=== PATIENT | male | born 1945 | race Caucasian/White ===

== ENCOUNTER 2024-07-21 11:00 | Inpatient (IN) | payer OTHER, SELFPAY ==
--- NOTE | ~2024-07-21 | XR_ITS ---
EXAMINATION: XR CHEST CLINICAL INFORMATION: fall, injury COMPARISON: None available. TECHNIQUE: Frontal view of the chest was obtained. FINDINGS: Mild elevation left hemidiaphragm. The cardiac, hilar, and mediastinal contours appear normal. The lungs are clear. No pneumothorax, consolidation, or effusion. No definite acute fractures seen. There are old healed right rib fractures. There are spinal and right shoulder joint degenerative changes. XR/XR chest 1V IMPRESSION: No active disease. No acute finding. Electronically signed by: Jerome Jung MD 07/21/2024 12:14 PM [facility]
--- NOTE | ~2024-07-21 | CT_ITS ---
CLINICAL HISTORY: abdominal pain CT abdomen and pelvis without contrast Comparison: None Findings: The lung bases are clear. The liver, gallbladder, spleen and adrenal glands are unremarkable. The pancreas is mildly atrophic. The kidneys exhibit severe hydroureteronephrosis related to an extremely distended bladder. Questioned debris versus soft tissue within the bladder The prostate gland is enlarged. No bowel obstruction or free air. No acute osseous abnormality. Severe atherosclerotic disease Impression: Severe bilateral hydroureteronephrosis related to extremely distended bladder as detailed suspect bladder outlet obstruction Questioned debris versus soft tissue within the bladder Several additional incidental and/or chronic findings This document has been electronically signed by: Jarod Dickerson MD on 08/22/2024 10:50:43
--- NOTE | ~2024-07-21 | CT_ITS ---
EXAMINATION: CT CERVICAL SPINE WITHOUT CONTRAST CLINICAL INFORMATION: Status post fall. COMPARISON: None available. TECHNIQUE: Contiguous axial images through the cervical spine using 3 mm collimation with bone and soft tissue algorithm. Sagittal and coronal reformatted images acquired. This CT examination was performed using dose optimization techniques as appropriate, variously including the following: *Automated exposure control *Adjustment of mA and/or kV according to patient size (this includes techniques or standardized protocols for targeted exams where dose is matched to indication/reason for exam; i.e. extremities or head) *Use of iterative reconstruction technique. DLP: 542.84 mGy centimeter. FINDINGS: Craniocervical junction is intact. There is a partially calcified pannus formation, periodontal. C1 is intact. C2 is intact. C3 is intact. C4 is intact. C5 is intact. C3 C6 is intact. C3 7 is intact. Multilevel marginal osteophyte formation and endplate sclerosis and irregularity with decreased intervertebral disc height more conspicuous at C5-6 and C7-T1 and to a lesser extent C3-4. Chondrocalcinosis at C3-4. Calcifications of the ligamentum flavum from C2-3 to C6-7 levels. Bilateral facet joint hypertrophy from C3 to C7. No gross malalignment. Superior endplate compression deformity at C7 representing 30% volume loss, probably old. No gross prevertebral compartment hematoma. Calcified plaques in the carotic artery system bilaterally. Osteopenia versus osteoporosis. CT/CT cervical spine wo IV con IMPRESSION: Multilevel cervical spondylosis without gross acute fracture or trauma-related listhesis. If patient's symptoms persist consider noncontrast MRI cervical spine. Fleischner guidelines were followed. Electronically signed by: Galdino Boogie MD 07/21/2024 11:59 AM PILO
--- NOTE | ~2024-07-21 | XR_ITS ---
EXAMINATION: XR HIP, RIGHT CLINICAL INFORMATION: pain, injury COMPARISON: None available. TECHNIQUE: Two views of the right hip. FINDINGS: Osteopenia. There is an acute fracture line traversing the right intertrochanteric region without displacement. There are 3 compression screws within the right femoral head, fixating old fracture. No loosening of the hardware is evident. Hardware appears intact. The left hip demonstrates intramedullary hilary with compression screw in the left femoral head. No definite acute fracture. The pelvis appears intact without definite fracture radiographically. There are degenerative changes in the lower lumbar spine and bilateral SI joints. No discrete soft tissue abnormalities. XR/XR hip RT w PEL1V IMPRESSION: 1. Acute intertrochanteric hip fracture, superimposed on the old healed subcapital right hip fracture. 2. No displacement or loosening of the hardware. Electronically signed by: Jerome Jung MD 07/21/2024 12:19 PM [facility]
--- NOTE | ~2024-07-21 | XR_ITS ---
EXAMINATION: XR HIP, RIGHT CLINICAL INFORMATION: R hip fx COMPARISON: July 21, 2024. TECHNIQUE: Two views of the right hip. FINDINGS: There are 3 intact metallic screws through the right femoral head neck and intertrochanteric region. No acute cortical disruption or malalignment, right hip. Intramedullary hilary in the proximal left femur no fully included. Metallic transfixation screw through the left femoral head neck. Osteopenia versus osteoporosis. Degenerative changes in the sacroiliac joints and symphysis pubis. XR/XR hip RT w PEL1V IMPRESSION: No acute fracture or dislocation, right hip. If patient's symptoms persist consider CT. Electronically signed by: Galdino Boogie MD 08/04/2024 09:40 AM [facility]
--- NOTE | ~2024-07-21 | CT_ITS ---
EXAMINATION: CT HEAD WITHOUT CONTRAST CLINICAL INFORMATION: fall, injury COMPARISON: None available. TECHNIQUE: Contiguous axial imaging was performed from the skull base to vertex without intravenous administration of contrast. This CT examination was performed using dose optimization techniques as appropriate, variously including the following: *Automated exposure control *Adjustment of mA and/or kV according to patient size (this includes techniques or standardized protocols for targeted exams where dose is matched to indication/reason for exam; i.e. extremities or head) *Use of iterative reconstruction technique DLP: 842.68 mGy-cm FINDINGS: The bony calvarium is intact. The skull base is intact. No acute intracranial hemorrhage, mass effect, midline shift, hydrocephalus or herniation. Cronin-white matter differentiation is normal. Posterior cranial fossa contents demonstrated no acute intracranial hemorrhage or mass effect. Bilateral multifocal patchy and confluent deep periventricular white matter hypodensities involving centrum semiovale and valentino radiata and brainstem, the most conspicuous in the right midline of the radhames. Prominence of the extra-axial CSF spaces cerebral sulci and ventricles. Soft tissue contusion and right parietal scalp. Calcified plaques in the cavernous segments both ICAs. Mucosal thickening, ethmoid air cells. Small retention cysts versus polyp in the left nasal cavity. Tympanic cavities and mastoid cells are aerated. No hematoma in the intraconal or extraconal compartments of the orbits. CT/CT head/brain wo IV con IMPRESSION: No acute fracture, bony calvarium. No acute intracranial hemorrhage. Small vessel occlusive disease. Superimposed acute nonhemorrhagic stroke/ischemia cannot be entirely excluded, particularly involving the infratentorial compartment/right mid radhames. Electronically signed by: Galdino Boogie MD 07/21/2024 11:52 AM EST
--- NOTE | ~2024-07-21 | XR_ITS ---
CLINICAL HISTORY: constipation, abd pain 1 view abdomen Comparison: None Findings: No pneumoperitoneum or pneumatosis. No abnormal calcifications. No acute fractures. IMPRESSION: The bowel gas pattern is within normal limits. No bowel obstruction or free air. No significant fecal retention by radiograph. This document has been electronically signed by: Jarod Dickerson MD on 08/22/2024 09:30:35
--- NOTE | 2024-07-21 11:06 | ED_ITS ---
HPI - General Adult General Chief complaint: Fall Stated complaint: FALL,RT HIP PAIN PER EMS Time Seen by Provider: 07/21/24 11:05 Source: patient and EMS Mode of arrival: EMS Limitations: no limitations History of Present Illness ED Provider: María Elena Ny PA-C HPI narrative: Patient is a 78 year old assigned male at with a history of DM, HTN, tobacco use (3 packs per day), and previous bilateral hip surgeries presenting to the emergency department today with right hip pain after a slip and fall. Patient states that he was attempting to get back into his niece's house when he slipped and fell, landing on his right hip. Patient states that he did not hit his head and did not have any loss of consciousness. Patient denies any dizziness, lightheadedness, abdominal pain, nausea, vomiting, fever, chills, blurry vision, double vision, loss of vision, chest pain, difficulty breathing, shortness of breath, back pain, night sweats, pain with urination, increased urinary frequency, increased urinary urgency, blood in his urine or stool, syncope or a near syncopal episode, bowel incontinence, bladder incontinence, or any other complaints at this time. Location: right and lower extremity (hip) Relieving factors: immobilization Exacerbating factors: movement Associated symptoms: denies other symptoms Treatments prior to arrival: none Related Data Allergies Allergy/AdvReac Type Severity Reaction Status Date / Time morphine Allergy Unknown Verified 07/21/24 12:35 Review of Systems 2 Constitutional: Constitutional: Reports no additional constitutional complaints, Denies chills, Denies fever(s) and Denies night sweats Eyes: Eyes: Reports no additional eye complaints, Denies blurry vision, Denies change in vision, Denies diplopia, Denies eye discharge, Denies loss of vision and Denies eye pain ENT: Denies dizziness Cardiovascular: Cardiovascular: Reports no additional cardiovascular complaints, Denies chest pain, Denies lightheadedness, Denies Loss of Consciousness and Denies dyspnea Respiratory: Respiratory: Reports no additional respiratory complaints and Denies dyspnea Gastrointestinal: Gastrointestinal: Reports no additional gastrointestinal complaints, Denies abdominal pain, Denies melena, Denies hematochezia, Denies change in bowel habits and Denies change in stool character Genitourinary: Genitourinary: Reports no additional male genitourinary complaints, Denies hematuria, Denies oliguria, Denies difficulty urinating, Denies dysuria, Denies urinary frequency, Denies urinary hesitancy, Denies urinary incontinence and Denies urinary urgency Musculoskeletal: Musculoskeletal: Reports no additional musculoskeletal complaints, Denies numbness and Denies tingling Comments: right hip pain Neurologic: Denies dizziness, Denies loss of vision, Denies numbness and Denies tingling Psychiatric: Psychiatric: Reports no additional psychiatric complaints Endocrine: Endocrine: Reports no additional endocrine complaints Hematologic/Lymphatic: Hematologic/Lymphatic: Reports no additional hematologic/lymphatic complaints Allergic/Immunologic: Allergic/Immunologic: Reports no additional allergic/immunologic complaints [facility] Past Medical History Attestation statement: The following information was validated with the patient. Source: old records reviewed, nursing notes reviewed and other ([facility] Medical Records reviewed) Social History Social History Advance Directives: No Advance Directives Information Provided: Yes Physical Exam ED Vital Signs: Vital Signs - 24 hr 07/21/24 12:33 Pulse Rate 101 H Respiratory Rate 20 Blood Pressure 132/92 H Pulse Oximetry 95 Oxygen Delivery Method Room Air BMI result Body Mass Index 32.6 Const General: cooperative, no acute distress, alert and awake Nutritional Appearance: well nourished Orientation/consciousness: patient oriented x3 Limitations: no limitations HENMT Head: Yes normal to inspection and Yes atraumatic Ears: hearing grossly normal bilaterally and external ears normal General nose exam: Normal external nose present, no nasal discharge noted and no epistaxis Face and sinus: Yes normal facial exam, No abrasion and No laceration Mouth: Normal oral and palatal mucosa present, no drooling and no muffled voice Eyes General: appearance normal, both eyes and all related structures Periorbital: periorbital findings normal Eyelids: Yes eyelids normal Conjunctivae: conjunctivae normal Pupils: Equal, round and reactive pupils present EOM: EOMs intact bilaterally Neck Neck: Yes normal visual inspection, Yes full ROM and Yes no lymphadenopathy Chest Chest palpation & inspection: normal inspection of the chest Resp Effort & Inspection: normal respiratory effort and able to speak in complete sentences GI Inspection: Yes normal to inspection Back/Spine/Pelvis Other: right hip pain wiht palpation and ROM Neuro General: patient oriented x3 and moves all extremities Cranial nerves: Yes Equal, round and reactive pupils present Cognition (Neuro): normal cognition Extrem General: Yes normal to inspection, Yes full ROM and Yes capillary refill normal Psych Appearance: grossly normal Mental Status: mental status grossly normal Affect: normal affect Attitude: cooperative Thought process: Normal thought process present Thought content: Normal thought content present Insight: Good insight present (Psych) Medications Administered Discontinued Medications Generic Name Dose Route Start Last Admin Trade Name Meghann PRN Reason Stop Dose Admin Acetaminophen 1,000 mg in 100 mls @ 400 mls/hr 07/21/24 12:52 07/21/24 12:57 Ofirmev IV 07/21/24 13:06 400 mls/hr ONCE ONE Administration Morphine Sulfate 4 mg 07/21/24 11:07/21/24 12:58 Morphine Sulfate 4 Mg/Ml Cartridge IVPUSH 07/21/24 11:07 Not Given ONCE ONE Protocol Ondansetron HCl 4 mg 07/21/24 11:06 07/21/24 12:50 Ondansetron Hcl 4 Mg/2 Ml Vial IVPUSH 07/21/24 11:07 4 mg ONCE ONE Administration Medical Decision Making Medical Decision Making MDM Narrative: Patient is a 78 year old assigned male at with a history of DM, HTN, tobacco use (3 packs per day), and previous bilateral hip surgeries presenting to the emergency department today with right hip pain after a slip and fall. Patient's physical exam was as noted in the physical exam portion of this note. Patient's blood work was unremarkable. Patient's head and c-spine CTs showed no acute process. Patient's right hip and pelvis x-ray showed an acute intertrochanteric hip fracture superimposed on the old healed subcapital right hip fracture with no displacement or loosening of hardware . I spoke to the orthopedic team who stated that the fracture looks stable and the patient can be partial weight bearing on that side with outpatient follow up. I explained my physical exam findings as well as all test results to the patient. I answered all questions asked by the patient. When reviewing the patient's recent visit to [facility] - I discovered the patient is currently homeless. I called and spoke to the patient's niece who was adamant that the patient is not allowed back at her house and he is to go to the [place] [facility] in [place] ([phone]). She states that the [facility], when [facility] the [facility] and [facility] back to [facility]. Patient was then to go to the [facility]'s home however, he was also declined from there and told EMS to drive him back to his niece's house which is where he slipped and injured himself today. [facility] of [facility] called and repeated the same information to me about the patient being now homeless and needing housing assistance. Physical therapy evaluation and case management consults placed. Patient will remain in physician observation until these are completed. Patient is a full code and a diabetic diet has been ordered. Will request nursing complete a med reconciliation. Differential Diagnosis Differential Diagnoses: The differential diagnosis associated with the presentation includes Slip and fall Right hip fracture Homelessness Admission/Observation Consideration of admission/observation: Escalation of care including admission/observation considered Patient would have been admitted to the hospital had his work up had any findings where hospital admission was appropriate and his clinical presentation warranted hospital admission. Consult Healthcare Provider Management of the patient was discussed with: Air Intelligence Officer (spoke to the orthopedic team (Monique and Dr. Young) as noted in the MDM Rationale portion of this note.) Lab Data [facility] Lab Attestation statement: I reviewed the patient's lab results. My interpretation of these results are in the MDM Rationale portion of this note. 07/21/24 12:22 07/21/24 12:22 Labs: Lab Results 07/21/24 Range/Units 12:22 WBC 10.0 (4.8-10.8) X10*3/uL RBC 4.42 L (4.60-5.80) X10*6/uL Hgb 13.6 L (14.0-18.0) g/dl Hct 38.9 L (42.0-52.0) % MCV 88.0 (80.0-98.0) fL MCH 30.8 (27.0-33.0) pg MCHC 35.0 (31.0-36.0) g/dl RDW 14.5 (11.0-16.0) % Plt Count 288 (160-400) X10*3/uL MPV 9.5 (9.4-12.4) fL Immature Gran % (Auto) 0.5 H (0.0-0.4) % Neut % (Auto) 76.7 H (45-73) % Lymph % (Auto) 15.6 L (20-40) % [place] % (Auto) 5.5 (2-11) % Eos % (Auto) 1.2 (0-4) % Baso % (Auto) 0.5 (0-2) % Lymph # (Auto) 1.6 (1.2-4.9) X10*3/uL [place] # (Auto) 0.6 (0.1-1.2) X10*3/uL Eos # (Auto) 0.1 (0.0-0.4) X10*3/uL Baso # (Auto) 0.1 (0.0-0.2) X10*3/uL Abs Immat Gran (auto) 0.05 H (0.00-0.03) X10*3/uL Absolute Neuts (auto) 7.7 (2.0-8.3) x10*3/uL Absolute Nucleated RBC 0.000 (0.0-0.012) X10*3/uL Nucleated RBC % (auto) 0.0 (0.0-0.2) /100WBC PT 13.5 H (10.9-12.4) SEC INR 1.2 H (0.9-1.1) APTT 29.3 (26.0-36.8) SEC Sodium 142 (135-145) mmol/L Potassium 3.4 (3.3-5.1) mmol/L Chloride 106 (96-108) mmol/L Carbon Dioxide 25 (22-29) mmol/L Anion Gap 14 (12-20) BUN 11 (9-16) mg/dL Creatinine 0.86 (0.5-1.4) mg/dL Estim Creat Clear Calc 86.3 Estimated GFR > 60 Random Glucose 181 H (60-115) mg/dL Calcium 7.9 L (8.4-10.2) mg/dL Total Bilirubin 0.4 (0.0-1.0) mg/dL AST 23 (5-37) U/L ALT 7 (0-40) U/L Alkaline Phosphatase 58 (39-117) U/L Total Protein 6.6 (6.5-8.0) g/dL Albumin 3.4 L (3.5-5.0) g/dL Independent Interpretation I performed an independent interpretation of an: Plain X-Ray and CT Scan Interpretation: My interpretation is in agreement with the radiologist's impression of these imaging studies. L EXAMINATION: XR CHEST CLINICAL INFORMATION: fall, injury COMPARISON: None available. TECHNIQUE: Frontal view of the chest was obtained. FINDINGS: Mild elevation left hemidiaphragm. The cardiac, hilar, and mediastinal contours appear normal. The lungs are clear. No pneumothorax, consolidation, or effusion. No definite acute fractures seen. There are old healed right rib fractures. There are spinal and right shoulder joint degenerative changes. XR/XR chest 1V IMPRESSION: No active disease. No acute finding. Electronically signed by: Jerome Jung MD 07/21/2024 12:14 PM [facility] Dictated By: Jerome Jung MD Signed By: Electronically signed by Jerome Jung MD 07/21/24 1214 Report Number: [id number]: Total DLP = 0.00 mGy-cm EXAMINATION: CT HEAD WITHOUT CONTRAST CLINICAL INFORMATION: fall, injury COMPARISON: None available. TECHNIQUE: Contiguous axial imaging was performed from the skull base to vertex without intravenous administration of contrast. This CT examination was performed using dose optimization techniques as appropriate, variously including the following: *Automated exposure control *Adjustment of mA and/or kV according to patient size (this includes techniques or standardized protocols for targeted exams where dose is matched to indication/reason for exam; i.e. extremities or head) *Use of iterative reconstruction technique DLP: 842.68 mGy-cm FINDINGS: The bony calvarium is intact. The skull base is intact. No acute intracranial hemorrhage, mass effect, midline shift, hydrocephalus or herniation. Cronin-white matter differentiation is normal. Posterior cranial fossa contents demonstrated no acute intracranial hemorrhage or mass effect. Bilateral multifocal patchy and confluent deep periventricular white matter hypodensities involving centrum semiovale and valentino radiata and brainstem, the most conspicuous in the right midline of the radhames. Prominence of the extra-axial CSF spaces cerebral sulci and ventricles. Soft tissue contusion and right parietal scalp. Calcified plaques in the cavernous segments both ICAs. Mucosal thickening, ethmoid air cells. Small retention cysts versus polyp in the left nasal cavity. Tympanic cavities and mastoid cells are aerated. No hematoma in the intraconal or extraconal compartments of the orbits. CT/CT head/brain wo IV con IMPRESSION: No acute fracture, bony calvarium. No acute intracranial hemorrhage. Small vessel occlusive disease. Superimposed acute nonhemorrhagic stroke/ischemia cannot be entirely excluded, particularly involving the infratentorial compartment/right mid radhames. Electronically signed by: Galdino Boogie MD 07/21/2024 11:52 AM EST RP Dictated By: Galdino Hawkins MD Signed By: Electronically signed by Galdino Fairchild MD 07/21/24 1152 EXAMINATION: XR HIP, RIGHT CLINICAL INFORMATION: pain, injury COMPARISON: None available. TECHNIQUE: Two views of the right hip. FINDINGS: Osteopenia. There is an acute fracture line traversing the right intertrochanteric region without displacement. There are 3 compression screws within the right femoral head, fixating old fracture. No loosening of the hardware is evident. Hardware appears intact. The left hip demonstrates intramedullary hilary with compression screw in the left femoral head. No definite acute fracture. The pelvis appears intact without definite fracture radiographically. There are degenerative changes in the lower lumbar spine and bilateral SI joints. No discrete soft tissue abnormalities. XR/XR hip RT w PEL1V IMPRESSION: 1. Acute intertrochanteric hip fracture, superimposed on the old healed subcapital right hip fracture. 2. No displacement or loosening of the hardware. Electronically signed by: Jerome Jung MD 07/21/2024 12:19 PM EST RP Dictated By: Jerome Jung MD Signed By: Electronically signed by Jerome Jung MD 07/21/24 1219 Report Number: [id number]: Total DLP = 1396.00 mGy-cm EXAMINATION: CT CERVICAL SPINE WITHOUT CONTRAST CLINICAL INFORMATION: Status post fall. COMPARISON: None available. TECHNIQUE: Contiguous axial images through the cervical spine using 3 mm collimation with bone and soft tissue algorithm. Sagittal and coronal reformatted images acquired. This CT examination was performed using dose optimization techniques as appropriate, variously including the following: *Automated exposure control *Adjustment of mA and/or kV according to patient size (this includes techniques or standardized protocols for targeted exams where dose is matched to indication/reason for exam; i.e. extremities or head) *Use of iterative reconstruction technique. DLP: 542.84 mGy centimeter. FINDINGS: Craniocervical junction is intact. There is a partially calcified pannus formation, periodontal. C1 is intact. C2 is intact. C3 is intact. C4 is intact. C5 is intact. C3 C6 is intact. C3 7 is intact. Multilevel marginal osteophyte formation and endplate sclerosis and irregularity with decreased intervertebral disc height more conspicuous at C5-6 and C7-T1 and to a lesser extent C3-4. Chondrocalcinosis at C3-4. Calcifications of the ligamentum flavum from C2-3 to C6-7 levels. Bilateral facet joint hypertrophy from C3 to C7. No gross malalignment. Superior endplate compression deformity at C7 representing 30% volume loss, probably old. No gross prevertebral compartment hematoma. Calcified plaques in the carotic artery system bilaterally. Osteopenia versus osteoporosis. CT/CT cervical spine wo IV con IMPRESSION: Multilevel cervical spondylosis without gross acute fracture or trauma-related listhesis. If patient's symptoms persist consider noncontrast MRI cervical spine. Fleischner guidelines were followed. Electronically signed by: Galdino Boogie MD 07/21/2024 11:59 AM EST Dictated By: Galdino Hawkins MD Signed By: Electronically signed by Galdino Fairchild MD 07/21/24 1159 Radiology Impression Discussion of test interpretation with radiology: I have reviewed the radiologist's reading. Independent Historian Clinical information obtained from an independent historian. History obtained from or confirmed by: EMS (EMS provided additional history and confirmed the history provided by the patient.) and Other (Patient's niece provided additional history and confirmed the history provided by the patient.) Critical Care Time Critical Care Time Critical Care Time: Yes Total Critical Care Time: 34 Attestation: I spent 34 minutes of Critical Care Time with this patient. This does not include time spent on separately reported billable procedures. Discharge Plan Discharge Clinical Impression: Closed hip fracture, Fall from slipping, Homeless Patient Disposition: Still a Patient Print Language: Serbian
[2024-07-21 11:07] VITALS: BP 158/90; PULSE 71; O2SAT 94
[2024-07-21 12:26] LABS: MANUAL DIFF FLAG NO
[2024-07-21 12:28] LABS: Basophils Absolute Auto 0.1 X10*3/uL (0.0-0.2); Basophils Percent Auto 0.5 % (0-2); Eosinophils Absolute Auto 0.1 X10*3/uL (0.0-0.4); Eosinophils Percent Auto 1.2 % (0-4); Hematocrit 38.9 % (42.0-52.0); Hemoglobin 13.6 g/dl (14.0-18.0); Imm Gran Abs Auto 0.05 X10*3/uL (0.00-0.03); Imm Gran Pct Auto 0.5 % (0.0-0.4); Lymphocytes Absolute Auto 1.6 X10*3/uL (1.2-4.9); Lymphocytes Percent Auto 15.6 % (20-40); Mean Corpuscular Hemoglobin 30.8 pg (27.0-33.0); Mean Platelet Volume 9.5 fL (9.4-12.4); Monocytes Absolute Auto 0.6 X10*3/uL (0.1-1.2); Monocytes Percent Auto 5.5 % (2-11); Neutrophils Absolute Auto 7.7 x10*3/uL (2.0-8.3); Neutrophils Percent Auto 76.7 % (45-73); Platelet Count 288 X10*3/uL (160-400); Red Blood Count 4.42 X10*6/uL (4.60-5.80); Red Cell Distribution Width 14.5 % (11.0-16.0)
[2024-07-21 12:33] VITALS: BP 132/92; PULSE 101; RESP 20; O2SAT 95; BMI 32.6
[2024-07-21 12:37] LABS: INTERNATIONAL NORM RATIO 1.2 (0.9-1.1); Prothrombin Time 13.5 SEC (10.9-12.4)
[2024-07-21 12:39] LABS: Partial Thromboplastin Time 29.3 SEC (26.0-36.8)
[2024-07-21 12:44] LABS: Alanine Aminotransferase 7 U/L (0-40); Albumin Level 3.4 g/dL (3.5-5.0); Alkaline Phosphatase 58 U/L (39-117); Anion Gap 14 (12-20); Aspartate Amino Transferase 23 U/L (5-37); Bilirubin Total 0.4 mg/dL (0.0-1.0); Blood Urea Nitrogen 11 mg/dL (9-16); Calcium 7.9 mg/dL (8.4-10.2); Carbon Dioxide 25 mmol/L (22-29); Chloride 106 mmol/L (96-108); Creatinine Clr Calc Pharmacy 86.3; Estimated Glomerular Filt Rate > 60; Glucose Random 181 mg/dL (60-115); Potassium 3.4 mmol/L (3.3-5.1); Sodium 142 mmol/L (135-145); Total Protein 6.6 g/dL (6.5-8.0)
--- OUTSIDE RECORDS SUMMARY | 2024-07-21 12:49 | XMS_ITS | Continuity of Care Document ---
Author Organization [facility] ter Address [address] [place] [id number] Care Team Providers Care Cap Maker Name Role Phone Pedro MACHINE HEEL BUILDER, Anne Primary Care Physician Unav ailable Encounter [facility] Date(s): 07/19/24 - 07/20/[address] [address]- Encounter Diagnosis Altered mental status(Final) - 07/19/24 Discharge Disposition: A-D/C Home Attending Physician: Nata Hook MD Admitting Physician: Nata Hook MD Referring Physician: Not on Staff, Referring MD Encounter Type: Disch ES Allergies, Adverse Reactions, Alerts No Known Allergies Results Radiology Reports * Exam Date Time Procedure Performing Provider Status 07/19/24 12:[address] Head/Brain W/O Contrast Sung Kitchen; Mary (Verified) Notes: (CT Head/Brain W/O Contrast) Reason For Exam: Brain mass or lesion;Other: RESULT: CT Head/Brain W/O Contrast CT Head/Brain W/O Contrast INDICATION: pt coming from home - pts fam states he is acting altered - pt does have hx of dementia- for ems pt anwsered all orientation questions correctly; Reason: Other:; Brain mass or lesion; Clinical Question(s): Hematoma TECHNIQUE: Noncontrast head CT using axial technique and reconstructed in axial and coronal planes.Iterative reconstruction techniques are used to optimize dose and image quality. CTDIvol Head: 46.80 mGy, DLP Head: 774 mGy*cm. COMPARISON: None. FINDINGS: Vice President Media Relations view findings, lines and tubes: None. BRAIN AND EXTRA-AXIAL SPACES: No parenchymal hemorrhage, midline shift, or mass effect. Cronin-white matter differentiation is wellpreserved. No acute infarct. Mild prominence of the ventricles and sulci consistent with parenchymal volume loss. Mild low-density white matter changes. No subarachnoid hemorrhage. No subdural or epidural collection. CALVARIUM, SKULL BASE, AND SOFT TISSUES: No fractures or suspicious bony lesions. Mucosal thickening is seen in the ethmoid sinuses and left sphenoid sinus. The mastoid air cells are well aerated. Visualized orbits and globes are intact. The extracranial soft tissues are unremarkable. IMPRESSION: No acute intracranial pathology. WSN: [id number] Ordering Physician: Alberto Dee Dictated By: Bobbi Bauer MD Dictated Date/Time: 07/19/24 1:14 pm Reviewed By: Bobbi Bauer MD Signed By: Bobbi Bauer MD Signed Date/Time: 07/19/24 1:14 pm Transcribed By: MARJORIE Transcribed Date/Time: 07/19/24 1:10 pm * Exam Date Time Procedure Performing Provider Status 07/19/24 11:47 AM Chest 2 Views Frontal and Lat Mony Enciso; Auth (Verified) Notes: (Chest 2 Views Frontal and Lat) Reason For Exam: Shortness of Breath RESULT: Chest 2 Views Frontal and Lat Chest 2 Views Frontal and Lat Hx of Present Illness: pt coming from home - pts fam states he is acting altered - pt does have hx of dementia- for ems pt anwsered all orientation questions correctly; Reason: Shortness of Breath; Clinical Question(s): CHF COMPARISON: None. FINDINGS: LINES AND TUBES: None. LUNGS AND PLEURA: Clear lungs. Normal pulmonary vascularity. No pleural effusion. No pneumothorax. HEART, MEDIASTINUM AND NIKIA: Heart is normal in size. Normal mediastinal and hilar contour. BONES AND SOFT TISSUES: No acute abnormality. Healed deformity of several right lateral ribs. Degenerative changes seen in the spine and both acromioclavicular joints. IMPRESSION: No acute abnormality. WSN: [id number] Ordering Physician: Alberto Dee Dictated By: Bobbi Bauer MD Dictated Date/Time: 07/19/24 12:51 p Reviewed By: Bobbi Bauer MD Signed By: Bobbi Bauer MD Signed Date/Time: 07/19/24 12:51 pm Transcribed By: MARJORIE Transcribed Date/Time: 07/19/24 12:50 pm Vital Signs Most recent to oldest [Reference Range]: 1 2 3 Oxygen Saturation [94-100 %] 96 % (07/20/24 11:24 AM) 96 % (07/20/24 4:00 AM) 95 % (07/19/24 7:21 PM) Pulse Rate [55-90 bpm] 95 bpm *H* (07/20/24 11:24 AM) 96 bpm *H* (07/20/24 4:00 AM) 97 bpm *H* (07/19/24 7:21 PM) Blood Pressure [90-138/55-84 mm Hg] 136/100mm Hg (07/20/24 11:24 AM) 142/90mm Hg *H* (07/20/24 4:00 AM) 145/95mm Hg *H* (07/19/24 7:21 PM) Respiratory Rate [16-30 br/min] 18 br/min (07/20/24 11:24 AM) 18 br/min (07/20/24 4:00 AM) 12 br/min *L* (07/19/24 7:21 PM) Temperature [96.8-100.4 DegF] 97.5 DegF (07/20/24 11:24 AM) 98.3 DegF (07/19/24 10:43 AM) Mode of Delivery (Oxygen) Room air (07/19/24 7:00 PM) Room air (07/19/24 1:12 PM) Room air (07/19/24 10:43 AM) Blood pressure sites Arm, left (07/19/24 7:00 PM) Temperature Route Oral (07/20/24 11:24 AM) Oral (07/19/24 10:43 AM) Social History Social History Type Response Smoking Status 5-9 cigarettes (betw een 1/4 to 1/2 pack)/day in last 30 days entered on: 07/20/24 Sex Sex Representation Male (finding) EKG study * Event Display: ECG 12-Lead Authored Date: Please click on pdf link to open report * Event Display: ECG 12-Lead Authored Date: Ventricular Rate: 100 BPM QRS Duration: 92 ms Q-T Interval: 382 ms QTC Calculation(Bazett): 492 ms R [place]: -12 degrees T [place]: 51 degrees Normal sinus rhythm with Premature atrial complexes Inferior infarct , age undetermined QTcB > 480 msec Abnormal ECG No previous ECGs available Confirmed by MCKENZIE LOZOYA MD ([id number]) on 07/19/2024 5:22:36 PM [place]: MCKENZIE LOZOYA MD Patient Care team information Personnel Name: Anne Vasquez NP Insurance Providers Guarantor name: [employer] Health Plan Information #: 1 Payer: [employer] [facility] Member Number: [id number] Policy Number: CARMINA Group Number: [employer] [facility] Information #: 2 Payer: [facility] Member Number: [id number] Policy Number: CARMINA Group Number: NA
[2024-07-21] MEDS: ondansetron HCL 4 MG/2 ML VIAL IVPUSH (12:50)
[2024-07-21] MEDS: Acetaminophen 1,000 MG/100 ML PIGGYBACK 400 MG IV (12:57)
[2024-07-21 14:27] VITALS: PULSE 101; O2SAT 95
[2024-07-21] MEDS: Ibuprofen 400 MG TABLET PO ×2 (15:14→23:37)
[2024-07-21 15:23] LABS: Estimated Average Glucose 146 mg/dL; Hemoglobin A1C 180.0889 umol/L; Hemoglobin A1c % 6.7 % (<6.0); Total Hemoglobin (HGBA1C) 3597.9121 umol/L
[2024-07-21 15:28] VITALS: BP 144/96; PULSE 86; RESP 16; TEMP 36.3; O2SAT 95
--- NOTE | 2024-07-21 15:50 | MHC.CM.PN ---
CM consult received on this pt. Per ED provider, pt was previously living with his niece, who was called by ED provider and stated that she does not wish to be contacted about this pt, and that he cannot return to her home. Pt came to the ED after a fall, hip x-ray reveals acute intertrochanteric hip fracture, superimposed on the old healed subcapital right hip fracture. Per ED provider, ortho team consulted and are recommending outpatient follow up. PT evaluated pt and are recommending STR, pt is partial weight bearing. This CM contacted the [facility], they do not have much information on the pt as he was from [place], but they state he is not VA connected. This CM received a phone call from Briana at [facility], [facility] had filed with them when he discharged last month, Briana was inquiring on his discharge plan. Per Briana, pt was going to stay at the [facility] prior to arriving at the hospital. This CM met with pt to obtain information. Per pt, he was living in [place] and was hospitalized for some time, he states they discharged him and he had to take a 2 day bus trip to [place]. Pt states he went to stay at his nieces house on Jul 15, but that she was making him feel like a nervous wreck and treats him like a dog . Pt is unsure of his plan now. This CM called pts benito Berger, unable to reach, voicemail left for her at # [phone]. This CM placed a referral to financial counselor.
[2024-07-21 16:31] LABS: Glucose, Whole Blood 105 mg/dL (60-115)
--- NOTE | 2024-07-21 18:19 | MHC.CM.ED ---
Addendum entered by Diana Owusu 07/21/24 18:49: CM verified with registration that pt has Medicare part A and B [id number]. Pt also has [facility] Care Net. Pt is poor historian. States president said several years ago that all vets are fully covered for health care and medications. Pt does not know if he has medicare, but he states the government takes money from his check. Pt is vague regarding his past history. States he was paying a plaster mold maker for room/board in [place] and that plaster mold maker was stealing money from his bank. States those people moved to [place], so he took a bus here. States he did not know he could not live with his niece. Per [facility], patient is not vet connected. Pt states he was in the service for 2 years during the [place] war. GSSS involved. PT recommending rehab. Pt does not have a qualifying stay. Will make referrals to acute rehab due to hip fx. Per ortho, patient can follow up outpatient with partial weight bearing. Pt is homeless. Uses a cane. States he has a walker at his niece's house. Pt has no services. Vague regarding history. No PCP. No HCP on file. Pt is cooperative, but demanding. Addendum entered by Diana Owusu 07/21/24 18:25: PT recommending STR. Will place referrals. Original Note: CM spoke with patient's niece Celine Chan. Celine states CM can call her with information about patient and disposition, but he cannot stay with her. She states he was yelling at her and making her nervous. States he came to her home uninvited. She has section 8 housing and cannot have him live with her. She is afraid to lose her housing. She states that her uncle is from [place] and was living in [place] until about a week ago. CM reviewing medical record. Will speak with patient. Will review PT assessment.
[2024-07-21 18:23] VITALS: BP 175/104; PULSE 98; RESP 16; TEMP 36.6; O2SAT 96
[2024-07-21] MEDS: Acetaminophen 325 MG TABLET 650 MG PO (19:34)
[2024-07-21] MEDS: oxyCODONE HCl Immed Release 5 MG TABLET PO (19:34)
[2024-07-21 20:06] LABS: Glucose, Whole Blood 197 mg/dL (60-115)
[2024-07-21 20:15] VITALS: BP 138/83; PULSE 110; RESP 20; TEMP 36.9; O2SAT 94
[2024-07-22] MEDS: Melatonin 3 MG TABLET 6 MG PO (02:20)
[2024-07-22] MEDS: Acetaminophen 325 MG TABLET 650 MG PO ×3 (02:20→19:16)
[2024-07-22] MEDS: Ibuprofen 400 MG TABLET PO ×5 (04:57→19:15)
--- NOTE | 2024-07-22 05:01 | PC.NURSE ---
pt medicated per mar.
--- NOTE | 2024-07-22 05:02 | PC.NURSE ---
Took over care from LALI Grubbs, pt was medicated, resting in bed at this time, positive CMS to bilateral extremities.
[2024-07-22 05:45] VITALS: BP 113/74; PULSE 98; RESP 16; TEMP 36.4; O2SAT 94
[2024-07-22 05:46] LABS: Glucose, Whole Blood 125 mg/dL (60-115)
[2024-07-22] MEDS: oxyCODONE HCl Immed Release 5 MG TABLET PO ×3 (06:17→19:15)
--- NOTE | 2024-07-22 06:20 | PC.NURSE ---
medicated for pain management, empty urinal, reposition for comfort. poc taken.
--- NOTE | 2024-07-22 06:40 | PC.NURSE ---
pt did want Tylenol, medicated with PRN for pain managment.
[2024-07-22 07:22] LABS: Glucose, Whole Blood 126 mg/dL (60-115)
--- NOTE | 2024-07-22 10:44 | PHA.MEDREC ---
Addendum entered by Darya Mejia RPh 07/22/24 11:32: MED REC REVIEWED BY MARILY Original Note: Pharmacy Consult ? Medication Reconciliation Pharmacy has completed the medication reconciliation. Patient states he is on to many meds to remember. Patient instructed me to call Celine his niece ([phone]) to confirm his medications, however he doesn't know if she will give me any information due to them having a fight. Asked patient where he fill his medications. Patient states he just moved to [place] from [place]. He was a [facility] at [facility] ([phone]). Call the [facility] and got a list of patients medications. Confirmed patients medications for the 6 months.
[2024-07-22 11:20] LABS: IDNOW Serial# 6674DD1D
[2024-07-22 11:21] LABS: COVID-19 Test Negative (Negative)
--- NOTE | 2024-07-22 11:28 | MHC.CM.ED ---
Patient remains in ER. Reached out to [facility]. Requested if any records from [place] could be retrieved. Waiting to hear back. No bed offers from any of the 3 acute rehab facilities. Continue to monitor for d/c needs.
[2024-07-22 13:14] VITALS: BP 128/72; PULSE 91; RESP 16; TEMP 36.6; O2SAT 95
[2024-07-22 13:21] LABS: Glucose, Whole Blood 113 mg/dL (60-115)
[2024-07-22 16:05] VITALS: BP 136/95; PULSE 103; RESP 20; TEMP 36.7; O2SAT 94
[2024-07-22] MEDS: Omeprazole 20 MG CAPSULE.DR PO (17:01)
[2024-07-22] MEDS: Sucralfate 1 GM TABLET PO ×2 (17:58→19:16)
[2024-07-22 18:17] LABS: Glucose, Whole Blood 195 mg/dL (60-115)
[2024-07-22] MEDS: QUEtiapine Fumarate 25 MG TABLET PO (19:15)
[2024-07-22] MEDS: metFORMIN HCl 1,000 MG TABLET 1000 MG PO (19:15)
[2024-07-22 20:07] LABS: Glucose, Whole Blood 140 mg/dL (60-115)
[2024-07-22 20:20] VITALS: BP 132/78; PULSE 87; RESP 18; TEMP 36.7; O2SAT 97
--- NOTE | 2024-07-22 21:08 | PC.NURSE ---
has had 3 soft stools in hour. States this is chronic for him and normally takes Imodium to make it stop after the first movement--been like this for past 6 months . up to 7x/day at home at times. Stools are soft, no signs of cdiff, non bloody.. imodium requested.
[2024-07-22] MEDS: methocarbamoL 750 MG TABLET PO (21:22)
[2024-07-22] MEDS: Mirtazapine 7.5 MG TABLET PO (21:22)
[2024-07-22] MEDS: Loperamide HCl 2 MG CAPSULE PO (21:22)
[2024-07-23] MEDS: Acetaminophen 325 MG TABLET 650 MG PO ×4 (01:00→20:59)
[2024-07-23] MEDS: Ibuprofen 400 MG TABLET PO ×6 (01:00→20:58)
[2024-07-23] MEDS: oxyCODONE HCl Immed Release 5 MG TABLET PO ×3 (01:00→17:13)
[2024-07-23] MEDS: traZODone HCL 100 MG TABLET 200 MG PO ×2 (01:00→20:57)
[2024-07-23 03:00] VITALS: BP 118/63; PULSE 78; RESP 14; TEMP 36.6; O2SAT 94
[2024-07-23] MEDS: ondansetron HCL 4 MG/2 ML VIAL IVPUSH (04:00)
[2024-07-23 04:53] LABS: Glucose, Whole Blood 132 mg/dL (60-115)
--- NOTE | 2024-07-23 05:12 | PC.NURSE ---
uneventful night. speech/mental status at baseline/A/O x4. +right hip fx superimposed on old. plan for assistance with housing.
[2024-07-23] MEDS: Omeprazole 20 MG CAPSULE.DR PO ×2 (06:17→17:11)
[2024-07-23] MEDS: metFORMIN HCl 1,000 MG TABLET 1000 MG PO ×2 (08:17→20:57)
[2024-07-23] MEDS: Atorvastatin Calcium 80 MG TABLET PO (08:17)
[2024-07-23] MEDS: Sucralfate 1 GM TABLET PO ×4 (08:17→20:58)
[2024-07-23] MEDS: Lidocaine 4 % Patch ADH..PATCH 1 PATCH TRANSDERMA (08:17)
[2024-07-23] MEDS: Tamsulosin HCL 0.4 MG CAPSULE PO (08:17)
[2024-07-23] MEDS: Aspirin 81 MG TAB.CHEW 162 MG PO (08:17)
--- NOTE | 2024-07-23 08:19 | PC.NURSE ---
Awaiting missing 09:00 Calcium + Vitamin D, Vitamin D3, Empagliflozin, Naproxen, Methocarbamol per pharmacy at this time.
[2024-07-23] MEDS: methocarbamoL 750 MG TABLET PO ×2 (08:43→20:57)
[2024-07-23] MEDS: Cholecalciferol (Vitamin D3) 10 MCG TABLET PO (08:43)
[2024-07-23] MEDS: Empagliflozin 25 MG TABLET PO (08:43)
[2024-07-23] MEDS: Calcium + Vitamin D 250 MG TABLET 500 MG PO (08:43)
[2024-07-23] MEDS: NaPROXEN 250 MG TABLET PO (08:43)
[2024-07-23 09:06] LABS: Glucose, Whole Blood 232 mg/dL (60-115)
--- NOTE | 2024-07-23 09:08 | MHC.EDTECH ---
Hourly rounds completed and POC as well it was 232 RN aware (Cordelia) patient is sleeping now comfortably in his bed .
--- NOTE | 2024-07-23 12:15 | PC.NURSE ---
POC at 0900 this am was obtained after Mr. Vivar consumed his breakfast.
[2024-07-23 12:19] LABS: Glucose, Whole Blood 98 mg/dL (60-115)
[2024-07-23] MEDS: Nicotine 14 MG PATCH.TD24 TRANSDERMA (12:19)
--- NOTE | 2024-07-23 14:21 | MHC.CM.ED ---
Patient remains in ER overflow. Acute rehab is not able to offer a bed. Patient is not VA connected for STR. Patient only has Medicare. No [facility]. Patient will not qualify for [facility] at this time because he has not been a resident of [facility] for 30 days. He only came here from [place] on 07/15. He was only staying with his niece. His niece lives in section 8 housing. Patient can't live with niece. Patient is not able to transfer out of bed or ambulate with physical therapy due to pain. Longterm is not appropriate. Tita Carlin CM Director is aware of this. Continue to monitor for d/c needs.
[2024-07-23 14:25] VITALS: BP 94/73; PULSE 106; RESP 20; TEMP 36.8; O2SAT 92
[2024-07-23 16:42] LABS: Glucose, Whole Blood 100 mg/dL (60-115)
--- NOTE | 2024-07-23 18:04 | PC.NURSE ---
Patient requesting pain medication at every round. Requested PRN oxycodone, but then refused to take it stating he wants it after dinner. Eventually patient asked for it hours later. Complete bed change performed, patient was reluctant to be washed up at first but did allow it. Asked for imodium stating he feels like he will have diarrhea and insisted on contacting the provider to have medication ordered, provider notified. Patient was advised that medication will not be ordered without symptoms. Patient using urinal, total output 500ml clear yellow urine since 1400. POC ordered before meals and at bedtime with sliding scale, no need for insulin coverage at dinner.
[2024-07-23 20:38] LABS: Glucose, Whole Blood 118 mg/dL (60-115)
[2024-07-23] MEDS: QUEtiapine Fumarate 25 MG TABLET PO (20:58)
[2024-07-23] MEDS: Mirtazapine 7.5 MG TABLET PO (20:58)
[2024-07-23 22:00] VITALS: BP 116/72; PULSE 89; RESP 14; TEMP 36.9; O2SAT 92
--- NOTE | 2024-07-23 23:20 | PC.NURSE ---
Pt resting in bed eyes closed skin pwd respirations even unlabored, snoring. NAD. Will continue to monitor for additional needs.
[2024-07-24] MEDS: oxyCODONE HCl Immed Release 5 MG TABLET PO ×2 (02:37→22:34)
[2024-07-24] MEDS: Ibuprofen 400 MG TABLET PO ×5 (02:37→19:53)
--- NOTE | 2024-07-24 03:06 | PC.NURSE ---
Pt awoke c/o pain in right leg stating its burning Medicated per MAR and repositioned RLE for comfort, offers no additional complaints.
--- NOTE | 2024-07-24 03:57 | PC.NURSE ---
Pt resting comfortably, denies pain reports positive relief from previously administered pain med. Will continue to monitor.
[2024-07-24 04:50] VITALS: BP 115/68; PULSE 97; RESP 16; TEMP 36.4; O2SAT 93
[2024-07-24] MEDS: Acetaminophen 325 MG TABLET 650 MG PO ×3 (05:54→16:52)
[2024-07-24] MEDS: Omeprazole 20 MG CAPSULE.DR PO ×2 (05:54→14:56)
[2024-07-24 07:33] VITALS: BP 121/93; PULSE 90; RESP 12; TEMP 36.4; O2SAT 94
[2024-07-24 07:41] LABS: Glucose, Whole Blood 91 mg/dL (60-115)
[2024-07-24] MEDS: Atorvastatin Calcium 80 MG TABLET PO (07:57)
[2024-07-24] MEDS: metFORMIN HCl 1,000 MG TABLET 1000 MG PO ×2 (07:57→19:52)
[2024-07-24] MEDS: Nicotine 14 MG PATCH.TD24 TRANSDERMA (07:57)
[2024-07-24] MEDS: Sucralfate 1 GM TABLET PO ×4 (07:57→19:53)
[2024-07-24] MEDS: Tamsulosin HCL 0.4 MG CAPSULE PO (07:57)
[2024-07-24] MEDS: Aspirin 81 MG TAB.CHEW 162 MG PO (07:57)
[2024-07-24] MEDS: Lidocaine 4 % Patch ADH..PATCH 1 PATCH TRANSDERMA (07:58)
[2024-07-24] MEDS: Cholecalciferol (Vitamin D3) 10 MCG TABLET PO (09:34)
[2024-07-24] MEDS: Empagliflozin 25 MG TABLET PO (09:34)
[2024-07-24] MEDS: methocarbamoL 750 MG TABLET PO ×3 (09:35→20:51)
[2024-07-24] MEDS: NaPROXEN 250 MG TABLET PO ×2 (09:35→20:51)
--- NOTE | 2024-07-24 10:58 | PC.NURSE ---
assumed care of patient at 0700, poc taken 91, no insulin coverage, patient ate entire breakfast tray. patient is awake, alert, oriented. patient VSS, resp even and unlabored. patient pain initally an 8/10, when reassed patient stated it was a 1 or 2 out of 10. patient uses urinal independently. patient medicated per MAR, takes meds whole with water. patient linens clean/dry/intact. skin noted to be intact.
[2024-07-24 11:44] LABS: Glucose, Whole Blood 106 mg/dL (60-115)
[2024-07-24] MEDS: Calcium + Vitamin D 250 MG TABLET 500 MG PO (11:46)
--- NOTE | 2024-07-24 12:13 | PC.NURSE ---
patient sat up and ate lunch tray, patient medicated per AUG. BUS VAN DRIVER washed patient up after lunch. patient linens clean/dry/intact. patient skin noted to be intact. patient right lower leg has scratches/scabbing in different stages of healing. patient pain assessed 09/24. right knee elevated on two pillows by this RN.
--- NOTE | 2024-07-24 13:21 | PC.NURSE ---
SUPERVISOR COMPOSING ROOM applied male purewick. SUPERVISOR COMPOSING ROOM shaved patient at patients request, patient is very happy after.
[2024-07-24 14:00] VITALS: BP 111/66; PULSE 101; RESP 16; TEMP 36.6; O2SAT 92
--- NOTE | 2024-07-24 16:01 | PC.NURSE ---
patient niece is arrived, brought patient a suitcase and box of patient belongings. niece brought tote bag of medications for patient. family member educated to bring patients meds home so that they do not get misplaced.
--- NOTE | 2024-07-24 16:03 | MHC.CM.ED ---
Patient remains in ER overflow. Patient is unable to transfer out of bed. Received telephone call from Barbara, social media sr strategy manager for [place] [facility]. She can be reached at [phone]. Barbara has been in communication with patient about possible d/c plan. Barriers at this time is patient's inability to ambulate or complete ADL's. Would not be a candiate for [place] [facility] or medical respite at this time. Also unable to stay with sister, Adina, due to relationship issues. Continue to monitor for d/c needs.
[2024-07-24 16:46] LABS: Glucose, Whole Blood 103 mg/dL (60-115)
--- NOTE | 2024-07-24 17:59 | PC.NURSE ---
patient sat up for dinner and ate, patient poc 103, no insulin coverage needed. patient laying down in bed reading book
[2024-07-24] MEDS: QUEtiapine Fumarate 25 MG TABLET PO (19:53)
[2024-07-24] MEDS: Mirtazapine 7.5 MG TABLET PO (20:51)
[2024-07-25 00:33] VITALS: BP 139/78; PULSE 94; RESP 18; TEMP 36.6; O2SAT 96
[2024-07-25] MEDS: Acetaminophen 325 MG TABLET 650 MG PO ×4 (00:38→17:12)
[2024-07-25] MEDS: Ibuprofen 400 MG TABLET PO ×6 (00:41→20:46)
[2024-07-25] MEDS: Omeprazole 20 MG CAPSULE.DR PO ×2 (06:13→15:47)
[2024-07-25] MEDS: oxyCODONE HCl Immed Release 5 MG TABLET PO (06:18)
[2024-07-25 08:06] LABS: Glucose, Whole Blood 84 mg/dL (60-115)
[2024-07-25 08:40] VITALS: BP 136/80; PULSE 89; RESP 16; TEMP 36.3; O2SAT 94
[2024-07-25] MEDS: Calcium + Vitamin D 250 MG TABLET 500 MG PO (09:53)
[2024-07-25] MEDS: Sucralfate 1 GM TABLET PO ×4 (09:53→20:46)
[2024-07-25] MEDS: metFORMIN HCl 1,000 MG TABLET 1000 MG PO ×2 (09:53→20:46)
[2024-07-25] MEDS: methocarbamoL 750 MG TABLET PO ×3 (09:53→20:45)
[2024-07-25] MEDS: Empagliflozin 25 MG TABLET PO (09:53)
[2024-07-25] MEDS: Tamsulosin HCL 0.4 MG CAPSULE PO (09:53)
[2024-07-25] MEDS: Lidocaine 4 % Patch ADH..PATCH 1 PATCH TRANSDERMA (09:54)
[2024-07-25] MEDS: Atorvastatin Calcium 80 MG TABLET PO (09:54)
[2024-07-25] MEDS: Aspirin 81 MG TAB.CHEW 162 MG PO (09:54)
[2024-07-25] MEDS: Cholecalciferol (Vitamin D3) 10 MCG TABLET PO (09:54)
[2024-07-25] MEDS: Nicotine 14 MG PATCH.TD24 TRANSDERMA (09:55)
[2024-07-25] MEDS: NaPROXEN 250 MG TABLET PO ×2 (09:58→20:45)
[2024-07-25 11:24] LABS: Glucose, Whole Blood 146 mg/dL (60-115)
--- NOTE | 2024-07-25 12:51 | MHC.EDTECH ---
pt ate 50% of his lunch
[2024-07-25 14:00] VITALS: BP 144/76; PULSE 93; RESP 18; TEMP 36.4; O2SAT 97
--- NOTE | 2024-07-25 14:34 | MHC.EDTECH ---
pt voided 400 ml
[2024-07-25 17:18] LABS: Glucose, Whole Blood 112 mg/dL (60-115)
--- NOTE | 2024-07-25 19:25 | PC.NURSE ---
Assumed care of patient, patient reading in bed calm no complaints at this time. bed locked in lowest position call tapia within reach. bed alarm on
[2024-07-25 20:33] VITALS: BP 115/70; PULSE 96; RESP 20; TEMP 37.2; O2SAT 94
[2024-07-25 20:35] LABS: Glucose, Whole Blood 119 mg/dL (60-115)
[2024-07-25] MEDS: Mirtazapine 7.5 MG TABLET PO (20:46)
[2024-07-25] MEDS: traZODone HCL 100 MG TABLET 200 MG PO (20:46)
[2024-07-25] MEDS: QUEtiapine Fumarate 25 MG TABLET PO (20:46)
--- NOTE | 2024-07-26 00:13 | MHC.EDTECH ---
This tech took over care of patient at 2330,rounds completed,pt is sleeping resp. rate WNL,bed alarm on for safety,call tapia in reach
[2024-07-26 03:53] VITALS: BP 148/77; PULSE 96; RESP 16; TEMP 36.4; O2SAT 95
[2024-07-26] MEDS: Ibuprofen 400 MG TABLET PO ×5 (03:55→20:05)
[2024-07-26] MEDS: oxyCODONE HCl Immed Release 5 MG TABLET PO (03:55)
[2024-07-26] MEDS: Omeprazole 20 MG CAPSULE.DR PO ×2 (06:00→15:37)
[2024-07-26] MEDS: Acetaminophen 325 MG TABLET 650 MG PO ×3 (06:01→18:15)
[2024-07-26 07:29] LABS: Glucose, Whole Blood 89 mg/dL (60-115)
[2024-07-26] MEDS: Calcium + Vitamin D 250 MG TABLET 500 MG PO (08:58)
[2024-07-26] MEDS: methocarbamoL 750 MG TABLET PO ×3 (08:58→21:35)
[2024-07-26] MEDS: NaPROXEN 250 MG TABLET PO ×2 (08:59→21:35)
[2024-07-26] MEDS: Tamsulosin HCL 0.4 MG CAPSULE PO (08:59)
[2024-07-26] MEDS: Sucralfate 1 GM TABLET PO ×4 (08:59→20:06)
[2024-07-26] MEDS: Aspirin 81 MG TAB.CHEW 162 MG PO (08:59)
[2024-07-26] MEDS: Empagliflozin 25 MG TABLET PO (08:59)
[2024-07-26] MEDS: Nicotine 14 MG PATCH.TD24 TRANSDERMA (08:59)
[2024-07-26] MEDS: Atorvastatin Calcium 80 MG TABLET PO (08:59)
[2024-07-26] MEDS: Cholecalciferol (Vitamin D3) 10 MCG TABLET PO (08:59)
[2024-07-26] MEDS: metFORMIN HCl 1,000 MG TABLET 1000 MG PO ×2 (08:59→20:06)
[2024-07-26] MEDS: Lidocaine 4 % Patch ADH..PATCH 1 PATCH TRANSDERMA (09:00)
[2024-07-26 11:44] LABS: Glucose, Whole Blood 96 mg/dL (60-115)
--- NOTE | 2024-07-26 12:00 | PC.NURSE ---
Assumed care of this patient at 1100, patient repositioned in bed, now quietly reading book, no issues noted at this time.
[2024-07-26 13:31] VITALS: BP 129/85; PULSE 81; RESP 20; TEMP 36.3; O2SAT 97
[2024-07-26 16:34] LABS: Glucose, Whole Blood 95 mg/dL (60-115)
--- NOTE | 2024-07-26 19:03 | PC.NURSE ---
Patient requested bedpan for BM. Patient had small soft BM, personal care provided, barrier cream applied to b/l buttocks for protection. Patient offers no complaints at present, currently resting on a hospital bed, reading a book, call tapia in reach, plan of care ongoing.
[2024-07-26 20:03] LABS: Glucose, Whole Blood 110 mg/dL (60-115)
[2024-07-26] MEDS: QUEtiapine Fumarate 25 MG TABLET PO (20:06)
[2024-07-26] MEDS: Mirtazapine 7.5 MG TABLET PO (21:36)
[2024-07-26 22:16] VITALS: BP 132/69; PULSE 87; RESP 16; TEMP 36.3; O2SAT 95
[2024-07-27] MEDS: Ibuprofen 400 MG TABLET PO ×6 (01:27→21:31)
[2024-07-27] MEDS: Acetaminophen 325 MG TABLET 650 MG PO ×4 (01:27→17:41)
--- NOTE | 2024-07-27 01:32 | PC.NURSE ---
Patient medicated per AUG for 6/10 pain in right hip.
[2024-07-27 05:17] VITALS: BP 156/92; PULSE 87; RESP 18; TEMP 36.6; O2SAT 96
[2024-07-27] MEDS: Omeprazole 20 MG CAPSULE.DR PO ×2 (06:30→16:01)
[2024-07-27 07:18] LABS: Glucose, Whole Blood 92 mg/dL (60-115)
[2024-07-27] MEDS: Tamsulosin HCL 0.4 MG CAPSULE PO (09:14)
[2024-07-27] MEDS: metFORMIN HCl 1,000 MG TABLET 1000 MG PO ×2 (09:14→21:31)
[2024-07-27] MEDS: Atorvastatin Calcium 80 MG TABLET PO (09:15)
[2024-07-27] MEDS: Aspirin 81 MG TAB.CHEW 162 MG PO (09:15)
[2024-07-27] MEDS: Sucralfate 1 GM TABLET PO ×4 (09:15→21:31)
[2024-07-27] MEDS: Cholecalciferol (Vitamin D3) 10 MCG TABLET PO (09:16)
[2024-07-27] MEDS: NaPROXEN 250 MG TABLET PO ×2 (09:16→21:30)
[2024-07-27] MEDS: methocarbamoL 750 MG TABLET PO ×3 (09:16→21:30)
[2024-07-27] MEDS: Empagliflozin 25 MG TABLET PO (09:16)
[2024-07-27] MEDS: Calcium + Vitamin D 250 MG TABLET 500 MG PO (09:17)
[2024-07-27] MEDS: Nicotine 14 MG PATCH.TD24 TRANSDERMA (09:17)
[2024-07-27] MEDS: Lidocaine 4 % Patch ADH..PATCH 1 PATCH TRANSDERMA (09:18)
--- NOTE | 2024-07-27 10:57 | PC.NURSE ---
Pt did have two episodes of watery and soft brown stool this morning. Complete bed changes done both times. Pt requesting immodium, provider alerted and awaiting orders. Pt reporting since he has been here his stool has been soft. Pt is alert, took meds with no issues, ate breakfast. Reporting right hip pain.
[2024-07-27 11:20] LABS: Glucose, Whole Blood 118 mg/dL (60-115)
[2024-07-27] MEDS: Loperamide HCl 2 MG CAPSULE PO (13:11)
[2024-07-27 13:58] LABS: IDNOW Serial# 58CA691E; Influenza A Positive (Negative); Influenza B2 Negative (Negative)
[2024-07-27 14:00] VITALS: BP 132/78; PULSE 102; RESP 16; TEMP 36.7; O2SAT 94
[2024-07-27 14:53] VITALS: TEMP 36.5
[2024-07-27] MEDS: Oseltamivir Phosphate 75 MG CAPSULE PO (16:01)
[2024-07-27 16:20] LABS: Glucose, Whole Blood 79 mg/dL (60-115)
--- NOTE | 2024-07-27 17:30 | PC.NURSE ---
Pt flu+ today. Provider alerted. VSS, no temp. Started on Tamiflu. Precautions in place.
[2024-07-27 21:11] LABS: Glucose, Whole Blood 95 mg/dL (60-115)
[2024-07-27 21:26] VITALS: BP 122/74; PULSE 91; RESP 16; TEMP 36.7; O2SAT 96
[2024-07-27] MEDS: Mirtazapine 7.5 MG TABLET PO (21:30)
[2024-07-27] MEDS: QUEtiapine Fumarate 25 MG TABLET PO (21:30)
[2024-07-28] MEDS: Acetaminophen 325 MG TABLET 650 MG PO ×4 (00:58→18:08)
[2024-07-28] MEDS: Ibuprofen 400 MG TABLET PO ×5 (00:59→20:56)
[2024-07-28 06:14] VITALS: BP 158/96; PULSE 87; RESP 16; TEMP 36.7; O2SAT 93
[2024-07-28] MEDS: Omeprazole 20 MG CAPSULE.DR PO ×2 (06:17→16:33)
[2024-07-28] MEDS: Aspirin 81 MG TAB.CHEW 162 MG PO (07:59)
[2024-07-28] MEDS: Tamsulosin HCL 0.4 MG CAPSULE PO (07:59)
[2024-07-28] MEDS: metFORMIN HCl 1,000 MG TABLET 1000 MG PO ×2 (07:59→20:55)
[2024-07-28] MEDS: Oseltamivir Phosphate 75 MG CAPSULE PO (07:59)
[2024-07-28] MEDS: Sucralfate 1 GM TABLET PO ×4 (07:59→20:55)
[2024-07-28] MEDS: Atorvastatin Calcium 80 MG TABLET PO (08:00)
[2024-07-28] MEDS: Nicotine 14 MG PATCH.TD24 TRANSDERMA (08:00)
[2024-07-28] MEDS: Lidocaine 4 % Patch ADH..PATCH 1 PATCH TRANSDERMA (08:01)
[2024-07-28 08:03] LABS: Glucose, Whole Blood 92 mg/dL (60-115)
[2024-07-28] MEDS: Empagliflozin 25 MG TABLET PO (09:51)
[2024-07-28] MEDS: Calcium + Vitamin D 250 MG TABLET 500 MG PO (09:51)
[2024-07-28] MEDS: Cholecalciferol (Vitamin D3) 10 MCG TABLET PO (09:52)
[2024-07-28] MEDS: methocarbamoL 750 MG TABLET PO ×3 (09:52→20:55)
[2024-07-28] MEDS: NaPROXEN 250 MG TABLET PO ×2 (09:52→20:55)
--- NOTE | 2024-07-28 10:07 | PC.NURSE ---
Pt has been pleasant, making conversation. C/o Right hip pain and cough. Order for cough med pursued. Palpable right pedal pulse. good CSM of toes. New lidocaine patch applied to right hip and no bruising/deformity noted. Pt has blanchable area on coccyx. repositioned after wound care nurse visit. Pt talks about concerns for housing instability.
--- NOTE | 2024-07-28 13:15 | HO.WOUND ---
Wound Consult: Initial 78yr old?male admitted to [facility] ED Overflow Unit awaiting placement on 07/21/24 - See progress notes and H&P for detailed history.? Wound consult placed for Gluteal Slit area.? Patient agreeable to assessment and photo documentation.? Patient also reports pain to right heel - redness noted remains intact and blanchable but preventative measures taken - off loaded with pillows and foam dressing applied. Recommend RUBI pump to be added to bed and Q 2 hr turns with use of pillows. Coccyx Etiology: ??MASD - IAD (Moisture Associated Skin Damage - Incontinence Associated Dermatitis) Present on Admission Measurements: 3cm x 0.2cm x 0.1cm Wound Bed: moist macerated tissue with pink blanchable tissue Drainage / Odor: none noted Edges: ? mirrored Flor wound: Hyperpigmentation noted - ? No Induration, Fluctuance or Warmth noted Pain: tenderness reported Goals of Treatment: ? Off load pressure and triad to protect from friction and moisture Right Heel Left Heel Bilateral heels noted for intact blanchable redness - foam dressing applied and off loaded with pillows. Recommendations: 1. Turn and Reposition every 2 hours and as needed for patient comfort.? Use pillows or wedges to support off loading positions. 2. Off Load all bony prominences with use of pillows and heel boots if needed.? Apply Preventative foams where needed. ? 3. Monitor for incontinence and moisture control, use barrier creams when needed for prevention and treatment. 4. Provide adequate and supplemental nutrition.? 5. Order low air loss mattress. 6. When applicable maintain blood glucose levels per Providers order. 7. Coccyx - Off Load Pressure with Q2 hr turns and use of pillows - Cleanse with PH balance spray or wipes, pat dry. ?Apply thin layer of Triad to wound bed - only pat and dab no scrub and rub when soiling occurs. Reapply thin layer PRN after each episode of incontinence. 8. Bilateral Heels - Apply skin prep to heels allow to dry. Apply foam dressings to heels to air in pressure redistribution. Off load heels from surface of bed with use of pillows. Re-consult wound care Nurse for wound deterioration or wound changes.
[2024-07-28 14:35] VITALS: BP 146/88; PULSE 99; RESP 19; TEMP 36.8; O2SAT 95
[2024-07-28 15:56] LABS: Creatinine Clr Calc Pharmacy 93.9; Estimated Glomerular Filt Rate > 60
--- NOTE | 2024-07-28 16:11 | PC.NURSE ---
PT with patient at this time.
[2024-07-28] MEDS: QUEtiapine Fumarate 25 MG TABLET PO (20:57)
[2024-07-28 20:59] VITALS: BP 155/94; PULSE 97; RESP 20; TEMP 36.6; O2SAT 93
[2024-07-28] MEDS: traZODone HCL 100 MG TABLET 200 MG PO (20:59)
[2024-07-28] MEDS: guaiFENesin DM 200/20/10 ML 10 ML SYRUP PO (20:59)
[2024-07-28] MEDS: Mirtazapine 7.5 MG TABLET PO (21:37)
--- NOTE | 2024-07-28 22:18 | PC.NURSE ---
Pt reported having NO pain for the first time all day just b/f falling asleep.
--- NOTE | 2024-07-29 01:33 | MHC.EDTECH ---
This tech took over care of patient at 0115 rounds completed,pt is sleeping resp rate WNL,call tapia in reach
[2024-07-29] MEDS: Acetaminophen 325 MG TABLET 650 MG PO ×3 (01:40→23:39)
[2024-07-29] MEDS: Ibuprofen 400 MG TABLET PO ×5 (04:13→20:50)
[2024-07-29 06:00] VITALS: BP 132/84; PULSE 91; RESP 18; TEMP 36.4; O2SAT 94
[2024-07-29] MEDS: Omeprazole 20 MG CAPSULE.DR PO ×2 (06:06→16:22)
--- NOTE | 2024-07-29 06:19 | MHC.EDTECH ---
Hourly rounds and vitals completed,patient repositioned to comfort,emptied 800MLS of urine (yellow) from canister,pt is clean and dry,call tapia in reach
[2024-07-29 07:43] LABS: Glucose, Whole Blood 87 mg/dL (60-115)
[2024-07-29 08:00] VITALS: BP 136/93; PULSE 94; RESP 18; TEMP 36.6; O2SAT 92
[2024-07-29] MEDS: Empagliflozin 25 MG TABLET PO (08:00)
[2024-07-29] MEDS: Calcium + Vitamin D 250 MG TABLET 500 MG PO (08:00)
[2024-07-29] MEDS: metFORMIN HCl 1,000 MG TABLET 1000 MG PO ×2 (08:00→20:50)
[2024-07-29] MEDS: Sucralfate 1 GM TABLET PO ×4 (08:01→20:50)
[2024-07-29] MEDS: methocarbamoL 750 MG TABLET PO ×3 (08:01→20:49)
[2024-07-29] MEDS: Atorvastatin Calcium 80 MG TABLET PO (08:02)
[2024-07-29] MEDS: Cholecalciferol (Vitamin D3) 10 MCG TABLET PO (08:02)
[2024-07-29] MEDS: Aspirin 81 MG TAB.CHEW 162 MG PO (08:03)
[2024-07-29] MEDS: Tamsulosin HCL 0.4 MG CAPSULE PO (08:04)
[2024-07-29] MEDS: Nicotine 14 MG PATCH.TD24 TRANSDERMA (08:13)
[2024-07-29] MEDS: Lidocaine 4 % Patch ADH..PATCH 1 PATCH TRANSDERMA (08:15)
[2024-07-29] MEDS: Oseltamivir Phosphate 75 MG CAPSULE PO (08:16)
[2024-07-29 12:02] LABS: Glucose, Whole Blood 85 mg/dL (60-115)
--- NOTE | 2024-07-29 12:31 | PM.CNOR ---
History of Present Illness [facility] Consult date: 07/29/24 Chief complaint: FALL,RT HIP PAIN PER EMS Narrative: Mr. Vivar is a 78 year old male with a past medical history significant for DM, HTN, tobacco use (3 packs per day), and previous bilateral hip surgeries presenting to the emergency department today with right hip pain after a slip and fall. Patient states that he was attempting to get back into his niece's house when he slipped and fell, landing on his right hip. Review of Systems Review of Systems: Yes all other systems are reviewed and are negative [facility] Social History Social History Smoked in Last 30 Days: No Use of substances other than those prescribed or required for medical reasons: No Advance Directives: No Advance Directives Information Provided: No Meds Allergies Allergy/AdvReac Type Severity Reaction Status Date / Time morphine Allergy Unknown Verified 07/21/24 12:35 Active Medications: Current Medications Acetaminophen (Acetaminophen 325 Mg Tablet) 650 mg PO RQ6H [facility] Last Admin: 07/29/24 06:05 Dose: Not Given Acetaminophen (Acetaminophen 325 Mg Tablet) 650 mg PO TID PRN PRN Reason: Pain Last Admin: 07/29/24 01:40 Dose: 650 mg Aspirin (Aspirin 81 Mg Tab.Chew) 162 mg PO DAILY [facility] Last Admin: 07/29/24 08:03 Dose: 162 mg Atorvastatin Calcium (Atorvastatin Calcium 80 Mg Tablet) 80 mg PO DAILY [facility] Last Admin: 07/29/24 08:02 Dose: 80 mg Calcium Carbonate/Cholecalciferol (Calcium + Vitamin D 250 Mg Tablet) 500 mg PO DAILY [facility] Last Admin: 07/29/24 08:00 Dose: 500 mg Dextrose (Dextrose 50 % 25 Gm/50 Ml Syringe) 25 gm IVPUSH Q15M PRN; Protocol PRN Reason: per Hypoglycemia Standing Ord. Empagliflozin (Empagliflozin 25 Mg Tablet) 25 mg PO DAILY [facility] Last Admin: 07/29/24 08:00 Dose: 25 mg Glucose (Glucose Gel 15 Gm Gel..Gram.) 15 gm PO Q15M PRN; Protocol PRN Reason: per Hypoglycemia Standing Ord. Guaifenesin/Dextromethorphan (Guaifenesin Dm 200/20/10 Ml 10 Ml Syrup) 10 ml PO QID PRN PRN Reason: cough Last Admin: 07/28/24 20:59 Dose: 10 ml Ibuprofen (Ibuprofen 400 Mg Tablet) 400 mg PO RQ4H [facility] Last Admin: 07/29/24 08:04 Dose: 400 mg Lidocaine (Lidocaine 4 % Patch Adh..Patch) 1 patch TRANSDERMA DAILY [facility] Last Admin: 07/29/24 08:15 Dose: 1 patch Meclizine HCl (Meclizine Hcl 12.5 Mg Tablet) 12.5 mg PO DAILY PRN PRN Reason: Vertigo Metformin HCl (Metformin Hcl 1,000 Mg Tablet) 1,000 mg PO BID [facility] Last Admin: 07/29/24 08:00 Dose: 1,000 mg Methocarbamol (Methocarbamol 750 Mg Tablet) 750 mg PO TID [facility] Last Admin: 07/29/24 08:01 Dose: 750 mg Mirtazapine (Mirtazapine 7.5 Mg Tablet) 7.5 mg PO BEDTIME [facility] Last Admin: 07/28/24 21:37 Dose: 7.5 mg Nicotine (Nicotine 14 Mg Patch.Td24) 14 mg TRANSDERMA DAILY [facility] Last Admin: 07/29/24 08:13 Dose: 14 mg Non-Formulary Medication (Salsalate) 1,000 mg PO QID [facility] Omeprazole (Omeprazole 20 Mg Capsule.Dr) 20 mg PO BID@0630,1630 [facility] Last Admin: 07/29/24 06:06 Dose: 20 mg Oseltamivir Phosphate (Oseltamivir Phosphate 75 Mg Capsule) 75 mg PO DAILY [facility] Stop: 07/31/24 23:59 Last Admin: 07/29/24 08:16 Dose: 75 mg Quetiapine Fumarate (Quetiapine Fumarate 25 Mg Tablet) 25 mg PO BEDTIME [facility] Last Admin: 07/28/24 20:57 Dose: 25 mg Sucralfate (Sucralfate 1 Gm Tablet) 1 gm PO QID [facility] Last Admin: 07/29/24 08:01 Dose: 1 gm Tamsulosin HCl (Tamsulosin Hcl 0.4 Mg Capsule) 0.4 mg PO DAILY [facility] Last Admin: 07/29/24 08:04 Dose: 0.4 mg Trazodone HCl (Trazodone Hcl 100 Mg Tablet) 200 mg PO BEDTIME PRN PRN Reason: Sleep Last Admin: 07/28/24 20:59 Dose: 200 mg Vitamin D (Cholecalciferol (Vitamin D3) 10 Mcg Tablet) 10 mcg PO DAILY [facility] Last Admin: 07/29/24 08:02 Dose: 10 mcg Home Medications ?Medication ?Instructions ?Recorded ?Confirmed ?Last Taken ?Type acetaminophen 500 mg tablet 1,000 mg PO TID PRN Pain 07/22/24 07/22/24 Unknown History aspirin 81 mg chewable tablet 162 mg PO DAILY 07/22/24 07/22/24 Unknown History atorvastatin 80 mg tablet 80 mg PO DAILY 07/22/24 07/22/24 Unknown History calcium 600 mg (as 1 tab PO DAILY 07/22/24 07/22/24 Unknown History carbonate)-vitamin D3 10 mcg (400 unit) tablet (Calcium 600 + D(3)) cholecalciferol (vitamin D3) 10 10 mcg PO DAILY 07/22/24 07/22/24 Unknown History mcg (400 unit) capsule (Vitamin D3) empagliflozin 25 mg tablet 25 mg PO DAILY 07/22/24 07/22/24 Unknown History (Jardiance) lidocaine 5 % topical patch 1 patch topical DAILY 07/22/24 07/22/24 Unknown History meclizine 12.5 mg tablet 12.5 mg PO DAILY PRN Vertigo 07/22/24 07/22/24 Unknown History meloxicam 7.5 mg tablet 7.5 mg PO DAILY 07/22/24 07/22/24 Unknown History metformin 1,000 mg tablet 1,000 mg PO BID 07/22/24 07/22/24 Unknown History methocarbamol 750 mg tablet 750 mg PO TID 07/22/24 07/22/24 Unknown History mirtazapine 7.5 mg tablet 7.5 mg PO BEDTIME 07/22/24 07/22/24 Unknown History omeprazole 20 mg capsule,delayed 20 mg PO BID@0630,1630 07/22/24 07/22/24 Unknown History release quetiapine 25 mg tablet (Seroquel) 25 mg PO BEDTIME 07/22/24 07/22/24 Unknown History salsalate 500 mg tablet 1,000 mg PO QID 07/22/24 07/22/24 Unknown History sucralfate 1 gram tablet (Carafate) 1 g PO QID 07/22/24 07/22/24 Unknown History tamsulosin 0.4 mg capsule 0.4 mg PO DAILY 07/22/24 07/22/24 Unknown History trazodone 100 mg tablet 200 mg PO BEDTIME PRN Sleep 07/22/24 07/22/24 Unknown History Physical Exam Vital Signs: Vital Signs: Last Vital Signs Temp 97.9 F 07/29/24 08:00 Pulse 94 07/29/24 08:00 Resp 18 07/29/24 08:00 BP 136/93 H 07/29/24 08:00 Pulse Ox 92 07/29/24 08:00 O2 Del Method Room Air 07/29/24 08:00 BMI result Body Mass Index 32.6 Const: General: cooperative, healthy appearing and no acute distress Resp: Effort & Inspection: normal respiratory effort and able to speak in complete sentences Cardio: Rate: regular rate Peripheral pulses: Peripheral pulses 2+ throughout GI: Palpation (GI): Soft to palpation Skin: Lesions: no lesions Rashes: no rashes Extrem: Other: Right lower extremity normal to inspection. No shortening or external rotation. Able to actively flex to 90 degrees and extend fully with minimal discomfort. Able to dorsiflex and plantar flex. NVI. Results Labs 07/21/24 12:22 07/28/24 14:39 Labs: H & H 07/21/24 Range/Units 12:22 Hgb 13.6 L (14.0-18.0) g/dl Hct 38.9 L (42.0-52.0) % Coagulation 07/21/24 Range/Units 12:22 INR 1.2 H (0.9-1.1) All other labs normal. Assessment and Plan (1) Closed right hip fracture: Status: Acute Plan The case was discussed with Dr. Young as well as the x-rays which reveal an acute on chronic right hip intertroch fracture. The patient may weightbear as tolerated with the use of a walker to assist with ambulation. The patient can follow up outpatient as he had a prior closed reduction and percutaneous pinning of the right hip and the current fracture is stable with the existing hardware. Unfortunately, the patient is a poor historian and unable to fully tell me where or when the right hip was previously operated on. There is no acute orthopedic intervention is warranted at this time. Can follow up with orthopedics outpatient. Procedures Date of Service Date of Service: 07/29/24
[2024-07-29 14:00] VITALS: BP 118/73; PULSE 94; RESP 18; TEMP 36.6; O2SAT 93
--- NOTE | 2024-07-29 15:35 | MHC.CM.ED ---
Patient remains in ER. Unable to get out of bed due to pain. Tita Carlin CM director aware. Leadership aware. Continue to monitor for d/c needs.
[2024-07-29 17:09] LABS: Glucose, Whole Blood 87 mg/dL (60-115)
[2024-07-29] MEDS: Mirtazapine 7.5 MG TABLET PO (20:49)
[2024-07-29] MEDS: guaiFENesin DM 200/20/10 ML 10 ML SYRUP PO (20:49)
[2024-07-29] MEDS: QUEtiapine Fumarate 25 MG TABLET PO (20:50)
[2024-07-29 20:51] LABS: Glucose, Whole Blood 105 mg/dL (60-115)
[2024-07-29 21:29] VITALS: BP 121/78; PULSE 92; RESP 18; TEMP 36.6; O2SAT 94
[2024-07-30] MEDS: Ibuprofen 400 MG TABLET PO ×6 (01:00→20:39)
--- NOTE | 2024-07-30 03:01 | PC.NURSE ---
patient complaining of 9/10 pain and spasms in right hip. Messaged PA about pain management and options for treatment of spasms.
[2024-07-30] MEDS: Omeprazole 20 MG CAPSULE.DR PO ×2 (06:15→16:42)
[2024-07-30] MEDS: Acetaminophen 325 MG TABLET 650 MG PO ×3 (06:15→16:42)
[2024-07-30] MEDS: oxyCODONE HCl Immed Release 5 MG TABLET PO ×2 (06:39→14:44)
[2024-07-30 06:45] VITALS: BP 135/70; PULSE 89; RESP 20; TEMP 36.3; O2SAT 93
[2024-07-30 07:24] LABS: Glucose, Whole Blood 95 mg/dL (60-115)
[2024-07-30] MEDS: Tamsulosin HCL 0.4 MG CAPSULE PO (08:00)
[2024-07-30] MEDS: Aspirin 81 MG TAB.CHEW 162 MG PO (08:00)
[2024-07-30] MEDS: methocarbamoL 750 MG TABLET PO ×3 (08:00→21:48)
[2024-07-30] MEDS: Sucralfate 1 GM TABLET PO ×4 (08:01→21:48)
[2024-07-30] MEDS: Nicotine 14 MG PATCH.TD24 TRANSDERMA (08:01)
[2024-07-30] MEDS: Atorvastatin Calcium 80 MG TABLET PO (08:01)
[2024-07-30] MEDS: Empagliflozin 25 MG TABLET PO (08:01)
[2024-07-30] MEDS: Calcium + Vitamin D 250 MG TABLET 500 MG PO (08:01)
[2024-07-30] MEDS: Oseltamivir Phosphate 75 MG CAPSULE PO (08:01)
[2024-07-30] MEDS: Lidocaine 4 % Patch ADH..PATCH 1 PATCH TRANSDERMA (08:01)
[2024-07-30] MEDS: metFORMIN HCl 1,000 MG TABLET 1000 MG PO ×2 (08:01→21:48)
[2024-07-30] MEDS: Cholecalciferol (Vitamin D3) 10 MCG TABLET PO (08:01)
[2024-07-30 11:19] LABS: Glucose, Whole Blood 101 mg/dL (60-115)
[2024-07-30] MEDS: guaiFENesin DM 200/20/10 ML 10 ML SYRUP PO (11:25)
--- NOTE | 2024-07-30 12:17 | MHC.CM.ED ---
Received notification from Tita Carlin CM Director that patient will be admitted to hospital. Continue to [facility] for d/c needs.
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
--- NOTE | 2024-07-30 14:18 | MHC.EDTECH ---
pt was placed on bedpan for a bowel movement. stool was very loose, penny care was done, new hospital gown and blankets were given. Call tapia and bedside table both within reach.
[2024-07-30 14:40] VITALS: BP 111/75; PULSE 90; RESP 18; TEMP 36.6; O2SAT 95
[2024-07-30] MEDS: Enoxaparin Sodium 40 MG/0.4 ML SYRINGE SUBCUT (14:40)
[2024-07-30] MEDS: 0.9 % Sodium Chloride Flush 3 ML SYRINGE IVFLUSH (16:43)
[2024-07-30 19:16] VITALS: BP 129/88; PULSE 101; RESP 18; TEMP 36.7; O2SAT 93
[2024-07-30 20:41] VITALS: BP 129/88; PULSE 101; RESP 18; TEMP 36.7
[2024-07-30 21:27] VITALS: BP 144/85; PULSE 89; RESP 18; TEMP 36.5; O2SAT 93
[2024-07-30 21:28] VITALS: BMI 28.7
[2024-07-30] MEDS: Mirtazapine 7.5 MG TABLET PO (21:48)
[2024-07-30] MEDS: QUEtiapine Fumarate 25 MG TABLET PO (21:48)
--- NOTE | 2024-07-30 21:57 | PC.NURSE ---
pt arrived from [facility] with outdated iv site - inserted on 07/23?. iv sited dc'd on arrival, per pt, iv site never even used? pt has no iv meds listed other than iv dilaudid and iv zofran that has never been administered? dr nieves notified - ok to keep iv out.
[2024-07-31] MEDS: oxyCODONE HCl Immed Release 5 MG TABLET PO ×3 (01:01→20:15)
[2024-07-31] MEDS: Ibuprofen 400 MG TABLET PO ×6 (01:04→20:10)
[2024-07-31 03:40] VITALS: BP 145/86; PULSE 90; RESP 20; TEMP 37.2; O2SAT 94
[2024-07-31] MEDS: Omeprazole 20 MG CAPSULE.DR PO ×2 (05:06→16:42)
[2024-07-31 06:09] LABS: Hematocrit 39.6 % (42.0-52.0); Hemoglobin 13.9 g/dl (14.0-18.0); Mean Corpuscular HGB Conc 35.1 g/dl (31.0-36.0); Mean Corpuscular Hemoglobin 30.5 pg (27.0-33.0); Mean Platelet Volume 9.5 fL (9.4-12.4); Platelet Count 287 X10*3/uL (160-400); Red Blood Count 4.55 X10*6/uL (4.60-5.80); Red Cell Distribution Width 14.1 % (11.0-16.0)
[2024-07-31 06:33] LABS: Anion Gap 16 (12-20); Blood Urea Nitrogen 11 mg/dL (9-16); Calcium 8.2 mg/dL (8.4-10.2); Carbon Dioxide 20 mmol/L (22-29); Chloride 108 mmol/L (96-108); Creatinine Clr Calc Pharmacy 83.8; Estimated Glomerular Filt Rate > 60; Glucose Random 94 mg/dL (60-115); Potassium 3.6 mmol/L (3.3-5.1); Sodium 140 mmol/L (135-145)
[2024-07-31] MEDS: guaiFENesin DM 200/20/10 ML 10 ML SYRUP PO ×2 (06:56→20:17)
[2024-07-31 07:20] VITALS: BP 141/73; PULSE 98; RESP 16; TEMP 36.4; O2SAT 93
[2024-07-31 07:30] LABS: Glucose, Whole Blood 123 mg/dL (60-115)
[2024-07-31] MEDS: 0.9 % Sodium Chloride Flush 3 ML SYRINGE IVFLUSH ×3 (09:14→20:10)
[2024-07-31] MEDS: Aspirin 81 MG TAB.CHEW 162 MG PO (09:15)
[2024-07-31] MEDS: Calcium + Vitamin D 250 MG TABLET 500 MG PO (09:15)
[2024-07-31] MEDS: methocarbamoL 750 MG TABLET PO ×3 (09:15→20:10)
[2024-07-31] MEDS: Tamsulosin HCL 0.4 MG CAPSULE PO (09:16)
[2024-07-31] MEDS: Empagliflozin 25 MG TABLET PO (09:16)
[2024-07-31] MEDS: Cholecalciferol (Vitamin D3) 10 MCG TABLET PO (09:16)
[2024-07-31] MEDS: Atorvastatin Calcium 80 MG TABLET PO (09:16)
[2024-07-31] MEDS: Lidocaine 4 % Patch ADH..PATCH 1 PATCH TRANSDERMA (09:16)
[2024-07-31] MEDS: Oseltamivir Phosphate 75 MG CAPSULE PO (09:16)
[2024-07-31] MEDS: metFORMIN HCl 1,000 MG TABLET 1000 MG PO ×2 (09:16→20:10)
[2024-07-31] MEDS: Sucralfate 1 GM TABLET PO ×4 (09:16→20:10)
--- NOTE | 2024-07-31 09:16 | P.PNIM_ITS ---
Subjective Subjective Date of Service: 07/31/24 Interval History: seen and examined this AM reports R hip pain with movement and weight bearing denies cardiac or resp symptoms reports diarrhea this AM Review of Systems Negative except HPI/interval history. Physical Exam 2 Vital Signs: Vital Signs: Last Vital Signs Temp 97.5 F 07/31/24 07:20 Pulse 98 07/31/24 07:20 Resp 16 07/31/24 07:20 BP 141/73 H 07/31/24 07:20 Pulse Ox 93 07/31/24 07:20 O2 Del Method Room Air 07/31/24 07:20 BMI result Body Mass Index 28.7 Const: Other: General - no acute distress, appears comfortable Cardiovascular - regular rate and rhythm, S1-S2 Lungs - normal respiratory effort, clear to auscultation bilaterally, no wheezing Abdomen - soft, nontender, no rebound or guarding Extremities - no edema bilaterally; able to lift RLE off bed, limited by pain Neuro - awake and alert, no focal deficits Objective Data Active Medications Acetaminophen (Acetaminophen 325 Mg Tablet) 650 mg PO Q6H PRN PRN Reason: Pain, Mild 1-3,fever,headache Aspirin (Aspirin 81 Mg Tab.Chew) 162 mg PO DAILY [facility] Last Admin: 07/30/24 08:00 Dose: 162 mg Documented By: JONA Atorvastatin Calcium (Atorvastatin Calcium 80 Mg Tablet) 80 mg PO DAILY [facility] Last Admin: 07/30/24 08:01 Dose: 80 mg Documented By: JONA Calcium Carbonate (Calcium Carbonate 750 Mg Tab.Chew) 750 mg PO Q4H PRN PRN Reason: Heartburn Calcium Carbonate/Cholecalciferol (Calcium + Vitamin D 250 Mg Tablet) 500 mg PO DAILY [facility] Last Admin: 07/30/24 08:01 Dose: 500 mg Documented By: JONA Empagliflozin (Empagliflozin 25 Mg Tablet) 25 mg PO DAILY [facility] Last Admin: 07/30/24 08:01 Dose: 25 mg Documented By: JONA Enoxaparin Sodium (Enoxaparin Sodium 40 Mg/0.4 Ml Syringe) 40 mg SUBCUT Q24H [facility] Last Admin: 07/30/24 14:40 Dose: 40 mg Documented By: JONA Guaifenesin/Dextromethorphan (Guaifenesin Dm 200/20/10 Ml 10 Ml Syrup) 10 ml PO QID PRN PRN Reason: cough Last Admin: 07/31/24 06:56 Dose: 10 ml Documented By: KEVIN Hydromorphone HCl (Hydromorphone Hcl 0.5 Mg/0.5 Ml Syringe) 0.25 mg IVPUSH Q4H PRN; Protocol PRN Reason: Pain, Severe (Pain Scale 7-10) Ibuprofen (Ibuprofen 400 Mg Tablet) 400 mg PO RQ4H [facility] Last Admin: 07/31/24 05:06 Dose: 400 mg Documented By: AMAURI Comments: pt in pain post hygiene Lidocaine (Lidocaine 4 % Patch Adh..Patch) 1 patch TRANSDERMA DAILY [facility] Last Admin: 07/30/24 08:01 Dose: 1 patch Documented By: JONA Magnesium Hydroxide (Milk Of Magnesia 30 Ml Oral.Susp) 30 ml PO DAILY PRN PRN Reason: Constipation Meclizine HCl (Meclizine Hcl 12.5 Mg Tablet) 12.5 mg PO DAILY PRN PRN Reason: Vertigo Melatonin (Melatonin 3 Mg Tablet) 6 mg PO BEDTIME PRN PRN Reason: Insomnia Metformin HCl (Metformin Hcl 1,000 Mg Tablet) 1,000 mg PO BID [facility] Last Admin: 07/30/24 21:48 Dose: 1,000 mg Documented By: AMAURI Methocarbamol (Methocarbamol 750 Mg Tablet) 750 mg PO TID [facility] Last Admin: 07/30/24 21:48 Dose: 750 mg Documented By: AMAURI Mirtazapine (Mirtazapine 7.5 Mg Tablet) 7.5 mg PO BEDTIME [facility] Last Admin: 07/30/24 21:48 Dose: 7.5 mg Documented By: AMAURI Nicotine (Nicotine 14 Mg Patch.Td24) 14 mg TRANSDERMA DAILY [facility] Last Admin: 07/30/24 08:01 Dose: 14 mg Documented By: JONA Non-Formulary Medication (Salsalate) 1,000 mg PO QID [facility] Omeprazole (Omeprazole 20 Mg Capsule.Dr) 20 mg PO BID@0630,1630 [facility] Last Admin: 07/31/24 05:06 Dose: 20 mg Documented By: AMAURI Ondansetron HCl (Ondansetron Hcl 4 Mg/2 Ml Vial) 4 mg IVPUSH Q8H PRN PRN Reason: Nausea and Vomiting Oseltamivir Phosphate (Oseltamivir Phosphate 75 Mg Capsule) 75 mg PO DAILY [facility] Stop: 07/31/24 23:59 Last Admin: 07/30/24 08:01 Dose: 75 mg Documented By: JONA Oxycodone HCl (Oxycodone Hcl Immed Release 5 Mg Tablet) 5 mg PO Q6H PRN PRN Reason: Pain, Moderate(Pain Scale 4-6) Last Admin: 07/31/24 06:56 Dose: 5 mg Documented By: KEVIN Quetiapine Fumarate (Quetiapine Fumarate 25 Mg Tablet) 25 mg PO BEDTIME [facility] Last Admin: 07/30/24 21:48 Dose: 25 mg Documented By: AMAURI Sodium Chloride (0.9 % Sodium Chloride Flush 3 Ml Syringe) 3 ml IVFLUSH QSHIFT [facility] Last Admin: 07/30/24 21:49 Dose: Not Given Documented By: AMAURI Non-Admin Reason: No Access Sucralfate (Sucralfate 1 Gm Tablet) 1 gm PO QID [facility] Last Admin: 07/30/24 21:48 Dose: 1 gm Documented By: AMAURI Tamsulosin HCl (Tamsulosin Hcl 0.4 Mg Capsule) 0.4 mg PO DAILY [facility] Last Admin: 07/30/24 08:00 Dose: 0.4 mg Documented By: JONA Trazodone HCl (Trazodone Hcl 100 Mg Tablet) 200 mg PO BEDTIME PRN PRN Reason: Sleep Last Admin: 07/28/24 20:59 Dose: 200 mg Documented By: BETTY Vitamin D (Cholecalciferol (Vitamin D3) 10 Mcg Tablet) 10 mcg PO DAILY [facility] Last Admin: 07/30/24 08:01 Dose: 10 mcg Documented By: JONA Labs 07/31/24 05:51 07/31/24 05:51 Labs: Laboratory Results - last 24 hr 07/30/24 07/31/24 07/31/24 11:15 05:51 07:26 MCV 87.0 MCH 30.5 MCHC 35.1 RDW 14.1 Plt Count 287 MPV 9.5 Absolute Nucleated RBC 0.000 Nucleated RBC % (auto) 0.0 Anion Gap 16 Estim Creat Clear Calc 83.8 Estimated GFR > 60 POC Glucose 101 123 H Random Glucose 94 Calcium 8.2 L Assessment and Plan (1) Closed right hip fracture: Status: Acute Plan Pt is an 79-year-old male significant for HTN, HLD, [id number] type 2 diabetes, BPH, and GERD who was at a prolonged stay in overflow and will be a social admission to the hospital. Given prolonged stay in overflow under physician observation, as well as complicated insurance issues and difficulty with STR/LTR placement, pt will be admitted to the hospital as a social admission for pain control and physical therapy while awaiting placement. Diarrhea monitor for now, unclear how often Acute closed right hip fracture Secondary to mechanical fall on 07/21/2024 Seen and evaluated by ortho who has deemed fracture stable with no acute surgical intervention necessary at this time Pt may weight bear as tolerated with use of walker for ambulation Analgesics for pain management PT evaluation and treatment [id number] type 2 diabetes Blood glucose levels well-controlled, no need for sliding-scale insulin Continue Jardiance and metformin Diabetic diet HLD Continue statin GERD PPI BPH Tamsulosin Mood disorder Continue Seroquel, mirtazapine Full Code DVT pptx - lovenox Quality Stroke Does the patient have a stroke diagnosis?: No VTE Prior VTE?: No VTE Risk Level:: Medical - moderate - high VTE Device Contraindication: Treatment Not Indicated VTE Drug Contraindication: N/A - Med Ordered
[2024-07-31] MEDS: Nicotine 14 MG PATCH.TD24 TRANSDERMA (09:17)
[2024-07-31 10:59] LABS: Glucose, Whole Blood 100 mg/dL (60-115)
--- NOTE | 2024-07-31 11:12 | MHC.CM.PN ---
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
[2024-07-31 12:00] VITALS: BP 155/79; PULSE 101; RESP 18; TEMP 36.6; O2SAT 97
[2024-07-31] MEDS: HYDROmorphone HCl 0.5 MG/0.5 ML SYRINGE 0.25 MG IVPUSH (12:37)
[2024-07-31 13:40] VITALS: BP 155/79; PULSE 101; O2SAT 97
--- NOTE | 2024-07-31 14:37 | PC.NURSE ---
Patient complaining of 8/10 R hip pain, worse with care. Pt has dilaudid 0.25mg ordered for severe pain 7-10. An IV was placed in the Right Wrist and dialudid was administered with good effect.
[2024-07-31] MEDS: Enoxaparin Sodium 40 MG/0.4 ML SYRINGE SUBCUT (14:44)
[2024-07-31 15:44] VITALS: BP 124/72; PULSE 113; RESP 18; TEMP 36.3; O2SAT 94
[2024-07-31 19:20] LABS: CDiff Gene PCR NEGATIVE (Negative)
[2024-07-31 19:26] VITALS: BP 101/70; PULSE 90; RESP 18; TEMP 35.4; O2SAT 92
[2024-07-31] MEDS: Mirtazapine 7.5 MG TABLET PO (20:10)
[2024-07-31] MEDS: QUEtiapine Fumarate 25 MG TABLET PO (20:10)
[2024-07-31] MEDS: traZODone HCL 100 MG TABLET 200 MG PO (20:15)
[2024-07-31] MEDS: ondansetron HCL 4 MG/2 ML VIAL IVPUSH (21:10)
[2024-08-01] VITALS (8 sets, daily range): BP systolic 126–173; BP diastolic 73–98; PULSE 54–104; RESP 16–18; TEMP 36.1–36.9; O2SAT 90–95
[2024-08-01] MEDS: Ibuprofen 400 MG TABLET PO ×4 (05:02→20:41)
[2024-08-01] MEDS: Omeprazole 20 MG CAPSULE.DR PO ×2 (05:02→16:26)
[2024-08-01] MEDS: oxyCODONE HCl Immed Release 5 MG TABLET PO ×2 (05:02→20:40)
[2024-08-01] MEDS: ondansetron HCL 4 MG/2 ML VIAL IVPUSH ×2 (05:03→12:19)
[2024-08-01] MEDS: 0.9 % Sodium Chloride Flush 3 ML SYRINGE IVFLUSH ×3 (09:32→20:41)
[2024-08-01] MEDS: Sucralfate 1 GM TABLET PO ×3 (09:33→20:41)
[2024-08-01] MEDS: Tamsulosin HCL 0.4 MG CAPSULE PO (09:34)
[2024-08-01] MEDS: metFORMIN HCl 1,000 MG TABLET 1000 MG PO ×2 (09:34→20:41)
[2024-08-01] MEDS: Empagliflozin 25 MG TABLET PO (09:34)
[2024-08-01] MEDS: Atorvastatin Calcium 80 MG TABLET PO (09:34)
[2024-08-01] MEDS: Nicotine 14 MG PATCH.TD24 TRANSDERMA (09:34)
[2024-08-01] MEDS: Aspirin 81 MG TAB.CHEW 162 MG PO (09:34)
[2024-08-01] MEDS: methocarbamoL 750 MG TABLET PO ×3 (09:34→20:41)
[2024-08-01] MEDS: Calcium + Vitamin D 250 MG TABLET 500 MG PO (09:34)
[2024-08-01] MEDS: Cholecalciferol (Vitamin D3) 10 MCG TABLET PO (09:34)
[2024-08-01] MEDS: Lidocaine 4 % Patch ADH..PATCH 1 PATCH TRANSDERMA (09:35)
--- NOTE | 2024-08-01 10:46 | HO.PM.IMPN ---
Subjective Subjective Date of Service: 08/01/24 Interval History: seen and examined this AM reports R hip pain with movement and weight bearing denies cardiac or resp symptoms Review of Systems Negative except HPI/interval history. Physical Exam Vital Signs: Vital Signs: Last Vital Signs Temp 98.5 F 08/01/24 08:00 Pulse 72 08/01/24 08:00 Resp 16 08/01/24 08:00 BP 133/81 08/01/24 08:00 Pulse Ox 93 08/01/24 08:00 O2 Del Method Room Air 08/01/24 08:00 BMI result Body Mass Index 28.7 Appearing in no acute distress lung sounds are clear to auscultation heart regular rate rhythm, clear S1, S2 positive bowel sounds, abdomen is soft, nontender neuro patient is alert x3, no focal deficits Objective Data Active Medications Acetaminophen (Acetaminophen 325 Mg Tablet) 650 mg PO Q6H PRN PRN Reason: Pain, Mild 1-3,fever,headache Aspirin (Aspirin 81 Mg Tab.Chew) 162 mg PO DAILY [facility] Last Admin: 08/01/24 09:34 Dose: 162 mg Documented By: CANDICE Atorvastatin Calcium (Atorvastatin Calcium 80 Mg Tablet) 80 mg PO DAILY [facility] Last Admin: 08/01/24 09:34 Dose: 80 mg Documented By: CANDICE Calcium Carbonate (Calcium Carbonate 750 Mg Tab.Chew) 750 mg PO Q4H PRN PRN Reason: Heartburn Calcium Carbonate/Cholecalciferol (Calcium + Vitamin D 250 Mg Tablet) 500 mg PO DAILY [facility] Last Admin: 08/01/24 09:34 Dose: 500 mg Documented By: CANDICE Empagliflozin (Empagliflozin 25 Mg Tablet) 25 mg PO DAILY [facility] Last Admin: 08/01/24 09:34 Dose: 25 mg Documented By: CANDICE Enoxaparin Sodium (Enoxaparin Sodium 40 Mg/0.4 Ml Syringe) 40 mg SUBCUT Q24H [facility] Last Admin: 07/31/24 14:44 Dose: 40 mg Documented By: SHAUNNA Guaifenesin/Dextromethorphan (Guaifenesin Dm 200/20/10 Ml 10 Ml Syrup) 10 ml PO QID PRN PRN Reason: cough Last Admin: 07/31/24 20:17 Dose: 10 ml Documented By: RATNA Hydromorphone HCl (Hydromorphone Hcl 0.5 Mg/0.5 Ml Syringe) 0.25 mg IVPUSH Q4H PRN; Protocol PRN Reason: Pain, Severe (Pain Scale 7-10) Last Admin: 07/31/24 12:37 Dose: 0.25 mg Documented By: SHAUNNA Ibuprofen (Ibuprofen 400 Mg Tablet) 400 mg PO RQ4H [facility] Last Admin: 08/01/24 09:36 Dose: 400 mg Documented By: CANDICE Lidocaine (Lidocaine 4 % Patch Adh..Patch) 1 patch TRANSDERMA DAILY [facility] Last Admin: 08/01/24 09:35 Dose: 1 patch Documented By: CANDICE Magnesium Hydroxide (Milk Of Magnesia 30 Ml Oral.Susp) 30 ml PO DAILY PRN PRN Reason: Constipation Meclizine HCl (Meclizine Hcl 12.5 Mg Tablet) 12.5 mg PO DAILY PRN PRN Reason: Vertigo Melatonin (Melatonin 3 Mg Tablet) 6 mg PO BEDTIME PRN PRN Reason: Insomnia Metformin HCl (Metformin Hcl 1,000 Mg Tablet) 1,000 mg PO BID [facility] Last Admin: 08/01/24 09:34 Dose: 1,000 mg Documented By: CANDICE Methocarbamol (Methocarbamol 750 Mg Tablet) 750 mg PO TID [facility] Last Admin: 08/01/24 09:34 Dose: 750 mg Documented By: CANDICE Mirtazapine (Mirtazapine 7.5 Mg Tablet) 7.5 mg PO BEDTIME [facility] Last Admin: 07/31/24 20:10 Dose: 7.5 mg Documented By: RATNA Nicotine (Nicotine 14 Mg Patch.Td24) 14 mg TRANSDERMA DAILY [facility] Last Admin: 08/01/24 09:34 Dose: 14 mg Documented By: CANDICE Non-Formulary Medication (Salsalate) 1,000 mg PO QID [facility] Omeprazole (Omeprazole 20 Mg Capsule.Dr) 20 mg PO BID@0630,1630 [facility] Last Admin: 08/01/24 05:02 Dose: 20 mg Documented By: RATNA Ondansetron HCl (Ondansetron Hcl 4 Mg/2 Ml Vial) 4 mg IVPUSH Q8H PRN PRN Reason: Nausea and Vomiting Last Admin: 08/01/24 05:03 Dose: 4 mg Documented By: RATNA Oxycodone HCl (Oxycodone Hcl Immed Release 5 Mg Tablet) 5 mg PO Q6H PRN PRN Reason: Pain, Moderate(Pain Scale 4-6) Last Admin: 08/01/24 05:02 Dose: 5 mg Documented By: RATNA Quetiapine Fumarate (Quetiapine Fumarate 25 Mg Tablet) 25 mg PO BEDTIME [facility] Last Admin: 07/31/24 20:10 Dose: 25 mg Documented By: RATNA Sodium Chloride (0.9 % Sodium Chloride Flush 3 Ml Syringe) 3 ml IVFLUSH QSHIFT [facility] Last Admin: 08/01/24 09:32 Dose: 3 ml Documented By: CANDICE Sucralfate (Sucralfate 1 Gm Tablet) 1 gm PO QID [facility] Last Admin: 08/01/24 09:33 Dose: 1 gm Documented By: CANDICE Tamsulosin HCl (Tamsulosin Hcl 0.4 Mg Capsule) 0.4 mg PO DAILY [facility] Last Admin: 08/01/24 09:34 Dose: 0.4 mg Documented By: CANDICE Trazodone HCl (Trazodone Hcl 100 Mg Tablet) 200 mg PO BEDTIME PRN PRN Reason: Sleep Last Admin: 07/31/24 20:15 Dose: 200 mg Documented By: RATNA Vitamin D (Cholecalciferol (Vitamin D3) 10 Mcg Tablet) 10 mcg PO DAILY [facility] Last Admin: 08/01/24 09:34 Dose: 10 mcg Documented By: CANDICE Labs 07/31/24 05:51 07/31/24 05:51 Labs: Laboratory Results - last 24 hr 07/31/24 07/31/24 10:56 17:37 POC Glucose 100 C. difficile Tox B Gene NEGATIVE Assessment and Plan (1) Closed right hip fracture: Status: Acute Plan 79-year-old male significant for HTN, HLD, [id number] type 2 diabetes, BPH, and GERD who was at a prolonged stay in overflow and will be a social admission to the hospital. Given prolonged stay in overflow under physician observation, as well as complicated insurance issues and difficulty with STR/LTR placement, pt admitted to the hospital as a social admission for pain control and physical therapy while awaiting placement. Diarrhea. Resolved monitor for now, unclear how often Acute closed right hip fracture Secondary to mechanical fall on 07/21/2024 Seen and evaluated by ortho who has deemed fracture stable with no acute surgical intervention necessary at this time Pt may weight bear as tolerated with use of walker for ambulation Analgesics for pain management PT evaluation and treatment oob [id number]-orztjthvt type 2 diabetes Blood glucose levels well-controlled, no need for sliding-scale insulin Continue Jardiance and metformin Diabetic diet HLD Continue statin GERD PPI BPH Tamsulosin Mood disorder Continue Seroquel, mirtazapine Full Code DVT pptx - lovenox Quality Stroke Does the patient have a stroke diagnosis?: No VTE Prior VTE?: No VTE Risk Level:: Medical - moderate - high VTE Device Contraindication: Treatment Not Indicated VTE Drug Contraindication: N/A - Med Ordered
[2024-08-01] MEDS: HYDROmorphone HCl 0.5 MG/0.5 ML SYRINGE 0.25 MG IVPUSH (12:20)
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
[2024-08-01] MEDS: Enoxaparin Sodium 40 MG/0.4 ML SYRINGE SUBCUT (14:50)
[2024-08-01] MEDS: Mirtazapine 7.5 MG TABLET PO (20:41)
[2024-08-01] MEDS: guaiFENesin DM 200/20/10 ML 10 ML SYRUP PO (20:41)
[2024-08-01] MEDS: QUEtiapine Fumarate 25 MG TABLET PO (20:41)
[2024-08-02] VITALS (8 sets, daily range): BP systolic 127–170; BP diastolic 86–103; PULSE 91–107; RESP 18; TEMP 36.2–36.9; O2SAT 93–95
[2024-08-02] MEDS: Omeprazole 20 MG CAPSULE.DR PO (05:16)
[2024-08-02] MEDS: Ibuprofen 400 MG TABLET PO (05:16)
[2024-08-02] MEDS: ondansetron HCL 4 MG/2 ML VIAL IVPUSH (05:55)
[2024-08-02] MEDS: Meclizine HCl 12.5 MG TABLET PO (08:10)
[2024-08-02] MEDS: Lidocaine 4 % Patch ADH..PATCH 1 PATCH TRANSDERMA (08:11)
[2024-08-02] MEDS: Calcium + Vitamin D 250 MG TABLET 500 MG PO (08:11)
[2024-08-02] MEDS: Cholecalciferol (Vitamin D3) 10 MCG TABLET PO (08:11)
[2024-08-02] MEDS: Tamsulosin HCL 0.4 MG CAPSULE PO (08:11)
[2024-08-02] MEDS: Aspirin 81 MG TAB.CHEW 162 MG PO (08:11)
[2024-08-02] MEDS: Empagliflozin 25 MG TABLET PO (08:11)
[2024-08-02] MEDS: methocarbamoL 750 MG TABLET PO ×3 (08:11→20:45)
[2024-08-02] MEDS: Atorvastatin Calcium 80 MG TABLET PO (08:11)
[2024-08-02] MEDS: Sucralfate 1 GM TABLET PO ×4 (08:11→20:45)
[2024-08-02] MEDS: Nicotine 14 MG PATCH.TD24 TRANSDERMA (08:13)
[2024-08-02] MEDS: oxyCODONE HCl Immed Release 5 MG TABLET PO ×2 (08:13→20:45)
[2024-08-02] MEDS: metFORMIN HCl 1,000 MG TABLET 1000 MG PO (08:13)
[2024-08-02] MEDS: 0.9 % Sodium Chloride Flush 3 ML SYRINGE IVFLUSH ×2 (08:21→20:47)
[2024-08-02] MEDS: FLUoxetine HCl Oral Solution 20 MG/5 ML SOLUTION 10 MG PO (09:40)
[2024-08-02] MEDS: Famotidine/PF 20 MG/2 ML VIAL IVPUSH (09:41)
--- NOTE | 2024-08-02 10:16 | P.PNIM_ITS ---
Subjective Subjective Date of Service: 08/02/24 Interval History: seen and examined this AM reports R hip pain with movement and weight bearing denies cardiac or resp symptoms reports nausea with dizziness with hx of vertigo Review of Systems Negative except HPI/interval history. Physical Exam 2 Vital Signs: Vital Signs: Last Vital Signs Temp 98.3 F 08/02/24 08:00 Pulse 107 H 08/02/24 08:00 Resp 18 08/02/24 08:00 BP 155/96 H 08/02/24 08:00 Pulse Ox 93 08/02/24 08:00 O2 Del Method Room Air 08/02/24 08:00 BMI result Body Mass Index 28.7 Appearing in no acute distress LSCTA heart regular rate rhythm, clear S1, S2 positive bowel sounds, abdomen is soft, nontender neuro patient is alert x3, no focal deficits Objective Data Active Medications Acetaminophen (Acetaminophen 325 Mg Tablet) 650 mg PO Q6H PRN PRN Reason: Pain, Mild 1-3,fever,headache Aspirin (Aspirin 81 Mg Tab.Chew) 162 mg PO DAILY [facility] Last Admin: 08/02/24 08:11 Dose: 162 mg Documented By: CANDICE Atorvastatin Calcium (Atorvastatin Calcium 80 Mg Tablet) 80 mg PO DAILY [facility] Last Admin: 08/02/24 08:11 Dose: 80 mg Documented By: CANDICE Calcium Carbonate (Calcium Carbonate 750 Mg Tab.Chew) 750 mg PO Q4H PRN PRN Reason: Heartburn Calcium Carbonate/Cholecalciferol (Calcium + Vitamin D 250 Mg Tablet) 500 mg PO DAILY [facility] Last Admin: 08/02/24 08:11 Dose: 500 mg Documented By: CANDICE Empagliflozin (Empagliflozin 25 Mg Tablet) 25 mg PO DAILY [facility] Last Admin: 08/02/24 08:11 Dose: 25 mg Documented By: CANDICE Enoxaparin Sodium (Enoxaparin Sodium 40 Mg/0.4 Ml Syringe) 40 mg SUBCUT Q24H [facility] Last Admin: 08/01/24 14:50 Dose: 40 mg Documented By: CANDICE Famotidine (Famotidine/Pf 20 Mg/2 Ml Vial) 20 mg IVPUSH DAILY [facility] Last Admin: 08/02/24 09:41 Dose: 20 mg Documented By: CANDICE Fluoxetine HCl (Fluoxetine Hcl Oral Solution 20 Mg/5 Ml Solution) 10 mg PO DAILY [facility] Stop: 08/08/24 09:01 Last Admin: 08/02/24 09:40 Dose: 10 mg Documented By: CANDICE Guaifenesin/Dextromethorphan (Guaifenesin Dm 200/20/10 Ml 10 Ml Syrup) 10 ml PO QID PRN PRN Reason: cough Last Admin: 08/01/24 20:41 Dose: 10 ml Documented By: RATNA Hydromorphone HCl (Hydromorphone Hcl 0.5 Mg/0.5 Ml Syringe) 0.25 mg IVPUSH Q4H PRN; Protocol PRN Reason: Pain, Severe (Pain Scale 7-10) Last Admin: 08/01/24 12:20 Dose: 0.25 mg Documented By: CANDICE Ibuprofen (Ibuprofen 400 Mg Tablet) 400 mg PO RQ4H [facility] Last Admin: 08/02/24 09:29 Dose: Not Given Documented By: CANDICE Non-Admin Reason: Physician Approved Lidocaine (Lidocaine 4 % Patch Adh..Patch) 1 patch TRANSDERMA DAILY [facility] Last Admin: 08/02/24 08:11 Dose: 1 patch Documented By: CANDICE Magnesium Hydroxide (Milk Of Magnesia 30 Ml Oral.Susp) 30 ml PO DAILY PRN PRN Reason: Constipation Meclizine HCl (Meclizine Hcl 12.5 Mg Tablet) 12.5 mg PO DAILY PRN PRN Reason: Vertigo Last Admin: 08/02/24 08:10 Dose: 12.5 mg Documented By: CANDICE Melatonin (Melatonin 3 Mg Tablet) 6 mg PO BEDTIME PRN PRN Reason: Insomnia Metformin HCl (Metformin Hcl 1,000 Mg Tablet) 1,000 mg PO BID [facility] Last Admin: 08/02/24 08:13 Dose: 1,000 mg Documented By: CANDICE Methocarbamol (Methocarbamol 750 Mg Tablet) 750 mg PO TID [facility] Last Admin: 08/02/24 08:11 Dose: 750 mg Documented By: CANDICE Mirtazapine (Mirtazapine 7.5 Mg Tablet) 7.5 mg PO BEDTIME [facility] Last Admin: 08/01/24 20:41 Dose: 7.5 mg Documented By: RATNA Nicotine (Nicotine 14 Mg Patch.Td24) 14 mg TRANSDERMA DAILY [facility] Last Admin: 08/02/24 08:13 Dose: 14 mg Documented By: CANDICE Ondansetron HCl (Ondansetron Hcl 4 Mg/2 Ml Vial) 4 mg IVPUSH Q8H PRN PRN Reason: Nausea and Vomiting Last Admin: 08/02/24 05:55 Dose: 4 mg Documented By: RATNA Oxycodone HCl (Oxycodone Hcl Immed Release 5 Mg Tablet) 5 mg PO Q6H PRN PRN Reason: Pain, Moderate(Pain Scale 4-6) Last Admin: 08/02/24 08:13 Dose: 5 mg Documented By: CANDICE Quetiapine Fumarate (Quetiapine Fumarate 25 Mg Tablet) 25 mg PO BEDTIME [facility] Last Admin: 08/01/24 20:41 Dose: 25 mg Documented By: RATNA Sodium Chloride (0.9 % Sodium Chloride Flush 3 Ml Syringe) 3 ml IVFLUSH QSHIFT [facility] Last Admin: 08/02/24 08:21 Dose: 3 ml Documented By: CANDICE Sucralfate (Sucralfate 1 Gm Tablet) 1 gm PO QID [facility] Last Admin: 08/02/24 08:11 Dose: 1 gm Documented By: CANDICE Tamsulosin HCl (Tamsulosin Hcl 0.4 Mg Capsule) 0.4 mg PO DAILY [facility] Last Admin: 08/02/24 08:11 Dose: 0.4 mg Documented By: CANDICE Trazodone HCl (Trazodone Hcl 100 Mg Tablet) 200 mg PO BEDTIME PRN PRN Reason: Sleep Last Admin: 07/31/24 20:15 Dose: 200 mg Documented By: RATNA Vitamin D (Cholecalciferol (Vitamin D3) 10 Mcg Tablet) 10 mcg PO DAILY [facility] Last Admin: 08/02/24 08:11 Dose: 10 mcg Documented By: CANDICE Labs 07/31/24 05:51 07/31/24 05:51 Assessment and Plan (1) Closed right hip fracture: Status: Acute Plan 79-year-old male significant for HTN, HLD, qbe-crfksig-iwzuisdyc type 2 diabetes, BPH, and GERD who was at a prolonged stay in [facility] and will be a social admission to the hospital. Given prolonged stay in [facility] under physician observation, as well as complicated insurance issues and difficulty with STR/LTR placement, pt admitted to the hospital as a social admission for pain control and physical therapy while awaiting placement. Vertigo chronic meclizine as needed Diarrhea. Resolved Acute closed right hip fracture Secondary to mechanical fall on 07/21/2024 Seen and evaluated by ortho who has deemed fracture stable with no acute surgical intervention necessary at this time Pt may weight bear as tolerated with use of walker for ambulation Analgesics for pain management PT evaluation oob daily Gzz-fzdkepy-orqkztczf type 2 diabetes Blood glucose levels well-controlled, no need for sliding-scale insulin Continue Jardiance and metformin Diabetic diet HLD Continue statin GERD PPI BPH Tamsulosin Mood disorder Continue Seroquel, mirtazapine Full Code DVT pptx - lovenox Quality Stroke Does the patient have a stroke diagnosis?: No VTE Prior VTE?: No VTE Risk Level:: Medical - moderate - high VTE Device Contraindication: Treatment Not Indicated VTE Drug Contraindication: N/A - Med Ordered
[2024-08-02] MEDS: Enoxaparin Sodium 40 MG/0.4 ML SYRINGE SUBCUT (14:09)
[2024-08-02] MEDS: Acetaminophen 325 MG TABLET 650 MG PO (14:09)
[2024-08-02 17:36] LABS: CDiff Gene PCR NEGATIVE (Negative)
[2024-08-02] MEDS: Mirtazapine 7.5 MG TABLET PO (20:45)
[2024-08-02] MEDS: QUEtiapine Fumarate 25 MG TABLET PO (20:45)
[2024-08-02] MEDS: HYDROmorphone HCl 0.5 MG/0.5 ML SYRINGE 0.25 MG IVPUSH (23:22)
[2024-08-03] VITALS (8 sets, daily range): BP systolic 119–155; BP diastolic 80–91; PULSE 83–97; RESP 18; TEMP 36–36.8; O2SAT 93–96
[2024-08-03] MEDS: oxyCODONE HCl Immed Release 5 MG TABLET PO ×4 (02:42→22:25)
[2024-08-03] MEDS: guaiFENesin DM 200/20/10 ML 10 ML SYRUP PO ×2 (05:04→13:34)
--- NOTE | 2024-08-03 07:46 | HO.PM.IMPN ---
Subjective Subjective Date of Service: 08/03/24 Interval History: seen and examined this AM reports R hip pain with movement and weight bearing denies cardiac or resp symptoms reports nausea with dizziness with hx of vertigo Review of Systems Negative except HPI/interval history. Physical Exam Vital Signs: Vital Signs: Last Vital Signs Temp 98.3 F 08/03/24 07:19 Pulse 90 08/03/24 07:19 Resp 18 08/03/24 07:19 BP 151/88 H 08/03/24 07:19 Pulse Ox 93 08/03/24 07:19 O2 Del Method Room Air 08/03/24 07:19 BMI result Body Mass Index 28.7 Appearing in no acute distress lung sounds are clear to auscultation heart regular rate rhythm, clear S1, S2 positive bowel sounds, abdomen is soft, nontender neuro patient is alert x3, no focal deficits Objective Data Active Medications Acetaminophen (Acetaminophen 325 Mg Tablet) 650 mg PO Q6H PRN PRN Reason: Pain, Mild 1-3,fever,headache Last Admin: 08/02/24 14:09 Dose: 650 mg Documented By: CANDICE Aspirin (Aspirin 81 Mg Tab.Chew) 162 mg PO DAILY [facility] Last Admin: 08/02/24 08:11 Dose: 162 mg Documented By: CANDICE Atorvastatin Calcium (Atorvastatin Calcium 80 Mg Tablet) 80 mg PO DAILY [facility] Last Admin: 08/02/24 08:11 Dose: 80 mg Documented By: CANDICE Calcium Carbonate (Calcium Carbonate 750 Mg Tab.Chew) 750 mg PO Q4H PRN PRN Reason: Heartburn Calcium Carbonate/Cholecalciferol (Calcium + Vitamin D 250 Mg Tablet) 500 mg PO DAILY [facility] Last Admin: 08/02/24 08:11 Dose: 500 mg Documented By: CANDICE Empagliflozin (Empagliflozin 25 Mg Tablet) 25 mg PO DAILY [facility] Last Admin: 08/02/24 08:11 Dose: 25 mg Documented By: CANDICE Enoxaparin Sodium (Enoxaparin Sodium 40 Mg/0.4 Ml Syringe) 40 mg SUBCUT Q24H [facility] Last Admin: 08/02/24 14:09 Dose: 40 mg Documented By: CANDICE Famotidine (Famotidine/Pf 20 Mg/2 Ml Vial) 20 mg IVPUSH DAILY [facility] Last Admin: 08/02/24 09:41 Dose: 20 mg Documented By: CANDICE Fluoxetine HCl (Fluoxetine Hcl Oral Solution 20 Mg/5 Ml Solution) 10 mg PO DAILY [facility] Stop: 08/08/24 09:01 Last Admin: 08/02/24 09:40 Dose: 10 mg Documented By: CANDICE Guaifenesin/Dextromethorphan (Guaifenesin Dm 200/20/10 Ml 10 Ml Syrup) 10 ml PO QID PRN PRN Reason: cough Last Admin: 08/03/24 05:04 Dose: 10 ml Documented By: ELINA Hydromorphone HCl (Hydromorphone Hcl 0.5 Mg/0.5 Ml Syringe) 0.25 mg IVPUSH Q4H PRN; Protocol PRN Reason: Pain, Severe (Pain Scale 7-10) Last Admin: 08/02/24 23:22 Dose: 0.25 mg Documented By: ELINA Lidocaine (Lidocaine 4 % Patch Adh..Patch) 1 patch TRANSDERMA DAILY [facility] Last Admin: 08/02/24 08:11 Dose: 1 patch Documented By: CANDICE Magnesium Hydroxide (Milk Of Magnesia 30 Ml Oral.Susp) 30 ml PO DAILY PRN PRN Reason: Constipation Meclizine HCl (Meclizine Hcl 12.5 Mg Tablet) 12.5 mg PO BIDWM PRN PRN Reason: vertigo Melatonin (Melatonin 3 Mg Tablet) 6 mg PO BEDTIME PRN PRN Reason: Insomnia Metformin HCl (Metformin Hcl 1,000 Mg Tablet) 1,000 mg PO BID [facility] Last Admin: 08/02/24 08:13 Dose: 1,000 mg Documented By: CANDICE Methocarbamol (Methocarbamol 750 Mg Tablet) 750 mg PO TID [facility] Last Admin: 08/02/24 20:45 Dose: 750 mg Documented By: ELINA Mirtazapine (Mirtazapine 7.5 Mg Tablet) 7.5 mg PO BEDTIME [facility] Last Admin: 08/02/24 20:45 Dose: 7.5 mg Documented By: ELINA Nicotine (Nicotine 14 Mg Patch.Td24) 14 mg TRANSDERMA DAILY [facility] Last Admin: 08/02/24 08:13 Dose: 14 mg Documented By: CANDICE Ondansetron HCl (Ondansetron Hcl 4 Mg/2 Ml Vial) 4 mg IVPUSH Q8H PRN PRN Reason: Nausea and Vomiting Last Admin: 08/02/24 05:55 Dose: 4 mg Documented By: RATNA Oxycodone HCl (Oxycodone Hcl Immed Release 5 Mg Tablet) 5 mg PO Q6H PRN PRN Reason: Pain, Moderate(Pain Scale 4-6) Last Admin: 08/03/24 02:42 Dose: 5 mg Documented By: ELINA Quetiapine Fumarate (Quetiapine Fumarate 25 Mg Tablet) 25 mg PO BEDTIME [facility] Last Admin: 08/02/24 20:45 Dose: 25 mg Documented By: ELINA Sodium Chloride (0.9 % Sodium Chloride Flush 3 Ml Syringe) 3 ml IVFLUSH QSHIFT [facility] Last Admin: 08/02/24 20:47 Dose: 3 ml Documented By: ELINA Sucralfate (Sucralfate 1 Gm Tablet) 1 gm PO QID [facility] Last Admin: 08/02/24 20:45 Dose: 1 gm Documented By: ELINA Tamsulosin HCl (Tamsulosin Hcl 0.4 Mg Capsule) 0.4 mg PO DAILY [facility] Last Admin: 08/02/24 08:11 Dose: 0.4 mg Documented By: CANDICE Trazodone HCl (Trazodone Hcl 100 Mg Tablet) 200 mg PO BEDTIME PRN PRN Reason: Sleep Last Admin: 07/31/24 20:15 Dose: 200 mg Documented By: RATNA Vitamin D (Cholecalciferol (Vitamin D3) 10 Mcg Tablet) 10 mcg PO DAILY [facility] Last Admin: 08/02/24 08:11 Dose: 10 mcg Documented By: CANDICE Labs 07/31/24 05:51 07/31/24 05:51 Labs: Laboratory Results - last 24 hr 07/31/24 08/02/24 17:37 16:18 Stl C. cayetanensis PCR Cancelled Stool Rotavirus A PCR Cancelled Stl Adenov F 40/41 PCR Cancelled Stool Astrovirus (PCR) Cancelled Stool Campylobacter PCR Cancelled Stool Cryptosporidium PCR Cancelled Stl Sh Tox Pr E STEC PCR Cancelled Stool E coli O157 PCR Cancelled Stl Enterotoxigenic E PCR Cancelled Stool EPEC (PCR) Cancelled Stool EAEC (PCR) Cancelled Stl E. histolytica PCR Cancelled Stool Giardia Lamblia PCR Cancelled Stl P. shigelloides PCR Cancelled Stool Salmonella PCR Cancelled Stool Sapovirus (PCR) Cancelled Stl Shigella/EIEC PCR Cancelled St Y.enterocolitica PCR Cancelled Stool Vibrio (PCR) Cancelled Stl Vibrio cholerae PCR Cancelled Stl Norovirus GI/GII PCR Cancelled C. difficile Tox B Gene NEGATIVE Assessment and Plan (1) Closed right hip fracture: Status: Acute Plan 79-year-old male significant for HTN, HLD, [id number] type 2 diabetes, BPH, and GERD who was at a prolonged stay in overflow and will be a social admission to the hospital. Given prolonged stay in overflow under physician observation, as well as complicated insurance issues and difficulty with STR/LTR placement, pt admitted to the hospital as a social admission for pain control and physical therapy while awaiting placement. Vertigo chronic meclizine as needed Diarrhea. Resolved Acute closed right hip fracture Secondary to mechanical fall on 07/21/2024 Seen and evaluated by ortho who has deemed fracture stable with no acute surgical intervention necessary at this time Pt may weight bear as tolerated with use of walker for ambulation Analgesics for pain management PT evaluation encourage oob daily [id number] type 2 diabetes Blood glucose levels well-controlled, no need for sliding-scale insulin Continue Jardiance and metformin Diabetic diet HLD Continue statin GERD PPI BPH Tamsulosin Mood disorder Continue Seroquel, mirtazapine Full Code DVT pptx - lovenox Quality Stroke Does the patient have a stroke diagnosis?: No VTE Prior VTE?: No VTE Risk Level:: Medical - moderate - high VTE Device Contraindication: Treatment Not Indicated VTE Drug Contraindication: N/A - Med Ordered
[2024-08-03] MEDS: HYDROmorphone HCl 0.5 MG/0.5 ML SYRINGE 0.25 MG IVPUSH (08:19)
[2024-08-03] MEDS: FLUoxetine HCl Oral Solution 20 MG/5 ML SOLUTION 10 MG PO (08:20)
[2024-08-03] MEDS: Tamsulosin HCL 0.4 MG CAPSULE PO (08:21)
[2024-08-03] MEDS: Sucralfate 1 GM TABLET PO ×4 (08:21→22:07)
[2024-08-03] MEDS: Aspirin 81 MG TAB.CHEW 162 MG PO (08:21)
[2024-08-03] MEDS: methocarbamoL 750 MG TABLET PO ×3 (08:21→22:08)
[2024-08-03] MEDS: Calcium + Vitamin D 250 MG TABLET 500 MG PO (08:21)
[2024-08-03] MEDS: Atorvastatin Calcium 80 MG TABLET PO (08:21)
[2024-08-03] MEDS: Cholecalciferol (Vitamin D3) 10 MCG TABLET PO (08:22)
[2024-08-03] MEDS: 0.9 % Sodium Chloride Flush 3 ML SYRINGE IVFLUSH ×3 (08:22→22:08)
[2024-08-03] MEDS: Empagliflozin 25 MG TABLET PO (08:29)
[2024-08-03] MEDS: Famotidine/PF 20 MG/2 ML VIAL IVPUSH (08:30)
[2024-08-03] MEDS: Nicotine 14 MG PATCH.TD24 TRANSDERMA (08:34)
[2024-08-03 09:52] LABS: Adenovirus F 40/41 Not Detected (Not Detect.); Astrovirus Not Detected (Not Detect.); Campylobacter Not Detected (Not Detect.); Cryptosporidium Not Detected (Not Detect.); Cyclospora cayetanensis Not Detected (Not Detect.); E. coli EAEC Not Detected (Not Detect.); E. coli EPEC Not Detected (Not Detect.); E. coli ETEC Not Detected (Not Detect.); E. coli STEC Not Detected (Not Detect.); Entamoeba histolytica Not Detected (Not Detect.); Giardia lamblia Not Detected (Not Detect.); Norovirus GI/GII Not Detected (Not Detect.); Plesiomonas shigelloides Not Detected (Not Detect.); Rotavirus A Not Detected (Not Detect.); Salmonella Not Detected (Not Detect.); Sapovirus Not Detected (Not Detect.); Shigella sp./EIEC Not Detected (Not Detect.); Vibrio Not Detected (Not Detect.); Vibrio Cholerae Not Detected (Not Detect.); Yersinia enterocolitica Not Detected (Not Detect.)
[2024-08-03] MEDS: Lidocaine 4 % Patch ADH..PATCH 1 PATCH TRANSDERMA (10:36)
[2024-08-03] MEDS: Enoxaparin Sodium 40 MG/0.4 ML SYRINGE SUBCUT (13:31)
[2024-08-03] MEDS: Mirtazapine 7.5 MG TABLET PO (22:06)
[2024-08-03] MEDS: traZODone HCL 100 MG TABLET 200 MG PO (22:06)
[2024-08-03] MEDS: QUEtiapine Fumarate 25 MG TABLET PO (22:07)
[2024-08-03] MEDS: ondansetron HCL 4 MG/2 ML VIAL IVPUSH (23:08)
[2024-08-04 03:59] VITALS: BP 140/79; PULSE 106; RESP 18; TEMP 36; O2SAT 93
[2024-08-04] MEDS: HYDROmorphone HCl 0.5 MG/0.5 ML SYRINGE 0.25 MG IVPUSH ×2 (04:13→08:39)
[2024-08-04 08:00] VITALS: BP 128/94; PULSE 103; RESP 18; TEMP 36.7; O2SAT 92
--- NOTE | 2024-08-04 08:19 | P.PNIM_ITS ---
Subjective Subjective Date of Service: 08/04/24 Interval History: seen and examined this AM reports R hip pain with movement and weight bearing denies cardiac or resp symptoms reports nausea with dizziness with hx of vertigo improved Review of Systems Negative except HPI/interval history. Physical Exam 2 Vital Signs: Vital Signs: Last Vital Signs Temp 98.1 F 08/04/24 08:00 Pulse 103 H 08/04/24 08:00 Resp 18 08/04/24 08:00 BP 128/94 H 08/04/24 08:00 Pulse Ox 92 08/04/24 08:00 O2 Del Method Room Air 08/04/24 08:00 BMI result Body Mass Index 28.7 Appearing in no acute distress lung sounds are clear to auscultation heart regular rate rhythm, clear S1, S2 positive bowel sounds, abdomen is soft, nontender neuro patient is alert x3, no focal deficits Objective Data Active Medications Acetaminophen (Acetaminophen 325 Mg Tablet) 650 mg PO Q6H PRN PRN Reason: Pain, Mild 1-3,fever,headache Last Admin: 08/02/24 14:09 Dose: 650 mg Documented By: CANDICE Aspirin (Aspirin 81 Mg Tab.Chew) 162 mg PO DAILY [facility] Last Admin: 08/03/24 08:21 Dose: 162 mg Documented By: JAQUI Atorvastatin Calcium (Atorvastatin Calcium 80 Mg Tablet) 80 mg PO DAILY [facility] Last Admin: 08/03/24 08:21 Dose: 80 mg Documented By: JAQUI Calcium Carbonate (Calcium Carbonate 750 Mg Tab.Chew) 750 mg PO Q4H PRN PRN Reason: Heartburn Calcium Carbonate/Cholecalciferol (Calcium + Vitamin D 250 Mg Tablet) 500 mg PO DAILY [facility] Last Admin: 08/03/24 08:21 Dose: 500 mg Documented By: JAQUI Empagliflozin (Empagliflozin 25 Mg Tablet) 25 mg PO DAILY [facility] Last Admin: 08/03/24 08:29 Dose: 25 mg Documented By: JAQUI Enoxaparin Sodium (Enoxaparin Sodium 40 Mg/0.4 Ml Syringe) 40 mg SUBCUT Q24H [facility] Last Admin: 08/03/24 13:31 Dose: 40 mg Documented By: JAQUI Famotidine (Famotidine/Pf 20 Mg/2 Ml Vial) 20 mg IVPUSH DAILY [facility] Last Admin: 08/03/24 08:30 Dose: 20 mg Documented By: JAQUI Fluoxetine HCl (Fluoxetine Hcl Oral Solution 20 Mg/5 Ml Solution) 10 mg PO DAILY [facility] Stop: 08/08/24 09:01 Last Admin: 08/03/24 08:20 Dose: 10 mg Documented By: JAQUI Guaifenesin/Dextromethorphan (Guaifenesin Dm 200/20/10 Ml 10 Ml Syrup) 10 ml PO QID PRN PRN Reason: cough Last Admin: 08/03/24 13:34 Dose: 10 ml Documented By: JAQUI Hydromorphone HCl (Hydromorphone Hcl 0.5 Mg/0.5 Ml Syringe) 0.25 mg IVPUSH Q4H PRN; Protocol PRN Reason: Pain, Severe (Pain Scale 7-10) Last Admin: 08/04/24 04:13 Dose: 0.25 mg Documented By: ELINA Lidocaine (Lidocaine 4 % Patch Adh..Patch) 1 patch TRANSDERMA DAILY [facility] Last Admin: 08/03/24 10:36 Dose: 1 patch Documented By: JAQUI Magnesium Hydroxide (Milk Of Magnesia 30 Ml Oral.Susp) 30 ml PO DAILY PRN PRN Reason: Constipation Meclizine HCl (Meclizine Hcl 12.5 Mg Tablet) 12.5 mg PO BIDWM PRN PRN Reason: vertigo Melatonin (Melatonin 3 Mg Tablet) 6 mg PO BEDTIME PRN PRN Reason: Insomnia Metformin HCl (Metformin Hcl 1,000 Mg Tablet) 1,000 mg PO BID [facility] Last Admin: 08/02/24 08:13 Dose: 1,000 mg Documented By: CANDICE Methocarbamol (Methocarbamol 750 Mg Tablet) 750 mg PO TID [facility] Last Admin: 08/03/24 22:08 Dose: 750 mg Documented By: ELINA Mirtazapine (Mirtazapine 7.5 Mg Tablet) 7.5 mg PO BEDTIME [facility] Last Admin: 08/03/24 22:06 Dose: 7.5 mg Documented By: ELINA Nicotine (Nicotine 14 Mg Patch.Td24) 14 mg TRANSDERMA DAILY [facility] Last Admin: 08/03/24 08:34 Dose: 14 mg Documented By: JAQUI Ondansetron HCl (Ondansetron Hcl 4 Mg/2 Ml Vial) 4 mg IVPUSH Q8H PRN PRN Reason: Nausea and Vomiting Last Admin: 08/03/24 23:08 Dose: 4 mg Documented By: ELINA Quetiapine Fumarate (Quetiapine Fumarate 25 Mg Tablet) 25 mg PO BEDTIME [facility] Last Admin: 08/03/24 22:07 Dose: 25 mg Documented By: ELINA Sodium Chloride (0.9 % Sodium Chloride Flush 3 Ml Syringe) 3 ml IVFLUSH QSHIFT [facility] Last Admin: 08/03/24 22:08 Dose: 3 ml Documented By: ELINA Sucralfate (Sucralfate 1 Gm Tablet) 1 gm PO QID [facility] Last Admin: 08/03/24 22:07 Dose: 1 gm Documented By: ELINA Tamsulosin HCl (Tamsulosin Hcl 0.4 Mg Capsule) 0.4 mg PO DAILY [facility] Last Admin: 08/03/24 08:21 Dose: 0.4 mg Documented By: JAQUI Trazodone HCl (Trazodone Hcl 100 Mg Tablet) 200 mg PO BEDTIME PRN PRN Reason: Sleep Last Admin: 08/03/24 22:06 Dose: 200 mg Documented By: ELINA Vitamin D (Cholecalciferol (Vitamin D3) 10 Mcg Tablet) 10 mcg PO DAILY [facility] Last Admin: 08/03/24 08:22 Dose: 10 mcg Documented By: JAQUI Labs 07/31/24 05:51 07/31/24 05:51 Labs: Laboratory Results - last 24 hr 08/02/24 16:18 Stl C. cayetanensis PCR Not Detected Stool Rotavirus A PCR Not Detected Stl Adenov F 40/41 PCR Not Detected Stool Astrovirus (PCR) Not Detected Stool Campylobacter PCR Not Detected Stool Cryptosporidium PCR Not Detected Stl Sh Tox Pr E STEC PCR Not Detected Stool E coli O157 PCR Not applicable Stl Enterotoxigenic E PCR Not Detected Stool EPEC (PCR) Not Detected Stool EAEC (PCR) Not Detected Stl E. histolytica PCR Not Detected Stool Giardia Lamblia PCR Not Detected Stl P. shigelloides PCR Not Detected Stool Salmonella PCR Not Detected Stool Sapovirus (PCR) Not Detected Stl Shigella/EIEC PCR Not Detected St Y.enterocolitica PCR Not Detected Stool Vibrio (PCR) Not Detected Stl Vibrio cholerae PCR Not Detected Stl Norovirus GI/GII PCR Not Detected Assessment and Plan (1) Closed right hip fracture: Status: Acute Plan 79-year-old male significant for HTN, HLD, [id number] type 2 diabetes, BPH, and GERD who was at a prolonged stay in overflow and will be a social admission to the hospital. Given prolonged stay in overflow under physician observation, as well as complicated insurance issues and difficulty with STR/LTR placement, pt admitted to the hospital as a social admission for pain control and physical therapy while awaiting placement. Acute closed right hip fracture Secondary to mechanical fall on 07/21/2024 Seen and evaluated by ortho who has deemed fracture stable with no acute surgical intervention necessary at this time Pt may weight bear as tolerated with use of walker for ambulation Analgesics for pain management PT evaluation> pt refusing to participate in PT encourage oob daily and with meals FLU A pos 07/27/24 can be off precautions Vertigo chronic meclizine as needed Diarrhea. Resolved stool studies negative [id number] type 2 diabetes Blood glucose levels well-controlled, no need for sliding-scale insulin Continue Jardiance and metformin Diabetic diet HLD Continue statin GERD PPI BPH Tamsulosin Mood disorder Continue Seroquel, mirtazapine Full Code DVT pptx - lovenox Quality Stroke Does the patient have a stroke diagnosis?: No VTE Prior VTE?: No VTE Risk Level:: Medical - moderate - high VTE Device Contraindication: Treatment Not Indicated VTE Drug Contraindication: N/A - Med Ordered
[2024-08-04] MEDS: 0.9 % Sodium Chloride Flush 3 ML SYRINGE IVFLUSH ×2 (08:41→15:37)
[2024-08-04] MEDS: Famotidine/PF 20 MG/2 ML VIAL IVPUSH (08:46)
[2024-08-04] MEDS: Lidocaine 4 % Patch ADH..PATCH 1 PATCH TRANSDERMA (08:50)
[2024-08-04] MEDS: FLUoxetine HCl Oral Solution 20 MG/5 ML SOLUTION 10 MG PO (08:54)
[2024-08-04] MEDS: Empagliflozin 25 MG TABLET PO (08:55)
[2024-08-04] MEDS: methocarbamoL 750 MG TABLET PO ×3 (08:55→21:24)
[2024-08-04] MEDS: Tamsulosin HCL 0.4 MG CAPSULE PO (08:55)
[2024-08-04] MEDS: Cholecalciferol (Vitamin D3) 10 MCG TABLET PO (08:55)
[2024-08-04] MEDS: Nicotine 14 MG PATCH.TD24 TRANSDERMA (08:56)
[2024-08-04] MEDS: Atorvastatin Calcium 80 MG TABLET PO (08:56)
[2024-08-04] MEDS: Sucralfate 1 GM TABLET PO ×4 (08:56→21:24)
[2024-08-04] MEDS: Calcium + Vitamin D 250 MG TABLET 500 MG PO (08:56)
[2024-08-04] MEDS: Aspirin 81 MG TAB.CHEW 162 MG PO (08:56)
[2024-08-04 08:58] LABS: Estimated Glomerular Filt Rate > 60
[2024-08-04] MEDS: guaiFENesin DM 200/20/10 ML 10 ML SYRUP PO ×3 (09:03→21:24)
[2024-08-04] MEDS: Acetaminophen 325 MG TABLET 650 MG PO (10:44)
[2024-08-04 12:00] VITALS: BP 142/85; PULSE 81; RESP 18; TEMP 36.3; O2SAT 95
--- NOTE | 2024-08-04 12:10 | PM.PNORT ---
Subjective Subjective Date of Service: 08/04/24 Interval history: 79 year old male admitted to the hospital after a fall Status post CRPP of right hip X-rays of right hip reveal stable right intertrochanteric fracture with orthopedic hardware in place and stabilizing fracture Per Dr. Young, no acute surgical intervention indicated Partial weight-bearing on right hip Patient reports he is still having significant pain in the right hip Patient states that he did not want to participate in any physical therapy until he spoke to somebody from Orthopedics No other acute concerns at this time Physical Exam Vital Signs: Vital Signs: Last Vital Signs Temp 98.1 F 08/04/24 08:00 Pulse 103 H 08/04/24 08:00 Resp 18 08/04/24 08:00 BP 128/94 H 08/04/24 08:00 Pulse Ox 92 08/04/24 08:00 O2 Del Method Room Air 08/04/24 08:00 BMI result Body Mass Index 28.7 Const: General: cooperative, healthy appearing and no acute distress Resp: Effort & Inspection: normal respiratory effort and able to speak in complete sentences Cardio: Rate: regular rate Peripheral pulses: Peripheral pulses 2+ throughout GI: Palpation (GI): Soft to palpation Skin: Lesions: no lesions Rashes: no rashes Extrem: Other: Right lower extremity normal to inspection. No shortening or external rotation. Able to actively flex to 90 degrees and extend fully with minimal discomfort. Able to dorsiflex and plantar flex. NVI. Procedures Date of Service Date of Service: 08/04/24 Progress Note: A&P Assessment and plan (1) Closed right hip fracture: Status: Acute Plan 1. Intertrochanteric fracture of right hip Stable due to indwelling orthopedic hardware Patient is educated about this injury Patient is educated about the typical recovery course in his current restrictions Continue pain management per Medicine Continue PT/OT, patient informed he can participate with PT without issue Partial weight-bearing on right lower extremity with a walker Patient will follow-up with orthopedics outpatient Continue with all other recommendations per Medicine No further acute orthopedic intervention indicated at this time Time Spent With Patient Time: Total time managing care of this patient today ____ minutes. Quality Stroke Does the patient have a stroke diagnosis?: No VTE Prior VTE?: No VTE Risk Level:: Medical - moderate - high VTE Device Contraindication: Treatment Not Indicated VTE Drug Contraindication: N/A - Med Ordered
[2024-08-04 13:08] LABS: Glucose, Whole Blood 136 mg/dL (60-115)
[2024-08-04] MEDS: Enoxaparin Sodium 40 MG/0.4 ML SYRINGE SUBCUT (13:51)
[2024-08-04] MEDS: oxyCODONE HCl Immed Release 5 MG TABLET PO ×2 (13:52→21:25)
--- NOTE | 2024-08-04 14:36 | HO.WOUND ---
Wound Consult: Initial 79yr old?male admitted to [facility] [place] on 07/30/24 13:29 - See progress notes and H&P for detailed history.? Wound consult placed for buttock and bilateral heels.? Patient agreeable to assessment and photo documentation.? RUBI pump in use at this time. Coccyx Etiology: ??MASD - IAD (Moisture Associated Skin Damage - Incontinence Associated Dermatitis) Present on Admission Wound Bed: moist macerated tissue with pink blanchable tissue Drainage / Odor: none noted Edges: ? mirrored Flor wound: Hyperpigmentation noted - ? No Induration, Fluctuance or Warmth noted Pain: tenderness reported Goals of Treatment: ? Off load pressure and triad to protect from friction and moisture Right Heel Left Heel Bilateral heels noted for intact blanchable redness - foam dressing applied and off loaded with pillows. Recommendations: 1. Turn and Reposition every 2 hours and as needed for patient comfort.? Use pillows or wedges to support off loading positions. 2. Off Load all bony prominences with use of pillows and heel boots if needed.? Apply Preventative foams where needed. ? 3. Monitor for incontinence and moisture control, use barrier creams when needed for prevention and treatment. 4. Provide adequate and supplemental nutrition.? 5. Order low air loss mattress. 6. When applicable maintain blood glucose levels per Providers order. 7. Coccyx - Off Load Pressure with Q2 hr turns and use of pillows - Cleanse with PH balance spray or wipes, pat dry. ?Apply thin layer of Triad to wound bed - only pat and dab no scrub and rub when soiling occurs. Reapply thin layer PRN after each episode of incontinence. 8. Bilateral Heels - Apply skin prep to heels allow to dry. Apply foam dressings to heels to air in pressure redistribution. Off load heels from surface of bed with use of pillows. Re-consult wound care Nurse for wound deterioration or wound changes.
[2024-08-04 16:00] VITALS: BP 151/91; PULSE 99; RESP 18; TEMP 36.8; O2SAT 94
[2024-08-04 19:28] VITALS: BP 129/76; PULSE 84; RESP 17; TEMP 36.7; O2SAT 94
[2024-08-04] MEDS: QUEtiapine Fumarate 25 MG TABLET PO (21:24)
[2024-08-04] MEDS: Mirtazapine 7.5 MG TABLET PO (21:24)
[2024-08-04] MEDS: Melatonin 3 MG TABLET 6 MG PO (21:24)
[2024-08-04] MEDS: traZODone HCL 100 MG TABLET 200 MG PO (21:24)
[2024-08-05] VITALS: BP 122/81; PULSE 82; RESP 18; TEMP 36.1; O2SAT 93
[2024-08-05] MEDS: oxyCODONE HCl Immed Release 5 MG TABLET PO ×4 (02:19→22:12)
[2024-08-05 03:31] VITALS: BP 113/80; PULSE 83; RESP 18; TEMP 36.1; O2SAT 93
[2024-08-05] MEDS: HYDROmorphone HCl 0.5 MG/0.5 ML SYRINGE 0.25 MG IVPUSH ×3 (04:44→15:48)
--- NOTE | 2024-08-05 07:08 | HO.PM.IMPN ---
Subjective Subjective Date of Service: 08/05/24 Interval History: seen and examined this AM reports R hip pain with movement and weight bearing denies cardiac or resp symptoms reports nausea with dizziness with hx of vertigo improved Review of Systems Negative except HPI/interval history. Physical Exam Vital Signs: Vital Signs: Last Vital Signs Temp 96.9 F 08/05/24 03:31 Pulse 83 08/05/24 03:31 Resp 18 08/05/24 03:31 BP 113/80 08/05/24 03:31 Pulse Ox 93 08/05/24 03:31 O2 Del Method Room Air 08/05/24 03:31 BMI result Body Mass Index 28.7 Appearing in no acute distress lung sounds are clear to auscultation heart regular rate rhythm, clear S1, S2 positive bowel sounds, abdomen is soft, nontender neuro patient is alert x3, no focal deficits Objective Data Active Medications Acetaminophen (Acetaminophen 325 Mg Tablet) 650 mg PO Q6H PRN PRN Reason: Pain, Mild 1-3,fever,headache Last Admin: 08/04/24 10:44 Dose: 650 mg Documented By: RAMESH Aspirin (Aspirin 81 Mg Tab.Chew) 162 mg PO DAILY [facility] Last Admin: 08/04/24 08:56 Dose: 162 mg Documented By: RAMESH Atorvastatin Calcium (Atorvastatin Calcium 80 Mg Tablet) 80 mg PO DAILY [facility] Last Admin: 08/04/24 08:56 Dose: 80 mg Documented By: RAMESH Calcium Carbonate (Calcium Carbonate 750 Mg Tab.Chew) 750 mg PO Q4H PRN PRN Reason: Heartburn Calcium Carbonate/Cholecalciferol (Calcium + Vitamin D 250 Mg Tablet) 500 mg PO DAILY [facility] Last Admin: 08/04/24 08:56 Dose: 500 mg Documented By: RAMESH Empagliflozin (Empagliflozin 25 Mg Tablet) 25 mg PO DAILY [facility] Last Admin: 08/04/24 08:55 Dose: 25 mg Documented By: RAMESH Enoxaparin Sodium (Enoxaparin Sodium 40 Mg/0.4 Ml Syringe) 40 mg SUBCUT Q24H [facility] Last Admin: 08/04/24 13:51 Dose: 40 mg Documented By: RAMESH Famotidine (Famotidine/Pf 20 Mg/2 Ml Vial) 20 mg IVPUSH DAILY [facility] Last Admin: 08/04/24 08:46 Dose: 20 mg Documented By: RAMESH Fluoxetine HCl (Fluoxetine Hcl Oral Solution 20 Mg/5 Ml Solution) 10 mg PO DAILY [facility] Stop: 08/08/24 09:01 Last Admin: 08/04/24 08:54 Dose: 10 mg Documented By: RAMESH Guaifenesin/Dextromethorphan (Guaifenesin Dm 200/20/10 Ml 10 Ml Syrup) 10 ml PO QID PRN PRN Reason: cough Last Admin: 08/04/24 21:24 Dose: 10 ml Documented By: VIOLETTE Hydromorphone HCl (Hydromorphone Hcl 0.5 Mg/0.5 Ml Syringe) 0.25 mg IVPUSH Q4H PRN; Protocol PRN Reason: Pain, Severe (Pain Scale 7-10) Last Admin: 08/05/24 04:44 Dose: 0.25 mg Documented By: VIOLETTE Lidocaine (Lidocaine 4 % Patch Adh..Patch) 1 patch TRANSDERMA DAILY [facility] Last Admin: 08/04/24 08:50 Dose: 1 patch Documented By: RAMESH Magnesium Hydroxide (Milk Of Magnesia 30 Ml Oral.Susp) 30 ml PO DAILY PRN PRN Reason: Constipation Meclizine HCl (Meclizine Hcl 12.5 Mg Tablet) 12.5 mg PO BIDWM PRN PRN Reason: vertigo Melatonin (Melatonin 3 Mg Tablet) 6 mg PO BEDTIME PRN PRN Reason: Insomnia Last Admin: 08/04/24 21:24 Dose: 6 mg Documented By: VIOLETTE Metformin HCl (Metformin Hcl 1,000 Mg Tablet) 1,000 mg PO BID [facility] Last Admin: 08/02/24 08:13 Dose: 1,000 mg Documented By: CANDICE Methocarbamol (Methocarbamol 750 Mg Tablet) 750 mg PO TID [facility] Last Admin: 08/04/24 21:24 Dose: 750 mg Documented By: VIOLETTE Mirtazapine (Mirtazapine 7.5 Mg Tablet) 7.5 mg PO BEDTIME [facility] Last Admin: 08/04/24 21:24 Dose: 7.5 mg Documented By: VIOLETTE Nicotine (Nicotine 14 Mg Patch.Td24) 14 mg TRANSDERMA DAILY [facility] Last Admin: 08/04/24 08:56 Dose: 14 mg Documented By: RAMESH Ondansetron HCl (Ondansetron Hcl 4 Mg/2 Ml Vial) 4 mg IVPUSH Q8H PRN PRN Reason: Nausea and Vomiting Last Admin: 08/03/24 23:08 Dose: 4 mg Documented By: ELINA Oxycodone HCl (Oxycodone Hcl Immed Release 5 Mg Tablet) 5 mg PO Q4H PRN PRN Reason: Pain, Moderate(Pain Scale 4-6) Last Admin: 08/05/24 02:19 Dose: 5 mg Documented By: VIOLETTE Quetiapine Fumarate (Quetiapine Fumarate 25 Mg Tablet) 25 mg PO BEDTIME [facility] Last Admin: 08/04/24 21:24 Dose: 25 mg Documented By: VIOLETTE Sodium Chloride (0.9 % Sodium Chloride Flush 3 Ml Syringe) 3 ml IVFLUSH QSHIFT [facility] Last Admin: 08/05/24 00:54 Dose: Not Given Documented By: VIOLETTE Non-Admin Reason: Previously Administered Sucralfate (Sucralfate 1 Gm Tablet) 1 gm PO QID [facility] Last Admin: 08/04/24 21:24 Dose: 1 gm Documented By: VIOLETTE Tamsulosin HCl (Tamsulosin Hcl 0.4 Mg Capsule) 0.4 mg PO DAILY [facility] Last Admin: 08/04/24 08:55 Dose: 0.4 mg Documented By: RAMESH Trazodone HCl (Trazodone Hcl 100 Mg Tablet) 200 mg PO BEDTIME PRN PRN Reason: Sleep Last Admin: 08/04/24 21:24 Dose: 200 mg Documented By: VIOLETTE Vitamin D (Cholecalciferol (Vitamin D3) 10 Mcg Tablet) 10 mcg PO DAILY [facility] Last Admin: 08/04/24 08:55 Dose: 10 mcg Documented By: RAMESH Labs 07/31/24 05:51 08/04/24 07:15 Labs: Laboratory Results - last 24 hr 08/02/24 08/04/24 10:54 07:15 Hold Purple Top SEE NOTE Estim Creat Clear Calc 87.0 Estimated GFR > 60 POC Glucose 136 H Assessment and Plan (1) Closed right hip fracture: Status: Acute Plan 79-year-old male significant for HTN, HLD, [id number]-helzceasd type 2 diabetes, BPH, and GERD who was at a prolonged stay in overflow and will be a social admission to the hospital. Given prolonged stay in overflow under physician observation, as well as complicated insurance issues and difficulty with STR/LTR placement, pt admitted to the hospital as a social admission for pain control and physical therapy while awaiting placement. Acute closed right hip fracture Secondary to mechanical fall on 07/21/2024 Seen and evaluated by ortho who has deemed fracture stable with no acute surgical intervention necessary at this time Pt may weight bear as tolerated with use of walker for ambulation Analgesics for pain management PT evaluation> pt refusing to participate in PT encourage oob daily and with meals FLU A pos 07/27/24 can be off precautions Vertigo chronic meclizine as needed Diarrhea. Resolved stool studies negative [id number] type 2 diabetes Blood glucose levels well-controlled, no need for sliding-scale insulin Continue Jardiance and metformin Diabetic diet HLD Continue statin GERD PPI BPH Tamsulosin Mood disorder Continue Seroquel, mirtazapine Full Code DVT pptx - lovenox Quality Stroke Does the patient have a stroke diagnosis?: No VTE Prior VTE?: No VTE Risk Level:: Medical - moderate - high VTE Device Contraindication: Treatment Not Indicated VTE Drug Contraindication: N/A - Med Ordered
[2024-08-05 07:54] VITALS: BP 117/76; PULSE 86; RESP 20; TEMP 36.1; O2SAT 95
[2024-08-05] MEDS: Lidocaine 4 % Patch ADH..PATCH 1 PATCH TRANSDERMA (07:55)
[2024-08-05] MEDS: Nicotine 14 MG PATCH.TD24 TRANSDERMA (07:56)
[2024-08-05] MEDS: Famotidine/PF 20 MG/2 ML VIAL IVPUSH (07:56)
[2024-08-05] MEDS: 0.9 % Sodium Chloride Flush 3 ML SYRINGE IVFLUSH ×3 (07:57→22:15)
[2024-08-05] MEDS: FLUoxetine HCl Oral Solution 20 MG/5 ML SOLUTION 10 MG PO (07:58)
[2024-08-05] MEDS: Calcium + Vitamin D 250 MG TABLET 500 MG PO (07:58)
[2024-08-05] MEDS: Cholecalciferol (Vitamin D3) 10 MCG TABLET PO (07:58)
[2024-08-05] MEDS: Empagliflozin 25 MG TABLET PO (07:58)
[2024-08-05] MEDS: Tamsulosin HCL 0.4 MG CAPSULE PO (07:58)
[2024-08-05] MEDS: Aspirin 81 MG TAB.CHEW 162 MG PO (07:58)
[2024-08-05] MEDS: methocarbamoL 750 MG TABLET PO ×3 (07:58→22:09)
[2024-08-05] MEDS: Atorvastatin Calcium 80 MG TABLET PO (07:59)
[2024-08-05] MEDS: Sucralfate 1 GM TABLET PO ×4 (07:59→22:09)
[2024-08-05] MEDS: guaiFENesin DM 200/20/10 ML 10 ML SYRUP PO ×3 (09:28→22:12)
[2024-08-05 11:20] VITALS: BP 167/108; PULSE 85; RESP 18; TEMP 36.1; O2SAT 95
[2024-08-05] MEDS: Enoxaparin Sodium 40 MG/0.4 ML SYRINGE SUBCUT (12:58)
[2024-08-05 15:27] VITALS: BP 124/64; PULSE 97; RESP 17; TEMP 37.3; O2SAT 99
[2024-08-05 19:42] VITALS: BP 140/82; PULSE 103; RESP 20; TEMP 36.6; O2SAT 92
[2024-08-05] MEDS: QUEtiapine Fumarate 25 MG TABLET PO (22:09)
[2024-08-05] MEDS: Melatonin 3 MG TABLET 6 MG PO (22:10)
[2024-08-05] MEDS: traZODone HCL 100 MG TABLET 200 MG PO (22:10)
[2024-08-05] MEDS: Mirtazapine 7.5 MG TABLET PO (22:10)
[2024-08-06 03:13] VITALS: BP 131/80; PULSE 84; RESP 18; TEMP 36; O2SAT 94
[2024-08-06] MEDS: HYDROmorphone HCl 0.5 MG/0.5 ML SYRINGE 0.25 MG IVPUSH ×2 (03:18→16:48)
[2024-08-06] MEDS: oxyCODONE HCl Immed Release 5 MG TABLET PO ×2 (05:15→21:49)
[2024-08-06] MEDS: guaiFENesin DM 200/20/10 ML 10 ML SYRUP PO ×3 (05:16→21:50)
[2024-08-06] MEDS: Acetaminophen 325 MG TABLET 650 MG PO ×2 (05:16→21:49)
[2024-08-06 07:51] VITALS: BP 130/78; PULSE 63; RESP 18; TEMP 36.1; O2SAT 92
[2024-08-06] MEDS: Tamsulosin HCL 0.4 MG CAPSULE PO (09:49)
[2024-08-06] MEDS: Sucralfate 1 GM TABLET PO ×3 (09:49→21:49)
[2024-08-06] MEDS: Aspirin 81 MG TAB.CHEW 162 MG PO (09:49)
[2024-08-06] MEDS: Empagliflozin 25 MG TABLET PO (09:49)
[2024-08-06] MEDS: Atorvastatin Calcium 80 MG TABLET PO (09:49)
[2024-08-06] MEDS: methocarbamoL 750 MG TABLET PO ×3 (09:49→21:50)
[2024-08-06] MEDS: 0.9 % Sodium Chloride Flush 3 ML SYRINGE IVFLUSH ×3 (09:51→21:52)
[2024-08-06] MEDS: Nicotine 14 MG PATCH.TD24 TRANSDERMA (10:19)
[2024-08-06] MEDS: Lidocaine 4 % Patch ADH..PATCH 1 PATCH TRANSDERMA (10:21)
[2024-08-06] MEDS: Cholecalciferol (Vitamin D3) 10 MCG TABLET PO (10:23)
[2024-08-06] MEDS: Calcium + Vitamin D 250 MG TABLET 500 MG PO (10:23)
[2024-08-06] MEDS: Famotidine/PF 20 MG/2 ML VIAL IVPUSH (10:23)
[2024-08-06] MEDS: FLUoxetine HCl Oral Solution 20 MG/5 ML SOLUTION 10 MG PO (11:59)
[2024-08-06 12:00] VITALS: BP 136/64; PULSE 92; RESP 18; TEMP 36.2; O2SAT 95
--- NOTE | 2024-08-06 12:33 | P.PNIM_ITS ---
Subjective Subjective Date of Service: 08/06/24 Interval History: seen and examined this morning follow up for right hip pain no overnight events noted right hip pain, no sob, abdominal pain; no bm but doesn't want bowel regimen Review of Systems Review of Systems: Yes all other systems are reviewed and are negative Constitutional Constitutional: Denies chills and Denies fever(s) Physical Exam 2 Vital Signs: Vital Signs: Last Vital Signs Temp 97.1 F 08/06/24 12:00 Pulse 92 08/06/24 12:00 Resp 18 08/06/24 12:00 BP 136/64 08/06/24 12:00 Pulse Ox 95 08/06/24 12:00 O2 Del Method Room Air 08/06/24 12:00 BMI result Body Mass Index 28.7 Const: General: comfortable, no acute distress, alert and awake Nutritional Appearance: average body habitus Resp: Effort & Inspection: normal respiratory effort, no respiratory distress and no use of accessory muscles Cardio: Rate: regular rate GI: Inspection: No distended Palpation (GI): Soft to palpation and nontender Neuro: General: CN's II-XI intact bilaterally Extrem: General: Yes no pedal edema Objective Data Active Medications Acetaminophen (Acetaminophen 325 Mg Tablet) 650 mg PO Q6H PRN PRN Reason: Pain, Mild 1-3,fever,headache Last Admin: 08/06/24 05:16 Dose: 650 mg Documented By: NILESH Comments: per pt request Aspirin (Aspirin 81 Mg Tab.Chew) 162 mg PO DAILY [facility] Last Admin: 08/06/24 09:49 Dose: 162 mg Documented By: KESHA Atorvastatin Calcium (Atorvastatin Calcium 80 Mg Tablet) 80 mg PO DAILY [facility] Last Admin: 08/06/24 09:49 Dose: 80 mg Documented By: KESHA Calcium Carbonate (Calcium Carbonate 750 Mg Tab.Chew) 750 mg PO Q4H PRN PRN Reason: Heartburn Calcium Carbonate/Cholecalciferol (Calcium + Vitamin D 250 Mg Tablet) 500 mg PO DAILY [facility] Last Admin: 08/06/24 10:23 Dose: 500 mg Documented By: KESHA Empagliflozin (Empagliflozin 25 Mg Tablet) 25 mg PO DAILY [facility] Last Admin: 08/06/24 09:49 Dose: 25 mg Documented By: KESHA Enoxaparin Sodium (Enoxaparin Sodium 40 Mg/0.4 Ml Syringe) 40 mg SUBCUT Q24H [facility] Last Admin: 08/05/24 12:58 Dose: 40 mg Documented By: KEVIN Famotidine (Famotidine/Pf 20 Mg/2 Ml Vial) 20 mg IVPUSH DAILY [facility] Last Admin: 08/06/24 10:23 Dose: 20 mg Documented By: KESHA Fluoxetine HCl (Fluoxetine Hcl Oral Solution 20 Mg/5 Ml Solution) 10 mg PO DAILY [facility] Stop: 08/07/24 09:01 Last Admin: 08/06/24 11:59 Dose: 10 mg Documented By: KESHA Guaifenesin/Dextromethorphan (Guaifenesin Dm 200/20/10 Ml 10 Ml Syrup) 10 ml PO QID PRN PRN Reason: cough Last Admin: 08/06/24 05:16 Dose: 10 ml Documented By: NILESH Hydromorphone HCl (Hydromorphone Hcl 0.5 Mg/0.5 Ml Syringe) 0.25 mg IVPUSH Q4H PRN; Protocol PRN Reason: Pain, Severe (Pain Scale 7-10) Last Admin: 08/06/24 03:18 Dose: 0.25 mg Documented By: NILESH Lidocaine (Lidocaine 4 % Patch Adh..Patch) 1 patch TRANSDERMA DAILY [facility] Last Admin: 08/06/24 10:21 Dose: 1 patch Documented By: KESHA Magnesium Hydroxide (Milk Of Magnesia 30 Ml Oral.Susp) 30 ml PO DAILY PRN PRN Reason: Constipation Meclizine HCl (Meclizine Hcl 12.5 Mg Tablet) 12.5 mg PO BIDWM PRN PRN Reason: vertigo Melatonin (Melatonin 3 Mg Tablet) 6 mg PO BEDTIME PRN PRN Reason: Insomnia Last Admin: 08/05/24 22:10 Dose: 6 mg Documented By: NILESH Metformin HCl (Metformin Hcl 1,000 Mg Tablet) 1,000 mg PO BID [facility] Last Admin: 08/02/24 08:13 Dose: 1,000 mg Documented By: CANDICE Methocarbamol (Methocarbamol 750 Mg Tablet) 750 mg PO TID [facility] Last Admin: 08/06/24 09:49 Dose: 750 mg Documented By: KESHA Mirtazapine (Mirtazapine 7.5 Mg Tablet) 7.5 mg PO BEDTIME [facility] Last Admin: 08/05/24 22:10 Dose: 7.5 mg Documented By: NILESH Nicotine (Nicotine 14 Mg Patch.Td24) 14 mg TRANSDERMA DAILY [facility] Last Admin: 08/06/24 10:19 Dose: 14 mg Documented By: KESHA Ondansetron HCl (Ondansetron Hcl 4 Mg/2 Ml Vial) 4 mg IVPUSH Q8H PRN PRN Reason: Nausea and Vomiting Last Admin: 08/03/24 23:08 Dose: 4 mg Documented By: ELINA Oxycodone HCl (Oxycodone Hcl Immed Release 5 Mg Tablet) 5 mg PO Q4H PRN PRN Reason: Pain, Moderate(Pain Scale 4-6) Last Admin: 08/06/24 05:15 Dose: 5 mg Documented By: NILESH Comments: per pt request Quetiapine Fumarate (Quetiapine Fumarate 25 Mg Tablet) 25 mg PO BEDTIME [facility] Last Admin: 08/05/24 22:09 Dose: 25 mg Documented By: NILESH Sodium Chloride (0.9 % Sodium Chloride Flush 3 Ml Syringe) 3 ml IVFLUSH QSHIFT [facility] Last Admin: 08/06/24 09:51 Dose: 3 ml Documented By: KESHA Sucralfate (Sucralfate 1 Gm Tablet) 1 gm PO QID [facility] Last Admin: 08/06/24 09:49 Dose: 1 gm Documented By: KESHA Tamsulosin HCl (Tamsulosin Hcl 0.4 Mg Capsule) 0.4 mg PO DAILY [facility] Last Admin: 08/06/24 09:49 Dose: 0.4 mg Documented By: KESHA Trazodone HCl (Trazodone Hcl 100 Mg Tablet) 200 mg PO BEDTIME PRN PRN Reason: Sleep Last Admin: 08/05/24 22:10 Dose: 200 mg Documented By: NILESH Vitamin D (Cholecalciferol (Vitamin D3) 10 Mcg Tablet) 10 mcg PO DAILY [facility] Last Admin: 08/06/24 10:23 Dose: 10 mcg Documented By: KESHA Labs 07/31/24 05:51 08/04/24 07:15 Assessment and Plan (1) Major depressive disorder with current active episode: Status: Acute Plan This is an 79-year-old male significant for HTN, HLD, [id number] type 2 diabetes, BPH, and GERD who had a prolonged stay in overflow and was therefore admitted to the hospital. Given prolonged stay in overflow under physician observation, as well as complicated insurance issues and difficulty with STR/LTR placement, pt admitted to the hospital as a social admission for pain control and physical therapy while awaiting placement. Acute closed right hip fracture Secondary to mechanical fall on 07/21/2024 Seen and evaluated by ortho who has deemed fracture stable with no acute surgical intervention necessary at this time Pt may weight bear as tolerated with use of walker for ambulation Analgesics for pain management PT evaluation> pt refusing to participate in PT encourage oob daily and with meals wean IV narcotics, maximize po meds bowel regimen FLU A pos 07/27/24 can be off precautions Vertigo chronic meclizine as needed Diarrhea. Resolved stool studies negative Adc-ljlogqq-qfyfhzjpo type 2 diabetes Blood glucose levels well-controlled, no need for sliding-scale insulin Continue Jardiance and metformin Diabetic diet HLD Continue statin GERD PPI BPH Tamsulosin Mood disorder Continue Seroquel, mirtazapine seen by psych - prozac added Full Code DVT pptx - lovenox Quality Stroke Does the patient have a stroke diagnosis?: No VTE Prior VTE?: No VTE Risk Level:: Medical - moderate - high VTE Device Contraindication: Treatment Not Indicated VTE Drug Contraindication: N/A - Med Ordered
[2024-08-06 16:00] VITALS: BP 137/74; PULSE 101; RESP 16; TEMP 36.4; O2SAT 92
[2024-08-06] MEDS: Enoxaparin Sodium 40 MG/0.4 ML SYRINGE SUBCUT (16:46)
[2024-08-06] MEDS: Meclizine HCl 12.5 MG TABLET PO (16:48)
[2024-08-06 20:00] VITALS: BP 121/69; PULSE 95; RESP 18; TEMP 36.7; O2SAT 96
[2024-08-06] MEDS: QUEtiapine Fumarate 25 MG TABLET PO (21:48)
[2024-08-06] MEDS: Docusate Sodium 100 MG CAPSULE PO (21:49)
[2024-08-06] MEDS: Mirtazapine 7.5 MG TABLET PO (21:50)
[2024-08-06] MEDS: traZODone HCL 100 MG TABLET 200 MG PO (22:35)
[2024-08-06] MEDS: Melatonin 3 MG TABLET 6 MG PO (22:35)
[2024-08-06 23:26] VITALS: BP 125/72; PULSE 99; RESP 18; TEMP 36.7; O2SAT 92
[2024-08-07] MEDS: oxyCODONE HCl Immed Release 5 MG TABLET PO ×3 (03:35→21:11)
[2024-08-07 03:44] VITALS: BP 140/63; PULSE 95; RESP 18; TEMP 36.7; O2SAT 93
--- NOTE | 2024-08-07 05:42 | PC.NURSE ---
Pt uncooperative with personal care & repositioning, becomes verbally aggressive/agitated w/ staff. This RN educated pt the importance of being repositioned to prevent skin breakdown, but refused to listen. Pt states he wants to be left alone, don't touch me . Pt has been repositioned, bed in lowest position, and call tapia w/in reach. Will continue to monitor.
[2024-08-07 07:51] VITALS: BP 126/87; PULSE 88; RESP 18; TEMP 36.3; O2SAT 92
[2024-08-07] MEDS: 0.9 % Sodium Chloride Flush 3 ML SYRINGE IVFLUSH ×3 (08:34→21:12)
[2024-08-07] MEDS: methocarbamoL 750 MG TABLET PO ×3 (09:36→21:11)
[2024-08-07] MEDS: Sucralfate 1 GM TABLET PO ×4 (09:36→21:10)
[2024-08-07] MEDS: Atorvastatin Calcium 80 MG TABLET PO (09:36)
[2024-08-07] MEDS: Calcium + Vitamin D 250 MG TABLET 500 MG PO (09:36)
[2024-08-07] MEDS: Cholecalciferol (Vitamin D3) 10 MCG TABLET PO (09:36)
[2024-08-07] MEDS: Empagliflozin 25 MG TABLET PO (09:36)
[2024-08-07] MEDS: Aspirin 81 MG TAB.CHEW 162 MG PO (09:36)
[2024-08-07] MEDS: FLUoxetine HCl Oral Solution 20 MG/5 ML SOLUTION 10 MG PO (09:36)
[2024-08-07] MEDS: Tamsulosin HCL 0.4 MG CAPSULE PO (09:36)
[2024-08-07] MEDS: Famotidine/PF 20 MG/2 ML VIAL IVPUSH (09:37)
[2024-08-07] MEDS: Lidocaine 4 % Patch ADH..PATCH 1 PATCH TRANSDERMA (09:39)
[2024-08-07] MEDS: Nicotine 14 MG PATCH.TD24 TRANSDERMA (09:39)
[2024-08-07 12:08] VITALS: BP 126/87; PULSE 88; O2SAT 92
[2024-08-07] MEDS: guaiFENesin DM 200/20/10 ML 10 ML SYRUP PO (14:55)
[2024-08-07] MEDS: Enoxaparin Sodium 40 MG/0.4 ML SYRINGE SUBCUT (14:55)
[2024-08-07] MEDS: polyethylene glycoL 3350 17 GM POWD.PACK PO ×2 (14:56→17:32)
[2024-08-07 16:00] VITALS: BP 132/80; PULSE 93; RESP 18; TEMP 36.6; O2SAT 93
--- NOTE | 2024-08-07 16:48 | P.PNIM_ITS ---
Subjective Subjective Date of Service: 08/07/24 Interval History: seen and examined this morning follow up for hip pain - reporting hip pain 10/24 pt declined to work with PT today Review of Systems Review of Systems: Yes all other systems are reviewed and are negative Constitutional Constitutional: Denies chills and Denies fever(s) Physical Exam 2 Vital Signs: Vital Signs: Last Vital Signs Temp 98 F 08/07/24 16:00 Pulse 93 08/07/24 16:00 Resp 18 08/07/24 16:00 BP 132/80 08/07/24 16:00 Pulse Ox 93 08/07/24 16:00 O2 Del Method Room Air 08/07/24 16:00 BMI result Body Mass Index 28.7 Const: General: comfortable, no acute distress, alert and awake Nutritional Appearance: average body habitus Resp: Effort & Inspection: normal respiratory effort, no respiratory distress and no use of accessory muscles Cardio: Rate: regular rate GI: Inspection: No distended Palpation (GI): Soft to palpation and nontender Neuro: General: CN's II-XI intact bilaterally Extrem: General: Yes no pedal edema Objective Data Active Medications Acetaminophen (Acetaminophen 325 Mg Tablet) 650 mg PO Q6H PRN PRN Reason: Pain, Mild 1-3,fever,headache Last Admin: 08/06/24 21:49 Dose: 650 mg Documented By: NILESH Comments: per pt request Aspirin (Aspirin 81 Mg Tab.Chew) 162 mg PO DAILY [facility] Last Admin: 08/07/24 09:36 Dose: 162 mg Documented By: KESHA Atorvastatin Calcium (Atorvastatin Calcium 80 Mg Tablet) 80 mg PO DAILY [facility] Last Admin: 08/07/24 09:36 Dose: 80 mg Documented By: KESHA Calcium Carbonate (Calcium Carbonate 750 Mg Tab.Chew) 750 mg PO Q4H PRN PRN Reason: Heartburn Calcium Carbonate/Cholecalciferol (Calcium + Vitamin D 250 Mg Tablet) 500 mg PO DAILY [facility] Last Admin: 08/07/24 09:36 Dose: 500 mg Documented By: KESHA Docusate Sodium (Docusate Sodium 100 Mg Capsule) 100 mg PO BEDTIME [facility] Last Admin: 08/06/24 21:49 Dose: 100 mg Documented By: NILESH Empagliflozin (Empagliflozin 25 Mg Tablet) 25 mg PO DAILY [facility] Last Admin: 08/07/24 09:36 Dose: 25 mg Documented By: KESHA Enoxaparin Sodium (Enoxaparin Sodium 40 Mg/0.4 Ml Syringe) 40 mg SUBCUT Q24H [facility] Last Admin: 08/07/24 14:55 Dose: 40 mg Documented By: KESHA Famotidine (Famotidine/Pf 20 Mg/2 Ml Vial) 20 mg IVPUSH DAILY [facility] Last Admin: 08/07/24 09:37 Dose: 20 mg Documented By: KESHA Fluoxetine HCl (Fluoxetine Hcl Oral Solution 20 Mg/5 Ml Solution) 10 mg PO DAILY [facility] Guaifenesin/Dextromethorphan (Guaifenesin Dm 200/20/10 Ml 10 Ml Syrup) 10 ml PO QID PRN PRN Reason: cough Last Admin: 08/07/24 14:55 Dose: 10 ml Documented By: KESHA Hydromorphone HCl (Hydromorphone Hcl 0.5 Mg/0.5 Ml Syringe) 0.25 mg IVPUSH Q4H PRN; Protocol PRN Reason: Pain, Severe (Pain Scale 7-10) Last Admin: 08/06/24 16:48 Dose: 0.25 mg Documented By: KESHA Lidocaine (Lidocaine 4 % Patch Adh..Patch) 1 patch TRANSDERMA DAILY [facility] Last Admin: 08/07/24 09:39 Dose: 1 patch Documented By: KESHA Meclizine HCl (Meclizine Hcl 12.5 Mg Tablet) 12.5 mg PO BIDWM PRN PRN Reason: vertigo Last Admin: 08/06/24 16:48 Dose: 12.5 mg Documented By: KESHA Melatonin (Melatonin 3 Mg Tablet) 6 mg PO BEDTIME PRN PRN Reason: Insomnia Last Admin: 08/06/24 22:35 Dose: 6 mg Documented By: NILESH Methocarbamol (Methocarbamol 750 Mg Tablet) 750 mg PO TID [facility] Last Admin: 08/07/24 14:55 Dose: 750 mg Documented By: KESHA Mirtazapine (Mirtazapine 7.5 Mg Tablet) 7.5 mg PO BEDTIME [facility] Last Admin: 08/06/24 21:50 Dose: 7.5 mg Documented By: NILESH Nicotine (Nicotine 14 Mg Patch.Td24) 14 mg TRANSDERMA DAILY [facility] Last Admin: 08/07/24 09:39 Dose: 14 mg Documented By: KESHA Ondansetron HCl (Ondansetron Hcl 4 Mg/2 Ml Vial) 4 mg IVPUSH Q8H PRN PRN Reason: Nausea and Vomiting Last Admin: 08/03/24 23:08 Dose: 4 mg Documented By: ELINA Oxycodone HCl (Oxycodone Hcl Immed Release 5 Mg Tablet) 5 mg PO Q4H PRN PRN Reason: Pain, Moderate(Pain Scale 4-6) Last Admin: 08/07/24 08:34 Dose: 5 mg Documented By: KEVIN Polyethylene Glycol (Polyethylene Glycol 3350 17 Gm Powd.Pack) 17 gm PO DAILY PRN PRN Reason: Constipation Last Admin: 08/07/24 14:56 Dose: 17 gm Documented By: KESHA Quetiapine Fumarate (Quetiapine Fumarate 25 Mg Tablet) 25 mg PO BEDTIME [facility] Last Admin: 08/06/24 21:48 Dose: 25 mg Documented By: NILESH Sodium Chloride (0.9 % Sodium Chloride Flush 3 Ml Syringe) 3 ml IVFLUSH QSHIFT [facility] Last Admin: 08/07/24 08:34 Dose: 3 ml Documented By: KEVIN Sucralfate (Sucralfate 1 Gm Tablet) 1 gm PO QID [facility] Last Admin: 08/07/24 14:55 Dose: 1 gm Documented By: KESHA Tamsulosin HCl (Tamsulosin Hcl 0.4 Mg Capsule) 0.4 mg PO DAILY [facility] Last Admin: 08/07/24 09:36 Dose: 0.4 mg Documented By: KESHA Trazodone HCl (Trazodone Hcl 100 Mg Tablet) 200 mg PO BEDTIME PRN PRN Reason: Sleep Last Admin: 08/06/24 22:35 Dose: 200 mg Documented By: NILESH Vitamin D (Cholecalciferol (Vitamin D3) 10 Mcg Tablet) 10 mcg PO DAILY [facility] Last Admin: 08/07/24 09:36 Dose: 10 mcg Documented By: KESHA Labs 07/31/24 05:51 08/04/24 07:15 Assessment and Plan (1) Closed right hip fracture: Status: Acute Plan This is an 79-year-old male significant for HTN, HLD, jpx-vsbpuey-yrgzpjunq type 2 diabetes, BPH, and GERD who had a prolonged stay in overflow and was therefore admitted to the hospital. Given prolonged stay in overflow under physician observation, as well as complicated insurance issues and difficulty with STR/LTR placement, pt admitted to the hospital as a social admission for pain control and physical therapy while awaiting placement. Acute closed right hip fracture Secondary to mechanical fall on 07/21/2024 Seen and evaluated by ortho who has deemed fracture stable with no acute surgical intervention necessary at this time Pt may weight bear as tolerated with use of walker for ambulation Analgesics for pain management PT evaluation> pt refusing to participate in PT encourage oob daily and with meals wean IV narcotics, maximize po meds bowel regimen FLU A pos 07/27/24 can be off precautions Vertigo chronic meclizine as needed Diarrhea. Resolved stool studies negative Xhi-stzwlsf-yfdnexpsz type 2 diabetes Blood glucose levels well-controlled, no need for sliding-scale insulin Continue Jardiance and metformin Diabetic diet HLD Continue statin GERD PPI/carafate BPH Tamsulosin Mood disorder Continue Seroquel, mirtazapine seen by psych - prozac added Full Code DVT pptx - lovenox dispo: TBD Quality Stroke Does the patient have a stroke diagnosis?: No VTE Prior VTE?: No VTE Risk Level:: Medical - moderate - high VTE Device Contraindication: Treatment Not Indicated VTE Drug Contraindication: N/A - Med Ordered
[2024-08-07] MEDS: Acetaminophen 325 MG TABLET 650 MG PO (17:33)
[2024-08-07 19:27] VITALS: BP 122/74; PULSE 101; RESP 18; TEMP 36.8; O2SAT 93
[2024-08-07] MEDS: Mirtazapine 7.5 MG TABLET PO (21:10)
[2024-08-07] MEDS: QUEtiapine Fumarate 25 MG TABLET PO (21:10)
[2024-08-07] MEDS: Docusate Sodium 100 MG CAPSULE PO (21:11)
[2024-08-08] MEDS: traZODone HCL 100 MG TABLET 200 MG PO ×2 (01:28→22:42)
[2024-08-08] MEDS: oxyCODONE HCl Immed Release 5 MG TABLET PO ×4 (01:28→19:58)
[2024-08-08] MEDS: Omeprazole 20 MG CAPSULE.DR PO ×2 (06:15→16:37)
[2024-08-08 07:24] VITALS: BP 117/66; PULSE 86; RESP 16; TEMP 36.7; O2SAT 92
[2024-08-08] MEDS: Aspirin 81 MG TAB.CHEW 162 MG PO (07:49)
[2024-08-08] MEDS: Acetaminophen 325 MG TABLET 650 MG PO (07:49)
[2024-08-08] MEDS: Sucralfate 1 GM TABLET PO ×4 (07:50→19:56)
[2024-08-08] MEDS: Calcium + Vitamin D 250 MG TABLET 500 MG PO (07:50)
[2024-08-08] MEDS: Atorvastatin Calcium 80 MG TABLET PO (07:50)
[2024-08-08] MEDS: methocarbamoL 750 MG TABLET PO ×3 (07:50→19:56)
[2024-08-08] MEDS: Nicotine 14 MG PATCH.TD24 TRANSDERMA (07:50)
[2024-08-08] MEDS: Empagliflozin 25 MG TABLET PO (07:50)
[2024-08-08] MEDS: Tamsulosin HCL 0.4 MG CAPSULE PO (07:50)
[2024-08-08] MEDS: polyethylene glycoL 3350 17 GM POWD.PACK PO (07:50)
[2024-08-08] MEDS: Cholecalciferol (Vitamin D3) 10 MCG TABLET PO (07:50)
[2024-08-08] MEDS: 0.9 % Sodium Chloride Flush 3 ML SYRINGE IVFLUSH ×3 (07:51→20:01)
[2024-08-08] MEDS: FLUoxetine HCl Oral Solution 20 MG/5 ML SOLUTION 10 MG PO (07:51)
[2024-08-08] MEDS: Lidocaine 4 % Patch ADH..PATCH 1 PATCH TRANSDERMA (07:51)
[2024-08-08] MEDS: Enoxaparin Sodium 40 MG/0.4 ML SYRINGE SUBCUT (13:15)
--- NOTE | 2024-08-08 13:28 | HO.PM.IMPN ---
Subjective Subjective Date of Service: 08/08/24 Interval History: seen and examined this morning follow up for hip pain Still declines to get out of bed or work with physical therapy due to pain Reports wanting surgery despite being told he has a candidate/does not need surgery Review of Systems Review of Systems: Yes all other systems are reviewed and are negative Constitutional Constitutional: Denies chills and Denies fever(s) Cardiovascular Cardiovascular: Denies chest pain, Denies palpitations and Denies dyspnea Respiratory Respiratory: Denies cough and Denies dyspnea Endocrine Endocrine: Denies palpitations Physical Exam Vital Signs: Vital Signs: Last Vital Signs Temp 98.1 F 08/08/24 07:24 Pulse 86 08/08/24 07:24 Resp 16 08/08/24 07:24 BP 117/66 08/08/24 07:24 Pulse Ox 92 08/08/24 07:24 O2 Del Method Room Air 08/08/24 07:24 BMI result Body Mass Index 28.7 Const: General: comfortable, no acute distress, alert and awake Nutritional Appearance: average body habitus Resp: Effort & Inspection: normal respiratory effort, no respiratory distress and no use of accessory muscles Cardio: Rate: regular rate GI: Inspection: No distended Palpation (GI): Soft to palpation and nontender Neuro: General: CN's II-XI intact bilaterally Extrem: General: Yes no pedal edema Objective Data Active Medications Acetaminophen (Acetaminophen 325 Mg Tablet) 975 mg PO TID PRN PRN Reason: Pain, Mild (Pain Scale 1-3) Aspirin (Aspirin 81 Mg Tab.Chew) 162 mg PO DAILY [facility] Last Admin: 08/08/24 07:49 Dose: 162 mg Documented By: DINORA Atorvastatin Calcium (Atorvastatin Calcium 80 Mg Tablet) 80 mg PO DAILY [facility] Last Admin: 08/08/24 07:50 Dose: 80 mg Documented By: DINORA Calcium Carbonate (Calcium Carbonate 750 Mg Tab.Chew) 750 mg PO Q4H PRN PRN Reason: Heartburn Calcium Carbonate/Cholecalciferol (Calcium + Vitamin D 250 Mg Tablet) 500 mg PO DAILY [facility] Last Admin: 08/08/24 07:50 Dose: 500 mg Documented By: DINORA Docusate Sodium (Docusate Sodium 100 Mg Capsule) 100 mg PO BEDTIME [facility] Last Admin: 08/07/24 21:11 Dose: 100 mg Documented By: AMAURI Empagliflozin (Empagliflozin 25 Mg Tablet) 25 mg PO DAILY [facility] Last Admin: 08/08/24 07:50 Dose: 25 mg Documented By: DINORA Enoxaparin Sodium (Enoxaparin Sodium 40 Mg/0.4 Ml Syringe) 40 mg SUBCUT Q24H [facility] Last Admin: 08/08/24 13:15 Dose: 40 mg Documented By: DINORA Fluoxetine HCl (Fluoxetine Hcl Oral Solution 20 Mg/5 Ml Solution) 10 mg PO DAILY [facility] Last Admin: 08/08/24 07:51 Dose: 10 mg Documented By: DINORA Hydromorphone HCl (Hydromorphone Hcl 0.5 Mg/0.5 Ml Syringe) 0.25 mg IVPUSH Q6H PRN; Protocol PRN Reason: Pain, Severe (Pain Scale 7-10) Lidocaine (Lidocaine 4 % Patch Adh..Patch) 1 patch TRANSDERMA DAILY [facility] Last Admin: 08/08/24 07:51 Dose: 1 patch Documented By: DINORA Meclizine HCl (Meclizine Hcl 12.5 Mg Tablet) 12.5 mg PO BIDWM PRN PRN Reason: vertigo Last Admin: 08/06/24 16:48 Dose: 12.5 mg Documented By: KESHA Melatonin (Melatonin 3 Mg Tablet) 6 mg PO BEDTIME PRN PRN Reason: Insomnia Last Admin: 08/06/24 22:35 Dose: 6 mg Documented By: NILESH Methocarbamol (Methocarbamol 750 Mg Tablet) 750 mg PO TID [facility] Last Admin: 08/08/24 07:50 Dose: 750 mg Documented By: DINORA Mirtazapine (Mirtazapine 7.5 Mg Tablet) 7.5 mg PO BEDTIME [facility] Last Admin: 08/07/24 21:10 Dose: 7.5 mg Documented By: AMAURI Nicotine (Nicotine 14 Mg Patch.Td24) 14 mg TRANSDERMA DAILY [facility] Last Admin: 08/08/24 07:50 Dose: 14 mg Documented By: DINORA Omeprazole (Omeprazole 20 Mg Capsule.Dr) 20 mg PO BID@0630,1630 [facility] Last Admin: 08/08/24 06:15 Dose: 20 mg Documented By: AMAURI Ondansetron HCl (Ondansetron Hcl 4 Mg/2 Ml Vial) 4 mg IVPUSH Q8H PRN PRN Reason: Nausea and Vomiting Last Admin: 08/03/24 23:08 Dose: 4 mg Documented By: ELINA Oxycodone HCl (Oxycodone Hcl Immed Release 5 Mg Tablet) 5 mg PO Q4H PRN PRN Reason: Pain, Moderate(Pain Scale 4-6) Last Admin: 08/08/24 11:19 Dose: 5 mg Documented By: DINORA Polyethylene Glycol (Polyethylene Glycol 3350 17 Gm Powd.Pack) 17 gm PO DAILY [facility] Last Admin: 08/08/24 07:50 Dose: 17 gm Documented By: DINORA Quetiapine Fumarate (Quetiapine Fumarate 25 Mg Tablet) 25 mg PO BEDTIME [facility] Last Admin: 08/07/24 21:10 Dose: 25 mg Documented By: AMAURI Sodium Chloride (0.9 % Sodium Chloride Flush 3 Ml Syringe) 3 ml IVFLUSH QSHIFT [facility] Last Admin: 08/08/24 07:51 Dose: 3 ml Documented By: DINORA Sucralfate (Sucralfate 1 Gm Tablet) 1 gm PO QID [facility] Last Admin: 08/08/24 12:49 Dose: 1 gm Documented By: DINORA Tamsulosin HCl (Tamsulosin Hcl 0.4 Mg Capsule) 0.4 mg PO DAILY [facility] Last Admin: 08/08/24 07:50 Dose: 0.4 mg Documented By: DINORA Trazodone HCl (Trazodone Hcl 100 Mg Tablet) 200 mg PO BEDTIME PRN PRN Reason: Sleep Last Admin: 08/08/24 01:28 Dose: 200 mg Documented By: AMAURI Trolamine Salicylate (Trolamine Salicylate 10 % Cream 85 Gm Tube) 1 appl TOPICAL BID [facility]; Protocol Vitamin D (Cholecalciferol (Vitamin D3) 10 Mcg Tablet) 10 mcg PO DAILY [facility] Last Admin: 08/08/24 07:50 Dose: 10 mcg Documented By: DINORA Labs 07/31/24 05:51 08/04/24 07:15 Assessment and Plan (1) Closed right hip fracture: Status: Acute Plan This is an 79-year-old male significant for HTN, HLD, [id number] type 2 diabetes, BPH, and GERD who had a prolonged stay in overflow and was therefore admitted to the hospital. Given prolonged stay in overflow under physician observation, as well as complicated insurance issues and difficulty with STR/LTR placement, pt admitted to the hospital as a social admission for pain control and physical therapy while awaiting placement. Acute closed right hip fracture Secondary to mechanical fall on 07/21/2024 Seen and evaluated by ortho who has deemed fracture stable with no acute surgical intervention necessary at this time Pt may weight bear as tolerated with use of walker for ambulation Analgesics for pain management PT evaluation> pt refusing to participate in PT encourage oob daily and with meals wean IV narcotics, maximize po meds bowel regimen FLU A pos 07/27/24 can be off precautions Vertigo chronic meclizine as needed Diarrhea. Resolved stool studies negative [id number] type 2 diabetes Blood glucose levels well-controlled, no need for sliding-scale insulin Continue Jardiance and metformin Diabetic diet HLD Continue statin GERD PPI/carafate BPH Tamsulosin Mood disorder Continue Seroquel, mirtazapine seen by psych - prozac added Full Code DVT pptx - lovenox dispo: TBD Quality Stroke Does the patient have a stroke diagnosis?: No VTE Prior VTE?: No VTE Risk Level:: Medical - moderate - high VTE Device Contraindication: Treatment Not Indicated VTE Drug Contraindication: N/A - Med Ordered
[2024-08-08] MEDS: Trolamine Salicylate 10 % Cream 85 GM TUBE 1 APPL TOPICAL ×2 (14:26→20:01)
[2024-08-08 15:11] VITALS: BP 100/60; PULSE 86; RESP 14; TEMP 36.6; O2SAT 94
[2024-08-08 15:22] VITALS: BP 100/60
--- NOTE | 2024-08-08 15:23 | PC.NURSE ---
SABINA Robles made aware pt BP soft, 100/60 manually. When asked if pt was having any symptoms such as dizziness, pt stated No I actually feel pretty relaxed for once . No new interventions at this time.
--- NOTE | 2024-08-08 15:37 | MHC.CM.PN ---
CM FOLLOWING FOR DCP, PT UNABLE TO PARTICIPATE WITH PT MAKING HIM INELIGIBLE FOR STR AND IS NOT YET ELIGIBLE TO APPLY FOR [facility] WILL BE STR IF PT IS ABLE TO PARTICIPATE WITH PT AT SOME POINT VS LTC ONCE PT IS ELIGIBLE TO APPLY FOR
[2024-08-08 18:36] VITALS: BP 105/67
[2024-08-08 19:31] VITALS: BP 95/61; PULSE 101; RESP 18; TEMP 36.7; O2SAT 92
[2024-08-08] MEDS: QUEtiapine Fumarate 25 MG TABLET PO (19:56)
[2024-08-08] MEDS: Mirtazapine 7.5 MG TABLET PO (19:57)
[2024-08-08] MEDS: guaiFENesin 100 MG/5 ML 5 ML LIQUID PO (22:41)
--- NOTE | 2024-08-08 22:54 | MHC.PIE ---
p; pt c/o cough asking/demanding for cough med. note; no cough has been noted since the start of this shift. i; dr ledezma notified. new order robitussin q4 prn e; pt was asleep comfortably in bed as new order was placed, waited till pt woke up for med administration. will cont to monitor
[2024-08-09] MEDS: oxyCODONE HCl Immed Release 5 MG TABLET PO ×3 (03:57→21:04)
[2024-08-09] MEDS: Omeprazole 20 MG CAPSULE.DR PO ×2 (05:46→16:09)
[2024-08-09 07:00] LABS: Anion Gap 14 (12-20); Blood Urea Nitrogen 14 mg/dL (9-16); Calcium 8.2 mg/dL (8.4-10.2); Carbon Dioxide 22 mmol/L (22-29); Chloride 106 mmol/L (96-108); Creatinine Clr Calc Pharmacy 85.9; Estimated Glomerular Filt Rate > 60; Glucose Random 145 mg/dL (60-115); Potassium 3.5 mmol/L (3.3-5.1); Sodium 138 mmol/L (135-145)
[2024-08-09 07:33] VITALS: BP 131/81; PULSE 93; RESP 16; TEMP 36.6; O2SAT 93
[2024-08-09] MEDS: Nicotine 14 MG PATCH.TD24 TRANSDERMA (08:18)
[2024-08-09] MEDS: Atorvastatin Calcium 80 MG TABLET PO (08:19)
[2024-08-09] MEDS: Sucralfate 1 GM TABLET PO ×4 (08:19→21:03)
[2024-08-09] MEDS: Tamsulosin HCL 0.4 MG CAPSULE PO (08:19)
[2024-08-09] MEDS: FLUoxetine HCl Oral Solution 20 MG/5 ML SOLUTION 10 MG PO (08:19)
[2024-08-09] MEDS: Calcium + Vitamin D 250 MG TABLET 500 MG PO (08:19)
[2024-08-09] MEDS: methocarbamoL 750 MG TABLET PO ×3 (08:19→21:04)
[2024-08-09] MEDS: Lidocaine 4 % Patch ADH..PATCH 1 PATCH TRANSDERMA (08:19)
[2024-08-09] MEDS: Cholecalciferol (Vitamin D3) 10 MCG TABLET PO (08:20)
[2024-08-09] MEDS: Empagliflozin 25 MG TABLET PO (08:20)
[2024-08-09] MEDS: 0.9 % Sodium Chloride Flush 3 ML SYRINGE IVFLUSH ×3 (08:20→23:01)
[2024-08-09] MEDS: Aspirin 81 MG TAB.CHEW 162 MG PO (08:20)
[2024-08-09] MEDS: Trolamine Salicylate 10 % Cream 85 GM TUBE 1 APPL TOPICAL ×2 (08:24→21:04)
[2024-08-09] MEDS: guaiFENesin 100 MG/5 ML 5 ML LIQUID PO ×2 (08:28→17:05)
[2024-08-09] MEDS: Enoxaparin Sodium 40 MG/0.4 ML SYRINGE SUBCUT (13:09)
--- NOTE | 2024-08-09 13:36 | P.PNIM_ITS ---
Subjective Subjective Date of Service: 08/09/24 Interval History: seen and examined this morning follow up for hip pain daily discussion with patient about importance of trying to get up and out of bed and move around as much as possible otherwise not moving will result in chronic bedbound status continues to complain of pain and request pain medication although each day when asked pain is between a 3-5 on my evaluation Review of Systems Review of Systems: Yes all other systems are reviewed and are negative Constitutional Constitutional: Denies chills and Denies fever(s) Cardiovascular Cardiovascular: Denies chest pain, Denies palpitations and Denies dyspnea Respiratory Respiratory: Denies cough and Denies dyspnea Gastrointestinal Gastrointestinal: Denies abdominal pain, Denies nausea and Denies vomiting Endocrine Endocrine: Denies palpitations Physical Exam 2 Vital Signs: Vital Signs: Last Vital Signs Temp 97.8 F 08/09/24 07:33 Pulse 93 08/09/24 07:33 Resp 16 08/09/24 07:33 BP 131/81 08/09/24 07:33 Pulse Ox 93 08/09/24 07:33 O2 Del Method Room Air 08/09/24 07:33 BMI result Body Mass Index 28.7 Const: General: comfortable, no acute distress, alert and awake Nutritional Appearance: average body habitus Resp: Effort & Inspection: normal respiratory effort, no respiratory distress and no use of accessory muscles Cardio: Rate: regular rate GI: Inspection: No distended Palpation (GI): Soft to palpation and nontender Neuro: General: CN's II-XI intact bilaterally Extrem: General: Yes no pedal edema Objective Data Active Medications Acetaminophen (Acetaminophen 325 Mg Tablet) 975 mg PO TID PRN PRN Reason: Pain, Mild (Pain Scale 1-3) Aspirin (Aspirin 81 Mg Tab.Chew) 162 mg PO DAILY [facility] Last Admin: 08/09/24 08:20 Dose: 162 mg Documented By: DINORA Atorvastatin Calcium (Atorvastatin Calcium 80 Mg Tablet) 80 mg PO DAILY [facility] Last Admin: 08/09/24 08:19 Dose: 80 mg Documented By: DINORA Calcium Carbonate (Calcium Carbonate 750 Mg Tab.Chew) 750 mg PO Q4H PRN PRN Reason: Heartburn Calcium Carbonate/Cholecalciferol (Calcium + Vitamin D 250 Mg Tablet) 500 mg PO DAILY [facility] Last Admin: 08/09/24 08:19 Dose: 500 mg Documented By: DINORA Docusate Sodium (Docusate Sodium 100 Mg Capsule) 100 mg PO BEDTIME [facility] Last Admin: 08/08/24 19:57 Dose: Not Given Documented By: AMAURI Non-Admin Reason: Patient Refused Comments: pt reports multiple bm today Empagliflozin (Empagliflozin 25 Mg Tablet) 25 mg PO DAILY [facility] Last Admin: 08/09/24 08:20 Dose: 25 mg Documented By: DINORA Enoxaparin Sodium (Enoxaparin Sodium 40 Mg/0.4 Ml Syringe) 40 mg SUBCUT Q24H [facility] Last Admin: 08/09/24 13:09 Dose: 40 mg Documented By: DINORA Fluoxetine HCl (Fluoxetine Hcl Oral Solution 20 Mg/5 Ml Solution) 10 mg PO DAILY [facility] Last Admin: 08/09/24 08:19 Dose: 10 mg Documented By: DINORA Guaifenesin (Guaifenesin 100 Mg/5 Ml 5 Ml Liquid) 5 ml PO Q4H PRN PRN Reason: Cough Last Admin: 08/09/24 08:28 Dose: 5 ml Documented By: DINORA Hydromorphone HCl (Hydromorphone Hcl 0.5 Mg/0.5 Ml Syringe) 0.25 mg IVPUSH Q6H PRN; Protocol PRN Reason: Pain, Severe (Pain Scale 7-10) Lidocaine (Lidocaine 4 % Patch Adh..Patch) 1 patch TRANSDERMA DAILY [facility] Last Admin: 08/09/24 08:19 Dose: 1 patch Documented By: DINORA Meclizine HCl (Meclizine Hcl 12.5 Mg Tablet) 12.5 mg PO BIDWM PRN PRN Reason: vertigo Last Admin: 08/06/24 16:48 Dose: 12.5 mg Documented By: KESHA Melatonin (Melatonin 3 Mg Tablet) 6 mg PO BEDTIME PRN PRN Reason: Insomnia Last Admin: 08/06/24 22:35 Dose: 6 mg Documented By: NILESH Methocarbamol (Methocarbamol 750 Mg Tablet) 750 mg PO TID [facility] Last Admin: 08/09/24 08:19 Dose: 750 mg Documented By: DINORA Mirtazapine (Mirtazapine 7.5 Mg Tablet) 7.5 mg PO BEDTIME [facility] Last Admin: 02/22/25 19:57 Dose: 7.5 mg Documented By: AMAURI Nicotine (Nicotine 14 Mg Patch.Td24) 14 mg TRANSDERMA DAILY [facility] Last Admin: 08/09/24 08:18 Dose: 14 mg Documented By: DINORA Omeprazole (Omeprazole 20 Mg Capsule.Dr) 20 mg PO BID@0630,1630 [facility] Last Admin: 08/09/24 05:46 Dose: 20 mg Documented By: AMAURI Ondansetron HCl (Ondansetron Hcl 4 Mg/2 Ml Vial) 4 mg IVPUSH Q8H PRN PRN Reason: Nausea and Vomiting Last Admin: 08/03/24 23:08 Dose: 4 mg Documented By: ELINA Oxycodone HCl (Oxycodone Hcl Immed Release 5 Mg Tablet) 5 mg PO Q4H PRN PRN Reason: Pain, Moderate(Pain Scale 4-6) Last Admin: 08/09/24 13:13 Dose: 5 mg Documented By: DINORA Polyethylene Glycol (Polyethylene Glycol 3350 17 Gm Powd.Pack) 17 gm PO DAILY [facility] Last Admin: 08/09/24 09:22 Dose: Not Given Documented By: DINORA Non-Admin Reason: Patient Refused Quetiapine Fumarate (Quetiapine Fumarate 25 Mg Tablet) 25 mg PO BEDTIME [facility] Last Admin: 08/08/24 19:56 Dose: 25 mg Documented By: AMAURI Sodium Chloride (0.9 % Sodium Chloride Flush 3 Ml Syringe) 3 ml IVFLUSH QSHIFT [facility] Last Admin: 08/09/24 08:20 Dose: 3 ml Documented By: DINORA Sucralfate (Sucralfate 1 Gm Tablet) 1 gm PO QID [facility] Last Admin: 08/09/24 13:09 Dose: 1 gm Documented By: DINORA Tamsulosin HCl (Tamsulosin Hcl 0.4 Mg Capsule) 0.4 mg PO DAILY [facility] Last Admin: 08/09/24 08:19 Dose: 0.4 mg Documented By: DINORA Trazodone HCl (Trazodone Hcl 100 Mg Tablet) 200 mg PO BEDTIME PRN PRN Reason: Sleep Last Admin: 08/08/24 22:42 Dose: 200 mg Documented By: AMAURI Trolamine Salicylate (Trolamine Salicylate 10 % Cream 85 Gm Tube) 1 appl TOPICAL BID [facility]; Protocol Last Admin: 08/09/24 08:24 Dose: 1 appl Documented By: DINORA Vitamin D (Cholecalciferol (Vitamin D3) 10 Mcg Tablet) 10 mcg PO DAILY [facility] Last Admin: 08/09/24 08:20 Dose: 10 mcg Documented By: DINORA Labs 07/31/24 05:51 08/09/24 06:36 Labs: Laboratory Results - last 24 hr 08/09/24 06:36 Anion Gap 14 Estim Creat Clear Calc 85.9 Estimated GFR > 60 Random Glucose 145 H Calcium 8.2 L Assessment and Plan (1) Closed right hip fracture: Status: Acute Plan This is an 79-year-old male significant for HTN, HLD, [id number] type 2 diabetes, BPH, and GERD who had a prolonged stay in overflow and was therefore admitted to the hospital. Given prolonged stay in overflow under physician observation, as well as complicated insurance issues and difficulty with STR/LTR placement, pt admitted to the hospital as a social admission for pain control and physical therapy while awaiting placement. Acute closed right hip fracture Secondary to mechanical fall on 07/21/2024 Seen and evaluated by ortho who has deemed fracture stable with no acute surgical intervention necessary at this time Pt may weight bear as tolerated with use of walker for ambulation Analgesics for pain management PT evaluation> pt refusing to participate in PT encourage oob daily and with meals wean IV narcotics, maximize po meds bowel regimen FLU A pos 07/27/24 can be off precautions Vertigo chronic meclizine as needed Diarrhea. Resolved stool studies negative [id number] type 2 diabetes Blood glucose levels well-controlled, no need for sliding-scale insulin Continue Jardiance and metformin Diabetic diet HLD Continue statin GERD PPI/carafate BPH Tamsulosin Mood disorder Continue Seroquel, mirtazapine seen by psych - prozac added Full Code DVT pptx - lovenox dispo: TBD Quality Stroke Does the patient have a stroke diagnosis?: No VTE Prior VTE?: No VTE Risk Level:: Medical - moderate - high VTE Device Contraindication: Treatment Not Indicated VTE Drug Contraindication: N/A - Med Ordered
[2024-08-09 15:31] VITALS: BP 138/71; PULSE 103; RESP 16; TEMP 36.6; O2SAT 93
[2024-08-09 19:12] VITALS: BP 146/89; PULSE 99; RESP 18; TEMP 36.1; O2SAT 96
[2024-08-09] MEDS: QUEtiapine Fumarate 25 MG TABLET PO (21:04)
[2024-08-09] MEDS: Docusate Sodium 100 MG CAPSULE PO (21:04)
[2024-08-09] MEDS: Mirtazapine 7.5 MG TABLET PO (21:04)
[2024-08-09] MEDS: traZODone HCL 100 MG TABLET 200 MG PO (21:15)
[2024-08-10] MEDS: oxyCODONE HCl Immed Release 5 MG TABLET PO ×5 (02:09→20:18)
[2024-08-10 03:53] VITALS: BP 114/61; PULSE 98; RESP 16; TEMP 36.3; O2SAT 95
[2024-08-10] MEDS: Omeprazole 20 MG CAPSULE.DR PO ×2 (05:58→17:02)
[2024-08-10] MEDS: Lidocaine 4 % Patch ADH..PATCH 1 PATCH TRANSDERMA (07:16)
[2024-08-10] MEDS: 0.9 % Sodium Chloride Flush 3 ML SYRINGE IVFLUSH ×3 (07:16→20:23)
[2024-08-10] MEDS: Nicotine 14 MG PATCH.TD24 TRANSDERMA (07:17)
[2024-08-10] MEDS: Sucralfate 1 GM TABLET PO ×4 (07:18→20:18)
[2024-08-10] MEDS: Calcium + Vitamin D 250 MG TABLET 500 MG PO (07:18)
[2024-08-10] MEDS: Tamsulosin HCL 0.4 MG CAPSULE PO (07:18)
[2024-08-10] MEDS: FLUoxetine HCl Oral Solution 20 MG/5 ML SOLUTION 10 MG PO (07:18)
[2024-08-10] MEDS: Atorvastatin Calcium 80 MG TABLET PO (07:19)
[2024-08-10] MEDS: polyethylene glycoL 3350 17 GM POWD.PACK PO (07:19)
[2024-08-10] MEDS: Empagliflozin 25 MG TABLET PO (07:19)
[2024-08-10] MEDS: Cholecalciferol (Vitamin D3) 10 MCG TABLET PO (07:20)
[2024-08-10] MEDS: Aspirin 81 MG TAB.CHEW 162 MG PO (07:20)
[2024-08-10] MEDS: methocarbamoL 750 MG TABLET PO ×3 (07:20→20:18)
[2024-08-10 07:34] VITALS: BP 135/77; PULSE 92; RESP 16; TEMP 36.3; O2SAT 92
--- NOTE | 2024-08-10 08:54 | HO.PM.IMPN ---
Subjective Subjective Date of Service: 08/10/24 Interval History: seen and examined this morning follow up for hip pain daily discussion with patient about importance of trying to get up and out of bed and move around as much as possible otherwise not moving will result in chronic bedbound status Review of Systems Review of Systems: Yes all other systems are reviewed and are negative Constitutional Constitutional: Denies chills and Denies fever(s) Cardiovascular Cardiovascular: Denies chest pain, Denies palpitations and Denies dyspnea Respiratory Respiratory: Denies cough and Denies dyspnea Gastrointestinal Gastrointestinal: Denies abdominal pain, Denies nausea and Denies vomiting Endocrine Endocrine: Denies palpitations Physical Exam Vital Signs: Vital Signs: Last Vital Signs Temp 97.3 F 08/10/24 07:34 Pulse 92 08/10/24 07:34 Resp 16 08/10/24 07:34 BP 135/77 08/10/24 07:34 Pulse Ox 92 08/10/24 07:34 O2 Del Method Room Air 08/10/24 07:34 BMI result Body Mass Index 28.7 Appearing in no acute distress lung sounds are clear to auscultation heart regular rate rhythm, clear S1, S2 positive bowel sounds, abdomen is soft, nontender neuro patient is alert x3, no focal deficits Objective Data Active Medications Acetaminophen (Acetaminophen 325 Mg Tablet) 975 mg PO TID PRN PRN Reason: Pain, Mild (Pain Scale 1-3) Aspirin (Aspirin 81 Mg Tab.Chew) 162 mg PO DAILY [facility] Last Admin: 08/10/24 07:20 Dose: 162 mg Documented By: KEVIN Atorvastatin Calcium (Atorvastatin Calcium 80 Mg Tablet) 80 mg PO DAILY [facility] Last Admin: 08/10/24 07:19 Dose: 80 mg Documented By: KEVIN Calcium Carbonate (Calcium Carbonate 750 Mg Tab.Chew) 750 mg PO Q4H PRN PRN Reason: Heartburn Calcium Carbonate/Cholecalciferol (Calcium + Vitamin D 250 Mg Tablet) 500 mg PO DAILY [facility] Last Admin: 08/10/24 07:18 Dose: 500 mg Documented By: KEVIN Docusate Sodium (Docusate Sodium 100 Mg Capsule) 100 mg PO BEDTIME [facility] Last Admin: 08/09/24 21:04 Dose: 100 mg Documented By: MONICA Empagliflozin (Empagliflozin 25 Mg Tablet) 25 mg PO DAILY [facility] Last Admin: 08/10/24 07:19 Dose: 25 mg Documented By: KEVIN Enoxaparin Sodium (Enoxaparin Sodium 40 Mg/0.4 Ml Syringe) 40 mg SUBCUT Q24H [facility] Last Admin: 08/09/24 13:09 Dose: 40 mg Documented By: DINORA Fluoxetine HCl (Fluoxetine Hcl Oral Solution 20 Mg/5 Ml Solution) 10 mg PO DAILY [facility] Last Admin: 08/10/24 07:18 Dose: 10 mg Documented By: KEVIN Guaifenesin (Guaifenesin 100 Mg/5 Ml 5 Ml Liquid) 5 ml PO Q4H PRN PRN Reason: Cough Last Admin: 08/09/24 17:05 Dose: 5 ml Documented By: DINORA Hydromorphone HCl (Hydromorphone Hcl 0.5 Mg/0.5 Ml Syringe) 0.25 mg IVPUSH BID PRN; Protocol PRN Reason: Pain, Severe (Pain Scale 7-10) Lidocaine (Lidocaine 4 % Patch Adh..Patch) 1 patch TRANSDERMA DAILY [facility] Last Admin: 08/10/24 07:16 Dose: 1 patch Documented By: KEVIN Meclizine HCl (Meclizine Hcl 12.5 Mg Tablet) 12.5 mg PO BIDWM PRN PRN Reason: vertigo Last Admin: 08/06/24 16:48 Dose: 12.5 mg Documented By: KESHA Melatonin (Melatonin 3 Mg Tablet) 6 mg PO BEDTIME PRN PRN Reason: Insomnia Last Admin: 08/06/24 22:35 Dose: 6 mg Documented By: NILESH Methocarbamol (Methocarbamol 750 Mg Tablet) 750 mg PO TID [facility] Last Admin: 08/10/24 07:20 Dose: 750 mg Documented By: KEVIN Mirtazapine (Mirtazapine 7.5 Mg Tablet) 7.5 mg PO BEDTIME [facility] Last Admin: 08/09/24 21:04 Dose: 7.5 mg Documented By: MONICA Nicotine (Nicotine 14 Mg Patch.Td24) 14 mg TRANSDERMA DAILY [facility] Last Admin: 08/10/24 07:17 Dose: 14 mg Documented By: KEVIN Omeprazole (Omeprazole 20 Mg Capsule.Dr) 20 mg PO BID@0630,1630 [facility] Last Admin: 08/10/24 05:58 Dose: 20 mg Documented By: MONICA Ondansetron HCl (Ondansetron Hcl 4 Mg/2 Ml Vial) 4 mg IVPUSH Q8H PRN PRN Reason: Nausea and Vomiting Last Admin: 08/03/24 23:08 Dose: 4 mg Documented By: ELINA Oxycodone HCl (Oxycodone Hcl Immed Release 5 Mg Tablet) 5 mg PO Q4H PRN PRN Reason: Pain, Moderate(Pain Scale 4-6) Last Admin: 08/10/24 07:17 Dose: 5 mg Documented By: KEVIN Polyethylene Glycol (Polyethylene Glycol 3350 17 Gm Powd.Pack) 17 gm PO DAILY [facility] Last Admin: 08/10/24 07:19 Dose: 17 gm Documented By: KEVIN Quetiapine Fumarate (Quetiapine Fumarate 25 Mg Tablet) 25 mg PO BEDTIME [facility] Last Admin: 08/09/24 21:04 Dose: 25 mg Documented By: MONICA Sodium Chloride (0.9 % Sodium Chloride Flush 3 Ml Syringe) 3 ml IVFLUSH QSHIFT [facility] Last Admin: 08/10/24 07:16 Dose: 3 ml Documented By: KEVIN Sucralfate (Sucralfate 1 Gm Tablet) 1 gm PO QID [facility] Last Admin: 08/10/24 07:18 Dose: 1 gm Documented By: KEVIN Tamsulosin HCl (Tamsulosin Hcl 0.4 Mg Capsule) 0.4 mg PO DAILY [facility] Last Admin: 08/10/24 07:18 Dose: 0.4 mg Documented By: KEVIN Trazodone HCl (Trazodone Hcl 100 Mg Tablet) 200 mg PO BEDTIME PRN PRN Reason: Sleep Last Admin: 08/09/24 21:15 Dose: 200 mg Documented By: MONICA Trolamine Salicylate (Trolamine Salicylate 10 % Cream 85 Gm Tube) 1 appl TOPICAL BID [facility]; Protocol Last Admin: 08/10/24 07:21 Dose: Not Given Documented By: KEVIN Non-Admin Reason: Previously Administered Vitamin D (Cholecalciferol (Vitamin D3) 10 Mcg Tablet) 10 mcg PO DAILY [facility] Last Admin: 08/10/24 07:20 Dose: 10 mcg Documented By: HO.VENLA Labs 07/31/24 05:51 08/09/24 06:36 Assessment and Plan (1) Closed right hip fracture: Status: Acute Plan This is an 79-year-old male significant for HTN, HLD, sxg-[id number]-[id number] type 2 diabetes, BPH, and GERD who had a prolonged stay in overflow and was therefore admitted to the hospital. Given prolonged stay in overflow under physician observation, as well as complicated insurance issues and difficulty with STR/LTR placement, pt admitted to the hospital as a social admission for pain control and physical therapy while awaiting placement. Acute closed right hip fracture Secondary to mechanical fall on 07/21/2024 Seen and evaluated by ortho who has deemed fracture stable with no acute surgical intervention necessary at this time Pt may weight bear as tolerated with use of walker for ambulation Analgesics for pain management PT evaluation> pt refusing to participate in PT encourage oob daily and with meals wean IV narcotics, maximize po meds bowel regimen FLU A pos 07/27/24 can be off precautions Vertigo chronic meclizine as needed Diarrhea. Resolved stool studies negative [id number] type 2 diabetes Blood glucose levels well-controlled, no need for sliding-scale insulin Continue Jardiance and metformin Diabetic diet HLD Continue statin GERD PPI/carafate BPH Tamsulosin Mood disorder Continue Seroquel, mirtazapine seen by psych - prozac added Full Code DVT pptx - lovenox dispo: TBD Quality Stroke Does the patient have a stroke diagnosis?: No VTE Prior VTE?: No VTE Risk Level:: Medical - moderate - high VTE Device Contraindication: Treatment Not Indicated VTE Drug Contraindication: N/A - Med Ordered
[2024-08-10] MEDS: Enoxaparin Sodium 40 MG/0.4 ML SYRINGE SUBCUT (13:56)
[2024-08-10 15:26] VITALS: BP 116/69; PULSE 100; RESP 18; TEMP 36.3; O2SAT 96
[2024-08-10 18:54] VITALS: BP 146/75; PULSE 103; RESP 16; TEMP 36.4; O2SAT 94
[2024-08-10] MEDS: Mirtazapine 7.5 MG TABLET PO (20:18)
[2024-08-10] MEDS: QUEtiapine Fumarate 25 MG TABLET PO (20:18)
[2024-08-10] MEDS: traZODone HCL 100 MG TABLET 200 MG PO (20:18)
[2024-08-10] MEDS: Docusate Sodium 100 MG CAPSULE PO (20:18)
[2024-08-10] MEDS: Trolamine Salicylate 10 % Cream 85 GM TUBE 1 APPL TOPICAL (20:21)
--- NOTE | 2024-08-10 20:50 | PC.NURSE ---
patient still declining to get OOB, states I don't want to have a heart attack .
[2024-08-11] MEDS: oxyCODONE HCl Immed Release 5 MG TABLET PO ×2 (01:27→21:54)
[2024-08-11 03:27] VITALS: BP 131/74; PULSE 98; RESP 18; TEMP 36.1
[2024-08-11] MEDS: Acetaminophen 325 MG TABLET 975 MG PO (04:03)
[2024-08-11] MEDS: Omeprazole 20 MG CAPSULE.DR PO ×2 (04:04→15:27)
[2024-08-11 07:56] VITALS: BP 123/80; PULSE 95; RESP 16; TEMP 36.1; O2SAT 95
--- NOTE | 2024-08-11 08:39 | HO.PM.IMPN ---
Subjective Subjective Date of Service: 08/11/24 Review of Systems Follow up exam completed for chronic hip pain, immobility due to pain Discussed at length the importance of improving and increasing mobility, maintaining independence and participation with PT Continue to work on pain management goals, and therapeutic techniques Constitutional Denies any chills, fever Cardiovascular Denies CP, palpitations, diaphoresis, edema Respiratory Denies cough, dyspnea, wheezing, pleuritic pain Gastrointestinal Denies pain, N/V Physical Exam Vital Signs: Vital Signs: Last Vital Signs Temp 96.9 F 08/11/24 07:56 Pulse 95 08/11/24 07:56 Resp 16 08/11/24 07:56 BP 123/80 08/11/24 07:56 Pulse Ox 95 08/11/24 07:56 O2 Del Method Room Air 08/11/24 07:56 BMI result Body Mass Index 28.7 Const: General: alert and awake Orientation/consciousness: patient oriented x3 Resp: Effort & Inspection: normal respiratory effort and able to speak in complete sentences Auscultation: clear to auscultation bilaterally Cardio: Rate: regular rate Rhythm: regular rhythm GI: Inspection: Yes normal to inspection Auscultation: normal bowel sounds Neuro: General: patient oriented x3 Objective Data Active Medications Acetaminophen (Acetaminophen 325 Mg Tablet) 975 mg PO TID PRN PRN Reason: Pain, Mild (Pain Scale 1-3) Last Admin: 08/11/24 04:03 Dose: 975 mg Documented By: TEA Aspirin (Aspirin 81 Mg Tab.Chew) 162 mg PO DAILY [facility] Last Admin: 08/10/24 07:20 Dose: 162 mg Documented By: KEVIN Atorvastatin Calcium (Atorvastatin Calcium 80 Mg Tablet) 80 mg PO DAILY [facility] Last Admin: 08/10/24 07:19 Dose: 80 mg Documented By: KEVIN Calcium Carbonate (Calcium Carbonate 750 Mg Tab.Chew) 750 mg PO Q4H PRN PRN Reason: Heartburn Calcium Carbonate/Cholecalciferol (Calcium + Vitamin D 250 Mg Tablet) 500 mg PO DAILY [facility] Last Admin: 08/10/24 07:18 Dose: 500 mg Documented By: KEVIN Docusate Sodium (Docusate Sodium 100 Mg Capsule) 100 mg PO BEDTIME [facility] Last Admin: 08/10/24 20:18 Dose: 100 mg Documented By: MONICA Empagliflozin (Empagliflozin 25 Mg Tablet) 25 mg PO DAILY [facility] Last Admin: 08/10/24 07:19 Dose: 25 mg Documented By: KEVIN Enoxaparin Sodium (Enoxaparin Sodium 40 Mg/0.4 Ml Syringe) 40 mg SUBCUT Q24H [facility] Last Admin: 08/10/24 13:56 Dose: 40 mg Documented By: KEVIN Fluoxetine HCl (Fluoxetine Hcl Oral Solution 20 Mg/5 Ml Solution) 10 mg PO DAILY [facility] Last Admin: 08/10/24 07:18 Dose: 10 mg Documented By: KEVIN Guaifenesin (Guaifenesin 100 Mg/5 Ml 5 Ml Liquid) 5 ml PO Q4H PRN PRN Reason: Cough Last Admin: 08/09/24 17:05 Dose: 5 ml Documented By: DINORA Hydromorphone HCl (Hydromorphone Hcl 0.5 Mg/0.5 Ml Syringe) 0.25 mg IVPUSH BID PRN; Protocol PRN Reason: Pain, Severe (Pain Scale 7-10) Lidocaine (Lidocaine 4 % Patch Adh..Patch) 1 patch TRANSDERMA DAILY [facility] Last Admin: 08/10/24 07:16 Dose: 1 patch Documented By: KEVIN Meclizine HCl (Meclizine Hcl 12.5 Mg Tablet) 12.5 mg PO BIDWM PRN PRN Reason: vertigo Last Admin: 08/06/24 16:48 Dose: 12.5 mg Documented By: KESHA Melatonin (Melatonin 3 Mg Tablet) 6 mg PO BEDTIME PRN PRN Reason: Insomnia Last Admin: 08/06/24 22:35 Dose: 6 mg Documented By: NILESH Methocarbamol (Methocarbamol 750 Mg Tablet) 750 mg PO TID [facility] Last Admin: 08/10/24 20:18 Dose: 750 mg Documented By: MOINCA Mirtazapine (Mirtazapine 7.5 Mg Tablet) 7.5 mg PO BEDTIME [facility] Last Admin: 08/10/24 20:18 Dose: 7.5 mg Documented By: MONICA Nicotine (Nicotine 14 Mg Patch.Td24) 14 mg TRANSDERMA DAILY [facility] Last Admin: 08/10/24 07:17 Dose: 14 mg Documented By: KEVIN Omeprazole (Omeprazole 20 Mg Capsule.Dr) 20 mg PO BID@0630,1630 [facility] Last Admin: 08/11/24 04:04 Dose: 20 mg Documented By: TEA Ondansetron HCl (Ondansetron Hcl 4 Mg/2 Ml Vial) 4 mg IVPUSH Q8H PRN PRN Reason: Nausea and Vomiting Last Admin: 08/03/24 23:08 Dose: 4 mg Documented By: ELINA Oxycodone HCl (Oxycodone Hcl Immed Release 5 Mg Tablet) 5 mg PO Q4H PRN PRN Reason: Pain, Moderate(Pain Scale 4-6) Last Admin: 08/11/24 01:27 Dose: 5 mg Documented By: MONICA Polyethylene Glycol (Polyethylene Glycol 3350 17 Gm Powd.Pack) 17 gm PO DAILY [facility] Last Admin: 08/10/24 07:19 Dose: 17 gm Documented By: KEVIN Quetiapine Fumarate (Quetiapine Fumarate 25 Mg Tablet) 25 mg PO BEDTIME [facility] Last Admin: 08/10/24 20:18 Dose: 25 mg Documented By: MONICA Sodium Chloride (0.9 % Sodium Chloride Flush 3 Ml Syringe) 3 ml IVFLUSH QSHIFT [facility] Last Admin: 08/10/24 20:23 Dose: 3 ml Documented By: MONICA Sucralfate (Sucralfate 1 Gm Tablet) 1 gm PO QID [facility] Last Admin: 08/10/24 20:18 Dose: 1 gm Documented By: MONICA Tamsulosin HCl (Tamsulosin Hcl 0.4 Mg Capsule) 0.4 mg PO DAILY [facility] Last Admin: 08/10/24 07:18 Dose: 0.4 mg Documented By: KEVIN Trazodone HCl (Trazodone Hcl 100 Mg Tablet) 200 mg PO BEDTIME PRN PRN Reason: Sleep Last Admin: 08/10/24 20:18 Dose: 200 mg Documented By: MONICA Trolamine Salicylate (Trolamine Salicylate 10 % Cream 85 Gm Tube) 1 appl TOPICAL BID [facility]; Protocol Last Admin: 08/10/24 20:21 Dose: 1 appl Documented By: MONICA Vitamin D (Cholecalciferol (Vitamin D3) 10 Mcg Tablet) 10 mcg PO DAILY [facility] Last Admin: 08/10/24 07:20 Dose: 10 mcg Documented By: KEVIN Labs 07/31/24 05:51 08/11/24 08:10 Assessment and Plan (1) Closed right hip fracture: Status: Acute Plan This is an 79-year-old male significant for HTN, HLD, czt-lkrkwmu-vcmcesvot type 2 diabetes, BPH, and GERD who had a prolonged stay in overflow and was therefore admitted to the hospital. Given prolonged stay in overflow under physician observation, as well as complicated insurance issues and difficulty with STR/LTR placement, pt admitted to the hospital as a social admission for pain control and physical therapy while awaiting placement. Acute closed right hip fracture Secondary to mechanical fall on 07/21/2024 Seen and evaluated by ortho who has deemed fracture stable with no acute surgical intervention necessary at this time Pt may weight bear as tolerated with use of walker for ambulation Analgesics for pain management PT evaluation> pt continues to refuse to participate in PT encourage oob daily and with meals wean IV narcotics, maximize po meds bowel regimen FLU A. Resolved pos 07/27/24-off precautions Vertigo. Resolved chronic meclizine as needed Diarrhea. Resolved stool studies negative Giv-lnydiwg-dqitfwilg type 2 diabetes Blood glucose levels well-controlled, no need for sliding-scale insulin Continue Jardiance and metformin Diabetic diet HLD Continue statin GERD PPI/carafate BPH Tamsulosin Mood disorder Continue Seroquel, mirtazapine seen by psych - prozac added Full Code DVT pptx - lovenox dispo: TBD Quality Stroke Does the patient have a stroke diagnosis?: No VTE Prior VTE?: No VTE Risk Level:: Medical - moderate - high VTE Device Contraindication: Treatment Not Indicated VTE Drug Contraindication: N/A - Med Ordered
[2024-08-11] MEDS: Calcium + Vitamin D 250 MG TABLET 500 MG PO (08:48)
[2024-08-11] MEDS: Atorvastatin Calcium 80 MG TABLET PO (08:49)
[2024-08-11] MEDS: Aspirin 81 MG TAB.CHEW 162 MG PO (08:49)
[2024-08-11] MEDS: Cholecalciferol (Vitamin D3) 10 MCG TABLET PO (08:49)
[2024-08-11] MEDS: Empagliflozin 25 MG TABLET PO (08:49)
[2024-08-11] MEDS: Tamsulosin HCL 0.4 MG CAPSULE PO (08:49)
[2024-08-11] MEDS: methocarbamoL 750 MG TABLET PO ×3 (08:49→20:00)
[2024-08-11] MEDS: Nicotine 14 MG PATCH.TD24 TRANSDERMA (08:50)
[2024-08-11] MEDS: FLUoxetine HCl Oral Solution 20 MG/5 ML SOLUTION 10 MG PO (08:50)
[2024-08-11] MEDS: Sucralfate 1 GM TABLET PO ×4 (08:50→20:08)
[2024-08-11 08:52] LABS: Creatinine Clr Calc Pharmacy 72.4; Estimated Glomerular Filt Rate > 60
[2024-08-11] MEDS: 0.9 % Sodium Chloride Flush 3 ML SYRINGE IVFLUSH ×3 (08:54→21:56)
[2024-08-11] MEDS: polyethylene glycoL 3350 17 GM POWD.PACK PO (08:57)
[2024-08-11] MEDS: Lidocaine 4 % Patch ADH..PATCH 1 PATCH TRANSDERMA (08:59)
[2024-08-11] MEDS: Trolamine Salicylate 10 % Cream 85 GM TUBE 1 APPL TOPICAL ×2 (09:00→20:00)
[2024-08-11] MEDS: Enoxaparin Sodium 40 MG/0.4 ML SYRINGE SUBCUT (13:27)
--- NOTE | 2024-08-11 13:40 | MHC.CM.PN ---
Met with patient to discuss discharge planning. Patient was informed [facility] for [facility] or LTC. 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 She stated that she would have the carry in worker for [place] [facility] call him. His contact info was provided. Patient notified to anticipate a call from the S.W..
[2024-08-11 15:33] VITALS: BP 124/99; PULSE 96; RESP 18; TEMP 36.4; O2SAT 94
[2024-08-11 19:24] VITALS: BP 138/85; PULSE 98; RESP 17; TEMP 36.5; O2SAT 96
[2024-08-11] MEDS: traZODone HCL 100 MG TABLET 200 MG PO (19:59)
[2024-08-11] MEDS: Docusate Sodium 100 MG CAPSULE PO (20:00)
[2024-08-11] MEDS: Mirtazapine 7.5 MG TABLET PO (20:00)
[2024-08-11] MEDS: QUEtiapine Fumarate 25 MG TABLET PO (20:00)
[2024-08-11] MEDS: Melatonin 3 MG TABLET 6 MG PO (21:53)
[2024-08-12 03:25] VITALS: BP 123/91; PULSE 100; RESP 17; TEMP 36.2; O2SAT 94
[2024-08-12] MEDS: Omeprazole 20 MG CAPSULE.DR PO ×2 (05:59→17:18)
[2024-08-12 08:00] VITALS: BP 111/73; PULSE 97; RESP 16; TEMP 36; O2SAT 92
[2024-08-12] MEDS: polyethylene glycoL 3350 17 GM POWD.PACK PO (08:06)
[2024-08-12] MEDS: Nicotine 14 MG PATCH.TD24 TRANSDERMA (08:07)
[2024-08-12] MEDS: Sucralfate 1 GM TABLET PO ×4 (08:08→20:38)
[2024-08-12] MEDS: Cholecalciferol (Vitamin D3) 10 MCG TABLET PO (08:08)
[2024-08-12] MEDS: 0.9 % Sodium Chloride Flush 3 ML SYRINGE IVFLUSH ×3 (08:08→23:25)
[2024-08-12] MEDS: FLUoxetine HCl Oral Solution 20 MG/5 ML SOLUTION 10 MG PO (08:08)
[2024-08-12] MEDS: Tamsulosin HCL 0.4 MG CAPSULE PO (08:08)
[2024-08-12] MEDS: Atorvastatin Calcium 80 MG TABLET PO (08:08)
[2024-08-12] MEDS: Calcium + Vitamin D 250 MG TABLET 500 MG PO (08:08)
[2024-08-12] MEDS: Aspirin 81 MG TAB.CHEW 162 MG PO (08:08)
[2024-08-12] MEDS: methocarbamoL 750 MG TABLET PO ×3 (08:08→20:39)
[2024-08-12] MEDS: Empagliflozin 25 MG TABLET PO (08:08)
[2024-08-12] MEDS: Lidocaine 4 % Patch ADH..PATCH 1 PATCH TRANSDERMA (08:08)
[2024-08-12] MEDS: Trolamine Salicylate 10 % Cream 85 GM TUBE 1 APPL TOPICAL ×2 (08:12→21:39)
[2024-08-12] MEDS: HYDROmorphone HCl 0.5 MG/0.5 ML SYRINGE 0.25 MG IVPUSH (09:47)
--- NOTE | 2024-08-12 10:41 | HO.PM.IMPN ---
Subjective Subjective Date of Service: 08/12/24 Review of Systems Follow up exam completed for chronic hip pain, immobility due to pain Discussed at length the importance of improving and increasing mobility, maintaining independence and participation with PT Continue to work on pain management goals, and therapeutic techniques Constitutional Denies any chills, fever Cardiovascular Denies CP, palpitations, diaphoresis, edema Respiratory Denies cough, dyspnea, wheezing, pleuritic pain Gastrointestinal Denies pain, N/V Physical Exam Vital Signs: Vital Signs: Last Vital Signs Temp 96.8 F 08/12/24 08:00 Pulse 97 08/12/24 08:00 Resp 16 08/12/24 08:00 BP 111/73 08/12/24 08:00 Pulse Ox 92 08/12/24 08:00 O2 Del Method Room Air 08/12/24 08:00 BMI result Body Mass Index 28.7 Appearing in no acute distress lung sounds are clear to auscultation heart regular rate rhythm, clear S1, S2 positive bowel sounds, abdomen is soft, nontender neuro patient is alert x3, no focal deficits Objective Data Active Medications Acetaminophen (Acetaminophen 325 Mg Tablet) 975 mg PO TID PRN PRN Reason: Pain, Mild (Pain Scale 1-3) Last Admin: 08/11/24 04:03 Dose: 975 mg Documented By: TEA Aspirin (Aspirin 81 Mg Tab.Chew) 162 mg PO DAILY [facility] Last Admin: 08/12/24 08:08 Dose: 162 mg Documented By: MARIA TERESA Atorvastatin Calcium (Atorvastatin Calcium 80 Mg Tablet) 80 mg PO DAILY [facility] Last Admin: 08/12/24 08:08 Dose: 80 mg Documented By: MARIA TERESA Calcium Carbonate (Calcium Carbonate 750 Mg Tab.Chew) 750 mg PO Q4H PRN PRN Reason: Heartburn Calcium Carbonate/Cholecalciferol (Calcium + Vitamin D 250 Mg Tablet) 500 mg PO DAILY [facility] Last Admin: 08/12/24 08:08 Dose: 500 mg Documented By: MARIA TERESA Docusate Sodium (Docusate Sodium 100 Mg Capsule) 100 mg PO BEDTIME [facility] Last Admin: 08/11/24 20:00 Dose: 100 mg Documented By: ROGELIO Empagliflozin (Empagliflozin 25 Mg Tablet) 25 mg PO DAILY [facility] Last Admin: 08/12/24 08:08 Dose: 25 mg Documented By: MARIA TERESA Enoxaparin Sodium (Enoxaparin Sodium 40 Mg/0.4 Ml Syringe) 40 mg SUBCUT Q24H [facility] Last Admin: 08/11/24 13:27 Dose: 40 mg Documented By: MARIA TERESA Fluoxetine HCl (Fluoxetine Hcl Oral Solution 20 Mg/5 Ml Solution) 10 mg PO DAILY [facility] Last Admin: 08/12/24 08:08 Dose: 10 mg Documented By: MARIA TERESA Guaifenesin (Guaifenesin 100 Mg/5 Ml 5 Ml Liquid) 5 ml PO Q4H PRN PRN Reason: Cough Last Admin: 08/09/24 17:05 Dose: 5 ml Documented By: JERUSIOdessa Hydromorphone HCl (Hydromorphone Hcl 0.5 Mg/0.5 Ml Syringe) 0.25 mg IVPUSH BID PRN; Protocol PRN Reason: Pain, Severe (Pain Scale 7-10) Last Admin: 08/12/24 09:47 Dose: 0.25 mg Documented By: MARIA TERESA Lidocaine (Lidocaine 4 % Patch Adh..Patch) 1 patch TRANSDERMA DAILY [facility] Last Admin: 08/12/24 08:08 Dose: 1 patch Documented By: MARIA TERESA Meclizine HCl (Meclizine Hcl 12.5 Mg Tablet) 12.5 mg PO BIDWM PRN PRN Reason: vertigo Last Admin: 08/06/24 16:48 Dose: 12.5 mg Documented By: KESHA Melatonin (Melatonin 3 Mg Tablet) 6 mg PO BEDTIME PRN PRN Reason: Insomnia Last Admin: 08/11/24 21:53 Dose: 6 mg Documented By: ROGELIO Methocarbamol (Methocarbamol 750 Mg Tablet) 750 mg PO TID [facility] Last Admin: 08/12/24 08:08 Dose: 750 mg Documented By: MARIA TERESA Mirtazapine (Mirtazapine 7.5 Mg Tablet) 7.5 mg PO BEDTIME [facility] Last Admin: 08/11/24 20:00 Dose: 7.5 mg Documented By: ROGELIO Nicotine (Nicotine 14 Mg Patch.Td24) 14 mg TRANSDERMA DAILY [facility] Last Admin: 08/12/24 08:07 Dose: 14 mg Documented By: MARIA TERESA Omeprazole (Omeprazole 20 Mg Capsule.) 20 mg PO BID@0630,1630 [facility] Last Admin: 08/12/24 05:59 Dose: 20 mg Documented By: ROGELIO Ondansetron HCl (Ondansetron Hcl 4 Mg/2 Ml Vial) 4 mg IVPUSH Q8H PRN PRN Reason: Nausea and Vomiting Last Admin: 08/03/24 23:08 Dose: 4 mg Documented By: ELINA Oxycodone HCl (Oxycodone Hcl Immed Release 5 Mg Tablet) 5 mg PO Q4H PRN PRN Reason: Pain, Moderate(Pain Scale 4-6) Last Admin: 08/11/24 21:54 Dose: 5 mg Documented By: ROGELIO Polyethylene Glycol (Polyethylene Glycol 3350 17 Gm Powd.Pack) 17 gm PO DAILY [facility] Last Admin: 08/12/24 08:06 Dose: 17 gm Documented By: MARIA TERESA Quetiapine Fumarate (Quetiapine Fumarate 25 Mg Tablet) 25 mg PO BEDTIME [facility] Last Admin: 08/11/24 20:00 Dose: 25 mg Documented By: ROGELIO Sodium Chloride (0.9 % Sodium Chloride Flush 3 Ml Syringe) 3 ml IVFLUSH QSHIFT [facility] Last Admin: 08/12/24 08:08 Dose: 3 ml Documented By: MARIA TERESA Sucralfate (Sucralfate 1 Gm Tablet) 1 gm PO QID [facility] Last Admin: 08/12/24 08:08 Dose: 1 gm Documented By: MARIA TERESA Tamsulosin HCl (Tamsulosin Hcl 0.4 Mg Capsule) 0.4 mg PO DAILY [facility] Last Admin: 08/12/24 08:08 Dose: 0.4 mg Documented By: MARIA TERESA Trazodone HCl (Trazodone Hcl 100 Mg Tablet) 200 mg PO BEDTIME PRN PRN Reason: Sleep Last Admin: 08/11/24 19:59 Dose: 200 mg Documented By: ROGELIO Trolamine Salicylate (Trolamine Salicylate 10 % Cream 85 Gm Tube) 1 appl TOPICAL BID [facility]; Protocol Last Admin: 08/12/24 08:12 Dose: 1 appl Documented By: MARIA TERESA Vitamin D (Cholecalciferol (Vitamin D3) 10 Mcg Tablet) 10 mcg PO DAILY [facility] Last Admin: 08/12/24 08:08 Dose: 10 mcg Documented By: HO.DABA Labs 07/31/24 05:51 08/11/24 08:10 Assessment and Plan (1) Closed right hip fracture: Status: Acute Plan 79-year-old male significant for HTN, HLD, sdg-yhbjwhk-xzdbrvzru type 2 diabetes, BPH, and GERD who had a prolonged stay in overflow and was therefore admitted to the hospital. Given prolonged stay in overflow under physician observation, as well as complicated insurance issues and difficulty with STR/LTR placement, pt admitted to the hospital as a social admission for pain control and physical therapy while awaiting placement. Acute closed right hip fracture Secondary to mechanical fall on 07/21/2024 Seen and evaluated by ortho who has deemed fracture stable with no acute surgical intervention necessary at this time Pt may weight bear as tolerated with use of walker for ambulation Analgesics for pain management PT evaluation> pt continues to refuse to participate in PT encourage oob daily and with meals wean IV narcotics, maximize po meds bowel regimen weekly labs FLU A. Resolved pos 07/27/24-off precautions Vertigo. Resolved chronic meclizine as needed Diarrhea. Resolved stool studies negative Tup-eqmgpbd-ivuomzpab type 2 diabetes Blood glucose levels well-controlled, no need for sliding-scale insulin Continue Jardiance, hold metformin as BS is controlled Diabetic diet HLD Continue statin GERD PPI/carafate BPH Tamsulosin Mood disorder Continue Seroquel, mirtazapine seen by psych - prozac added DNR DVT pptx - lovenox dispo: TBD Quality Stroke Does the patient have a stroke diagnosis?: No VTE Prior VTE?: No VTE Risk Level:: Medical - moderate - high VTE Device Contraindication: Treatment Not Indicated VTE Drug Contraindication: N/A - Med Ordered
[2024-08-12] MEDS: Enoxaparin Sodium 40 MG/0.4 ML SYRINGE SUBCUT (12:53)
[2024-08-12 13:12] VITALS: BP 121/58; PULSE 107
[2024-08-12] MEDS: oxyCODONE HCl Immed Release 5 MG TABLET PO ×2 (15:12→20:38)
--- NOTE | 2024-08-12 15:28 | MHC.CM.PN ---
CM spoke with [employer], [facility] [phone]. She plans to come in to meet with Venancio Vivar on Saturday08/17/24 @11AM. Pt worked with PT today. He was pre-medicated for pain prior to the treat. It was reported that he did well with the pain controlled. CM will continue to follow for discharge..
[2024-08-12 15:39] VITALS: BP 135/85; PULSE 104; RESP 18; TEMP 36.6; O2SAT 93
--- NOTE | 2024-08-12 18:14 | P.EN_ITS ---
Event Note Date of Service: 08/12/24 Event Note: pt who just visited and reportedly left and suffered a heart attack, intubated and at [facility] ICU, upon hearing the is anxious and being given some ativan Time Spent With Patient Time: Total time managing care of this patient today ____ minutes.
[2024-08-12 19:44] VITALS: BP 150/86; PULSE 102; RESP 18; TEMP 37; O2SAT 94
[2024-08-12] MEDS: traZODone HCL 100 MG TABLET 200 MG PO (20:37)
[2024-08-12] MEDS: Mirtazapine 7.5 MG TABLET PO (20:38)
[2024-08-12] MEDS: QUEtiapine Fumarate 25 MG TABLET PO (20:38)
[2024-08-12] MEDS: Docusate Sodium 100 MG CAPSULE PO (20:38)
[2024-08-13] MEDS: Melatonin 3 MG TABLET 6 MG PO ×2 (00:33→22:30)
[2024-08-13] MEDS: oxyCODONE HCl Immed Release 5 MG TABLET PO ×5 (00:38→22:27)
[2024-08-13 03:12] VITALS: BP 102/60; PULSE 86; RESP 16; TEMP 36.4; O2SAT 93
[2024-08-13] MEDS: Omeprazole 20 MG CAPSULE.DR PO ×2 (05:32→15:07)
[2024-08-13 07:31] VITALS: BP 141/96; PULSE 93; RESP 18; TEMP 36; O2SAT 94
[2024-08-13] MEDS: Lidocaine 4 % Patch ADH..PATCH 1 PATCH TRANSDERMA (08:57)
[2024-08-13] MEDS: polyethylene glycoL 3350 17 GM POWD.PACK PO (08:57)
[2024-08-13] MEDS: Calcium + Vitamin D 250 MG TABLET 500 MG PO (08:58)
[2024-08-13] MEDS: Empagliflozin 25 MG TABLET PO (08:59)
[2024-08-13] MEDS: Cholecalciferol (Vitamin D3) 10 MCG TABLET PO (08:59)
[2024-08-13] MEDS: Atorvastatin Calcium 80 MG TABLET PO (08:59)
[2024-08-13] MEDS: Aspirin 81 MG TAB.CHEW 162 MG PO (08:59)
[2024-08-13] MEDS: Sucralfate 1 GM TABLET PO ×4 (08:59→20:14)
[2024-08-13] MEDS: Tamsulosin HCL 0.4 MG CAPSULE PO (08:59)
[2024-08-13] MEDS: FLUoxetine HCl Oral Solution 20 MG/5 ML SOLUTION 10 MG PO (08:59)
[2024-08-13] MEDS: methocarbamoL 750 MG TABLET PO ×3 (08:59→20:14)
[2024-08-13] MEDS: Nicotine 14 MG PATCH.TD24 TRANSDERMA (08:59)
[2024-08-13] MEDS: Trolamine Salicylate 10 % Cream 85 GM TUBE 1 APPL TOPICAL ×2 (09:00→20:14)
[2024-08-13] MEDS: 0.9 % Sodium Chloride Flush 3 ML SYRINGE IVFLUSH (09:01)
[2024-08-13] MEDS: Enoxaparin Sodium 40 MG/0.4 ML SYRINGE SUBCUT (12:45)
[2024-08-13] MEDS: HYDROmorphone HCl 0.5 MG/0.5 ML SYRINGE 0.25 MG IVPUSH (12:48)
--- NOTE | 2024-08-13 15:05 | P.PNIM_ITS ---
Subjective Subjective Date of Service: 08/13/24 Interval History: seen and examined this morning Follow-up for hip pain Still reporting pain, but now participating in PT Review of Systems Review of Systems: Yes all other systems are reviewed and are negative Constitutional Constitutional: Denies chills and Denies fever(s) Physical Exam 2 Vital Signs: Vital Signs: Last Vital Signs Temp 96.8 F 08/13/24 07:31 Pulse 93 08/13/24 07:31 Resp 18 08/13/24 07:31 BP 141/96 H 08/13/24 07:31 Pulse Ox 94 08/13/24 07:31 O2 Del Method Room Air 08/13/24 07:31 BMI result Body Mass Index 28.7 Const: General: comfortable, no acute distress, alert and awake Nutritional Appearance: average body habitus Resp: Effort & Inspection: normal respiratory effort, no respiratory distress and no use of accessory muscles Cardio: Rate: regular rate GI: Inspection: No distended Palpation (GI): Soft to palpation and nontender Neuro: General: CN's II-XI intact bilaterally Extrem: General: Yes no pedal edema Objective Data Active Medications Acetaminophen (Acetaminophen 325 Mg Tablet) 975 mg PO TID PRN PRN Reason: Pain, Mild (Pain Scale 1-3) Last Admin: 08/11/24 04:03 Dose: 975 mg Documented By: TEA Aspirin (Aspirin 81 Mg Tab.Chew) 162 mg PO DAILY [facility] Last Admin: 08/13/24 08:59 Dose: 162 mg Documented By: MARIA TERESA Atorvastatin Calcium (Atorvastatin Calcium 80 Mg Tablet) 80 mg PO DAILY [facility] Last Admin: 08/13/24 08:59 Dose: 80 mg Documented By: MARIA TERESA Calcium Carbonate (Calcium Carbonate 750 Mg Tab.Chew) 750 mg PO Q4H PRN PRN Reason: Heartburn Calcium Carbonate/Cholecalciferol (Calcium + Vitamin D 250 Mg Tablet) 500 mg PO DAILY [facility] Last Admin: 08/13/24 08:58 Dose: 500 mg Documented By: MARIA TERESA Docusate Sodium (Docusate Sodium 100 Mg Capsule) 100 mg PO BEDTIME [facility] Last Admin: 08/12/24 20:38 Dose: 100 mg Documented By: SKYE Empagliflozin (Empagliflozin 25 Mg Tablet) 25 mg PO DAILY [facility] Last Admin: 08/13/24 08:59 Dose: 25 mg Documented By: MARIA TERESA Enoxaparin Sodium (Enoxaparin Sodium 40 Mg/0.4 Ml Syringe) 40 mg SUBCUT Q24H [facility] Last Admin: 08/13/24 12:45 Dose: 40 mg Documented By: MARIA TERESA Fluoxetine HCl (Fluoxetine Hcl Oral Solution 20 Mg/5 Ml Solution) 10 mg PO DAILY [facility] Last Admin: 08/13/24 08:59 Dose: 10 mg Documented By: MARIA TERESA Guaifenesin (Guaifenesin 100 Mg/5 Ml 5 Ml Liquid) 5 ml PO Q4H PRN PRN Reason: Cough Last Admin: 08/09/24 17:05 Dose: 5 ml Documented By: JERUSIOdessa Hydromorphone HCl (Hydromorphone Hcl 0.5 Mg/0.5 Ml Syringe) 0.25 mg IVPUSH BID PRN; Protocol PRN Reason: Pain, Severe (Pain Scale 7-10) Last Admin: 08/13/24 12:48 Dose: 0.25 mg Documented By: MARIA TERESA Lidocaine (Lidocaine 4 % Patch Adh..Patch) 1 patch TRANSDERMA DAILY [facility] Last Admin: 08/13/24 08:57 Dose: 1 patch Documented By: MARIA TERESA Meclizine HCl (Meclizine Hcl 12.5 Mg Tablet) 12.5 mg PO BIDWM PRN PRN Reason: vertigo Last Admin: 08/06/24 16:48 Dose: 12.5 mg Documented By: KESHA Melatonin (Melatonin 3 Mg Tablet) 6 mg PO BEDTIME PRN PRN Reason: Insomnia Last Admin: 08/13/24 00:33 Dose: 6 mg Documented By: SKYE Methocarbamol (Methocarbamol 750 Mg Tablet) 750 mg PO TID [facility] Last Admin: 08/13/24 08:59 Dose: 750 mg Documented By: MARIA TERESA Mirtazapine (Mirtazapine 7.5 Mg Tablet) 7.5 mg PO BEDTIME [facility] Last Admin: 08/12/24 20:38 Dose: 7.5 mg Documented By: SKYE Nicotine (Nicotine 14 Mg Patch.Td24) 14 mg TRANSDERMA DAILY [facility] Last Admin: 08/13/24 08:59 Dose: 14 mg Documented By: MARIA TERESA Omeprazole (Omeprazole 20 Mg Capsule.Dr) 20 mg PO BID@0630,1630 [facility] Last Admin: 08/13/24 05:32 Dose: 20 mg Documented By: SKYE Ondansetron HCl (Ondansetron Hcl 4 Mg/2 Ml Vial) 4 mg IVPUSH Q8H PRN PRN Reason: Nausea and Vomiting Last Admin: 08/03/24 23:08 Dose: 4 mg Documented By: ELINA Oxycodone HCl (Oxycodone Hcl Immed Release 5 Mg Tablet) 5 mg PO Q4H PRN PRN Reason: Pain, Moderate(Pain Scale 4-6) Last Admin: 08/13/24 08:59 Dose: 5 mg Documented By: MARIA TERESA Polyethylene Glycol (Polyethylene Glycol 3350 17 Gm Powd.Pack) 17 gm PO DAILY [facility] Last Admin: 08/13/24 08:57 Dose: 17 gm Documented By: MARIA TERESA Quetiapine Fumarate (Quetiapine Fumarate 25 Mg Tablet) 25 mg PO BEDTIME [facility] Last Admin: 08/12/24 20:38 Dose: 25 mg Documented By: SKYE Sodium Chloride (0.9 % Sodium Chloride Flush 3 Ml Syringe) 3 ml IVFLUSH QSHIFT [facility] Last Admin: 08/13/24 09:01 Dose: 3 ml Documented By: MARIA TERESA Sucralfate (Sucralfate 1 Gm Tablet) 1 gm PO QID [facility] Last Admin: 08/13/24 12:45 Dose: 1 gm Documented By: MARIA TERESA Tamsulosin HCl (Tamsulosin Hcl 0.4 Mg Capsule) 0.4 mg PO DAILY [facility] Last Admin: 08/13/24 08:59 Dose: 0.4 mg Documented By: MARIA TERESA Trazodone HCl (Trazodone Hcl 100 Mg Tablet) 200 mg PO BEDTIME PRN PRN Reason: Sleep Last Admin: 08/12/24 20:37 Dose: 200 mg Documented By: SKYE Trolamine Salicylate (Trolamine Salicylate 10 % Cream 85 Gm Tube) 1 appl TOPICAL BID [facility]; Protocol Last Admin: 08/13/24 09:00 Dose: 1 appl Documented By: MARIA TERESA Vitamin D (Cholecalciferol (Vitamin D3) 10 Mcg Tablet) 10 mcg PO DAILY [facility] Last Admin: 08/13/24 08:59 Dose: 10 mcg Documented By: MARIA TERESA Labs 07/31/24 05:51 08/11/24 08:10 Assessment and Plan (1) Closed right hip fracture: Status: Acute Plan 79-year-old male significant for HTN, HLD, naf-enhepif-nzjyfhfor type 2 diabetes, BPH, and GERD who had a prolonged stay in overflow and was therefore admitted to the hospital. Given prolonged stay in overflow under physician observation, as well as complicated insurance issues and difficulty with STR/LTR placement, pt admitted to the hospital as a social admission for pain control and physical therapy while awaiting placement. Acute closed right hip fracture Secondary to mechanical fall on 07/21/2024 Seen and evaluated by ortho who has deemed fracture stable with no acute surgical intervention necessary at this time Pt may weight bear as tolerated with use of walker for ambulation Analgesics for pain management PT evaluation> pt continues to refuse to participate in PT encourage oob daily and with meals wean IV narcotics, maximize po meds bowel regimen weekly labs FLU A. Resolved pos 07/27/24-off precautions Vertigo. Resolved chronic meclizine as needed Diarrhea. Resolved stool studies negative Teb-fbwjzex-traotkjcx type 2 diabetes Blood glucose levels well-controlled, no need for sliding-scale insulin Continue Jardiance, hold metformin as BS is controlled Diabetic diet HLD Continue statin GERD PPI/carafate BPH Tamsulosin Mood disorder Continue Seroquel, mirtazapine seen by psych - proluis miguel added DNR DVT pptx - lovenox dispo: TBD Quality Stroke Does the patient have a stroke diagnosis?: No VTE Prior VTE?: No VTE Risk Level:: Medical - moderate - high VTE Device Contraindication: Treatment Not Indicated VTE Drug Contraindication: N/A - Med Ordered
[2024-08-13 15:09] VITALS: BP 130/77; PULSE 105; RESP 18; TEMP 36.6; O2SAT 92
[2024-08-13 19:03] VITALS: BP 122/77; PULSE 99; RESP 18; TEMP 36.5; O2SAT 93
[2024-08-13] MEDS: QUEtiapine Fumarate 25 MG TABLET PO (20:14)
[2024-08-13] MEDS: Mirtazapine 7.5 MG TABLET PO (20:14)
[2024-08-13] MEDS: Docusate Sodium 100 MG CAPSULE PO (20:17)
[2024-08-13] MEDS: traZODone HCL 100 MG TABLET 200 MG PO (22:30)
[2024-08-14] MEDS: 0.9 % Sodium Chloride Flush 3 ML SYRINGE IVFLUSH ×4 (00:20→21:35)
[2024-08-14] MEDS: Acetaminophen 325 MG TABLET 975 MG PO ×2 (00:22→17:19)
[2024-08-14 02:53] VITALS: BP 113/77; PULSE 101; RESP 18; TEMP 36; O2SAT 93
[2024-08-14] MEDS: Omeprazole 20 MG CAPSULE.DR PO ×2 (05:55→17:18)
[2024-08-14 07:28] VITALS: BP 113/61; PULSE 94; RESP 18; TEMP 36.1; O2SAT 98
[2024-08-14] MEDS: Empagliflozin 25 MG TABLET PO (09:14)
[2024-08-14] MEDS: Nicotine 14 MG PATCH.TD24 TRANSDERMA (09:14)
[2024-08-14] MEDS: Tamsulosin HCL 0.4 MG CAPSULE PO (09:14)
[2024-08-14] MEDS: Aspirin 81 MG TAB.CHEW 162 MG PO (09:14)
[2024-08-14] MEDS: Sucralfate 1 GM TABLET PO ×4 (09:14→21:33)
[2024-08-14] MEDS: methocarbamoL 750 MG TABLET PO ×3 (09:15→21:34)
[2024-08-14] MEDS: Calcium + Vitamin D 250 MG TABLET 500 MG PO (09:15)
[2024-08-14] MEDS: FLUoxetine HCl Oral Solution 20 MG/5 ML SOLUTION 10 MG PO (09:15)
[2024-08-14] MEDS: Cholecalciferol (Vitamin D3) 10 MCG TABLET PO (09:15)
[2024-08-14] MEDS: Atorvastatin Calcium 80 MG TABLET PO (09:15)
[2024-08-14] MEDS: Lidocaine 4 % Patch ADH..PATCH 1 PATCH TRANSDERMA (09:16)
[2024-08-14] MEDS: polyethylene glycoL 3350 17 GM POWD.PACK PO (09:17)
[2024-08-14] MEDS: HYDROmorphone HCl 0.5 MG/0.5 ML SYRINGE 0.25 MG IVPUSH (10:32)
[2024-08-14] MEDS: Trolamine Salicylate 10 % Cream 85 GM TUBE 1 APPL TOPICAL ×2 (10:33→21:36)
[2024-08-14] MEDS: Enoxaparin Sodium 40 MG/0.4 ML SYRINGE SUBCUT (14:37)
--- NOTE | 2024-08-14 14:54 | P.PNIM_ITS ---
Subjective Subjective Date of Service: 08/14/24 Interval History: Seen and examined this morning Follow-up for hip pain Continues to have hip pain however has been moving around more, up to chair and working with physical therapy Review of Systems Review of Systems: Yes all other systems are reviewed and are negative Constitutional Constitutional: Denies chills and Denies fever(s) Cardiovascular Cardiovascular: Denies chest pain Gastrointestinal Gastrointestinal: Denies abdominal pain, Denies nausea and Denies vomiting Physical Exam 2 Vital Signs: Vital Signs: Last Vital Signs Temp 97.0 F 08/14/24 07:28 Pulse 94 08/14/24 07:28 Resp 18 08/14/24 07:28 BP 113/61 08/14/24 07:28 Pulse Ox 98 08/14/24 07:28 O2 Del Method Room Air 08/14/24 07:28 BMI result Body Mass Index 28.7 Const: General: comfortable, no acute distress, alert and awake Nutritional Appearance: average body habitus Resp: Effort & Inspection: normal respiratory effort, no respiratory distress and no use of accessory muscles Cardio: Rate: regular rate GI: Inspection: No distended Palpation (GI): Soft to palpation and nontender Neuro: General: CN's II-XI intact bilaterally Extrem: General: Yes no pedal edema Objective Data Active Medications Acetaminophen (Acetaminophen 325 Mg Tablet) 975 mg PO TID PRN PRN Reason: Pain, Mild (Pain Scale 1-3) Last Admin: 08/14/24 00:22 Dose: 975 mg Documented By: ROGELIO Aspirin (Aspirin 81 Mg Tab.Chew) 162 mg PO DAILY [facility] Last Admin: 08/14/24 09:14 Dose: 162 mg Documented By: VALDEMAR Atorvastatin Calcium (Atorvastatin Calcium 80 Mg Tablet) 80 mg PO DAILY [facility] Last Admin: 08/14/24 09:15 Dose: 80 mg Documented By: VALDEMAR Calcium Carbonate (Calcium Carbonate 750 Mg Tab.Chew) 750 mg PO Q4H PRN PRN Reason: Heartburn Calcium Carbonate/Cholecalciferol (Calcium + Vitamin D 250 Mg Tablet) 500 mg PO DAILY [facility] Last Admin: 08/14/24 09:15 Dose: 500 mg Documented By: VALDEMAR Docusate Sodium (Docusate Sodium 100 Mg Capsule) 100 mg PO BEDTIME [facility] Last Admin: 08/13/24 20:17 Dose: 100 mg Documented By: RANDY Empagliflozin (Empagliflozin 25 Mg Tablet) 25 mg PO DAILY [facility] Last Admin: 08/14/24 09:14 Dose: 25 mg Documented By: VALDEMAR Enoxaparin Sodium (Enoxaparin Sodium 40 Mg/0.4 Ml Syringe) 40 mg SUBCUT Q24H [facility] Last Admin: 08/14/24 14:37 Dose: 40 mg Documented By: VALDEMAR Fluoxetine HCl (Fluoxetine Hcl Oral Solution 20 Mg/5 Ml Solution) 10 mg PO DAILY [facility] Last Admin: 08/14/24 09:15 Dose: 10 mg Documented By: VALDEMAR Guaifenesin (Guaifenesin 100 Mg/5 Ml 5 Ml Liquid) 5 ml PO Q4H PRN PRN Reason: Cough Last Admin: 08/09/24 17:05 Dose: 5 ml Documented By: AMYUSIOdessa Hydromorphone HCl (Hydromorphone Hcl 0.5 Mg/0.5 Ml Syringe) 0.25 mg IVPUSH BID PRN; Protocol PRN Reason: Pain, Severe (Pain Scale 7-10) Last Admin: 08/14/24 10:32 Dose: 0.25 mg Documented By: VALDEMAR Lidocaine (Lidocaine 4 % Patch Adh..Patch) 1 patch TRANSDERMA DAILY [facility] Last Admin: 08/14/24 09:16 Dose: 1 patch Documented By: VALDEMAR Meclizine HCl (Meclizine Hcl 12.5 Mg Tablet) 12.5 mg PO BIDWM PRN PRN Reason: vertigo Last Admin: 08/06/24 16:48 Dose: 12.5 mg Documented By: KESHA Melatonin (Melatonin 3 Mg Tablet) 6 mg PO BEDTIME PRN PRN Reason: Insomnia Last Admin: 08/13/24 22:30 Dose: 6 mg Documented By: RANDY Methocarbamol (Methocarbamol 750 Mg Tablet) 750 mg PO TID [facility] Last Admin: 08/14/24 14:36 Dose: 750 mg Documented By: VALDEMAR Mirtazapine (Mirtazapine 7.5 Mg Tablet) 7.5 mg PO BEDTIME [facility] Last Admin: 08/13/24 20:14 Dose: 7.5 mg Documented By: RANDY Nicotine (Nicotine 14 Mg Patch.Td24) 14 mg TRANSDERMA DAILY [facility] Last Admin: 08/14/24 09:14 Dose: 14 mg Documented By: VALDEMAR Omeprazole (Omeprazole 20 Mg Capsule.) 20 mg PO BID@0630,1630 [facility] Last Admin: 08/14/24 05:55 Dose: 20 mg Documented By: ROGELIO Ondansetron HCl (Ondansetron Hcl 4 Mg/2 Ml Vial) 4 mg IVPUSH Q8H PRN PRN Reason: Nausea and Vomiting Last Admin: 08/03/24 23:08 Dose: 4 mg Documented By: ELINA Oxycodone HCl (Oxycodone Hcl Immed Release 5 Mg Tablet) 5 mg PO Q4H PRN PRN Reason: Pain, Moderate(Pain Scale 4-6) Last Admin: 08/13/24 22:27 Dose: 5 mg Documented By: RANDY Polyethylene Glycol (Polyethylene Glycol 3350 17 Gm Powd.Pack) 17 gm PO DAILY [facility] Last Admin: 08/14/24 09:17 Dose: 17 gm Documented By: VALDEMAR Quetiapine Fumarate (Quetiapine Fumarate 25 Mg Tablet) 25 mg PO BEDTIME [facility] Last Admin: 08/13/24 20:14 Dose: 25 mg Documented By: RANDY Sodium Chloride (0.9 % Sodium Chloride Flush 3 Ml Syringe) 3 ml IVFLUSH QSHIFT [facility] Last Admin: 08/14/24 14:39 Dose: 3 ml Documented By: VALDEMAR Sucralfate (Sucralfate 1 Gm Tablet) 1 gm PO QID [facility] Last Admin: 08/14/24 14:36 Dose: 1 gm Documented By: VALDEMAR Tamsulosin HCl (Tamsulosin Hcl 0.4 Mg Capsule) 0.4 mg PO DAILY [facility] Last Admin: 08/14/24 09:14 Dose: 0.4 mg Documented By: VALDEMAR Trazodone HCl (Trazodone Hcl 100 Mg Tablet) 200 mg PO BEDTIME PRN PRN Reason: Sleep Last Admin: 08/13/24 22:30 Dose: 200 mg Documented By: RANDY Trolamine Salicylate (Trolamine Salicylate 10 % Cream 85 Gm Tube) 1 appl TOPICAL BID [facility]; Protocol Last Admin: 08/14/24 10:33 Dose: 1 appl Documented By: VALDEMAR Vitamin D (Cholecalciferol (Vitamin D3) 10 Mcg Tablet) 10 mcg PO DAILY [facility] Last Admin: 08/14/24 09:15 Dose: 10 mcg Documented By: VALDEMAR Labs 07/31/24 05:51 08/11/24 08:10 Assessment and Plan (1) Closed right hip fracture: Status: Acute Plan 79-year-old male significant for HTN, HLD, kqh-mtwokfb-jxzzcgyii type 2 diabetes, BPH, and GERD who had a prolonged stay in overflow and was therefore admitted to the hospital. Given prolonged stay in overflow under physician observation, as well as complicated insurance issues and difficulty with STR/LTR placement, pt admitted to the hospital as a social admission for pain control and physical therapy while awaiting placement. Acute closed right hip fracture Secondary to mechanical fall on 07/21/2024 Seen and evaluated by ortho who has deemed fracture stable with no acute surgical intervention necessary at this time Pt may weight bear as tolerated with use of walker for ambulation Analgesics for pain management now participating in PT and with increased tolerance to activity encourage oob daily and with meals wean IV narcotics, maximize po meds bowel regimen weekly labs FLU A. Resolved pos 07/27/24-off precautions Vertigo. Resolved chronic meclizine as needed Diarrhea. Resolved stool studies negative Pqi-sylepjl-ywnvacjvo type 2 diabetes Blood glucose levels well-controlled, no need for sliding-scale insulin Continue Jardiance, hold metformin follow POCs. HLD Continue statin GERD PPI/carafate BPH Tamsulosin Mood disorder Continue Seroquel, mirtazapine seen by psych - prozac added tobacco dependence smoking cessation advised DNR DVT pptx - lovenox dispo: TBD Quality Stroke Does the patient have a stroke diagnosis?: No VTE Prior VTE?: No VTE Risk Level:: Medical - moderate - high VTE Device Contraindication: Treatment Not Indicated VTE Drug Contraindication: N/A - Med Ordered
--- NOTE | 2024-08-14 15:38 | MHC.CM.PN ---
pt family brought in some finacial paperwork gabriela from [employer] not[employer]ed they were avaliable and will be comig to get them
[2024-08-14 16:00] VITALS: BP 129/71; PULSE 103; RESP 18; TEMP 36.2; O2SAT 96
[2024-08-14 16:04] VITALS: BP 113/61; PULSE 94; O2SAT 98
[2024-08-14 16:32] LABS: Glucose, Whole Blood 212 mg/dL (60-115)
--- NOTE | 2024-08-14 19:19 | PC.NURSE ---
Patient alert, oriented to self and place, on RA sat's at 98%, c/o R hip and R knee pain, PRN medication utilized as ordered. Patient using urinal with assistance, incontinent at times. Patient using walker and requires at least one assist for ambulation, able to ambulate short distances. Reports dyspnea on exertion.
[2024-08-14 19:42] VITALS: BP 114/72; PULSE 107; RESP 18; TEMP 36.3; O2SAT 93
[2024-08-14 20:41] LABS: Glucose, Whole Blood 149 mg/dL (60-115)
[2024-08-14] MEDS: Mirtazapine 7.5 MG TABLET PO (21:34)
[2024-08-14] MEDS: Docusate Sodium 100 MG CAPSULE PO (21:34)
[2024-08-14] MEDS: QUEtiapine Fumarate 25 MG TABLET PO (21:34)
[2024-08-14] MEDS: traZODone HCL 100 MG TABLET 200 MG PO (21:35)
[2024-08-14] MEDS: oxyCODONE HCl Immed Release 5 MG TABLET PO (21:35)
[2024-08-15 02:44] VITALS: BP 104/56; PULSE 87; RESP 18; TEMP 36.1; O2SAT 94
[2024-08-15 07:05] VITALS: BP 136/64; PULSE 90; RESP 17; TEMP 36.1; O2SAT 96
[2024-08-15 07:13] LABS: Glucose, Whole Blood 248 mg/dL (60-115)
[2024-08-15] MEDS: Omeprazole 20 MG CAPSULE.DR PO ×2 (07:38→16:21)
--- NOTE | 2024-08-15 07:43 | HO.PM.IMPN ---
Subjective Subjective Date of Service: 08/15/24 Interval History: Seen and examined this morning Follow-up for hip pain Continues to have hip pain however has been moving around more, up to chair and working with physical therapy Review of Systems Review of Systems: Yes all other systems are reviewed and are negative Constitutional Constitutional: Denies chills and Denies fever(s) Cardiovascular Cardiovascular: Denies chest pain Gastrointestinal Gastrointestinal: Denies abdominal pain, Denies nausea and Denies vomiting Physical Exam Vital Signs: Vital Signs: Last Vital Signs Temp 96.9 F 08/15/24 07:05 Pulse 90 08/15/24 07:05 Resp 17 08/15/24 07:05 BP 136/64 08/15/24 07:05 Pulse Ox 96 08/15/24 07:05 O2 Del Method Room Air 08/15/24 07:05 BMI result Body Mass Index 28.7 Appearing in no acute distress lung sounds are clear to auscultation heart regular rate rhythm, clear S1, S2 positive bowel sounds, abdomen is soft, nontender neuro patient is alert x3, no focal deficits Objective Data Active Medications Acetaminophen (Acetaminophen 325 Mg Tablet) 975 mg PO TID PRN PRN Reason: Pain, Mild (Pain Scale 1-3) Last Admin: 08/14/24 17:19 Dose: 975 mg Documented By: VALDEMAR Aspirin (Aspirin 81 Mg Tab.Chew) 162 mg PO DAILY [facility] BY [facility] Last Admin: 08/14/24 09:14 Dose: 162 mg Documented By: VALDEMAR Atorvastatin Calcium (Atorvastatin Calcium 80 Mg Tablet) 80 mg PO DAILY [facility] BY [facility] Last Admin: 08/14/24 09:15 Dose: 80 mg Documented By: VALDEMAR Calcium Carbonate (Calcium Carbonate 750 Mg Tab.Chew) 750 mg PO Q4H PRN PRN Reason: Heartburn Calcium Carbonate/Cholecalciferol (Calcium + Vitamin D 250 Mg Tablet) 500 mg PO DAILY [facility] BY [facility] Last Admin: 08/14/24 09:15 Dose: 500 mg Documented By: VALDEMAR Dextrose (Dextrose 50 % 25 Gm/50 Ml Syringe) 25 gm IVPUSH Q15M PRN; Protocol PRN Reason: per Hypoglycemia Standing Ord. Docusate Sodium (Docusate Sodium 100 Mg Capsule) 100 mg PO BEDTIME REPLACED BY [facility] Last Admin: 08/14/24 21:34 Dose: 100 mg Documented By: RENETTA Empagliflozin (Empagliflozin 25 Mg Tablet) 25 mg PO DAILY [facility]PL[facility] BY [facility] Last Admin: 08/14/24 09:14 Dose: 25 mg Documented By: VALDEMAR Enoxaparin Sodium (Enoxaparin Sodium 40 Mg/0.4 Ml Syringe) 40 mg SUBCUT Q24H [facility]PL[facility] BY [facility] Last Admin: 08/14/24 14:37 Dose: 40 mg Documented By: VLADEMAR Fluoxetine HCl (Fluoxetine Hcl Oral Solution 20 Mg/5 Ml Solution) 10 mg PO DAILY [facility] BY [facility] Last Admin: 08/14/24 09:15 Dose: 10 mg Documented By: VALDEMAR Glucose (Glucose Gel 15 Gm Gel..Gram.) 15 gm PO Q15M PRN; Protocol PRN Reason: per Hypoglycemia Standing Ord. Guaifenesin (Guaifenesin 100 Mg/5 Ml 5 Ml Liquid) 5 ml PO Q4H PRN PRN Reason: Cough Last Admin: 08/09/24 17:05 Dose: 5 ml Documented By: AMYUSIOdessa Hydromorphone HCl (Hydromorphone Hcl 0.5 Mg/0.5 Ml Syringe) 0.25 mg IVPUSH BID PRN; Protocol PRN Reason: Pain, Severe (Pain Scale 7-10) Last Admin: 08/14/24 10:32 Dose: 0.25 mg Documented By: VALDEMAR Lidocaine (Lidocaine 4 % Patch Adh..Patch) 1 patch TRANSDERMA DAILY [facility]PL[facility] BY [facility] Last Admin: 08/14/24 09:16 Dose: 1 patch Documented By: VALDEMAR Meclizine HCl (Meclizine Hcl 12.5 Mg Tablet) 12.5 mg PO BIDWM PRN PRN Reason: vertigo Last Admin: 08/06/24 16:48 Dose: 12.5 mg Documented By: KESHA Melatonin (Melatonin 3 Mg Tablet) 6 mg PO BEDTIME PRN PRN Reason: Insomnia Last Admin: 08/13/24 22:30 Dose: 6 mg Documented By: RANDY Methocarbamol (Methocarbamol 750 Mg Tablet) 750 mg PO TID REPLACED BY [facility] Last Admin: 08/14/24 21:34 Dose: 750 mg Documented By: RENETTA Mirtazapine (Mirtazapine 7.5 Mg Tablet) 7.5 mg PO BEDTIME REPLACED BY [facility] Last Admin: 08/14/24 21:34 Dose: 7.5 mg Documented By: RENETTA Nicotine (Nicotine 14 Mg Patch.Td24) 14 mg TRANSDERMA DAILY [facility]PL[facility] BY [facility] Last Admin: 08/14/24 09:14 Dose: 14 mg Documented By: VALDEMAR Omeprazole (Omeprazole 20 Mg Capsule.Dr) 20 mg PO BID@0630,1630 [facility]PL[facility] BY [facility] Last Admin: 08/15/24 07:38 Dose: 20 mg Documented By: RENETTA Ondansetron HCl (Ondansetron Hcl 4 Mg/2 Ml Vial) 4 mg IVPUSH Q8H PRN PRN Reason: Nausea and Vomiting Last Admin: 08/03/24 23:08 Dose: 4 mg Documented By: ELINA Oxycodone HCl (Oxycodone Hcl Immed Release 5 Mg Tablet) 5 mg PO Q4H PRN PRN Reason: Pain, Moderate(Pain Scale 4-6) Last Admin: 08/14/24 21:35 Dose: 5 mg Documented By: RENETTA Polyethylene Glycol (Polyethylene Glycol 3350 17 Gm Powd.Pack) 17 gm PO DAILY [facility] BY [facility] Last Admin: 08/14/24 09:17 Dose: 17 gm Documented By: VALDEMAR Quetiapine Fumarate (Quetiapine Fumarate 25 Mg Tablet) 25 mg PO BEDTIME REPLACED BY [facility] Last Admin: 08/14/24 21:34 Dose: 25 mg Documented By: RENETTA Sodium Chloride (0.9 % Sodium Chloride Flush 3 Ml Syringe) 3 ml IVFLUSH QSHIFT REPLACED BY [facility] Last Admin: 08/14/24 21:35 Dose: 3 ml Documented By: RENETTA Sucralfate (Sucralfate 1 Gm Tablet) 1 gm PO QID REPLACED BY [facility] Last Admin: 08/14/24 21:33 Dose: 1 gm Documented By: RENETTA Tamsulosin HCl (Tamsulosin Hcl 0.4 Mg Capsule) 0.4 mg PO DAILY [facility] BY [facility] Last Admin: 08/14/24 09:14 Dose: 0.4 mg Documented By: VALDEMAR Trazodone HCl (Trazodone Hcl 100 Mg Tablet) 200 mg PO BEDTIME PRN PRN Reason: Sleep Last Admin: 08/14/24 21:35 Dose: 200 mg Documented By: RENETTA Trolamine Salicylate (Trolamine Salicylate 10 % Cream 85 Gm Tube) 1 appl TOPICAL BID [facility]; Protocol Last Admin: 08/14/24 21:36 Dose: 1 appl Documented By: RENETTA Vitamin D (Cholecalciferol (Vitamin D3) 10 Mcg Tablet) 10 mcg PO DAILY [facility] BY [facility] Last Admin: 08/14/24 09:15 Dose: 10 mcg Documented By: VALDEMAR Labs 07/31/24 05:51 08/11/24 08:10 Labs: Laboratory Results - last 24 hr 08/14/24 08/14/24 08/15/24 16:29 20:37 07:05 POC Glucose 212 H 149 H 248 H Assessment and Plan (1) Closed right hip fracture: Status: Acute Plan 79-year-old male significant for HTN, HLD, [id number]-[id number] type 2 diabetes, BPH, and GERD who had a prolonged stay in overflow and was therefore admitted to the hospital. Given prolonged stay in overflow under physician observation, as well as complicated insurance issues and difficulty with STR/LTR placement, pt admitted to the hospital as a social admission for pain control and physical therapy while awaiting placement. Acute closed right hip fracture Secondary to mechanical fall on 07/21/2024 Seen and evaluated by ortho who has deemed fracture stable with no acute surgical intervention necessary at this time Pt may weight bear as tolerated with use of walker for ambulation Analgesics for pain management now participating in PT and with increased tolerance to activity encourage oob daily and with meals bowel regimen weekly labs FLU A. Resolved pos 07/27/24-off precautions Vertigo. Resolved chronic meclizine as needed Diarrhea. Resolved stool studies negative Dlx-dnrrzuj-miyyjdaxi type 2 diabetes Blood glucose levels well-controlled, no need for sliding-scale insulin Continue Jardiance, hold metformin follow POCs. HLD Continue statin GERD PPI/carafate BPH Tamsulosin Mood disorder Continue Seroquel, mirtazapine seen by psych - prozac added tobacco dependence smoking cessation advised DNR DVT pptx - lovenox dispo: TBD Quality Stroke Does the patient have a stroke diagnosis?: No VTE Prior VTE?: No VTE Risk Level:: Medical - moderate - high VTE Device Contraindication: Treatment Not Indicated VTE Drug Contraindication: N/A - Med Ordered
[2024-08-15 08:54] LABS: Hematocrit 37.7 % (42.0-52.0); Hemoglobin 12.6 g/dl (14.0-18.0); Mean Corpuscular HGB Conc 33.4 g/dl (31.0-36.0); Mean Corpuscular Hemoglobin 29.6 pg (27.0-33.0); Mean Corpuscular Volume 88.7 fL (80.0-98.0); Mean Platelet Volume 9.4 fL (9.4-12.4); Platelet Count 402 X10*3/uL (160-400); Red Blood Count 4.25 X10*6/uL (4.60-5.80); Red Cell Distribution Width 13.6 % (11.0-16.0); White Blood Count 7.3 X10*3/uL (4.8-10.8)
[2024-08-15] MEDS: 0.9 % Sodium Chloride Flush 3 ML SYRINGE IVFLUSH ×3 (09:06→22:02)
[2024-08-15] MEDS: Atorvastatin Calcium 80 MG TABLET PO (09:10)
[2024-08-15] MEDS: methocarbamoL 750 MG TABLET PO ×3 (09:10→21:59)
[2024-08-15] MEDS: Aspirin 81 MG TAB.CHEW 162 MG PO (09:10)
[2024-08-15] MEDS: Calcium + Vitamin D 250 MG TABLET 500 MG PO (09:10)
[2024-08-15] MEDS: Sucralfate 1 GM TABLET PO ×4 (09:12→22:00)
[2024-08-15] MEDS: Empagliflozin 25 MG TABLET PO (09:12)
[2024-08-15] MEDS: Cholecalciferol (Vitamin D3) 10 MCG TABLET PO (09:12)
[2024-08-15] MEDS: Nicotine 14 MG PATCH.TD24 TRANSDERMA (09:13)
[2024-08-15] MEDS: polyethylene glycoL 3350 17 GM POWD.PACK PO (09:13)
[2024-08-15 09:18] LABS: Anion Gap 12 (12-20); Blood Urea Nitrogen 16 mg/dL (9-16); Calcium 9.1 mg/dL (8.4-10.2); Carbon Dioxide 23 mmol/L (22-29); Chloride 107 mmol/L (96-108); Creatinine Clr Calc Pharmacy 77.2; Estimated Glomerular Filt Rate > 60; Glucose Random 154 mg/dL (60-115); Potassium 3.4 mmol/L (3.3-5.1); Sodium 139 mmol/L (135-145)
[2024-08-15] MEDS: Tamsulosin HCL 0.4 MG CAPSULE PO (09:22)
[2024-08-15] MEDS: Trolamine Salicylate 10 % Cream 85 GM TUBE 1 APPL TOPICAL ×2 (09:23→22:02)
[2024-08-15] MEDS: Lidocaine 4 % Patch ADH..PATCH 1 PATCH TRANSDERMA (09:24)
[2024-08-15] MEDS: FLUoxetine HCl Oral Solution 20 MG/5 ML SOLUTION 10 MG PO (09:25)
[2024-08-15] MEDS: guaiFENesin 100 MG/5 ML 5 ML LIQUID PO (09:26)
[2024-08-15 11:20] LABS: Glucose, Whole Blood 237 mg/dL (60-115)
[2024-08-15] MEDS: HYDROmorphone HCl 0.5 MG/0.5 ML SYRINGE 0.25 MG IVPUSH (11:57)
[2024-08-15] MEDS: Enoxaparin Sodium 40 MG/0.4 ML SYRINGE SUBCUT (13:47)
[2024-08-15 15:31] VITALS: BP 107/68; PULSE 96; RESP 18; TEMP 36.3; O2SAT 93
[2024-08-15 16:10] LABS: Glucose, Whole Blood 153 mg/dL (60-115)
[2024-08-15] MEDS: oxyCODONE HCl Immed Release 5 MG TABLET PO ×2 (16:32→22:00)
[2024-08-15 19:30] VITALS: BP 136/82; PULSE 104; RESP 18; TEMP 36.3; O2SAT 93
[2024-08-15 19:40] LABS: Glucose, Whole Blood 205 mg/dL (60-115)
[2024-08-15] MEDS: QUEtiapine Fumarate 25 MG TABLET PO (21:59)
[2024-08-15] MEDS: traZODone HCL 100 MG TABLET 200 MG PO (21:59)
[2024-08-15] MEDS: Acetaminophen 325 MG TABLET 975 MG PO (22:00)
[2024-08-15] MEDS: Mirtazapine 7.5 MG TABLET PO (22:00)
[2024-08-16 03:12] VITALS: BP 125/67; PULSE 95; RESP 16; TEMP 36.4; O2SAT 92
[2024-08-16] MEDS: Omeprazole 20 MG CAPSULE.DR PO ×2 (05:36→16:25)
[2024-08-16] MEDS: oxyCODONE HCl Immed Release 5 MG TABLET PO ×2 (05:38→13:55)
[2024-08-16 07:23] VITALS: BP 134/81; PULSE 96; RESP 18; TEMP 36.9; O2SAT 95
[2024-08-16 07:53] LABS: Glucose, Whole Blood 149 mg/dL (60-115)
--- NOTE | 2024-08-16 07:59 | HO.PM.IMPN ---
Subjective Subjective Date of Service: 08/16/24 Interval History: Follow up hip pain, placement Continues to have hip pain however has been moving around more, up to chair and working with physical therapy Review of Systems Review of Systems: Yes all other systems are reviewed and are negative Constitutional Constitutional: Denies chills and Denies fever(s) Cardiovascular Cardiovascular: Denies chest pain Gastrointestinal Gastrointestinal: Denies abdominal pain, Denies nausea and Denies vomiting Physical Exam Vital Signs: Vital Signs: Last Vital Signs Temp 98.5 F 08/16/24 07:23 Pulse 96 08/16/24 07:23 Resp 18 08/16/24 07:23 BP 134/81 08/16/24 07:23 Pulse Ox 95 08/16/24 07:23 O2 Del Method Room Air 08/16/24 07:23 BMI result Body Mass Index 28.7 Appearing in no acute distress lung sounds normal expansion heart regular rate rhythm positive bowel sounds neuro patient is alert Objective Data Active Medications Acetaminophen (Acetaminophen 325 Mg Tablet) 975 mg PO TID [facility] Last Admin: 08/15/24 22:00 Dose: 975 mg Documented By: RENETTA Aspirin (Aspirin 81 Mg Tab.Chew) 162 mg PO DAILY [facility] Last Admin: 08/15/24 09:10 Dose: 162 mg Documented By: CHANTALE Atorvastatin Calcium (Atorvastatin Calcium 80 Mg Tablet) 80 mg PO DAILY [facility] Last Admin: 08/15/24 09:10 Dose: 80 mg Documented By: CHANTALE Calcium Carbonate (Calcium Carbonate 750 Mg Tab.Chew) 750 mg PO Q4H PRN PRN Reason: Heartburn Calcium Carbonate/Cholecalciferol (Calcium + Vitamin D 250 Mg Tablet) 500 mg PO DAILY [facility] Last Admin: 08/15/24 09:10 Dose: 500 mg Documented By: CHANTALE Dextrose (Dextrose 50 % 25 Gm/50 Ml Syringe) 25 gm IVPUSH Q15M PRN; Protocol PRN Reason: per Hypoglycemia Standing Ord. Docusate Sodium (Docusate Sodium 100 Mg Capsule) 100 mg PO BEDTIME [facility] Last Admin: 08/15/24 22:01 Dose: Not Given Documented By: RENETTA Non-Admin Reason: >5 BMs during the day Empagliflozin (Empagliflozin 25 Mg Tablet) 25 mg PO DAILY [facility] Last Admin: 08/15/24 09:12 Dose: 25 mg Documented By: CHANTALE Enoxaparin Sodium (Enoxaparin Sodium 40 Mg/0.4 Ml Syringe) 40 mg SUBCUT Q24H [facility] Last Admin: 08/15/24 13:47 Dose: 40 mg Documented By: CHANTALE Fluoxetine HCl (Fluoxetine Hcl Oral Solution 20 Mg/5 Ml Solution) 10 mg PO DAILY [facility] Last Admin: 08/15/24 09:25 Dose: 10 mg Documented By: CHANTALE Glucose (Glucose Gel 15 Gm Gel..Gram.) 15 gm PO Q15M PRN; Protocol PRN Reason: per Hypoglycemia Standing Ord. Guaifenesin (Guaifenesin 100 Mg/5 Ml 5 Ml Liquid) 5 ml PO Q4H PRN PRN Reason: Cough Last Admin: 08/15/24 09:26 Dose: 5 ml Documented By: CHANTALE Lidocaine (Lidocaine 4 % Patch Adh..Patch) 1 patch TRANSDERMA DAILY [facility] Last Admin: 08/15/24 09:24 Dose: 1 patch Documented By: CHANTALE Meclizine HCl (Meclizine Hcl 12.5 Mg Tablet) 12.5 mg PO BIDWM PRN PRN Reason: vertigo Last Admin: 08/06/24 16:48 Dose: 12.5 mg Documented By: KESHA Melatonin (Melatonin 3 Mg Tablet) 6 mg PO BEDTIME PRN PRN Reason: Insomnia Last Admin: 08/13/24 22:30 Dose: 6 mg Documented By: RANDY Methocarbamol (Methocarbamol 750 Mg Tablet) 750 mg PO TID [facility] Last Admin: 08/15/24 21:59 Dose: 750 mg Documented By: RENETTA Mirtazapine (Mirtazapine 7.5 Mg Tablet) 7.5 mg PO BEDTIME [facility] Last Admin: 08/15/24 22:00 Dose: 7.5 mg Documented By: RENETTA Nicotine (Nicotine 14 Mg Patch.Td24) 14 mg TRANSDERMA DAILY [facility] Last Admin: 08/15/24 09:13 Dose: 14 mg Documented By: CHANTALE Omeprazole (Omeprazole 20 Mg Capsule.Dr) 20 mg PO BID@0630,1630 [facility] Last Admin: 08/16/24 05:36 Dose: 20 mg Documented By: RENETTA Ondansetron HCl (Ondansetron Hcl 4 Mg/2 Ml Vial) 4 mg IVPUSH Q8H PRN PRN Reason: Nausea and Vomiting Last Admin: 08/03/24 23:08 Dose: 4 mg Documented By: ELINA Oxycodone HCl (Oxycodone Hcl Immed Release 5 Mg Tablet) 5 mg PO Q4H PRN PRN Reason: Pain, Severe (Pain Scale 7-10) Last Admin: 08/16/24 05:38 Dose: 5 mg Documented By: RENETTA Polyethylene Glycol (Polyethylene Glycol 3350 17 Gm Powd.Pack) 17 gm PO DAILY [facility] Last Admin: 08/15/24 09:13 Dose: 17 gm Documented By: CHANTALE Quetiapine Fumarate (Quetiapine Fumarate 25 Mg Tablet) 25 mg PO BEDTIME [facility] Last Admin: 08/15/24 21:59 Dose: 25 mg Documented By: RENETTA Sodium Chloride (0.9 % Sodium Chloride Flush 3 Ml Syringe) [facility] Last Admin: 08/15/24 22:02 Dose: 3 ml Documented By: RENETTA Sucralfate (Sucralfate 1 Gm Tablet) 1 gm PO QID [facility] Last Admin: 08/15/24 22:00 Dose: 1 gm Documented By: RENETTA Tamsulosin HCl (Tamsulosin Hcl 0.4 Mg Capsule) 0.4 mg PO DAILY [facility] Last Admin: 08/15/24 09:22 Dose: 0.4 mg Documented By: CHANTALE Trazodone HCl (Trazodone Hcl 100 Mg Tablet) 200 mg PO BEDTIME PRN PRN Reason: Sleep Last Admin: 08/15/24 21:59 Dose: 200 mg Documented By: RENETTA Trolamine Salicylate (Trolamine Salicylate 10 % Cream 85 Gm Tube) 1 appl TOPICAL BID [facility]; Protocol Last Admin: 08/15/24 22:02 Dose: 1 appl Documented By: RENETTA Vitamin D (Cholecalciferol (Vitamin D3) 10 Mcg Tablet) 10 mcg PO DAILY [facility] Last Admin: 08/15/24 09:12 Dose: 10 mcg Documented By: CHANTALE Labs 08/15/24 08:13 08/15/24 08:13 Labs: Laboratory Results - last 24 hr 0308/15/24 08/15/24 08:13 11:12 16:07 MCV 88.7 MCH 29.6 MCHC 33.4 RDW 13.6 Plt Count 402 H D MPV 9.4 Absolute Nucleated RBC 0.000 Nucleated RBC % (auto) 0.0 Anion Gap 12 Estim Creat Clear Calc 77.2 Estimated GFR > 60 POC Glucose 237 H 153 H Random Glucose 154 H Calcium 9.1 D 08/15/24 08/16/24 19:36 07:29 MCV MCH MCHC RDW Plt Count MPV Absolute Nucleated RBC Nucleated RBC % (auto) Anion Gap Estim Creat Clear Calc Estimated GFR POC Glucose 205 H 149 H Random Glucose Calcium Assessment and Plan (1) Closed right hip fracture: Status: Acute Plan 79-year-old male significant for HTN, HLD, mds-sqeosut-xzbybrimp type 2 diabetes, BPH, and GERD who had a prolonged stay in overflow and was therefore admitted to the hospital. Given prolonged stay in overflow under physician observation, as well as complicated insurance issues and difficulty with STR/LTR placement, pt admitted to the hospital as a social admission for pain control and physical therapy while awaiting placement. Acute closed right hip fracture Secondary to mechanical fall on 07/21/2024 Seen and evaluated by ortho who has deemed fracture stable with no acute surgical intervention necessary participating in PT and staff with increased tolerance to activity, wbat encourage oob daily and with meals bowel regimen weekly labs FLU A. Resolved pos 07/27/24-off precautions Vertigo. Resolved chronic meclizine as needed Diarrhea. Resolved stool studies negative Ykn-jvpweyk-vzmzwhobj type 2 diabetes Blood glucose levels well-controlled, no need for sliding-scale insulin Continue Jardiance follow POCs. HLD Continue statin GERD PPI/carafate BPH Tamsulosin Mood disorder Continue Seroquel, mirtazapine, prozac tobacco dependence has not smoked since admission DNR DVT pptx - lovenox dispo: TBD Quality Stroke Does the patient have a stroke diagnosis?: No VTE Prior VTE?: No VTE Risk Level:: Medical - moderate - high VTE Device Contraindication: Treatment Not Indicated VTE Drug Contraindication: N/A - Med Ordered
[2024-08-16] MEDS: Aspirin 81 MG TAB.CHEW 162 MG PO (10:39)
[2024-08-16] MEDS: Atorvastatin Calcium 80 MG TABLET PO (10:39)
[2024-08-16] MEDS: Sucralfate 1 GM TABLET PO ×4 (10:39→21:21)
[2024-08-16] MEDS: methocarbamoL 750 MG TABLET PO ×3 (10:39→21:21)
[2024-08-16] MEDS: Acetaminophen 325 MG TABLET 975 MG PO ×3 (10:40→21:21)
[2024-08-16] MEDS: Tamsulosin HCL 0.4 MG CAPSULE PO (10:42)
[2024-08-16] MEDS: Empagliflozin 25 MG TABLET PO (10:42)
[2024-08-16] MEDS: Calcium + Vitamin D 250 MG TABLET 500 MG PO (10:42)
[2024-08-16] MEDS: FLUoxetine HCl Oral Solution 20 MG/5 ML SOLUTION 10 MG PO (10:43)
[2024-08-16] MEDS: Cholecalciferol (Vitamin D3) 10 MCG TABLET PO (10:44)
[2024-08-16] MEDS: 0.9 % Sodium Chloride Flush 3 ML SYRINGE IVFLUSH ×3 (10:44→21:29)
[2024-08-16] MEDS: Lidocaine 4 % Patch ADH..PATCH 1 PATCH TRANSDERMA (10:47)
[2024-08-16] MEDS: Nicotine 14 MG PATCH.TD24 TRANSDERMA (10:52)
[2024-08-16] MEDS: Trolamine Salicylate 10 % Cream 85 GM TUBE 1 APPL TOPICAL ×2 (10:54→21:23)
[2024-08-16 11:28] LABS: Glucose, Whole Blood 183 mg/dL (60-115)
[2024-08-16] MEDS: Enoxaparin Sodium 40 MG/0.4 ML SYRINGE SUBCUT (13:56)
[2024-08-16 15:46] VITALS: BP 119/75; PULSE 94; RESP 20; TEMP 36.6; O2SAT 94
[2024-08-16 16:12] LABS: Glucose, Whole Blood 183 mg/dL (60-115)
[2024-08-16 19:33] LABS: Glucose, Whole Blood 221 mg/dL (60-115)
[2024-08-16 19:51] VITALS: BP 131/81; PULSE 101; RESP 18; TEMP 36.5; O2SAT 95
[2024-08-16] MEDS: Mirtazapine 7.5 MG TABLET PO (21:20)
[2024-08-16] MEDS: QUEtiapine Fumarate 25 MG TABLET PO (21:21)
[2024-08-16] MEDS: Docusate Sodium 100 MG CAPSULE PO (21:21)
[2024-08-17] MEDS: traZODone HCL 100 MG TABLET 200 MG PO (01:03)
[2024-08-17] MEDS: oxyCODONE HCl Immed Release 5 MG TABLET PO ×4 (01:03→17:04)
[2024-08-17 04:15] VITALS: BP 133/86; PULSE 78; RESP 17; TEMP 36.3; O2SAT 93
[2024-08-17] MEDS: Omeprazole 20 MG CAPSULE.DR PO ×2 (06:19→17:01)
[2024-08-17 07:24] VITALS: BP 151/90; PULSE 97; RESP 18; TEMP 36.6; O2SAT 92
[2024-08-17] MEDS: Calcium + Vitamin D 250 MG TABLET 500 MG PO (07:45)
[2024-08-17] MEDS: Empagliflozin 25 MG TABLET PO (07:45)
[2024-08-17] MEDS: Sucralfate 1 GM TABLET PO ×4 (07:45→20:45)
[2024-08-17] MEDS: Aspirin 81 MG TAB.CHEW 162 MG PO (07:45)
[2024-08-17 07:46] LABS: Glucose, Whole Blood 178 mg/dL (60-115)
[2024-08-17] MEDS: Acetaminophen 325 MG TABLET 975 MG PO ×3 (07:46→20:45)
[2024-08-17] MEDS: methocarbamoL 750 MG TABLET PO ×3 (07:46→20:45)
[2024-08-17] MEDS: Cholecalciferol (Vitamin D3) 10 MCG TABLET PO (07:46)
[2024-08-17] MEDS: Atorvastatin Calcium 80 MG TABLET PO (07:47)
[2024-08-17] MEDS: Tamsulosin HCL 0.4 MG CAPSULE PO (07:47)
[2024-08-17] MEDS: FLUoxetine HCl Oral Solution 20 MG/5 ML SOLUTION 10 MG PO (07:47)
[2024-08-17] MEDS: Nicotine 14 MG PATCH.TD24 TRANSDERMA (07:50)
[2024-08-17] MEDS: Lidocaine 4 % Patch ADH..PATCH 1 PATCH TRANSDERMA (07:51)
[2024-08-17] MEDS: Trolamine Salicylate 10 % Cream 85 GM TUBE 1 APPL TOPICAL ×2 (07:55→20:46)
[2024-08-17] MEDS: 0.9 % Sodium Chloride Flush 3 ML SYRINGE IVFLUSH ×3 (07:57→20:47)
--- NOTE | 2024-08-17 08:18 | P.PNIM_ITS ---
Subjective Subjective Date of Service: 08/17/24 Interval History: Follow up hip pain, placement Continues to have hip pain however has been moving around more, up to chair and working with physical therapy Review of Systems Review of Systems: Yes all other systems are reviewed and are negative Constitutional Constitutional: Denies chills and Denies fever(s) Cardiovascular Cardiovascular: Denies chest pain Gastrointestinal Gastrointestinal: Denies abdominal pain, Denies nausea and Denies vomiting Physical Exam 2 Vital Signs: Vital Signs: Last Vital Signs Temp 97.9 F 08/17/24 07:24 Pulse 97 08/17/24 07:24 Resp 18 08/17/24 07:24 BP 151/90 H 08/17/24 07:24 Pulse Ox 92 08/17/24 07:24 O2 Del Method Room Air 08/17/24 07:24 BMI result Body Mass Index 28.7 Appearing in no acute distress lung sounds are clear to auscultation heart regular rate rhythm, clear S1, S2 positive bowel sounds, abdomen is soft, nontender neuro patient is alert x3, no focal deficits Objective Data Active Medications Acetaminophen (Acetaminophen 325 Mg Tablet) 975 mg PO TID [facility] Last Admin: 08/17/24 07:46 Dose: 975 mg Documented By: MURPHY Aspirin (Aspirin 81 Mg Tab.Chew) 162 mg PO DAILY [facility] Last Admin: 08/17/24 07:45 Dose: 162 mg Documented By: MURPHY Atorvastatin Calcium (Atorvastatin Calcium 80 Mg Tablet) 80 mg PO DAILY [facility] Last Admin: 08/17/24 07:47 Dose: 80 mg Documented By: MURPHY Calcium Carbonate (Calcium Carbonate 750 Mg Tab.Chew) 750 mg PO Q4H PRN PRN Reason: Heartburn Calcium Carbonate/Cholecalciferol (Calcium + Vitamin D 250 Mg Tablet) 500 mg PO DAILY [facility] Last Admin: 08/17/24 07:45 Dose: 500 mg Documented By: MURPHY Dextrose (Dextrose 50 % 25 Gm/50 Ml Syringe) 25 gm IVPUSH Q15M PRN; Protocol PRN Reason: per Hypoglycemia Standing Ord. Docusate Sodium (Docusate Sodium 100 Mg Capsule) 100 mg PO BEDTIME [facility] Last Admin: 08/16/24 21:21 Dose: 100 mg Documented By: RODO Empagliflozin (Empagliflozin 25 Mg Tablet) 25 mg PO DAILY [facility] Last Admin: 08/17/24 07:45 Dose: 25 mg Documented By: MURPHY Enoxaparin Sodium (Enoxaparin Sodium 40 Mg/0.4 Ml Syringe) 40 mg SUBCUT Q24H [facility] Last Admin: 08/16/24 13:56 Dose: 40 mg Documented By: CHANTALE Fluoxetine HCl (Fluoxetine Hcl Oral Solution 20 Mg/5 Ml Solution) 10 mg PO DAILY [facility] Last Admin: 08/17/24 07:47 Dose: 10 mg Documented By: MURPHY Glucose (Glucose Gel 15 Gm Gel..Gram.) 15 gm PO Q15M PRN; Protocol PRN Reason: per Hypoglycemia Standing Ord. Guaifenesin (Guaifenesin 100 Mg/5 Ml 5 Ml Liquid) 5 ml PO Q4H PRN PRN Reason: Cough Last Admin: 08/15/24 09:26 Dose: 5 ml Documented By: CHANTALE Lidocaine (Lidocaine 4 % Patch Adh..Patch) 1 patch TRANSDERMA DAILY [facility] Last Admin: 08/17/24 07:51 Dose: 1 patch Documented By: MURPHY Meclizine HCl (Meclizine Hcl 12.5 Mg Tablet) 12.5 mg PO BIDWM PRN PRN Reason: vertigo Last Admin: 08/06/24 16:48 Dose: 12.5 mg Documented By: KESHA Melatonin (Melatonin 3 Mg Tablet) 6 mg PO BEDTIME PRN PRN Reason: Insomnia Last Admin: 08/13/24 22:30 Dose: 6 mg Documented By: RANDY Methocarbamol (Methocarbamol 750 Mg Tablet) 750 mg PO TID [facility] Last Admin: 08/17/24 07:46 Dose: 750 mg Documented By: MURPHY Mirtazapine (Mirtazapine 7.5 Mg Tablet) 7.5 mg PO BEDTIME [facility] Last Admin: 08/16/24 21:20 Dose: 7.5 mg Documented By: RODO Nicotine (Nicotine 14 Mg Patch.Td24) 14 mg TRANSDERMA DAILY [facility] Last Admin: 08/17/24 07:50 Dose: 14 mg Documented By: MURPHY Omeprazole (Omeprazole 20 Mg Capsule.Dr) 20 mg PO BID@0630,1630 [facility] Last Admin: 08/17/24 06:19 Dose: 20 mg Documented By: RODO Ondansetron HCl (Ondansetron Hcl 4 Mg/2 Ml Vial) 4 mg IVPUSH Q8H PRN PRN Reason: Nausea and Vomiting Last Admin: 08/03/24 23:08 Dose: 4 mg Documented By: ELINA Oxycodone HCl (Oxycodone Hcl Immed Release 5 Mg Tablet) 5 mg PO Q4H PRN PRN Reason: Pain, Severe (Pain Scale 7-10) Last Admin: 08/17/24 01:03 Dose: 5 mg Documented By: RODO Polyethylene Glycol (Polyethylene Glycol 3350 17 Gm Powd.Pack) 17 gm PO DAILY [facility] Last Admin: 08/17/24 07:55 Dose: Not Given Documented By: MURPHY Non-Admin Reason: loose stools overnight Quetiapine Fumarate (Quetiapine Fumarate 25 Mg Tablet) 25 mg PO BEDTIME [facility] Last Admin: 08/16/24 21:21 Dose: 25 mg Documented By: RODO Sodium Chloride (0.9 % Sodium Chloride Flush 3 Ml Syringe) 3 [facility] Last Admin: 08/17/24 07:57 Dose: 3 ml Documented By: MUPRHY Sucralfate (Sucralfate 1 Gm Tablet) 1 gm PO QID [facility] Last Admin: 08/17/24 07:45 Dose: 1 gm Documented By: MURPHY Tamsulosin HCl (Tamsulosin Hcl 0.4 Mg Capsule) 0.4 mg PO DAILY [facility] Last Admin: 08/17/24 07:47 Dose: 0.4 mg Documented By: MURPHY Trazodone HCl (Trazodone Hcl 100 Mg Tablet) 200 mg PO BEDTIME PRN PRN Reason: Sleep Last Admin: 08/17/24 01:03 Dose: 200 mg Documented By: RODO Trolamine Salicylate (Trolamine Salicylate 10 % Cream 85 Gm Tube) 1 appl TOPICAL BID [facility]; Protocol Last Admin: 08/17/24 07:55 Dose: 1 appl Documented By: MURPHY Vitamin D (Cholecalciferol (Vitamin D3) 10 Mcg Tablet) 10 mcg PO DAILY [facility] Last Admin: 08/17/24 07:46 Dose: 10 mcg Documented By: MURPHY Labs 08/15/24 08:13 08/15/24 08:13 Labs: Laboratory Results - last 24 hr 08/16/24 08/16/24 08/16/24 11:15 16:08 19:29 POC Glucose 183 H 183 H 221 H 08/17/24 07:42 POC Glucose 178 H Assessment and Plan (1) Closed right hip fracture: Status: Acute Plan 79-year-old male significant for HTN, HLD, oll-unbekgf-oyliplphm type 2 diabetes, BPH, and GERD who had a prolonged stay in overflow and was therefore admitted to the hospital. Given prolonged stay in overflow under physician observation, as well as complicated insurance issues and difficulty with STR/LTR placement, pt admitted to the hospital as a social admission for pain control and physical therapy while awaiting placement. Acute closed right hip fracture Secondary to mechanical fall on 07/21/2024 Seen and evaluated by ortho who has deemed fracture stable with no acute surgical intervention necessary participating in PT and staff with increased tolerance to activity, wbat encourage oob daily and with meals bowel regimen weekly labs FLU A. Resolved pos 07/27/24-off precautions Vertigo. Resolved chronic meclizine as needed Diarrhea. Resolved stool studies negative Ooq-oacaftb-lowcjbewb type 2 diabetes Blood glucose levels well-controlled, no need for sliding-scale insulin Continue Jardiance follow POCs. HLD Continue statin GERD PPI/carafate BPH Tamsulosin Mood disorder Continue Seroquel, mirtazapine, prozac tobacco dependence has not smoked since admission DNR DVT pptx - lovenox dispo: TBD Quality Stroke Does the patient have a stroke diagnosis?: No VTE Prior VTE?: No VTE Risk Level:: Medical - moderate - high VTE Device Contraindication: Treatment Not Indicated VTE Drug Contraindication: N/A - Med Ordered
[2024-08-17 11:27] LABS: Glucose, Whole Blood 238 mg/dL (60-115)
[2024-08-17] MEDS: Enoxaparin Sodium 40 MG/0.4 ML SYRINGE SUBCUT (13:02)
--- NOTE | 2024-08-17 14:36 | MHC.CM.PN ---
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
[2024-08-17 16:00] VITALS: BP 112/71; PULSE 109; RESP 18; TEMP 36.5; O2SAT 97
[2024-08-17 16:31] LABS: Glucose, Whole Blood 226 mg/dL (60-115)
[2024-08-17 19:51] VITALS: BP 107/71; PULSE 105; RESP 18; TEMP 36.2; O2SAT 93
[2024-08-17 20:21] LABS: Glucose, Whole Blood 213 mg/dL (60-115)
[2024-08-17] MEDS: Mirtazapine 7.5 MG TABLET PO (20:45)
[2024-08-17] MEDS: QUEtiapine Fumarate 25 MG TABLET PO (20:45)
[2024-08-17] MEDS: Docusate Sodium 100 MG CAPSULE PO (20:46)
[2024-08-18] MEDS: traZODone HCL 100 MG TABLET 200 MG PO (00:28)
[2024-08-18] MEDS: oxyCODONE HCl Immed Release 5 MG TABLET PO ×4 (00:28→18:19)
[2024-08-18 04:00] VITALS: BP 107/62; PULSE 98; RESP 18; TEMP 37.1; O2SAT 94
[2024-08-18] MEDS: Omeprazole 20 MG CAPSULE.DR PO ×2 (06:15→16:08)
[2024-08-18 07:06] VITALS: BP 112/75; PULSE 95; RESP 16; TEMP 36.9; O2SAT 94
[2024-08-18 07:27] LABS: Glucose, Whole Blood 160 mg/dL (60-115)
--- NOTE | 2024-08-18 07:29 | HO.PM.IMPN ---
Subjective Subjective Date of Service: 08/18/24 Interval History: Follow up hip pain, placement Continues to have hip pain however has been moving around more, up to chair and working with physical therapy Review of Systems Review of Systems: Yes all other systems are reviewed and are negative Constitutional Constitutional: Denies chills and Denies fever(s) Cardiovascular Cardiovascular: Denies chest pain Gastrointestinal Gastrointestinal: Denies abdominal pain, Denies nausea and Denies vomiting Physical Exam Vital Signs: Vital Signs: Last Vital Signs Temp 98.4 F 08/18/24 07:06 Pulse 95 08/18/24 07:06 Resp 16 08/18/24 07:06 BP 112/75 08/18/24 07:06 Pulse Ox 94 08/18/24 07:06 O2 Del Method Room Air 08/18/24 07:06 BMI result Body Mass Index 28.7 Appearing in no acute distress Lungs normal expansion neuro patient is alert x3, no focal deficits Objective Data Active Medications Acetaminophen (Acetaminophen 325 Mg Tablet) 975 mg PO TID [facility] Last Admin: 08/17/24 20:45 Dose: 975 mg Documented By: RODO Aspirin (Aspirin 81 Mg Tab.Chew) 162 mg PO DAILY [facility] Last Admin: 08/17/24 07:45 Dose: 162 mg Documented By: MURPHY Atorvastatin Calcium (Atorvastatin Calcium 80 Mg Tablet) 80 mg PO DAILY [facility] Last Admin: 08/17/24 07:47 Dose: 80 mg Documented By: MURPHY Calcium Carbonate (Calcium Carbonate 750 Mg Tab.Chew) 750 mg PO Q4H PRN PRN Reason: Heartburn Calcium Carbonate/Cholecalciferol (Calcium + Vitamin D 250 Mg Tablet) 500 mg PO DAILY [facility] Last Admin: 08/17/24 07:45 Dose: 500 mg Documented By: MURPHY Dextrose (Dextrose 50 % 25 Gm/50 Ml Syringe) 25 gm IVPUSH Q15M PRN; Protocol PRN Reason: per Hypoglycemia Standing Ord. Docusate Sodium (Docusate Sodium 100 Mg Capsule) 100 mg PO BEDTIME [facility] Last Admin: 08/17/24 20:46 Dose: 100 mg Documented By: RODO Empagliflozin (Empagliflozin 25 Mg Tablet) 25 mg PO DAILY [facility] Last Admin: 08/17/24 07:45 Dose: 25 mg Documented By: MURPHY Enoxaparin Sodium (Enoxaparin Sodium 40 Mg/0.4 Ml Syringe) 40 mg SUBCUT Q24H [facility] Last Admin: 08/17/24 13:02 Dose: 40 mg Documented By: MURPHY Fluoxetine HCl (Fluoxetine Hcl Oral Solution 20 Mg/5 Ml Solution) 10 mg PO DAILY [facility] Last Admin: 08/17/24 07:47 Dose: 10 mg Documented By: MURPHY Glucose (Glucose Gel 15 Gm Gel..Gram.) 15 gm PO Q15M PRN; Protocol PRN Reason: per Hypoglycemia Standing Ord. Guaifenesin (Guaifenesin 100 Mg/5 Ml 5 Ml Liquid) 5 ml PO Q4H PRN PRN Reason: Cough Last Admin: 08/15/24 09:26 Dose: 5 ml Documented By: CHANTALE Lidocaine (Lidocaine 4 % Patch Adh..Patch) 1 patch TRANSDERMA DAILY [facility] Last Admin: 08/17/24 07:51 Dose: 1 patch Documented By: MURPHY Meclizine HCl (Meclizine Hcl 12.5 Mg Tablet) 12.5 mg PO BIDWM PRN PRN Reason: vertigo Last Admin: 08/06/24 16:48 Dose: 12.5 mg Documented By: KESHA Melatonin (Melatonin 3 Mg Tablet) 6 mg PO BEDTIME PRN PRN Reason: Insomnia Last Admin: 08/13/24 22:30 Dose: 6 mg Documented By: RANDY Methocarbamol (Methocarbamol 750 Mg Tablet) 750 mg PO TID [facility] Last Admin: 08/17/24 20:45 Dose: 750 mg Documented By: RODO Mirtazapine (Mirtazapine 7.5 Mg Tablet) 7.5 mg PO BEDTIME [facility] Last Admin: 08/17/24 20:45 Dose: 7.5 mg Documented By: RODO Nicotine (Nicotine 14 Mg Patch.Td24) 14 mg TRANSDERMA DAILY [facility] Last Admin: 08/17/24 07:50 Dose: 14 mg Documented By: MURPHY Omeprazole (Omeprazole 20 Mg Capsule.Dr) 20 mg PO BID@0630,1630 [facility] Last Admin: 08/18/24 06:15 Dose: 20 mg Documented By: RODO Ondansetron HCl (Ondansetron Hcl 4 Mg/2 Ml Vial) 4 mg IVPUSH Q8H PRN PRN Reason: Nausea and Vomiting Last Admin: 08/03/24 23:08 Dose: 4 mg Documented By: ELINA Oxycodone HCl (Oxycodone Hcl Immed Release 5 Mg Tablet) 5 mg PO Q4H PRN PRN Reason: Pain, Severe (Pain Scale 7-10) Last Admin: 08/18/24 06:27 Dose: 5 mg Documented By: RODO Polyethylene Glycol (Polyethylene Glycol 3350 17 Gm Powd.Pack) 17 gm PO DAILY [facility] Last Admin: 08/17/24 07:55 Dose: Not Given Documented By: MURPHY Non-Admin Reason: loose stools overnight Quetiapine Fumarate (Quetiapine Fumarate 25 Mg Tablet) 25 mg PO BEDTIME [facility] Last Admin: 08/17/24 20:45 Dose: 25 mg Documented By: RODO Sodium Chloride (0.9 % Sodium Chloride Flush 3 Ml Syringe) [facility] Last Admin: 08/17/24 20:47 Dose: 3 ml Documented By: RODO Sucralfate (Sucralfate 1 Gm Tablet) 1 gm PO QID [facility] Last Admin: 08/17/24 20:45 Dose: 1 gm Documented By: RODO Tamsulosin HCl (Tamsulosin Hcl 0.4 Mg Capsule) 0.4 mg PO DAILY [facility] Last Admin: 08/17/24 07:47 Dose: 0.4 mg Documented By: MURPHY Trazodone HCl (Trazodone Hcl 100 Mg Tablet) 200 mg PO BEDTIME PRN PRN Reason: Sleep Last Admin: 08/18/24 00:28 Dose: 200 mg Documented By: RODO Trolamine Salicylate (Trolamine Salicylate 10 % Cream 85 Gm Tube) 1 appl TOPICAL BID [facility]; Protocol Last Admin: 08/17/24 20:46 Dose: 1 appl Documented By: RODO Vitamin D (Cholecalciferol (Vitamin D3) 10 Mcg Tablet) 10 mcg PO DAILY [facility] Last Admin: 08/17/24 07:46 Dose: 10 mcg Documented By: MURPHY Labs 08/15/24 08:13 08/15/24 08:13 Labs: Laboratory Results - last 24 hr 08/17/24 08/17/24 08/17/24 07:42 11:17 16:27 POC Glucose 178 H 238 H 226 H 08/17/24 08/18/24 19:54 07:10 POC Glucose 213 H 160 H Assessment and Plan (1) Closed right hip fracture: Status: Acute Plan 79-year-old male significant for HTN, HLD, xzi-mtjkhdy-hjxmgkryr type 2 diabetes, BPH, and GERD who had a prolonged stay in overflow and was therefore admitted to the hospital. Given prolonged stay in overflow under physician observation, as well as complicated insurance issues and difficulty with STR/LTR placement, pt admitted to the hospital as a social admission for pain control and physical therapy while awaiting placement. Acute closed right hip fracture Secondary to mechanical fall on 07/21/2024 Seen and evaluated by ortho who has deemed fracture stable with no acute surgical intervention necessary participating in PT and staff with increased tolerance to activity, wbat encourage oob daily and with meals bowel regimen weekly labs FLU A. Resolved pos 07/27/24-off precautions Vertigo. Resolved chronic meclizine as needed Diarrhea. Resolved stool studies negative Ton-hrfayir-zhreczvsy type 2 diabetes Blood glucose levels well-controlled, no need for sliding-scale insulin Continue Jardiance follow POCs. HLD Continue statin GERD PPI/carafate BPH Tamsulosin Mood disorder Continue Seroquel, mirtazapine, prozac Tobacco dependence has not smoked since admission DNR DVT pptx - lovenox dispo: TBD Quality Stroke Does the patient have a stroke diagnosis?: No VTE Prior VTE?: No VTE Risk Level:: Medical - moderate - high VTE Device Contraindication: Treatment Not Indicated VTE Drug Contraindication: N/A - Med Ordered
[2024-08-18] MEDS: FLUoxetine HCl Oral Solution 20 MG/5 ML SOLUTION 10 MG PO (08:15)
[2024-08-18] MEDS: polyethylene glycoL 3350 17 GM POWD.PACK PO (08:16)
[2024-08-18] MEDS: Lidocaine 4 % Patch ADH..PATCH 1 PATCH TRANSDERMA (08:16)
[2024-08-18] MEDS: Nicotine 14 MG PATCH.TD24 TRANSDERMA (08:16)
[2024-08-18] MEDS: Tamsulosin HCL 0.4 MG CAPSULE PO (08:17)
[2024-08-18] MEDS: Cholecalciferol (Vitamin D3) 10 MCG TABLET PO (08:17)
[2024-08-18] MEDS: Sucralfate 1 GM TABLET PO ×4 (08:17→20:40)
[2024-08-18] MEDS: Calcium + Vitamin D 250 MG TABLET 500 MG PO (08:17)
[2024-08-18] MEDS: Atorvastatin Calcium 80 MG TABLET PO (08:17)
[2024-08-18] MEDS: Acetaminophen 325 MG TABLET 975 MG PO ×3 (08:17→20:38)
[2024-08-18] MEDS: Empagliflozin 25 MG TABLET PO (08:17)
[2024-08-18] MEDS: methocarbamoL 750 MG TABLET PO ×3 (08:17→20:39)
[2024-08-18] MEDS: Aspirin 81 MG TAB.CHEW 162 MG PO (08:17)
[2024-08-18] MEDS: 0.9 % Sodium Chloride Flush 3 ML SYRINGE IVFLUSH ×3 (08:27→20:40)
[2024-08-18] MEDS: Trolamine Salicylate 10 % Cream 85 GM TUBE 1 APPL TOPICAL ×2 (08:28→20:42)
[2024-08-18 09:50] LABS: Creatinine Clr Calc Pharmacy 59.2; Estimated Glomerular Filt Rate > 60
[2024-08-18 11:17] LABS: Glucose, Whole Blood 246 mg/dL (60-115)
--- NOTE | 2024-08-18 12:19 | MHC.CM.PN ---
A call was received from [facility]. An update on the DP was given. She was notified that [facility] Barbara ORELLANA will assist with getting the patient into a medical respite and [facility].
[2024-08-18] MEDS: Enoxaparin Sodium 40 MG/0.4 ML SYRINGE SUBCUT (13:58)
[2024-08-18 16:00] VITALS: BP 131/81; PULSE 103; RESP 20; TEMP 36.9; O2SAT 94
[2024-08-18 16:07] LABS: Glucose, Whole Blood 135 mg/dL (60-115)
[2024-08-18 19:22] VITALS: BP 115/71; PULSE 96; RESP 18; TEMP 36.8; O2SAT 93
[2024-08-18 20:28] LABS: Glucose, Whole Blood 176 mg/dL (60-115)
[2024-08-18] MEDS: Docusate Sodium 100 MG CAPSULE PO (20:39)
[2024-08-18] MEDS: QUEtiapine Fumarate 25 MG TABLET PO (20:39)
[2024-08-18] MEDS: Mirtazapine 7.5 MG TABLET PO (20:39)
[2024-08-19] MEDS: traZODone HCL 100 MG TABLET 200 MG PO ×2 (00:14→21:16)
[2024-08-19] MEDS: oxyCODONE HCl Immed Release 5 MG TABLET PO ×3 (00:15→18:09)
[2024-08-19 03:53] VITALS: BP 120/74; PULSE 99; RESP 17; TEMP 36.6; O2SAT 93
[2024-08-19] MEDS: Omeprazole 20 MG CAPSULE.DR PO ×2 (06:23→16:31)
[2024-08-19 07:18] VITALS: BP 144/88; PULSE 104; RESP 18; TEMP 36.4; O2SAT 94
[2024-08-19 07:27] LABS: Glucose, Whole Blood 158 mg/dL (60-115)
--- NOTE | 2024-08-19 08:12 | HO.PM.IMPN ---
Subjective Subjective Date of Service: 08/19/24 Interval History: Seen in follow-up for right hip fracture Interval history: Patient participating in PT and OOB. He complaints of 4/10 pain in the right hip at rest that worsens to a 7/10 pain with movement despite oxycodone and Tylenol. Tolerating diet, moving bowels Review of Systems Review of Systems: Yes all other systems are reviewed and are negative Physical Exam Vital Signs: Vital Signs: Last Vital Signs Temp 97.5 F 08/19/24 07:18 Pulse 104 H 08/19/24 07:18 Resp 18 08/19/24 07:18 BP 144/88 H 08/19/24 07:18 Pulse Ox 94 08/19/24 07:18 O2 Del Method Room Air 08/19/24 07:18 BMI result Body Mass Index 28.7 Appearing in no acute distress Lungs normal expansion Heart RRR, no murmurs neuro patient is alert x3, no focal deficits Objective Data Active Medications Acetaminophen (Acetaminophen 325 Mg Tablet) 975 mg PO TID [facility] Last Admin: 08/18/24 20:38 Dose: 975 mg Documented By: BASIL Aspirin (Aspirin 81 Mg Tab.Chew) 162 mg PO DAILY [facility] Last Admin: 08/18/24 08:17 Dose: 162 mg Documented By: ROZINA Atorvastatin Calcium (Atorvastatin Calcium 80 Mg Tablet) 80 mg PO DAILY [facility] Last Admin: 08/18/24 08:17 Dose: 80 mg Documented By: ROZINA Calcium Carbonate (Calcium Carbonate 750 Mg Tab.Chew) 750 mg PO Q4H PRN PRN Reason: Heartburn Calcium Carbonate/Cholecalciferol (Calcium + Vitamin D 250 Mg Tablet) 500 mg PO DAILY [facility] Last Admin: 08/18/24 08:17 Dose: 500 mg Documented By: ROZINA Dextrose (Dextrose 50 % 25 Gm/50 Ml Syringe) 25 gm IVPUSH Q15M PRN; Protocol PRN Reason: per Hypoglycemia Standing Ord. Docusate Sodium (Docusate Sodium 100 Mg Capsule) 100 mg PO BEDTIME [facility] Last Admin: 08/18/24 20:39 Dose: 100 mg Documented By: BASIL Empagliflozin (Empagliflozin 25 Mg Tablet) 25 mg PO DAILY [facility] Last Admin: 08/18/24 08:17 Dose: 25 mg Documented By: ROZINA Enoxaparin Sodium (Enoxaparin Sodium 40 Mg/0.4 Ml Syringe) 40 mg SUBCUT Q24H [facility] Last Admin: 08/18/24 13:58 Dose: 40 mg Documented By: ROZINA Fluoxetine HCl (Fluoxetine Hcl Oral Solution 20 Mg/5 Ml Solution) 10 mg PO DAILY [facility] Last Admin: 08/18/24 08:15 Dose: 10 mg Documented By: ROZINA Glucose (Glucose Gel 15 Gm Gel..Gram.) 15 gm PO Q15M PRN; Protocol PRN Reason: per Hypoglycemia Standing Ord. Guaifenesin (Guaifenesin 100 Mg/5 Ml 5 Ml Liquid) 5 ml PO Q4H PRN PRN Reason: Cough Last Admin: 08/15/24 09:26 Dose: 5 ml Documented By: CHANTALE Lidocaine (Lidocaine 4 % Patch Adh..Patch) 1 patch TRANSDERMA DAILY [facility] Last Admin: 08/18/24 08:16 Dose: 1 patch Documented By: ROZINA Meclizine HCl (Meclizine Hcl 12.5 Mg Tablet) 12.5 mg PO BIDWM PRN PRN Reason: vertigo Last Admin: 08/06/24 16:48 Dose: 12.5 mg Documented By: KESHA Melatonin (Melatonin 3 Mg Tablet) 6 mg PO BEDTIME PRN PRN Reason: Insomnia Last Admin: 08/13/24 22:30 Dose: 6 mg Documented By: RANDY Methocarbamol (Methocarbamol 750 Mg Tablet) 750 mg PO TID [facility] Last Admin: 08/18/24 20:39 Dose: 750 mg Documented By: BASIL Mirtazapine (Mirtazapine 7.5 Mg Tablet) 7.5 mg PO BEDTIME [facility] Last Admin: 08/18/24 20:39 Dose: 7.5 mg Documented By: BASIL Nicotine (Nicotine 14 Mg Patch.Td24) 14 mg TRANSDERMA DAILY [facility] Last Admin: 08/18/24 08:16 Dose: 14 mg Documented By: ROZINA Omeprazole (Omeprazole 20 Mg Capsule.Dr) 20 mg PO BID@0630,1630 [facility] Last Admin: 08/19/24 06:23 Dose: 20 mg Documented By: ROGELIO Ondansetron HCl (Ondansetron Hcl 4 Mg/2 Ml Vial) 4 mg IVPUSH Q8H PRN PRN Reason: Nausea and Vomiting Last Admin: 08/03/24 23:08 Dose: 4 mg Documented By: ELINA Oxycodone HCl (Oxycodone Hcl Immed Release 5 Mg Tablet) 5 mg PO Q4H PRN PRN Reason: Pain, Severe (Pain Scale 7-10) Last Admin: 08/19/24 06:23 Dose: 5 mg Documented By: ROGELIO Polyethylene Glycol (Polyethylene Glycol 3350 17 Gm Powd.Pack) 17 gm PO DAILY [facility] Last Admin: 08/18/24 08:16 Dose: 17 gm Documented By: ROZINA Quetiapine Fumarate (Quetiapine Fumarate 25 Mg Tablet) 25 mg PO BEDTIME [facility] Last Admin: 08/18/24 20:39 Dose: 25 mg Documented By: BASIL Sodium Chloride (0.9 % Sodium Chloride Flush 3 Ml Syringe) 3 ml IVFLUSH QSHIFT [facility] Last Admin: 08/18/24 20:40 Dose: 3 ml Documented By: BASIL Sucralfate (Sucralfate 1 Gm Tablet) 1 gm PO QID [facility] Last Admin: 08/18/24 20:40 Dose: 1 gm Documented By: BASIL Tamsulosin HCl (Tamsulosin Hcl 0.4 Mg Capsule) 0.4 mg PO DAILY [facility] Last Admin: 08/18/24 08:17 Dose: 0.4 mg Documented By: ROZINA Trazodone HCl (Trazodone Hcl 100 Mg Tablet) 200 mg PO BEDTIME PRN PRN Reason: Sleep Last Admin: 08/19/24 00:14 Dose: 200 mg Documented By: BASIL Trolamine Salicylate (Trolamine Salicylate 10 % Cream 85 Gm Tube) 1 appl TOPICAL BID [facility]; Protocol Last Admin: 08/18/24 20:42 Dose: 1 appl Documented By: BASIL Vitamin D (Cholecalciferol (Vitamin D3) 10 Mcg Tablet) 10 mcg PO DAILY [facility] Last Admin: 08/18/24 08:17 Dose: 10 mcg Documented By: ROZINA Labs 08/15/24 08:13 08/18/24 09:20 Labs: Laboratory Results - last 24 hr 08/18/24 08/18/24 08/18/24 09:20 11:11 16:03 Estim Creat Clear Calc 59.2 Estimated GFR > 60 POC Glucose 246 H 135 H 08/18/24 08/19/24 20:24 07:23 Estim Creat Clear Calc Estimated GFR POC Glucose 176 H 158 H Assessment and Plan (1) Closed right hip fracture: Status: Acute Plan 79-year-old male significant for HTN, HLD, cpd-ghsjqkl-nkrbonpyn type 2 diabetes, BPH, and GERD who had a prolonged stay in overflow and was therefore admitted to the hospital. Given prolonged stay in overflow under physician observation, as well as complicated insurance issues and difficulty with STR/LTR placement, pt admitted to the hospital as a social admission for pain control and physical therapy while awaiting placement. Acute closed right hip fracture Secondary to mechanical fall on 07/21/2024 Seen and evaluated by ortho who has deemed fracture stable with no acute surgical intervention necessary participating in PT and staff with increased tolerance to activity, wbat Pain inadequately controlled. Add hydromorphone q.6h. Continue oxycodone for moderate pain as well as Tylenol encourage oob daily and with meals bowel regimen weekly labs FLU A. Resolved pos 07/27/24-off precautions Vertigo. Resolved chronic meclizine as needed Diarrhea. Resolved stool studies negative Sma-agdcaky-hoiydcgul type 2 diabetes Blood glucose levels well-controlled, no need for sliding-scale insulin Continue Jardiance follow POCs. HLD Continue statin GERD PPI/carafate BPH Tamsulosin Mood disorder Continue Seroquel, mirtazapine, prozac Tobacco dependence has not smoked since admission DNR DVT pptx - lovenox dispo: TBD Quality Stroke Does the patient have a stroke diagnosis?: No VTE Prior VTE?: No VTE Risk Level:: Medical - moderate - high VTE Device Contraindication: Treatment Not Indicated VTE Drug Contraindication: N/A - Med Ordered
[2024-08-19] MEDS: FLUoxetine HCl Oral Solution 20 MG/5 ML SOLUTION 10 MG PO (08:40)
[2024-08-19] MEDS: Acetaminophen 325 MG TABLET 975 MG PO ×3 (08:41→20:31)
[2024-08-19] MEDS: methocarbamoL 750 MG TABLET PO ×3 (08:41→20:31)
[2024-08-19] MEDS: polyethylene glycoL 3350 17 GM POWD.PACK PO (08:41)
[2024-08-19] MEDS: Tamsulosin HCL 0.4 MG CAPSULE PO (08:41)
[2024-08-19] MEDS: Nicotine 14 MG PATCH.TD24 TRANSDERMA (08:41)
[2024-08-19] MEDS: Empagliflozin 25 MG TABLET PO (08:41)
[2024-08-19] MEDS: Cholecalciferol (Vitamin D3) 10 MCG TABLET PO (08:41)
[2024-08-19] MEDS: Aspirin 81 MG TAB.CHEW 162 MG PO (08:41)
[2024-08-19] MEDS: Lidocaine 4 % Patch ADH..PATCH 1 PATCH TRANSDERMA (08:41)
[2024-08-19] MEDS: Sucralfate 1 GM TABLET PO ×4 (08:41→20:31)
[2024-08-19] MEDS: Atorvastatin Calcium 80 MG TABLET PO (08:41)
[2024-08-19] MEDS: Calcium + Vitamin D 250 MG TABLET 500 MG PO (08:41)
[2024-08-19] MEDS: 0.9 % Sodium Chloride Flush 3 ML SYRINGE IVFLUSH ×3 (08:50→20:32)
[2024-08-19 11:30] LABS: Glucose, Whole Blood 239 mg/dL (60-115)
[2024-08-19] MEDS: HYDROmorphone HCl 0.5 MG/0.5 ML SYRINGE 0.25 MG IVPUSH (13:31)
[2024-08-19] MEDS: Enoxaparin Sodium 40 MG/0.4 ML SYRINGE SUBCUT (13:31)
--- NOTE | 2024-08-19 15:39 | MHC.CM.PN ---
Patient is working with PT daily. There is a new order for pain management. Dilauded IV is ordered. DP working with Barbara ORELLANA. DP STR then OR snf. Patient will transport via BLS.
[2024-08-19 16:07] VITALS: BP 115/68; PULSE 84; RESP 12; TEMP 36.3; O2SAT 94
[2024-08-19 16:43] LABS: Glucose, Whole Blood 178 mg/dL (60-115)
[2024-08-19 19:25] VITALS: BP 110/76; PULSE 88; RESP 18; TEMP 36.6; O2SAT 95
[2024-08-19 20:27] LABS: Glucose, Whole Blood 209 mg/dL (60-115)
[2024-08-19] MEDS: Mirtazapine 7.5 MG TABLET PO (20:31)
[2024-08-19] MEDS: Docusate Sodium 100 MG CAPSULE PO (20:31)
[2024-08-19] MEDS: QUEtiapine Fumarate 25 MG TABLET PO (20:31)
[2024-08-19] MEDS: Trolamine Salicylate 10 % Cream 85 GM TUBE 1 APPL TOPICAL (21:16)
[2024-08-20] MEDS: HYDROmorphone HCl 0.5 MG/0.5 ML SYRINGE 0.25 MG IVPUSH ×2 (03:30→09:53)
[2024-08-20 03:58] VITALS: BP 124/79; PULSE 94; RESP 17; TEMP 36.2; O2SAT 94
[2024-08-20] MEDS: Omeprazole 20 MG CAPSULE.DR PO ×2 (06:10→16:59)
[2024-08-20 07:18] VITALS: BP 131/87; PULSE 104; RESP 18; TEMP 36.8; O2SAT 94
[2024-08-20 07:26] LABS: Glucose, Whole Blood 140 mg/dL (60-115)
[2024-08-20] MEDS: Atorvastatin Calcium 80 MG TABLET PO (09:46)
[2024-08-20] MEDS: Cholecalciferol (Vitamin D3) 10 MCG TABLET PO (09:46)
[2024-08-20] MEDS: Aspirin 81 MG TAB.CHEW 162 MG PO (09:46)
[2024-08-20] MEDS: Calcium + Vitamin D 250 MG TABLET 500 MG PO (09:46)
[2024-08-20] MEDS: Tamsulosin HCL 0.4 MG CAPSULE PO (09:46)
[2024-08-20] MEDS: Acetaminophen 325 MG TABLET 975 MG PO ×3 (09:46→20:33)
[2024-08-20] MEDS: Sucralfate 1 GM TABLET PO ×4 (09:47→20:33)
[2024-08-20] MEDS: FLUoxetine HCl Oral Solution 20 MG/5 ML SOLUTION 10 MG PO (09:47)
[2024-08-20] MEDS: methocarbamoL 750 MG TABLET PO ×3 (09:47→20:33)
[2024-08-20] MEDS: Nicotine 14 MG PATCH.TD24 TRANSDERMA (09:47)
[2024-08-20] MEDS: Empagliflozin 25 MG TABLET PO (09:47)
[2024-08-20] MEDS: Lidocaine 4 % Patch ADH..PATCH 1 PATCH TRANSDERMA (09:48)
[2024-08-20] MEDS: Trolamine Salicylate 10 % Cream 85 GM TUBE 1 APPL TOPICAL ×2 (09:54→20:35)
[2024-08-20] MEDS: 0.9 % Sodium Chloride Flush 3 ML SYRINGE IVFLUSH ×3 (09:58→20:34)
[2024-08-20 11:15] LABS: Glucose, Whole Blood 179 mg/dL (60-115)
--- NOTE | 2024-08-20 14:12 | HO.PM.IMPN ---
Subjective Subjective Date of Service: 08/20/24 Interval History: Seen and examined this morning Follow-up for hip pain Able to get up to chair, participating physical and physical activity; requiring frequent doses of pain medication Review of Systems Review of Systems: Yes all other systems are reviewed and are negative Constitutional Constitutional: Denies chills and Denies fever(s) Physical Exam Vital Signs: Vital Signs: Last Vital Signs Temp 98.3 F 08/20/24 07:18 Pulse 104 H 08/20/24 07:18 Resp 18 08/20/24 07:18 BP 131/87 08/20/24 07:18 Pulse Ox 94 08/20/24 07:18 O2 Del Method Room Air 08/20/24 07:18 BMI result Body Mass Index 28.7 Const: General: comfortable, no acute distress, alert and awake Nutritional Appearance: average body habitus Resp: Effort & Inspection: normal respiratory effort, no respiratory distress and no use of accessory muscles Cardio: Rate: regular rate GI: Inspection: No distended Palpation (GI): Soft to palpation and nontender Neuro: General: CN's II-XI intact bilaterally Extrem: General: Yes no pedal edema Objective Data Active Medications Acetaminophen (Acetaminophen 325 Mg Tablet) 975 mg PO TID [facility] Last Admin: 08/20/24 09:46 Dose: 975 mg Documented By: RAÚL Aspirin (Aspirin 81 Mg Tab.Chew) 162 mg PO DAILY [facility] Last Admin: 08/20/24 09:46 Dose: 162 mg Documented By: RAÚL Atorvastatin Calcium (Atorvastatin Calcium 80 Mg Tablet) 80 mg PO DAILY [facility] Last Admin: 08/20/24 09:46 Dose: 80 mg Documented By: RAÚL Calcium Carbonate (Calcium Carbonate 750 Mg Tab.Chew) 750 mg PO Q4H PRN PRN Reason: Heartburn Calcium Carbonate/Cholecalciferol (Calcium + Vitamin D 250 Mg Tablet) 500 mg PO DAILY [facility] Last Admin: 08/20/24 09:46 Dose: 500 mg Documented By: RAÚL Dextrose (Dextrose 50 % 25 Gm/50 Ml Syringe) 25 gm IVPUSH Q15M PRN; Protocol PRN Reason: per Hypoglycemia Standing Ord. Docusate Sodium (Docusate Sodium 100 Mg Capsule) 100 mg PO BEDTIME [facility] Last Admin: 08/19/24 20:31 Dose: 100 mg Documented By: RATNA Empagliflozin (Empagliflozin 25 Mg Tablet) 25 mg PO DAILY [facility] Last Admin: 08/20/24 09:47 Dose: 25 mg Documented By: RAÚL Enoxaparin Sodium (Enoxaparin Sodium 40 Mg/0.4 Ml Syringe) 40 mg SUBCUT Q24H [facility] Last Admin: 08/19/24 13:31 Dose: 40 mg Documented By: ROZINA Fluoxetine HCl (Fluoxetine Hcl Oral Solution 20 Mg/5 Ml Solution) 10 mg PO DAILY [facility] Last Admin: 08/20/24 09:47 Dose: 10 mg Documented By: RAÚL Glucose (Glucose Gel 15 Gm Gel..Gram.) 15 gm PO Q15M PRN; Protocol PRN Reason: per Hypoglycemia Standing Ord. Guaifenesin (Guaifenesin 100 Mg/5 Ml 5 Ml Liquid) 5 ml PO Q4H PRN PRN Reason: Cough Last Admin: 08/15/24 09:26 Dose: 5 ml Documented By: CHANTALE Hydromorphone HCl (Hydromorphone Hcl 0.5 Mg/0.5 Ml Syringe) 0.25 mg IVPUSH Q6H PRN; Protocol PRN Reason: Pain, Severe (Pain Scale 7-10) Last Admin: 08/20/24 09:53 Dose: 0.25 mg Documented By: RAÚL Lidocaine (Lidocaine 4 % Patch Adh..Patch) 1 patch TRANSDERMA DAILY [facility] Last Admin: 08/20/24 09:48 Dose: 1 patch Documented By: RAÚL Meclizine HCl (Meclizine Hcl 12.5 Mg Tablet) 12.5 mg PO BIDWM PRN PRN Reason: vertigo Last Admin: 08/06/24 16:48 Dose: 12.5 mg Documented By: KESHA Melatonin (Melatonin 3 Mg Tablet) 6 mg PO BEDTIME PRN PRN Reason: Insomnia Last Admin: 08/13/24 22:30 Dose: 6 mg Documented By: RANDY Methocarbamol (Methocarbamol 750 Mg Tablet) 750 mg PO TID [facility] Last Admin: 08/20/24 09:47 Dose: 750 mg Documented By: RAÚL Mirtazapine (Mirtazapine 7.5 Mg Tablet) 7.5 mg PO BEDTIME [facility] Last Admin: 08/19/24 20:31 Dose: 7.5 mg Documented By: RATNA Nicotine (Nicotine 14 Mg Patch.Td24) 14 mg TRANSDERMA DAILY [facility] Last Admin: 08/20/24 09:47 Dose: 14 mg Documented By: RAÚL Omeprazole (Omeprazole 20 Mg Capsule.Dr) 20 mg PO BID@0630,1630 [facility] Last Admin: 08/20/24 06:10 Dose: 20 mg Documented By: RATNA Ondansetron HCl (Ondansetron Hcl 4 Mg/2 Ml Vial) 4 mg IVPUSH Q8H PRN PRN Reason: Nausea and Vomiting Last Admin: 08/03/24 23:08 Dose: 4 mg Documented By: ELINA Oxycodone HCl (Oxycodone Hcl Immed Release 5 Mg Tablet) 5 mg PO Q4H PRN PRN Reason: Pain, Moderate(Pain Scale 4-6) Last Admin: 08/19/24 18:09 Dose: 5 mg Documented By: ROZINA Polyethylene Glycol (Polyethylene Glycol 3350 17 Gm Powd.Pack) 17 gm PO DAILY [facility] Last Admin: 08/20/24 09:53 Dose: 17 gm Documented By: RAÚL Quetiapine Fumarate (Quetiapine Fumarate 25 Mg Tablet) 25 mg PO BEDTIME [facility] Last Admin: 08/19/24 20:31 Dose: 25 mg Documented By: RATNA Sodium Chloride (0.9 % Sodium Chloride Flush 3 Ml Syringe) 3 ml IVFLUSH QSHIFT [facility] Last Admin: 08/20/24 09:58 Dose: 3 ml Documented By: RAÚL Sucralfate (Sucralfate 1 Gm Tablet) 1 gm PO QID [facility] Last Admin: 08/20/24 09:47 Dose: 1 gm Documented By: RAÚL Tamsulosin HCl (Tamsulosin Hcl 0.4 Mg Capsule) 0.4 mg PO DAILY [facility] Last Admin: 08/20/24 09:46 Dose: 0.4 mg Documented By: RAÚL Trazodone HCl (Trazodone Hcl 100 Mg Tablet) 200 mg PO BEDTIME PRN PRN Reason: Sleep Last Admin: 08/19/24 21:16 Dose: 200 mg Documented By: RATNA Trolamine Salicylate (Trolamine Salicylate 10 % Cream 85 Gm Tube) 1 appl TOPICAL BID [facility]; Protocol Last Admin: 08/20/24 09:54 Dose: 1 appl Documented By: RAÚL Vitamin D (Cholecalciferol (Vitamin D3) 10 Mcg Tablet) 10 mcg PO DAILY [facility] Last Admin: 08/20/24 09:46 Dose: 10 mcg Documented By: RAÚL Labs 08/15/24 08:13 08/18/24 09:20 Labs: Laboratory Results - last 24 hr 08/19/24 08/19/24 08/20/24 16:36 20:20 07:21 POC Glucose 178 H 209 H 140 H 08/20/24 11:10 POC Glucose 179 H Assessment and Plan (1) Closed right hip fracture: Status: Acute Plan 79-year-old male significant for HTN, HLD, did-pstzbui-zlqcaqway type 2 diabetes, BPH, and GERD who had a prolonged stay in overflow and was therefore admitted to the hospital. Given prolonged stay in overflow under physician observation, as well as complicated insurance issues and difficulty with STR/LTR placement, pt admitted to the hospital as a social admission for pain control and physical therapy while awaiting placement. Acute closed right hip fracture Secondary to mechanical fall on 07/21/2024 Seen and evaluated by ortho who has deemed fracture stable with no acute surgical intervention necessary participating in PT and staff with increased tolerance to activity, wbat Pain inadequately controlled. Add hydromorphone q.6h. Continue oxycodone for moderate pain as well as Tylenol encourage oob daily and with meals bowel regimen weekly labs FLU A. Resolved pos 07/27/24-off precautions Vertigo. Resolved chronic meclizine as needed Diarrhea. Resolved stool studies negative Ehv-ibddakf-qosdfdahp type 2 diabetes Blood glucose levels well-controlled, no need for sliding-scale insulin Continue Jardiance follow POCs. HLD Continue statin GERD PPI/carafate BPH Tamsulosin Mood disorder Continue Seroquel, mirtazapine, prozac Tobacco dependence has not smoked since admission DNR DVT pptx - lovenox dispo: TBD Quality Stroke Does the patient have a stroke diagnosis?: No VTE Prior VTE?: No VTE Risk Level:: Medical - moderate - high VTE Device Contraindication: Treatment Not Indicated VTE Drug Contraindication: N/A - Med Ordered
[2024-08-20] MEDS: Enoxaparin Sodium 40 MG/0.4 ML SYRINGE SUBCUT (14:56)
[2024-08-20 15:08] VITALS: BP 111/80; PULSE 101; RESP 18; TEMP 36.6; O2SAT 97
[2024-08-20 16:09] LABS: Glucose, Whole Blood 194 mg/dL (60-115)
[2024-08-20] MEDS: Loperamide HCl 2 MG CAPSULE PO (16:59)
[2024-08-20 19:39] VITALS: BP 126/80; PULSE 99; RESP 18; TEMP 37.1; O2SAT 94
[2024-08-20 19:56] LABS: Glucose, Whole Blood 231 mg/dL (60-115)
[2024-08-20] MEDS: QUEtiapine Fumarate 25 MG TABLET PO (20:33)
[2024-08-20] MEDS: traZODone HCL 100 MG TABLET 200 MG PO (20:33)
[2024-08-20] MEDS: Mirtazapine 7.5 MG TABLET PO (20:33)
[2024-08-21 03:10] VITALS: BP 124/80; PULSE 100; RESP 16; TEMP 36.5; O2SAT 99
[2024-08-21] MEDS: HYDROmorphone HCl 0.5 MG/0.5 ML SYRINGE 0.25 MG IVPUSH ×3 (03:20→20:25)
[2024-08-21] MEDS: oxyCODONE HCl Immed Release 5 MG TABLET PO ×2 (05:35→11:52)
[2024-08-21] MEDS: Omeprazole 20 MG CAPSULE.DR PO ×2 (05:35→16:33)
[2024-08-21 07:10] LABS: Glucose, Whole Blood 152 mg/dL (60-115)
[2024-08-21 07:11] VITALS: BP 138/90; PULSE 100; RESP 18; TEMP 36.4; O2SAT 93
[2024-08-21] MEDS: Nicotine 14 MG PATCH.TD24 TRANSDERMA (08:52)
[2024-08-21] MEDS: Lidocaine 4 % Patch ADH..PATCH 1 PATCH TRANSDERMA (08:53)
[2024-08-21] MEDS: FLUoxetine HCl Oral Solution 20 MG/5 ML SOLUTION 10 MG PO (08:54)
[2024-08-21] MEDS: Calcium + Vitamin D 250 MG TABLET 500 MG PO (08:55)
[2024-08-21] MEDS: Acetaminophen 325 MG TABLET 975 MG PO ×3 (08:55→20:26)
[2024-08-21] MEDS: Aspirin 81 MG TAB.CHEW 162 MG PO (08:55)
[2024-08-21] MEDS: Sucralfate 1 GM TABLET PO ×4 (08:56→20:26)
[2024-08-21] MEDS: methocarbamoL 750 MG TABLET PO ×3 (08:56→20:26)
[2024-08-21] MEDS: Empagliflozin 25 MG TABLET PO (08:56)
[2024-08-21] MEDS: Tamsulosin HCL 0.4 MG CAPSULE PO (08:56)
[2024-08-21] MEDS: Atorvastatin Calcium 80 MG TABLET PO (08:56)
[2024-08-21] MEDS: Cholecalciferol (Vitamin D3) 10 MCG TABLET PO (08:56)
[2024-08-21] MEDS: 0.9 % Sodium Chloride Flush 3 ML SYRINGE IVFLUSH ×3 (09:05→20:25)
[2024-08-21] MEDS: Trolamine Salicylate 10 % Cream 85 GM TUBE 1 APPL TOPICAL (09:30)
[2024-08-21 11:30] LABS: Glucose, Whole Blood 191 mg/dL (60-115)
[2024-08-21] MEDS: Enoxaparin Sodium 40 MG/0.4 ML SYRINGE SUBCUT (14:28)
--- NOTE | 2024-08-21 14:41 | HO.PM.IMPN ---
Subjective Subjective Date of Service: 08/21/24 Interval History: seen and examined this morning follow up for hip pain has been working with PT Review of Systems Review of Systems: Yes all other systems are reviewed and are negative Constitutional Constitutional: Denies chills and Denies fever(s) Cardiovascular Cardiovascular: Denies chest pain Physical Exam Vital Signs: Vital Signs: Last Vital Signs Temp 97.5 F 08/21/24 07:11 Pulse 100 08/21/24 07:11 Resp 18 08/21/24 07:11 BP 138/90 H 08/21/24 07:11 Pulse Ox 93 08/21/24 07:11 O2 Del Method Room Air 08/21/24 07:11 BMI result Body Mass Index 28.7 Const: General: comfortable, no acute distress, alert and awake Nutritional Appearance: average body habitus Resp: Effort & Inspection: normal respiratory effort, no respiratory distress and no use of accessory muscles Cardio: Rate: regular rate GI: Inspection: No distended Palpation (GI): Soft to palpation and nontender Neuro: General: CN's II-XI intact bilaterally Extrem: General: Yes no pedal edema Objective Data Active Medications Acetaminophen (Acetaminophen 325 Mg Tablet) 975 mg PO TID [facility] Last Admin: 08/21/24 14:27 Dose: 975 mg Documented By: MAXIMILIAN Aspirin (Aspirin 81 Mg Tab.Chew) 162 mg PO DAILY [facility] Last Admin: 08/21/24 08:55 Dose: 162 mg Documented By: MAXIMILIAN Atorvastatin Calcium (Atorvastatin Calcium 80 Mg Tablet) 80 mg PO DAILY [facility] Last Admin: 08/21/24 08:56 Dose: 80 mg Documented By: MAXIMILIAN Calcium Carbonate (Calcium Carbonate 750 Mg Tab.Chew) 750 mg PO Q4H PRN PRN Reason: Heartburn Calcium Carbonate/Cholecalciferol (Calcium + Vitamin D 250 Mg Tablet) 500 mg PO DAILY [facility] Last Admin: 08/21/24 08:55 Dose: 500 mg Documented By: MAXIMILIAN Dextrose (Dextrose 50 % 25 Gm/50 Ml Syringe) 25 gm IVPUSH Q15M PRN; Protocol PRN Reason: per Hypoglycemia Standing Ord. Docusate Sodium (Docusate Sodium 100 Mg Capsule) 100 mg PO BEDTIME [facility] Last Admin: 08/20/24 20:38 Dose: Not Given Documented By: RATNA Non-Admin Reason: diarrhea Empagliflozin (Empagliflozin 25 Mg Tablet) 25 mg PO DAILY [facility] Last Admin: 08/21/24 08:56 Dose: 25 mg Documented By: MAXIMILIAN Enoxaparin Sodium (Enoxaparin Sodium 40 Mg/0.4 Ml Syringe) 40 mg SUBCUT Q24H [facility] Last Admin: 08/21/24 14:28 Dose: 40 mg Documented By: MAXIMILIAN Fluoxetine HCl (Fluoxetine Hcl Oral Solution 20 Mg/5 Ml Solution) 10 mg PO DAILY [facility] Last Admin: 08/21/24 08:54 Dose: 10 mg Documented By: MAXIMILIAN Glucose (Glucose Gel 15 Gm Gel..Gram.) 15 gm PO Q15M PRN; Protocol PRN Reason: per Hypoglycemia Standing Ord. Guaifenesin (Guaifenesin 100 Mg/5 Ml 5 Ml Liquid) 5 ml PO Q4H PRN PRN Reason: Cough Last Admin: 08/15/24 09:26 Dose: 5 ml Documented By: CHANTALE Hydromorphone HCl (Hydromorphone Hcl 0.5 Mg/0.5 Ml Syringe) 0.25 mg IVPUSH Q6H PRN; Protocol PRN Reason: Pain, Severe (Pain Scale 7-10) Last Admin: 08/21/24 09:29 Dose: 0.25 mg Documented By: MAXIMILIAN Lidocaine (Lidocaine 4 % Patch Adh..Patch) 1 patch TRANSDERMA DAILY [facility] Last Admin: 08/21/24 08:53 Dose: 1 patch Documented By: MAXIMILIAN Loperamide HCl (Loperamide Hcl 2 Mg Capsule) 2 mg PO Q6H PRN PRN Reason: Diarrhea Last Admin: 08/20/24 16:59 Dose: 2 mg Documented By: CANDICE Meclizine HCl (Meclizine Hcl 12.5 Mg Tablet) 12.5 mg PO BIDWM PRN PRN Reason: vertigo Last Admin: 08/06/24 16:48 Dose: 12.5 mg Documented By: KESHA Melatonin (Melatonin 3 Mg Tablet) 6 mg PO BEDTIME PRN PRN Reason: Insomnia Last Admin: 08/13/24 22:30 Dose: 6 mg Documented By: RANDY Methocarbamol (Methocarbamol 750 Mg Tablet) 750 mg PO TID [facility] Last Admin: 08/21/24 14:27 Dose: 750 mg Documented By: MAXIMILIAN Mirtazapine (Mirtazapine 7.5 Mg Tablet) 7.5 mg PO BEDTIME [facility] Last Admin: 08/20/24 20:33 Dose: 7.5 mg Documented By: RATNA Nicotine (Nicotine 14 Mg Patch.Td24) 14 mg TRANSDERMA DAILY [facility] Last Admin: 08/21/24 08:52 Dose: 14 mg Documented By: MAXIMILIAN Omeprazole (Omeprazole 20 Mg Capsule.Dr) 20 mg PO BID@0630,1630 [facility] Last Admin: 08/21/24 05:35 Dose: 20 mg Documented By: RATNA Ondansetron HCl (Ondansetron Hcl 4 Mg/2 Ml Vial) 4 mg IVPUSH Q8H PRN PRN Reason: Nausea and Vomiting Last Admin: 08/03/24 23:08 Dose: 4 mg Documented By: ELINA Oxycodone HCl (Oxycodone Hcl Immed Release 5 Mg Tablet) 5 mg PO Q4H PRN PRN Reason: Pain, Moderate(Pain Scale 4-6) Last Admin: 08/21/24 11:52 Dose: 5 mg Documented By: KEVIN Polyethylene Glycol (Polyethylene Glycol 3350 17 Gm Powd.Pack) 17 gm PO DAILY [facility] Last Admin: 08/20/24 18:48 Dose: Not Given Documented By: RAÚL Non-Admin Reason: med not given Quetiapine Fumarate (Quetiapine Fumarate 25 Mg Tablet) 25 mg PO BEDTIME [facility] Last Admin: 08/20/24 20:33 Dose: 25 mg Documented By: RATNA Sodium Chloride (0.9 % Sodium Chloride Flush 3 Ml Syringe) 3 ml IVFLUSH QSHIFT [facility] Last Admin: 08/21/24 09:05 Dose: 3 ml Documented By: MAXIMILIAN Sucralfate (Sucralfate 1 Gm Tablet) 1 gm PO QID [facility] Last Admin: 08/21/24 13:12 Dose: 1 gm Documented By: MAXIMILIAN Tamsulosin HCl (Tamsulosin Hcl 0.4 Mg Capsule) 0.4 mg PO DAILY [facility] Last Admin: 08/21/24 08:56 Dose: 0.4 mg Documented By: MAXIMILIAN Trazodone HCl (Trazodone Hcl 100 Mg Tablet) 200 mg PO BEDTIME PRN PRN Reason: Sleep Last Admin: 08/20/24 20:33 Dose: 200 mg Documented By: RATNA Trolamine Salicylate (Trolamine Salicylate 10 % Cream 85 Gm Tube) 1 appl TOPICAL BID [facility]; Protocol Last Admin: 08/21/24 09:30 Dose: 1 appl Documented By: MAXIMILIAN Vitamin D (Cholecalciferol (Vitamin D3) 10 Mcg Tablet) 10 mcg PO DAILY [facility] Last Admin: 08/21/24 08:56 Dose: 10 mcg Documented By: MAXIMILIAN Labs 08/15/24 08:13 08/18/24 09:20 Labs: Laboratory Results - last 24 hr 08/20/24 08/20/24 08/21/24 16:00 19:38 07:05 POC Glucose 194 H 231 H 152 H 08/21/24 11:27 POC Glucose 191 H Assessment and Plan (1) Closed right hip fracture: Status: Acute Plan 79-year-old male significant for HTN, HLD, ywy-ibejmoa-nmhwluixw type 2 diabetes, BPH, and GERD who had a prolonged stay in overflow and was therefore admitted to the hospital. Given prolonged stay in overflow under physician observation, as well as complicated insurance issues and difficulty with STR/LTR placement, pt admitted to the hospital as a social admission for pain control and physical therapy while awaiting placement. Acute closed right hip fracture Secondary to mechanical fall on 07/21/2024 Seen and evaluated by ortho who has deemed fracture stable with no acute surgical intervention necessary participating in PT and staff with increased tolerance to activity, wbat Pain inadequately controlled. Add hydromorphone q.6h. Continue oxycodone for moderate pain as well as Tylenol encourage oob daily and with meals bowel regimen weekly labs FLU A. Resolved pos 07/27/24-off precautions Vertigo. Resolved chronic meclizine as needed Diarrhea. Resolved stool studies negative Hsq-kwlmurc-zfwnhamlt type 2 diabetes Blood glucose levels well-controlled, no need for sliding-scale insulin Continue Jardiance follow POCs. HLD Continue statin GERD PPI/carafate BPH Tamsulosin Mood disorder Continue Seroquel, mirtazapine, prozac Tobacco dependence has not smoked since admission DNR DVT pptx - lovenox dispo: TBD Quality Stroke Does the patient have a stroke diagnosis?: No VTE Prior VTE?: No VTE Risk Level:: Medical - moderate - high VTE Device Contraindication: Treatment Not Indicated VTE Drug Contraindication: N/A - Med Ordered
[2024-08-21 15:07] VITALS: BP 110/67; PULSE 96; RESP 16; TEMP 36.7; O2SAT 96
[2024-08-21 16:10] LABS: Glucose, Whole Blood 146 mg/dL (60-115)
--- NOTE | 2024-08-21 16:19 | MHC.CM.PN ---
PT CONTINUES TO REQUIRE ADMISSION DUE TO PAIN AND UNSAFE [place] OPTIONS [facility] [place] PEND[facility]DEPENDENT AMBULATION PT CONTINUES TO WORK WITH PT AND A MEDICAL RESPITE REFERRAL WILL BE SENT, HOWEVER PT HAS TO AMBULATE INDEPENDENTLY FOR THAT LOC WELL
[2024-08-21 19:51] VITALS: BP 125/81; PULSE 93; RESP 18; TEMP 37.1; O2SAT 93
[2024-08-21 19:57] LABS: Glucose, Whole Blood 216 mg/dL (60-115)
[2024-08-21] MEDS: Mirtazapine 7.5 MG TABLET PO (20:26)
[2024-08-21] MEDS: Docusate Sodium 100 MG CAPSULE PO (20:26)
[2024-08-21] MEDS: QUEtiapine Fumarate 25 MG TABLET PO (20:26)
[2024-08-21] MEDS: traZODone HCL 100 MG TABLET 200 MG PO (23:17)
[2024-08-22 03:47] VITALS: BP 134/98; PULSE 105; RESP 20; TEMP 36.8; O2SAT 95
[2024-08-22] MEDS: HYDROmorphone HCl 0.5 MG/0.5 ML SYRINGE 0.25 MG IVPUSH ×2 (04:21→11:25)
[2024-08-22] MEDS: Omeprazole 20 MG CAPSULE.DR PO ×2 (05:25→16:58)
[2024-08-22 07:42] VITALS: BP 140/82; PULSE 112; RESP 18; TEMP 37.1; O2SAT 95
[2024-08-22 07:48] LABS: Glucose, Whole Blood 154 mg/dL (60-115)
[2024-08-22] MEDS: Aspirin 81 MG TAB.CHEW 162 MG PO (08:54)
[2024-08-22] MEDS: Acetaminophen 325 MG TABLET 975 MG PO ×3 (08:55→20:49)
[2024-08-22] MEDS: Empagliflozin 25 MG TABLET PO (08:55)
[2024-08-22] MEDS: Cholecalciferol (Vitamin D3) 10 MCG TABLET PO (08:55)
[2024-08-22] MEDS: Docusate Sodium 100 MG CAPSULE PO ×2 (08:55→20:49)
[2024-08-22] MEDS: Calcium + Vitamin D 250 MG TABLET 500 MG PO (08:55)
[2024-08-22] MEDS: Atorvastatin Calcium 80 MG TABLET PO (08:55)
[2024-08-22] MEDS: Sucralfate 1 GM TABLET PO ×4 (08:55→20:49)
[2024-08-22] MEDS: methocarbamoL 750 MG TABLET PO ×3 (08:55→20:49)
[2024-08-22] MEDS: Tamsulosin HCL 0.4 MG CAPSULE PO (08:55)
[2024-08-22] MEDS: FLUoxetine HCl Oral Solution 20 MG/5 ML SOLUTION 10 MG PO (08:58)
[2024-08-22] MEDS: guaiFENesin 100 MG/5 ML 5 ML LIQUID PO (08:59)
[2024-08-22] MEDS: Nicotine 14 MG PATCH.TD24 TRANSDERMA (09:00)
[2024-08-22] MEDS: Lidocaine 4 % Patch ADH..PATCH 1 PATCH TRANSDERMA (09:05)
[2024-08-22] MEDS: 0.9 % Sodium Chloride Flush 3 ML SYRINGE IVFLUSH ×2 (09:05→16:58)
[2024-08-22] MEDS: Trolamine Salicylate 10 % Cream 85 GM TUBE 1 APPL TOPICAL ×2 (09:06→20:50)
[2024-08-22 10:29] LABS: Baso%MD 0.7 %; Eos%MD 6.1 %; Hematocrit 35.2 % (42.0-52.0); IG%MD 0.5 %; Lymph%MD 21.7 %; Mean Corpuscular HGB Conc 34.1 g/dl (31.0-36.0); Mean Corpuscular Hemoglobin 30.4 pg (27.0-33.0); Mean Corpuscular Volume 89.1 fL (80.0-98.0); Mean Platelet Volume 9.5 fL (9.4-12.4); Mono%MD 7.2 %; Neut%MD 63.8 %; Platelet Count 301 X10*3/uL (160-400); Red Blood Count 3.95 X10*6/uL (4.60-5.80); Red Cell Distribution Width 14.3 % (11.0-16.0); White Blood Count 7.6 X10*3/uL (4.8-10.8)
[2024-08-22 10:49] LABS: Anion Gap 17 (12-20); Blood Urea Nitrogen 23 mg/dL (9-16); Calcium 8.4 mg/dL (8.4-10.2); Carbon Dioxide 20 mmol/L (22-29); Chloride 108 mmol/L (96-108); Creatinine Clr Calc Pharmacy 45.8; Estimated Glomerular Filt Rate 45; Glucose Random 226 mg/dL (60-115); Potassium 3.8 mmol/L (3.3-5.1); Sodium 141 mmol/L (135-145)
--- NOTE | 2024-08-22 10:58 | P.PNIM_ITS ---
Subjective Subjective Date of Service: 08/22/24 Interval History: seen and examined this morning pt reports lower abdominal pain denies constipation no n/v, no fever Review of Systems Review of Systems: Yes all other systems are reviewed and are negative Constitutional Constitutional: Denies chills and Denies fever(s) Physical Exam 2 Vital Signs: Vital Signs: Last Vital Signs Temp 98.8 F 08/22/24 07:42 Pulse 112 H 08/22/24 07:42 Resp 18 08/22/24 07:42 BP 140/82 H 08/22/24 07:42 Pulse Ox 95 08/22/24 07:42 O2 Del Method Room Air 08/22/24 07:42 BMI result Body Mass Index 28.7 Const: General: comfortable, no acute distress, alert and awake Nutritional Appearance: average body habitus Resp: Effort & Inspection: normal respiratory effort, no respiratory distress and no use of accessory muscles Cardio: Rate: regular rate GI: Other: abdominal pain, softly distended, firm mass felt suprapubic/RLQ Neuro: General: CN's II-XI intact bilaterally Extrem: General: Yes no pedal edema Objective Data Active Medications Acetaminophen (Acetaminophen 325 Mg Tablet) 975 mg PO TID [facility] Last Admin: 08/22/24 08:55 Dose: 975 mg Documented By: RAÚL Aspirin (Aspirin 81 Mg Tab.Chew) 162 mg PO DAILY [facility] Last Admin: 08/22/24 08:54 Dose: 162 mg Documented By: RAÚL Atorvastatin Calcium (Atorvastatin Calcium 80 Mg Tablet) 80 mg PO DAILY [facility] Last Admin: 08/22/24 08:55 Dose: 80 mg Documented By: RAÚL Calcium Carbonate (Calcium Carbonate 750 Mg Tab.Chew) 750 mg PO Q4H PRN PRN Reason: Heartburn Calcium Carbonate/Cholecalciferol (Calcium + Vitamin D 250 Mg Tablet) 500 mg PO DAILY [facility] Last Admin: 08/22/24 08:55 Dose: 500 mg Documented By: RAÚL Dextrose (Dextrose 50 % 25 Gm/50 Ml Syringe) 25 gm IVPUSH Q15M PRN; Protocol PRN Reason: per Hypoglycemia Standing Ord. Docusate Sodium (Docusate Sodium 100 Mg Capsule) 100 mg PO BID [facility] Last Admin: 08/22/24 08:55 Dose: 100 mg Documented By: RAÚL Empagliflozin (Empagliflozin 25 Mg Tablet) 25 mg PO DAILY [facility] Last Admin: 08/22/24 08:55 Dose: 25 mg Documented By: RAÚL Enoxaparin Sodium (Enoxaparin Sodium 40 Mg/0.4 Ml Syringe) 40 mg SUBCUT Q24H [facility] Last Admin: 08/21/24 14:28 Dose: 40 mg Documented By: MAXIMILIAN Fluoxetine HCl (Fluoxetine Hcl Oral Solution 20 Mg/5 Ml Solution) 10 mg PO DAILY [facility] Last Admin: 08/22/24 08:58 Dose: 10 mg Documented By: RAÚL Glucose (Glucose Gel 15 Gm Gel..Gram.) 15 gm PO Q15M PRN; Protocol PRN Reason: per Hypoglycemia Standing Ord. Guaifenesin (Guaifenesin 100 Mg/5 Ml 5 Ml Liquid) 5 ml PO Q4H PRN PRN Reason: Cough Last Admin: 08/22/24 08:59 Dose: 5 ml Documented By: RAÚL Hydromorphone HCl (Hydromorphone Hcl 0.5 Mg/0.5 Ml Syringe) 0.25 mg IVPUSH Q6H PRN; Protocol PRN Reason: Pain, Severe (Pain Scale 7-10) Last Admin: 08/22/24 04:21 Dose: 0.25 mg Documented By: CASTJOESPH Lidocaine (Lidocaine 4 % Patch Adh..Patch) 1 patch TRANSDERMA DAILY [facility] Last Admin: 08/22/24 09:05 Dose: 1 patch Documented By: RAÚL Loperamide HCl (Loperamide Hcl 2 Mg Capsule) 2 mg PO Q6H PRN PRN Reason: Diarrhea Last Admin: 08/20/24 16:59 Dose: 2 mg Documented By: CANDICE Meclizine HCl (Meclizine Hcl 12.5 Mg Tablet) 12.5 mg PO BIDWM PRN PRN Reason: vertigo Last Admin: 08/06/24 16:48 Dose: 12.5 mg Documented By: KESHA Melatonin (Melatonin 3 Mg Tablet) 6 mg PO BEDTIME PRN PRN Reason: Insomnia Last Admin: 08/13/24 22:30 Dose: 6 mg Documented By: RANDY Methocarbamol (Methocarbamol 750 Mg Tablet) 750 mg PO TID [facility] Last Admin: 08/22/24 08:55 Dose: 750 mg Documented By: RAÚL Mirtazapine (Mirtazapine 7.5 Mg Tablet) 7.5 mg PO BEDTIME [facility] Last Admin: 08/21/24 20:26 Dose: 7.5 mg Documented By: MATEO Nicotine (Nicotine 14 Mg Patch.Td24) 14 mg TRANSDERMA DAILY [facility] Last Admin: 08/22/24 09:00 Dose: 14 mg Documented By: RAÚL Omeprazole (Omeprazole 20 Mg Capsule.Dr) 20 mg PO BID@0630,1630 [facility] Last Admin: 08/22/24 05:25 Dose: 20 mg Documented By: MATEO Ondansetron HCl (Ondansetron Hcl 4 Mg/2 Ml Vial) 4 mg IVPUSH Q8H PRN PRN Reason: Nausea and Vomiting Last Admin: 08/03/24 23:08 Dose: 4 mg Documented By: ELINA Oxycodone HCl (Oxycodone Hcl Immed Release 5 Mg Tablet) 5 mg PO Q4H PRN PRN Reason: Pain, Moderate(Pain Scale 4-6) Last Admin: 08/21/24 11:52 Dose: 5 mg Documented By: KEVIN Polyethylene Glycol (Polyethylene Glycol 3350 17 Gm Powd.Pack) 17 gm PO DAILY [facility] Last Admin: 08/20/24 18:48 Dose: Not Given Documented By: RAÚL Non-Admin Reason: med not given Quetiapine Fumarate (Quetiapine Fumarate 25 Mg Tablet) 25 mg PO BEDTIME [facility] Last Admin: 08/21/24 20:26 Dose: 25 mg Documented By: MATEO Sodium Chloride (0.9 % Sodium Chloride Flush 3 Ml Syringe) 3 ml IVFLUSH QSHIFT [facility] Last Admin: 08/22/24 09:05 Dose: 3 ml Documented By: RAÚL Sucralfate (Sucralfate 1 Gm Tablet) 1 gm PO QID [facility] Last Admin: 08/22/24 08:55 Dose: 1 gm Documented By: RAÚL Tamsulosin HCl (Tamsulosin Hcl 0.4 Mg Capsule) 0.4 mg PO DAILY [facility] Last Admin: 08/22/24 08:55 Dose: 0.4 mg Documented By: RAÚL Trazodone HCl (Trazodone Hcl 100 Mg Tablet) 200 mg PO BEDTIME PRN PRN Reason: Sleep Last Admin: 08/21/24 23:17 Dose: 200 mg Documented By: MATEO Trolamine Salicylate (Trolamine Salicylate 10 % Cream 85 Gm Tube) 1 appl TOPICAL BID [facility]; Protocol Last Admin: 08/22/24 09:06 Dose: 1 appl Documented By: RAÚL Vitamin D (Cholecalciferol (Vitamin D3) 10 Mcg Tablet) 10 mcg PO DAILY [facility] Last Admin: 08/22/24 08:55 Dose: 10 mcg Documented By: RAÚL Labs 08/22/24 09:51 08/22/24 09:51 Labs: Laboratory Results - last 24 hr 08/21/24 08/21/24 08/21/24 11:27 16:06 19:53 MCV MCH MCHC RDW Plt Count MPV Absolute Nucleated RBC Nucleated RBC % (auto) Anion Gap Estim Creat Clear Calc Estimated GFR POC Glucose 191 H 146 H 216 H Random Glucose Calcium 08/22/24 08/22/24 07:45 09:51 MCV 89.1 MCH 30.4 MCHC 34.1 RDW 14.3 Plt Count 301 D MPV 9.5 Absolute Nucleated RBC 0.000 Nucleated RBC % (auto) 0.0 Anion Gap 17 Estim Creat Clear Calc 45.8 Estimated GFR 45 POC Glucose 154 H Random Glucose 226 H Calcium 8.4 D Assessment and Plan (1) Bladder outlet obstruction: Status: Acute (2) ANNALISE (acute kidney injury): Status: Acute Plan 79-year-old male significant for HTN, HLD, [id number] type 2 diabetes, BPH, and GERD who had a prolonged stay in overflow and was therefore admitted to the hospital. Given prolonged stay in overflow under physician observation, as well as complicated insurance issues and difficulty with STR/LTR placement, pt admitted to the hospital as a social admission for pain control and physical therapy while awaiting placement. Bladder outlet obstruction causing significant bladder distention, severe b/l hydro and ANNALISE place escalante catheter SCr 1.5, should improve with escalante placement and resolution of bladder outlet obstruction follow BMP continue flomax urology consult - may need med adjustment Acute closed right hip fracture Secondary to mechanical fall on 07/21/2024 Seen and evaluated by ortho who has deemed fracture stable with no acute surgical intervention necessary participating in PT and staff with increased tolerance to activity, wbat Pain inadequately controlled. Add hydromorphone q.6h. Continue oxycodone for moderate pain as well as Tylenol encourage oob daily and with meals bowel regimen weekly labs FLU A. Resolved pos 07/27/24-off precautions Vertigo. Resolved chronic meclizine as needed Diarrhea. Resolved stool studies negative [id number]-rxsploffe type 2 diabetes Blood glucose levels well-controlled, no need for sliding-scale insulin Continue Jardiance follow POCs. HLD Continue statin GERD PPI/carafate BPH Tamsulosin Mood disorder Continue Seroquel, mirtazapine, prozac Tobacco dependence has not smoked since admission DNR DVT pptx - lovenox dispo: TBD Quality Stroke Does the patient have a stroke diagnosis?: No VTE Prior VTE?: No VTE Risk Level:: Medical - moderate - high VTE Device Contraindication: Treatment Not Indicated VTE Drug Contraindication: N/A - Med Ordered
[2024-08-22 11:21] LABS: Glucose, Whole Blood 188 mg/dL (60-115)
[2024-08-22 12:09] LABS: Band Neutrophils Percent 1 % (3-5); Eosinophils Absolute Manual 0.2 X10*3/uL (0.0-0.4); Eosinophils Percent Manual 3 % (0-4); Lymphocytes Absolute Manual 2.3 X10*3/uL (1.2-4.9); Lymphocytes Percent Manual 30 % (20-40); Monocytes Absolute Manual 0.5 X10*3/uL (0.1-1.2); Monocytes Percent Manual 7 % (2-11); Neutrophils Absolute Manual 4.6 X10*3/uL (2.0-8.3); Neutrophils Percent Manual 59 % (45-73); Platelet Estimate NORMAL (NORMAL); Platelet Morphology Comment NORMAL; RBC Morphology NORMAL
[2024-08-22] MEDS: Enoxaparin Sodium 40 MG/0.4 ML SYRINGE SUBCUT (14:37)
[2024-08-22 16:00] VITALS: BP 117/72; PULSE 108; RESP 16; TEMP 36.7; O2SAT 95
[2024-08-22 16:15] LABS: Glucose, Whole Blood 161 mg/dL (60-115)
[2024-08-22 20:00] VITALS: BP 122/72; PULSE 108; RESP 18; TEMP 37; O2SAT 94
[2024-08-22 20:12] LABS: Glucose, Whole Blood 210 mg/dL (60-115)
[2024-08-22] MEDS: Mirtazapine 7.5 MG TABLET PO (20:49)
[2024-08-22] MEDS: QUEtiapine Fumarate 25 MG TABLET PO (20:49)
[2024-08-22] MEDS: traZODone HCL 100 MG TABLET 200 MG PO (23:02)
[2024-08-23 03:20] VITALS: BP 156/90; PULSE 84; RESP 18; TEMP 37.1; O2SAT 93
[2024-08-23] MEDS: Omeprazole 20 MG CAPSULE.DR PO ×2 (05:36→16:30)
[2024-08-23 07:36] VITALS: BP 136/85; PULSE 110; RESP 16; TEMP 36.8; O2SAT 94
[2024-08-23 07:39] LABS: Anion Gap 14 (12-20); Blood Urea Nitrogen 21 mg/dL (9-16); Calcium 8.4 mg/dL (8.4-10.2); Carbon Dioxide 22 mmol/L (22-29); Chloride 110 mmol/L (96-108); Creatinine Clr Calc Pharmacy 52.5; Estimated Glomerular Filt Rate 53; Glucose Random 127 mg/dL (60-115); Potassium 3.5 mmol/L (3.3-5.1); Sodium 142 mmol/L (135-145)
[2024-08-23 07:42] LABS: Glucose, Whole Blood 149 mg/dL (60-115)
[2024-08-23] MEDS: oxyCODONE HCl Immed Release 5 MG TABLET PO ×2 (07:52→20:39)
[2024-08-23] MEDS: FLUoxetine HCl Oral Solution 20 MG/5 ML SOLUTION 10 MG PO (07:52)
[2024-08-23] MEDS: Docusate Sodium 100 MG CAPSULE PO ×2 (07:53→20:39)
[2024-08-23] MEDS: methocarbamoL 750 MG TABLET PO ×3 (07:53→20:39)
[2024-08-23] MEDS: Empagliflozin 25 MG TABLET PO (07:53)
[2024-08-23] MEDS: Acetaminophen 325 MG TABLET 975 MG PO ×2 (07:53→14:13)
[2024-08-23] MEDS: Sucralfate 1 GM TABLET PO ×4 (07:53→20:40)
[2024-08-23] MEDS: Atorvastatin Calcium 80 MG TABLET PO (07:53)
[2024-08-23] MEDS: Tamsulosin HCL 0.4 MG CAPSULE PO (07:53)
[2024-08-23] MEDS: Cholecalciferol (Vitamin D3) 10 MCG TABLET PO (07:53)
[2024-08-23] MEDS: Calcium + Vitamin D 250 MG TABLET 500 MG PO (07:54)
[2024-08-23] MEDS: Lidocaine 4 % Patch ADH..PATCH 1 PATCH TRANSDERMA (07:54)
[2024-08-23] MEDS: Aspirin 81 MG TAB.CHEW 162 MG PO (07:54)
[2024-08-23] MEDS: Nicotine 14 MG PATCH.TD24 TRANSDERMA (07:54)
[2024-08-23] MEDS: Trolamine Salicylate 10 % Cream 85 GM TUBE 1 APPL TOPICAL (08:00)
[2024-08-23] MEDS: 0.9 % Sodium Chloride Flush 3 ML SYRINGE IVFLUSH ×2 (08:00→16:31)
[2024-08-23 09:18] LABS: Creatinine Clr Calc Pharmacy 51.3; Estimated Glomerular Filt Rate 51
[2024-08-23 11:34] LABS: Glucose, Whole Blood 163 mg/dL (60-115)
--- NOTE | 2024-08-23 11:45 | P.PNIM_ITS ---
Subjective Subjective Date of Service: 08/23/24 Interval History: Seen and examined this morning Follow-up for ANNALISE, urinary retention Escalante placed 08/22 Now with some punch colored drainage in Escalante catheter Review of Systems Review of Systems: Yes all other systems are reviewed and are negative Constitutional Constitutional: Denies chills and Denies fever(s) Physical Exam 2 Vital Signs: Vital Signs: Last Vital Signs Temp 98.3 F 08/23/24 07:36 Pulse 110 H 08/23/24 07:36 Resp 16 08/23/24 07:36 BP 136/85 08/23/24 07:36 Pulse Ox 94 08/23/24 07:36 O2 Del Method Room Air 08/23/24 07:36 BMI result Body Mass Index 28.7 Const: General: comfortable, no acute distress, alert and awake Nutritional Appearance: average body habitus Resp: Effort & Inspection: normal respiratory effort, no respiratory distress and no use of accessory muscles Cardio: Rate: regular rate GI: Other: escalante with punch colored urine Inspection: No distended Palpation (GI): Soft to palpation and nontender Neuro: General: CN's II-XI intact bilaterally Extrem: General: Yes no pedal edema Objective Data Active Medications Acetaminophen (Acetaminophen 325 Mg Tablet) 975 mg PO TID [facility] Last Admin: 08/23/24 07:53 Dose: 975 mg Documented By: RAÚL Aspirin (Aspirin 81 Mg Tab.Chew) 162 mg PO DAILY [facility] Last Admin: 08/23/24 07:54 Dose: 162 mg Documented By: RAÚL Atorvastatin Calcium (Atorvastatin Calcium 80 Mg Tablet) 80 mg PO DAILY [facility] Last Admin: 08/23/24 07:53 Dose: 80 mg Documented By: RAÚL Calcium Carbonate (Calcium Carbonate 750 Mg Tab.Chew) 750 mg PO Q4H PRN PRN Reason: Heartburn Calcium Carbonate/Cholecalciferol (Calcium + Vitamin D 250 Mg Tablet) 500 mg PO DAILY [facility] Last Admin: 08/23/24 07:54 Dose: 500 mg Documented By: RAÚL Dextrose (Dextrose 50 % 25 Gm/50 Ml Syringe) 25 gm IVPUSH Q15M PRN; Protocol PRN Reason: per Hypoglycemia Standing Ord. Docusate Sodium (Docusate Sodium 100 Mg Capsule) 100 mg PO BID [facility] Last Admin: 08/23/24 07:53 Dose: 100 mg Documented By: RAÚL Empagliflozin (Empagliflozin 25 Mg Tablet) 25 mg PO DAILY [facility] Last Admin: 08/23/24 07:53 Dose: 25 mg Documented By: RAÚL Enoxaparin Sodium (Enoxaparin Sodium 40 Mg/0.4 Ml Syringe) 40 mg SUBCUT Q24H [facility] Last Admin: 08/22/24 14:37 Dose: 40 mg Documented By: RAÚL Fluoxetine HCl (Fluoxetine Hcl Oral Solution 20 Mg/5 Ml Solution) 10 mg PO DAILY [facility] Last Admin: 08/23/24 07:52 Dose: 10 mg Documented By: RAÚL Glucose (Glucose Gel 15 Gm Gel..Gram.) 15 gm PO Q15M PRN; Protocol PRN Reason: per Hypoglycemia Standing Ord. Guaifenesin (Guaifenesin 100 Mg/5 Ml 5 Ml Liquid) 5 ml PO Q4H PRN PRN Reason: Cough Last Admin: 08/22/24 08:59 Dose: 5 ml Documented By: RAÚL Hydromorphone HCl (Hydromorphone Hcl 0.5 Mg/0.5 Ml Syringe) 0.25 mg IVPUSH Q6H PRN; Protocol PRN Reason: Pain, Severe (Pain Scale 7-10) Last Admin: 08/22/24 11:25 Dose: 0.25 mg Documented By: RAÚL Lidocaine (Lidocaine 4 % Patch Adh..Patch) 1 patch TRANSDERMA DAILY [facility] Last Admin: 08/23/24 07:54 Dose: 1 patch Documented By: RAÚL Loperamide HCl (Loperamide Hcl 2 Mg Capsule) 2 mg PO Q6H PRN PRN Reason: Diarrhea Last Admin: 08/20/24 16:59 Dose: 2 mg Documented By: CANDICE Meclizine HCl (Meclizine Hcl 12.5 Mg Tablet) 12.5 mg PO BIDWM PRN PRN Reason: vertigo Last Admin: 08/06/24 16:48 Dose: 12.5 mg Documented By: KESHA Melatonin (Melatonin 3 Mg Tablet) 6 mg PO BEDTIME PRN PRN Reason: Insomnia Last Admin: 08/13/24 22:30 Dose: 6 mg Documented By: RANDY Methocarbamol (Methocarbamol 750 Mg Tablet) 750 mg PO TID [facility] Last Admin: 08/23/24 07:53 Dose: 750 mg Documented By: RAÚL Mirtazapine (Mirtazapine 7.5 Mg Tablet) 7.5 mg PO BEDTIME [facility] Last Admin: 08/22/24 20:49 Dose: 7.5 mg Documented By: MATEO Nicotine (Nicotine 14 Mg Patch.Td24) 14 mg TRANSDERMA DAILY [facility] Last Admin: 08/23/24 07:54 Dose: 14 mg Documented By: RAÚL Omeprazole (Omeprazole 20 Mg Capsule.Dr) 20 mg PO BID@0630,1630 [facility] Last Admin: 08/23/24 05:36 Dose: 20 mg Documented By: MATEO Ondansetron HCl (Ondansetron Hcl 4 Mg/2 Ml Vial) 4 mg IVPUSH Q8H PRN PRN Reason: Nausea and Vomiting Last Admin: 08/03/24 23:08 Dose: 4 mg Documented By: ELINA Oxycodone HCl (Oxycodone Hcl Immed Release 5 Mg Tablet) 5 mg PO Q4H PRN PRN Reason: Pain, Moderate(Pain Scale 4-6) Last Admin: 08/23/24 07:52 Dose: 5 mg Documented By: RAÚL Polyethylene Glycol (Polyethylene Glycol 3350 17 Gm Powd.Pack) 17 gm PO DAILY [facility] Last Admin: 08/20/24 18:48 Dose: Not Given Documented By: RAÚL Non-Admin Reason: med not given Quetiapine Fumarate (Quetiapine Fumarate 25 Mg Tablet) 25 mg PO BEDTIME [facility] Last Admin: 08/22/24 20:49 Dose: 25 mg Documented By: MATEO Sodium Chloride (0.9 % Sodium Chloride Flush 3 Ml Syringe) 3 ml IVFLUSH QSHIFT [facility] Last Admin: 08/23/24 08:00 Dose: 3 ml Documented By: RAÚL Sucralfate (Sucralfate 1 Gm Tablet) 1 gm PO QID [facility] Last Admin: 08/23/24 07:53 Dose: 1 gm Documented By: RAÚL Tamsulosin HCl (Tamsulosin Hcl 0.4 Mg Capsule) 0.4 mg PO DAILY [facility] Last Admin: 08/23/24 07:53 Dose: 0.4 mg Documented By: RAÚL Trazodone HCl (Trazodone Hcl 100 Mg Tablet) 200 mg PO BEDTIME PRN PRN Reason: Sleep Last Admin: 08/22/24 23:02 Dose: 200 mg Documented By: MATEO Trolamine Salicylate (Trolamine Salicylate 10 % Cream 85 Gm Tube) 1 appl TOPICAL BID [facility]; Protocol Last Admin: 08/23/24 08:00 Dose: 1 appl Documented By: RAÚL Vitamin D (Cholecalciferol (Vitamin D3) 10 Mcg Tablet) 10 mcg PO DAILY [facility] Last Admin: 08/23/24 07:53 Dose: 10 mcg Documented By: RAÚL Labs 08/22/24 09:51 08/23/24 08:51 Labs: Laboratory Results - last 24 hr 08/22/24 08/22/24 08/22/24 09:51 11:16 16:12 Neutrophils % (Manual) 59 Band Neutrophils % 1 L Lymphocytes % (Manual) 30 Monocytes % (Manual) 7 Eosinophils % (Manual) 3 Abs Neuts (Manual) 4.6 Lymphocytes # (Manual) 2.3 Monocytes # (Manual) 0.5 Eosinophils # (Manual) 0.2 Platelet Estimate NORMAL Plt Morphology Comment NORMAL RBC Morphology NORMAL Hold Purple Top Anion Gap 17 Estim Creat Clear Calc 45.8 Estimated GFR 45 POC Glucose 188 H 161 H Random Glucose 226 H Calcium 8.4 D 08/22/24 08/23/24 08/23/24 19:57 05:34 07:38 Neutrophils % (Manual) Band Neutrophils % Lymphocytes % (Manual) Monocytes % (Manual) Eosinophils % (Manual) Abs Neuts (Manual) Lymphocytes # (Manual) Monocytes # (Manual) Eosinophils # (Manual) Platelet Estimate Plt Morphology Comment RBC Morphology Hold Purple Top SEE NOTE Anion Gap 14 Estim Creat Clear Calc 52.5 Estimated GFR 53 POC Glucose 210 H 149 H Random Glucose 127 H Calcium 8.4 08/23/24 08/23/24 08:51 11:30 Neutrophils % (Manual) Band Neutrophils % Lymphocytes % (Manual) Monocytes % (Manual) Eosinophils % (Manual) Abs Neuts (Manual) Lymphocytes # (Manual) Monocytes # (Manual) Eosinophils # (Manual) Platelet Estimate Plt Morphology Comment RBC Morphology Hold Purple Top Anion Gap Estim Creat Clear Calc 51.3 Estimated GFR 51 POC Glucose 163 H Random Glucose Calcium Assessment and Plan (1) ANNALISE (acute kidney injury): Status: Acute (2) Bladder outlet obstruction: Status: Acute (3) Hematuria: Status: Acute Plan 79-year-old male significant for HTN, HLD, [id number] type 2 diabetes, BPH, and GERD who had a prolonged stay in overflow and was therefore admitted to the hospital. Given prolonged stay in overflow under physician observation, as well as complicated insurance issues and difficulty with STR/LTR placement, pt admitted to the hospital as a social admission for pain control and physical therapy while awaiting placement. Bladder outlet obstruction causing significant bladder distention, severe b/l hydro and ANNALISE place escalante catheter SCr 1.5, should improve with escalante placement and resolution of bladder outlet obstruction follow BMP continue flomax urology consult - may need med adjustment hematuria likely traumatic from escalante check H/H hold lovenox urology consult pending consider CBI if worsens Acute closed right hip fracture Secondary to mechanical fall on 07/21/2024 Seen and evaluated by ortho who has deemed fracture stable with no acute surgical intervention necessary participating in PT and staff with increased tolerance to activity, wbat wean narcotics encourage oob daily and with meals bowel regimen weekly labs FLU A. Resolved pos 07/27/24-off precautions Vertigo. Resolved chronic meclizine as needed Diarrhea. Resolved stool studies negative Wru-vopegyz-qocupmtmi type 2 diabetes Blood glucose levels well-controlled, no need for sliding-scale insulin Continue Jardiance follow POCs. HLD Continue statin GERD PPI/carafate BPH Tamsulosin Mood disorder Continue Seroquel, mirtazapine, prozac Tobacco dependence has not smoked since admission DNR DVT pptx - hold lovenox for hematuria dispo: TBD Quality Stroke Does the patient have a stroke diagnosis?: No VTE Prior VTE?: No VTE Risk Level:: Medical - moderate - high VTE Device Contraindication: Treatment Not Indicated VTE Drug Contraindication: N/A - Med Ordered
[2024-08-23 12:12] LABS: Hematocrit 35.8 % (42.0-52.0); Hemoglobin 12.1 g/dl (14.0-18.0)
[2024-08-23] MEDS: Lidocaine HCl 2 % Jelly 5 ML TUBE 1 APPL TOPICAL (14:13)
[2024-08-23 15:26] VITALS: BP 111/75; PULSE 104; RESP 16; TEMP 36.8; O2SAT 95
[2024-08-23 16:19] LABS: Glucose, Whole Blood 170 mg/dL (60-115)
[2024-08-23 20:00] VITALS: BP 141/58; PULSE 103; RESP 18; TEMP 37.1; O2SAT 94
[2024-08-23 20:22] LABS: Glucose, Whole Blood 213 mg/dL (60-115)
[2024-08-23] MEDS: traZODone HCL 100 MG TABLET 200 MG PO (20:40)
[2024-08-23] MEDS: QUEtiapine Fumarate 25 MG TABLET PO (20:40)
[2024-08-23] MEDS: Mirtazapine 7.5 MG TABLET PO (20:40)
[2024-08-24] MEDS: 0.9 % Sodium Chloride Flush 3 ML SYRINGE IVFLUSH ×4 (00:08→20:00)
[2024-08-24 03:02] VITALS: BP 138/54; PULSE 104; RESP 18; TEMP 36.2; O2SAT 93
[2024-08-24] MEDS: oxyCODONE HCl Immed Release 5 MG TABLET PO ×2 (05:25→11:54)
[2024-08-24] MEDS: Omeprazole 20 MG CAPSULE.DR PO ×2 (05:25→16:49)
[2024-08-24 07:16] LABS: Glucose, Whole Blood 157 mg/dL (60-115)
[2024-08-24 07:46] VITALS: BP 134/80; PULSE 91; RESP 14; TEMP 36.4; O2SAT 94
--- NOTE | 2024-08-24 08:45 | HO.PM.IMPN ---
Subjective Subjective Date of Service: 08/24/24 Interval History: Seen and examined this morning Follow-up for ANNALISE, urinary retention Escalante placed 08/22 Review of Systems Review of Systems: Yes all other systems are reviewed and are negative Constitutional Constitutional: Denies chills and Denies fever(s) Physical Exam Vital Signs: Vital Signs: Last Vital Signs Temp 97.6 F 08/24/24 07:46 Pulse 91 08/24/24 07:46 Resp 14 08/24/24 07:46 BP 134/80 08/24/24 07:46 Pulse Ox 94 08/24/24 07:46 O2 Del Method Room Air 08/24/24 07:46 BMI result Body Mass Index 28.7 Appearing in no acute distress lung sounds are clear to auscultation heart regular rate rhythm, clear S1, S2 positive bowel sounds, abdomen is soft, nontender neuro patient is alert x3, no focal deficits FC in place Objective Data Active Medications Acetaminophen (Acetaminophen 325 Mg Tablet) 975 mg PO TID [facility] Last Admin: 08/23/24 20:39 Dose: Not Given Documented By: ROGELIO Non-Admin Reason: over limit Aspirin (Aspirin 81 Mg Tab.Chew) 162 mg PO DAILY [facility] Last Admin: 08/23/24 07:54 Dose: 162 mg Documented By: RAÚL Atorvastatin Calcium (Atorvastatin Calcium 80 Mg Tablet) 80 mg PO DAILY [facility] Last Admin: 08/23/24 07:53 Dose: 80 mg Documented By: RAÚL Calcium Carbonate (Calcium Carbonate 750 Mg Tab.Chew) 750 mg PO Q4H PRN PRN Reason: Heartburn Calcium Carbonate/Cholecalciferol (Calcium + Vitamin D 250 Mg Tablet) 500 mg PO DAILY [facility] Last Admin: 08/23/24 07:54 Dose: 500 mg Documented By: RAÚL Dextrose (Dextrose 50 % 25 Gm/50 Ml Syringe) 25 gm IVPUSH Q15M PRN; Protocol PRN Reason: per Hypoglycemia Standing Ord. Docusate Sodium (Docusate Sodium 100 Mg Capsule) 100 mg PO BID [facility] Last Admin: 08/23/24 20:39 Dose: 100 mg Documented By: ROGELIO Empagliflozin (Empagliflozin 25 Mg Tablet) 25 mg PO DAILY [facility] Last Admin: 08/23/24 07:53 Dose: 25 mg Documented By: RAÚL Enoxaparin Sodium (Enoxaparin Sodium 40 Mg/0.4 Ml Syringe) 40 mg SUBCUT Q24H [facility] Last Admin: 08/22/24 14:37 Dose: 40 mg Documented By: RAÚL Fluoxetine HCl (Fluoxetine Hcl Oral Solution 20 Mg/5 Ml Solution) 10 mg PO DAILY [facility] Last Admin: 08/23/24 07:52 Dose: 10 mg Documented By: RAÚL Glucose (Glucose Gel 15 Gm Gel..Gram.) 15 gm PO Q15M PRN; Protocol PRN Reason: per Hypoglycemia Standing Ord. Guaifenesin (Guaifenesin 100 Mg/5 Ml 5 Ml Liquid) 5 ml PO Q4H PRN PRN Reason: Cough Last Admin: 08/22/24 08:59 Dose: 5 ml Documented By: RAÚL Hydromorphone HCl (Hydromorphone Hcl 0.5 Mg/0.5 Ml Syringe) 0.25 mg IVPUSH BID PRN; Protocol PRN Reason: Pain, Severe (Pain Scale 7-10) Lidocaine (Lidocaine 4 % Patch Adh..Patch) 1 patch TRANSDERMA DAILY [facility] Last Admin: 08/23/24 07:54 Dose: 1 patch Documented By: RAÚL Loperamide HCl (Loperamide Hcl 2 Mg Capsule) 2 mg PO Q6H PRN PRN Reason: Diarrhea Last Admin: 08/20/24 16:59 Dose: 2 mg Documented By: CANDICE Meclizine HCl (Meclizine Hcl 12.5 Mg Tablet) 12.5 mg PO BIDWM PRN PRN Reason: vertigo Last Admin: 08/06/24 16:48 Dose: 12.5 mg Documented By: KESHA Melatonin (Melatonin 3 Mg Tablet) 6 mg PO BEDTIME PRN PRN Reason: Insomnia Last Admin: 08/13/24 22:30 Dose: 6 mg Documented By: RANDY Methocarbamol (Methocarbamol 750 Mg Tablet) 750 mg PO TID [facility] Last Admin: 08/23/24 20:39 Dose: 750 mg Documented By: ROGELIO Mirtazapine (Mirtazapine 7.5 Mg Tablet) 7.5 mg PO BEDTIME [facility] Last Admin: 08/23/24 20:40 Dose: 7.5 mg Documented By: ROGELIO Nicotine (Nicotine 14 Mg Patch.Td24) 14 mg TRANSDERMA DAILY [facility] Last Admin: 08/23/24 07:54 Dose: 14 mg Documented By: RAÚL Omeprazole (Omeprazole 20 Mg Capsule.Dr) 20 mg PO BID@0630,1630 [facility] Last Admin: 08/24/24 05:25 Dose: 20 mg Documented By: ROGELIO Ondansetron HCl (Ondansetron Hcl 4 Mg/2 Ml Vial) 4 mg IVPUSH Q8H PRN PRN Reason: Nausea and Vomiting Last Admin: 08/03/24 23:08 Dose: 4 mg Documented By: ELINA Oxycodone HCl (Oxycodone Hcl Immed Release 5 Mg Tablet) 5 mg PO Q4H PRN PRN Reason: Pain, Moderate(Pain Scale 4-6) Last Admin: 08/24/24 05:25 Dose: 5 mg Documented By: ROGELIO Polyethylene Glycol (Polyethylene Glycol 3350 17 Gm Powd.Pack) 17 gm PO DAILY [facility] Last Admin: 08/20/24 18:48 Dose: Not Given Documented By: RAÚL Non-Admin Reason: med not given Quetiapine Fumarate (Quetiapine Fumarate 25 Mg Tablet) 25 mg PO BEDTIME [facility] Last Admin: 08/23/24 20:40 Dose: 25 mg Documented By: ROGELIO Sodium Chloride (0.9 % Sodium Chloride Flush 3 Ml Syringe) 3 ml IVFLUSH QSHIFT [facility] Last Admin: 08/24/24 00:08 Dose: 3 ml Documented By: ROGELIO Sucralfate (Sucralfate 1 Gm Tablet) 1 gm PO QID [facility] Last Admin: 08/23/24 20:40 Dose: 1 gm Documented By: ROGELIO Tamsulosin HCl (Tamsulosin Hcl 0.4 Mg Capsule) 0.4 mg PO DAILY [facility] Last Admin: 08/23/24 07:53 Dose: 0.4 mg Documented By: RAÚL Trazodone HCl (Trazodone Hcl 100 Mg Tablet) 200 mg PO BEDTIME PRN PRN Reason: Sleep Last Admin: 08/23/24 20:40 Dose: 200 mg Documented By: ROGELIO Trolamine Salicylate (Trolamine Salicylate 10 % Cream 85 Gm Tube) 1 appl TOPICAL BID [facility]; Protocol Last Admin: 08/24/24 00:06 Dose: Not Given Documented By: ROGELIO Non-Admin Reason: assessed, no action needed Vitamin D (Cholecalciferol (Vitamin D3) 10 Mcg Tablet) 10 mcg PO DAILY [facility] Last Admin: 08/23/24 07:53 Dose: 10 mcg Documented By: RAÚL Labs 08/23/24 12:04 08/23/24 08:51 Labs: Laboratory Results - last 24 hr 08/23/24 08/23/24 08/23/24 08:51 11:30 16:16 Estim Creat Clear Calc 51.3 Estimated GFR 51 POC Glucose 163 H 170 H 08/23/24 08/24/24 20:18 07:05 Estim Creat Clear Calc Estimated GFR POC Glucose 213 H 157 H Assessment and Plan (1) ANNALISE (acute kidney injury): Status: Acute (2) Bladder outlet obstruction: Status: Acute (3) Hematuria: Status: Acute Plan 79-year-old male significant for HTN, HLD, [id number] type 2 diabetes, BPH, and GERD who had a prolonged stay in overflow and was therefore admitted to the hospital. Given prolonged stay in overflow under physician observation, as well as complicated insurance issues and difficulty with STR/LTR placement, pt admitted to the hospital as a social admission for pain control and physical therapy while awaiting placement. Bladder outlet obstruction causing significant bladder distention, severe b/l hydro and ANNALISE place escalante catheter SCr 1.34, should improve with escalante placement and resolution of bladder outlet obstruction follow BMP continue flomax urology consult pending Hematuria. resolved likely traumatic from escalante H/H stable hold lovenox urology consult pending consider CBI if worsens Acute closed right hip fracture Secondary to mechanical fall on 07/21/2024 Seen and evaluated by ortho who has deemed fracture stable with no acute surgical intervention necessary participating in PT and staff with increased tolerance to activity, wbat wean narcotics encourage oob daily and with meals bowel regimen weekly labs FLU A. Resolved pos 07/27/24-off precautions Vertigo. Resolved chronic meclizine as needed Diarrhea. Resolved stool studies negative [id number] type 2 diabetes Blood glucose levels well-controlled, no need for sliding-scale insulin Continue Jardiance follow POCs. HLD Continue statin GERD PPI/carafate BPH Tamsulosin Mood disorder Continue Seroquel, mirtazapine, prozac Tobacco dependence has not smoked since admission DNR DVT pptx - hold lovenox for hematuria dispo: TBD Quality Stroke Does the patient have a stroke diagnosis?: No VTE Prior VTE?: No VTE Risk Level:: Medical - moderate - high VTE Device Contraindication: Treatment Not Indicated VTE Drug Contraindication: N/A - Med Ordered
[2024-08-24] MEDS: Acetaminophen 325 MG TABLET 975 MG PO ×3 (09:35→19:59)
[2024-08-24] MEDS: Empagliflozin 25 MG TABLET PO (09:36)
[2024-08-24] MEDS: Docusate Sodium 100 MG CAPSULE PO ×2 (09:36→20:00)
[2024-08-24] MEDS: Sucralfate 1 GM TABLET PO ×4 (09:36→20:00)
[2024-08-24] MEDS: Tamsulosin HCL 0.4 MG CAPSULE PO (09:36)
[2024-08-24] MEDS: Atorvastatin Calcium 80 MG TABLET PO (09:36)
[2024-08-24] MEDS: Cholecalciferol (Vitamin D3) 10 MCG TABLET PO (09:36)
[2024-08-24] MEDS: methocarbamoL 750 MG TABLET PO ×3 (09:36→20:00)
[2024-08-24] MEDS: Nicotine 14 MG PATCH.TD24 TRANSDERMA (09:37)
[2024-08-24] MEDS: FLUoxetine HCl Oral Solution 20 MG/5 ML SOLUTION 10 MG PO (09:37)
[2024-08-24] MEDS: Calcium + Vitamin D 250 MG TABLET 500 MG PO (09:37)
[2024-08-24] MEDS: Lidocaine 4 % Patch ADH..PATCH 1 PATCH TRANSDERMA (09:38)
[2024-08-24] MEDS: Aspirin 81 MG TAB.CHEW 162 MG PO (09:49)
--- NOTE | 2024-08-24 10:21 | PM.UROCN ---
History of Present Illness Consult details Consult date: 08/24/24 Narrative: Called to evaluated due to urinary retention and abn CT scan findings: Patient complains of constipation. CTAP-08/22/24--Severe bilateral hydroureteronephrosis related to extremely distended bladder as detailed suspect bladder outlet obstruction Questioned debris versus soft tissue within the bladder Review of Systems Review of Systems: Yes all other systems are reviewed and are negative Constitutional: Constitutional: Reports no additional constitutional complaints Eyes: Eyes: Reports no additional eye complaints ENT: Reports system reviewed and no additional complaints, except as documented Cardiovascular: Cardiovascular: Reports no additional cardiovascular complaints Respiratory: Respiratory: Reports no additional respiratory complaints Gastrointestinal: Gastrointestinal: Reports no additional gastrointestinal complaints Genitourinary: Genitourinary: Reports as per HPI Musculoskeletal: Musculoskeletal: Reports no additional musculoskeletal complaints Integumentary/Breasts: Skin/Breast: Reports system reviewed and no additional complaints, except as docu Neurologic: Reports system reviewed and no additional complaints, except as documented Psychiatric: Psychiatric: Reports no additional psychiatric complaints Endocrine: Endocrine: Reports no additional endocrine complaints Hematologic/Lymphatic: Hematologic/Lymphatic: Reports no additional hematologic/lymphatic complaints Allergic/Immunologic: Allergic/Immunologic: Reports no additional allergic/immunologic complaints [facility] Past Medical History Medical History (Updated 08/26/24 @ 09:25 by Chery Lazar MD) GERD (gastroesophageal reflux disease) BPH (benign prostatic hyperplasia) Non-insulin dependent type 2 diabetes mellitus HLD (hyperlipidemia) HTN (hypertension) Social History Social History Patient Tobacco Use Status: Current everyday Tobacco user Tobacco use type: Cigarette Cigarette Packs Per Day: 3 Cigarettes Per Day: 60.0 service: Yes Meds Allergies Allergy/AdvReac Type Severity Reaction Status Date / Time morphine Allergy Unknown Verified 07/21/24 12:35 Active Medications: Current Medications Acetaminophen (Acetaminophen 325 Mg Tablet) 975 mg PO TID [facility] Last Admin: 08/24/24 09:35 Dose: 975 mg Aspirin (Aspirin 81 Mg Tab.Chew) 162 mg PO DAILY [facility] Last Admin: 08/24/24 09:49 Dose: 162 mg Atorvastatin Calcium (Atorvastatin Calcium 80 Mg Tablet) 80 mg PO DAILY [facility] Last Admin: 08/24/24 09:36 Dose: 80 mg Calcium Carbonate (Calcium Carbonate 750 Mg Tab.Chew) 750 mg PO Q4H PRN PRN Reason: Heartburn Calcium Carbonate/Cholecalciferol (Calcium + Vitamin D 250 Mg Tablet) 500 mg PO DAILY [facility] Last Admin: 08/24/24 09:37 Dose: 500 mg Dextrose (Dextrose 50 % 25 Gm/50 Ml Syringe) 25 gm IVPUSH Q15M PRN; Protocol PRN Reason: per Hypoglycemia Standing Ord. Docusate Sodium (Docusate Sodium 100 Mg Capsule) 100 mg PO BID [facility] Last Admin: 08/24/24 09:36 Dose: 100 mg Empagliflozin (Empagliflozin 25 Mg Tablet) 25 mg PO DAILY [facility] Last Admin: 08/24/24 09:36 Dose: 25 mg Enoxaparin Sodium (Enoxaparin Sodium 40 Mg/0.4 Ml Syringe) 40 mg SUBCUT Q24H [facility] Last Admin: 08/22/24 14:37 Dose: 40 mg Fluoxetine HCl (Fluoxetine Hcl Oral Solution 20 Mg/5 Ml Solution) 10 mg PO DAILY [facility] Last Admin: 08/24/24 09:37 Dose: 10 mg Glucose (Glucose Gel 15 Gm Gel..Gram.) 15 gm PO Q15M PRN; Protocol PRN Reason: per Hypoglycemia Standing Ord. Guaifenesin (Guaifenesin 100 Mg/5 Ml 5 Ml Liquid) 5 ml PO Q4H PRN PRN Reason: Cough Last Admin: 08/22/24 08:59 Dose: 5 ml Hydromorphone HCl (Hydromorphone Hcl 0.5 Mg/0.5 Ml Syringe) 0.25 mg IVPUSH BID PRN; Protocol PRN Reason: Pain, Severe (Pain Scale 7-10) Lidocaine (Lidocaine 4 % Patch Adh..Patch) 1 patch TRANSDERMA DAILY [facility] Last Admin: 08/24/24 09:38 Dose: 1 patch Loperamide HCl (Loperamide Hcl 2 Mg Capsule) 2 mg PO Q6H PRN PRN Reason: Diarrhea Last Admin: 08/20/24 16:59 Dose: 2 mg Meclizine HCl (Meclizine Hcl 12.5 Mg Tablet) 12.5 mg PO BIDWM PRN PRN Reason: vertigo Last Admin: 08/06/24 16:48 Dose: 12.5 mg Melatonin (Melatonin 3 Mg Tablet) 6 mg PO BEDTIME PRN PRN Reason: Insomnia Last Admin: 08/13/24 22:30 Dose: 6 mg Methocarbamol (Methocarbamol 750 Mg Tablet) 750 mg PO TID [facility] Last Admin: 08/24/24 09:36 Dose: 750 mg Mirtazapine (Mirtazapine 7.5 Mg Tablet) 7.5 mg PO BEDTIME [facility] Last Admin: 08/23/24 20:40 Dose: 7.5 mg Nicotine (Nicotine 14 Mg Patch.Td24) 14 mg TRANSDERMA DAILY [facility] Last Admin: 08/24/24 09:37 Dose: 14 mg Omeprazole (Omeprazole 20 Mg Capsule.Dr) 20 mg PO BID@0630,1630 [facility] Last Admin: 08/24/24 05:25 Dose: 20 mg Ondansetron HCl (Ondansetron Hcl 4 Mg/2 Ml Vial) 4 mg IVPUSH Q8H PRN PRN Reason: Nausea and Vomiting Last Admin: 08/03/24 23:08 Dose: 4 mg Oxycodone HCl (Oxycodone Hcl Immed Release 5 Mg Tablet) 5 mg PO Q4H PRN PRN Reason: Pain, Moderate(Pain Scale 4-6) Last Admin: 08/24/24 05:25 Dose: 5 mg Polyethylene Glycol (Polyethylene Glycol 3350 17 Gm Powd.Pack) 17 gm PO DAILY [facility] Last Admin: 08/20/24 18:48 Dose: Not Given Quetiapine Fumarate (Quetiapine Fumarate 25 Mg Tablet) 25 mg PO BEDTIME [facility] Last Admin: 08/23/24 20:40 Dose: 25 mg Sodium Chloride (0.9 % Sodium Chloride Flush 3 Ml Syringe) 3 ml IVFLUSH QSHIFT [facility] Last Admin: 08/24/24 09:50 Dose: 3 ml Sucralfate (Sucralfate 1 Gm Tablet) 1 gm PO QID [facility] Last Admin: 08/24/24 09:36 Dose: 1 gm Tamsulosin HCl (Tamsulosin Hcl 0.4 Mg Capsule) 0.4 mg PO DAILY [facility] Last Admin: 08/24/24 09:36 Dose: 0.4 mg Trazodone HCl (Trazodone Hcl 100 Mg Tablet) 200 mg PO BEDTIME PRN PRN Reason: Sleep Last Admin: 08/23/24 20:40 Dose: 200 mg Trolamine Salicylate (Trolamine Salicylate 10 % Cream 85 Gm Tube) 1 appl TOPICAL BID [facility]; Protocol Last Admin: 08/24/24 10:14 Dose: Not Given Vitamin D (Cholecalciferol (Vitamin D3) 10 Mcg Tablet) 10 mcg PO DAILY [facility] Last Admin: 08/24/24 09:36 Dose: 10 mcg Home Medications ?Medication ?Instructions ?Recorded ?Confirmed ?Last Taken ?Type acetaminophen 500 mg tablet 1,000 mg PO TID PRN Pain 07/22/24 07/22/24 Unknown History aspirin 81 mg chewable tablet 162 mg PO DAILY 07/22/24 07/22/24 Unknown History atorvastatin 80 mg tablet 80 mg PO DAILY 07/22/24 07/22/24 Unknown History calcium 600 mg (as 1 tab PO DAILY 07/22/24 07/22/24 Unknown History carbonate)-vitamin D3 10 mcg (400 unit) tablet (Calcium 600 + D(3)) cholecalciferol (vitamin D3) 10 10 mcg PO DAILY 07/22/24 07/22/24 Unknown History mcg (400 unit) capsule (Vitamin D3) empagliflozin 25 mg tablet 25 mg PO DAILY 07/22/24 07/22/24 Unknown History (Jardiance) lidocaine 5 % topical patch 1 patch topical DAILY 07/22/24 07/22/24 Unknown History meclizine 12.5 mg tablet 12.5 mg PO DAILY PRN Vertigo 07/22/24 07/22/24 Unknown History meloxicam 7.5 mg tablet 7.5 mg PO DAILY 07/22/24 07/22/24 Unknown History metformin 1,000 mg tablet 1,000 mg PO BID 07/22/24 07/22/24 Unknown History methocarbamol 750 mg tablet 750 mg PO TID 07/22/24 07/22/24 Unknown History mirtazapine 7.5 mg tablet 7.5 mg PO BEDTIME 07/22/24 07/22/24 Unknown History omeprazole 20 mg capsule,delayed 20 mg PO BID@0630,1630 07/22/24 07/22/24 Unknown History release quetiapine 25 mg tablet (Seroquel) 25 mg PO BEDTIME 07/22/24 07/22/24 Unknown History salsalate 500 mg tablet 1,000 mg PO QID 07/22/24 07/22/24 Unknown History sucralfate 1 gram tablet (Carafate) 1 g PO QID 07/22/24 07/22/24 Unknown History tamsulosin 0.4 mg capsule 0.4 mg PO DAILY 07/22/24 07/22/24 Unknown History trazodone 100 mg tablet 200 mg PO BEDTIME PRN Sleep 07/22/24 07/22/24 Unknown History Physical Exam Vital Signs: Vital Signs: Last Vital Signs Temp 97.6 F 08/24/24 07:46 Pulse 91 08/24/24 07:46 Resp 14 08/24/24 07:46 BP 134/80 08/24/24 07:46 Pulse Ox 94 08/24/24 07:46 O2 Del Method Room Air 08/24/24 07:46 BMI result Body Mass Index 28.7 Const: General: healthy appearing, no acute distress and well developed Orientation/consciousness: patient oriented x3 HEENT: Head: Yes normocephalic and Yes atraumatic Eyes: Conjunctivae: conjunctivae normal Neck: Neck: Yes normal visual inspection Chest: Chest palpation & inspection: normal inspection of the chest Resp: Effort & Inspection: normal respiratory effort Cardio: Rate: regular rate GI: Inspection: Yes normal to inspection Palpation (GI): Soft to palpation : Penis: normal penis Scrotum: scrotum normal Neuro: General: patient oriented x3 Psych: Appearance: grossly normal Affect: normal affect Results Labs 08/23/24 12:04 08/25/24 05:29 Labs: Abnormal lab results 08/23/24 08/23/24 08/23/24 Range/Units 11:30 12:04 16:16 Hgb 12.1 L (14.0-18.0) g/dl Hct 35.8 L (42.0-52.0) % POC Glucose 163 H 170 H (60-115) mg/dL 08/23/24 08/24/24 Range/Units 20:18 07:05 Hgb (14.0-18.0) g/dl Hct (42.0-52.0) % POC Glucose 213 H 157 H (60-115) mg/dL Short CBC 08/23/24 Range/Units 12:04 Hgb 12.1 L (14.0-18.0) g/dl Hct 35.8 L (42.0-52.0) % Imaging Additional studies: Date of Service: 08/22/24 CLINICAL HISTORY: abdominal pain CT abdomen and pelvis without contrast Comparison: None Findings: The lung bases are clear. The liver, gallbladder, spleen and adrenal glands are unremarkable. The pancreas is mildly atrophic. The kidneys exhibit severe hydroureteronephrosis related to an extremely distended bladder. Questioned debris versus soft tissue within the bladder The prostate gland is enlarged. No bowel obstruction or free air. No acute osseous abnormality. Severe atherosclerotic disease Impression: Severe bilateral hydroureteronephrosis related to extremely distended bladder as detailed suspect bladder outlet obstruction Questioned debris versus soft tissue within the bladder Several additional incidental and/or chronic findings Assessment and Plan (1) ANNALISE (acute kidney injury): Status: Acute (2) Bladder outlet obstruction: Status: Acute (3) Urinary retention: Status: Acute (4) Constipation: Status: Acute Plan Patient complains of no BM in a couple days. Please address. Discharge with escalante Cont flomax Start proscar 5 mg daily outpatient urology fu and outpatient cysto Procedures Date of Service Date of Service: 08/26/24
[2024-08-24 11:14] LABS: Glucose, Whole Blood 209 mg/dL (60-115)
[2024-08-24 16:00] VITALS: BP 108/66; PULSE 105; RESP 14; TEMP 36.6; O2SAT 95
[2024-08-24 16:24] LABS: Glucose, Whole Blood 157 mg/dL (60-115)
[2024-08-24 19:21] VITALS: BP 126/73; PULSE 97; RESP 18; TEMP 36.4; O2SAT 92
[2024-08-24] MEDS: traZODone HCL 100 MG TABLET 200 MG PO (20:00)
[2024-08-24] MEDS: QUEtiapine Fumarate 25 MG TABLET PO (20:00)
[2024-08-24] MEDS: Mirtazapine 7.5 MG TABLET PO (20:00)
[2024-08-24 20:38] LABS: Glucose, Whole Blood 196 mg/dL (60-115)
[2024-08-25 04:00] VITALS: BP 138/82; PULSE 95; RESP 18; TEMP 36.6; O2SAT 92
[2024-08-25] MEDS: Omeprazole 20 MG CAPSULE.DR PO ×2 (05:29→17:05)
[2024-08-25 06:09] LABS: Creatinine Clr Calc Pharmacy 52.5; Estimated Glomerular Filt Rate 53
[2024-08-25] MEDS: oxyCODONE HCl Immed Release 5 MG TABLET PO (06:17)
--- NOTE | 2024-08-25 07:23 | P.PNIM_ITS ---
Subjective Subjective Date of Service: 08/25/24 Interval History: Seen and examined this morning Follow-up for ANNALISE, urinary retention Escalante placed 08/22 Review of Systems Review of Systems: Yes all other systems are reviewed and are negative Constitutional Constitutional: Denies chills and Denies fever(s) Physical Exam 2 Vital Signs: Vital Signs: Last Vital Signs Temp 97.9 F 08/25/24 04:00 Pulse 95 08/25/24 04:00 Resp 18 08/25/24 04:00 BP 138/82 08/25/24 04:00 Pulse Ox 92 08/25/24 04:00 O2 Del Method Room Air 08/25/24 04:00 BMI result Body Mass Index 28.7 Appearing in no acute distress lung sounds are clear to auscultation heart regular rate rhythm, clear S1, S2 positive bowel sounds, abdomen is soft, nontender neuro patient is alert x3, no focal deficits Objective Data Active Medications Acetaminophen (Acetaminophen 325 Mg Tablet) 975 mg PO TID [facility] Last Admin: 08/24/24 19:59 Dose: 975 mg Documented By: FRACISCO Aspirin (Aspirin 81 Mg Tab.Chew) 162 mg PO DAILY [facility] Last Admin: 08/24/24 09:49 Dose: 162 mg Documented By: KESHA Atorvastatin Calcium (Atorvastatin Calcium 80 Mg Tablet) 80 mg PO DAILY [facility] Last Admin: 08/24/24 09:36 Dose: 80 mg Documented By: KESHA Calcium Carbonate (Calcium Carbonate 750 Mg Tab.Chew) 750 mg PO Q4H PRN PRN Reason: Heartburn Calcium Carbonate/Cholecalciferol (Calcium + Vitamin D 250 Mg Tablet) 500 mg PO DAILY [facility] Last Admin: 08/24/24 09:37 Dose: 500 mg Documented By: KESHA Dextrose (Dextrose 50 % 25 Gm/50 Ml Syringe) 25 gm IVPUSH Q15M PRN; Protocol PRN Reason: per Hypoglycemia Standing Ord. Docusate Sodium (Docusate Sodium 100 Mg Capsule) 100 mg PO BID [facility] Last Admin: 08/24/24 20:00 Dose: 100 mg Documented By: FRACISCO Empagliflozin (Empagliflozin 25 Mg Tablet) 25 mg PO DAILY [facility] Last Admin: 08/24/24 09:36 Dose: 25 mg Documented By: KESHA Enoxaparin Sodium (Enoxaparin Sodium 40 Mg/0.4 Ml Syringe) 40 mg SUBCUT Q24H [facility] Last Admin: 08/22/24 14:37 Dose: 40 mg Documented By: RAÚL Fluoxetine HCl (Fluoxetine Hcl Oral Solution 20 Mg/5 Ml Solution) 10 mg PO DAILY [facility] Last Admin: 08/24/24 09:37 Dose: 10 mg Documented By: KESHA Glucose (Glucose Gel 15 Gm Gel..Gram.) 15 gm PO Q15M PRN; Protocol PRN Reason: per Hypoglycemia Standing Ord. Guaifenesin (Guaifenesin 100 Mg/5 Ml 5 Ml Liquid) 5 ml PO Q4H PRN PRN Reason: Cough Last Admin: 08/22/24 08:59 Dose: 5 ml Documented By: RAÚL Hydromorphone HCl (Hydromorphone Hcl 0.5 Mg/0.5 Ml Syringe) 0.25 mg IVPUSH BID PRN; Protocol PRN Reason: Pain, Severe (Pain Scale 7-10) Lidocaine (Lidocaine 4 % Patch Adh..Patch) 1 patch TRANSDERMA DAILY [facility] Last Admin: 08/24/24 09:38 Dose: 1 patch Documented By: KESHA Loperamide HCl (Loperamide Hcl 2 Mg Capsule) 2 mg PO Q6H PRN PRN Reason: Diarrhea Last Admin: 08/20/24 16:59 Dose: 2 mg Documented By: CANDICE Meclizine HCl (Meclizine Hcl 12.5 Mg Tablet) 12.5 mg PO BIDWM PRN PRN Reason: vertigo Last Admin: 08/06/24 16:48 Dose: 12.5 mg Documented By: KESHA Melatonin (Melatonin 3 Mg Tablet) 6 mg PO BEDTIME PRN PRN Reason: Insomnia Last Admin: 08/13/24 22:30 Dose: 6 mg Documented By: RANDY Methocarbamol (Methocarbamol 750 Mg Tablet) 750 mg PO TID [facility] Last Admin: 08/24/24 20:00 Dose: 750 mg Documented By: FRACISCO Mirtazapine (Mirtazapine 7.5 Mg Tablet) 7.5 mg PO BEDTIME [facility] Last Admin: 08/24/24 20:00 Dose: 7.5 mg Documented By: FRACISCO Nicotine (Nicotine 14 Mg Patch.Td24) 14 mg TRANSDERMA DAILY [facility] Last Admin: 08/24/24 09:37 Dose: 14 mg Documented By: KESHA Omeprazole (Omeprazole 20 Mg Capsule.Dr) 20 mg PO BID@0630,1630 [facility] Last Admin: 08/25/24 05:29 Dose: 20 mg Documented By: FRACISCO Ondansetron HCl (Ondansetron Hcl 4 Mg/2 Ml Vial) 4 mg IVPUSH Q8H PRN PRN Reason: Nausea and Vomiting Last Admin: 08/03/24 23:08 Dose: 4 mg Documented By: ELINA Polyethylene Glycol (Polyethylene Glycol 3350 17 Gm Powd.Pack) 17 gm PO DAILY [facility] Last Admin: 08/20/24 18:48 Dose: Not Given Documented By: RAÚL Non-Admin Reason: med not given Quetiapine Fumarate (Quetiapine Fumarate 25 Mg Tablet) 25 mg PO BEDTIME [facility] Last Admin: 08/24/24 20:00 Dose: 25 mg Documented By: FRACISCO Sodium Chloride (0.9 % Sodium Chloride Flush 3 Ml Syringe) 3 ml IVFLUSH QSHIFT [facility] Last Admin: 08/24/24 20:00 Dose: 3 ml Documented By: FRACISCO Sucralfate (Sucralfate 1 Gm Tablet) 1 gm PO QID [facility] Last Admin: 08/24/24 20:00 Dose: 1 gm Documented By: FRACISCO Tamsulosin HCl (Tamsulosin Hcl 0.4 Mg Capsule) 0.4 mg PO DAILY [facility] Last Admin: 08/24/24 09:36 Dose: 0.4 mg Documented By: KESHA Trazodone HCl (Trazodone Hcl 100 Mg Tablet) 200 mg PO BEDTIME PRN PRN Reason: Sleep Last Admin: 08/24/24 20:00 Dose: 200 mg Documented By: FRACISCO Trolamine Salicylate (Trolamine Salicylate 10 % Cream 85 Gm Tube) 1 appl TOPICAL BID [facility]; Protocol Last Admin: 08/24/24 20:07 Dose: Not Given Documented By: FRACISCO Non-Admin Reason: Patient Refused Vitamin D (Cholecalciferol (Vitamin D3) 10 Mcg Tablet) 10 mcg PO DAILY [facility] Last Admin: 08/24/24 09:36 Dose: 10 mcg Documented By: KESHA Labs 08/23/24 12:04 08/25/24 05:29 Labs: Laboratory Results - last 24 hr 08/24/24 08/24/24 08/24/24 11:06 16:19 20:28 Estim Creat Clear Calc Estimated GFR POC Glucose 209 H 157 H 196 H 08/25/24 05:29 Estim Creat Clear Calc 52.5 Estimated GFR 53 POC Glucose Assessment and Plan (1) ANNALISE (acute kidney injury): Status: Acute (2) Bladder outlet obstruction: Status: Acute (3) Hematuria: Status: Acute Plan 79-year-old male significant for HTN, HLD, her-limdrfc-wzpjyhnzh type 2 diabetes, BPH, and GERD who had a prolonged stay in overflow and was therefore admitted to the hospital. Given prolonged stay in overflow under physician observation, as well as complicated insurance issues and difficulty with STR/LTR placement, pt admitted to the hospital as a social admission for pain control and physical therapy while awaiting placement. Bladder outlet obstruction causing significant bladder distention, severe b/l hydro and ANNALISE place escalante catheter SCr 1.34, should improve with escalante placement and resolution of bladder outlet obstruction follow BMP continue flomax urology consult > Keep f/c in, add proscar 5 mg daily, f/u o/p for cysto Hematuria. resolved likely traumatic from escalante H/H stable hold lovenox Acute closed right hip fracture Secondary to mechanical fall on 07/21/2024 Seen and evaluated by ortho who has deemed fracture stable with no acute surgical intervention necessary participating in PT and staff with increased tolerance to activity, wbat wean narcotics encourage oob daily and with meals bowel regimen weekly labs FLU A. Resolved pos 07/27/24-off precautions Vertigo. Resolved chronic meclizine as needed Diarrhea. Resolved stool studies negative Opi-tsgcffx-kghtuzrvl type 2 diabetes Blood glucose levels well-controlled, no need for sliding-scale insulin Continue Jardiance follow POCs. HLD Continue statin GERD PPI/carafate BPH Tamsulosin Mood disorder Continue Seroquel, mirtazapine, prozac Tobacco dependence has not smoked since admission DNR DVT pptx - hold lovenox for hematuria dispo: TBD Quality Stroke Does the patient have a stroke diagnosis?: No VTE Prior VTE?: No VTE Risk Level:: Medical - moderate - high VTE Device Contraindication: Treatment Not Indicated VTE Drug Contraindication: N/A - Med Ordered
[2024-08-25 07:40] VITALS: BP 115/65; PULSE 96; RESP 18; TEMP 36.6; O2SAT 93
[2024-08-25 07:54] LABS: Glucose, Whole Blood 219 mg/dL (60-115)
[2024-08-25] MEDS: 0.9 % Sodium Chloride Flush 3 ML SYRINGE IVFLUSH ×3 (09:23→21:17)
[2024-08-25] MEDS: Acetaminophen 325 MG TABLET 975 MG PO ×3 (09:23→21:16)
[2024-08-25] MEDS: Docusate Sodium 100 MG CAPSULE PO ×2 (09:24→21:16)
[2024-08-25] MEDS: Empagliflozin 25 MG TABLET PO (09:24)
[2024-08-25] MEDS: Calcium + Vitamin D 250 MG TABLET 500 MG PO (09:24)
[2024-08-25] MEDS: Cholecalciferol (Vitamin D3) 10 MCG TABLET PO (09:24)
[2024-08-25] MEDS: Tamsulosin HCL 0.4 MG CAPSULE PO (09:24)
[2024-08-25] MEDS: methocarbamoL 750 MG TABLET PO ×3 (09:24→21:16)
[2024-08-25] MEDS: Finasteride 5 MG TABLET PO (09:25)
[2024-08-25] MEDS: Aspirin 81 MG TAB.CHEW 162 MG PO (09:25)
[2024-08-25] MEDS: Sucralfate 1 GM TABLET PO ×4 (09:25→21:15)
[2024-08-25] MEDS: Nicotine 14 MG PATCH.TD24 TRANSDERMA (09:25)
[2024-08-25] MEDS: Lidocaine 4 % Patch ADH..PATCH 1 PATCH TRANSDERMA (09:25)
[2024-08-25] MEDS: Atorvastatin Calcium 80 MG TABLET PO (09:25)
[2024-08-25] MEDS: FLUoxetine HCl Oral Solution 20 MG/5 ML SOLUTION 10 MG PO (09:26)
[2024-08-25 11:08] LABS: Glucose, Whole Blood 188 mg/dL (60-115)
[2024-08-25 15:48] VITALS: BP 113/70; PULSE 102; RESP 18; TEMP 36.9; O2SAT 95
--- NOTE | 2024-08-25 15:49 | PC.NURSE ---
Patient alert and oriented to person place and time. He is calm and cooperative with activity and nursing care. Venancio ambulated to the bathroom with a walker with stand by assist, tolerating it well. Medicated with APAP for pain and reports effective pain control. He takes his pills whole and is tolerating a regular diet.
[2024-08-25 16:26] LABS: Glucose, Whole Blood 158 mg/dL (60-115)
[2024-08-25 19:12] VITALS: BP 110/61; PULSE 100; RESP 20; TEMP 36.8; O2SAT 94
[2024-08-25 20:29] LABS: Glucose, Whole Blood 185 mg/dL (60-115)
[2024-08-25] MEDS: QUEtiapine Fumarate 25 MG TABLET PO (21:16)
[2024-08-25] MEDS: Mirtazapine 7.5 MG TABLET PO (21:16)
[2024-08-25] MEDS: Trolamine Salicylate 10 % Cream 85 GM TUBE 1 APPL TOPICAL (21:17)
[2024-08-26 04:00] VITALS: BP 131/76; PULSE 104; RESP 18; TEMP 36.7; O2SAT 97
[2024-08-26] MEDS: Omeprazole 20 MG CAPSULE.DR PO ×2 (06:18→17:40)
[2024-08-26] MEDS: Acetaminophen 325 MG TABLET 975 MG PO ×3 (06:19→21:35)
[2024-08-26 07:20] VITALS: BP 125/70; PULSE 91; RESP 16; TEMP 36.4; O2SAT 91
[2024-08-26 07:24] LABS: Glucose, Whole Blood 139 mg/dL (60-115)
--- NOTE | 2024-08-26 07:42 | HO.PM.IMPN ---
Subjective Subjective Date of Service: 08/26/24 Interval History: Seen and examined this morning Follow-up for ANNALISE, urinary retention Escalante placed 08/22 Review of Systems Review of Systems: Yes all other systems are reviewed and are negative Constitutional Constitutional: Denies chills and Denies fever(s) Physical Exam Vital Signs: Vital Signs: Last Vital Signs Temp 97.5 F 08/26/24 07:20 Pulse 91 08/26/24 07:20 Resp 16 08/26/24 07:20 BP 125/70 08/26/24 07:20 Pulse Ox 91 L 08/26/24 07:20 O2 Del Method Room Air 08/26/24 07:20 BMI result Body Mass Index 28.7 Appearing in no acute distress lung sounds are clear to auscultation heart regular rate rhythm, clear S1, S2 positive bowel sounds, abdomen is soft, nontender neuro patient is alert x3, no focal deficits Objective Data Active Medications Acetaminophen (Acetaminophen 325 Mg Tablet) 975 mg PO TID [facility] Last Admin: 08/26/24 06:19 Dose: 975 mg Documented By: SHERMAN Aspirin (Aspirin 81 Mg Tab.Chew) 162 mg PO DAILY [facility] Last Admin: 08/25/24 09:25 Dose: 162 mg Documented By: KESHA Atorvastatin Calcium (Atorvastatin Calcium 80 Mg Tablet) 80 mg PO DAILY [facility] Last Admin: 08/25/24 09:25 Dose: 80 mg Documented By: KESHA Calcium Carbonate (Calcium Carbonate 750 Mg Tab.Chew) 750 mg PO Q4H PRN PRN Reason: Heartburn Calcium Carbonate/Cholecalciferol (Calcium + Vitamin D 250 Mg Tablet) 500 mg PO DAILY [facility] Last Admin: 08/25/24 09:24 Dose: 500 mg Documented By: KESHA Dextrose (Dextrose 50 % 25 Gm/50 Ml Syringe) 25 gm IVPUSH Q15M PRN; Protocol PRN Reason: per Hypoglycemia Standing Ord. Docusate Sodium (Docusate Sodium 100 Mg Capsule) 100 mg PO BID [facility] Last Admin: 08/25/24 21:16 Dose: 100 mg Documented By: SHERMAN Empagliflozin (Empagliflozin 25 Mg Tablet) 25 mg PO DAILY [facility] Last Admin: 08/25/24 09:24 Dose: 25 mg Documented By: KESHA Enoxaparin Sodium (Enoxaparin Sodium 40 Mg/0.4 Ml Syringe) 40 mg SUBCUT Q24H [facility] Last Admin: 08/22/24 14:37 Dose: 40 mg Documented By: RAÚL Finasteride (Finasteride 5 Mg Tablet) 5 mg PO DAILY [facility] Last Admin: 08/25/24 09:25 Dose: 5 mg Documented By: KESHA Fluoxetine HCl (Fluoxetine Hcl Oral Solution 20 Mg/5 Ml Solution) 10 mg PO DAILY [facility] Last Admin: 08/25/24 09:26 Dose: 10 mg Documented By: KESHA Glucose (Glucose Gel 15 Gm Gel..Gram.) 15 gm PO Q15M PRN; Protocol PRN Reason: per Hypoglycemia Standing Ord. Guaifenesin (Guaifenesin 100 Mg/5 Ml 5 Ml Liquid) 5 ml PO Q4H PRN PRN Reason: Cough Last Admin: 08/22/24 08:59 Dose: 5 ml Documented By: RAÚL Hydromorphone HCl (Hydromorphone Hcl 0.5 Mg/0.5 Ml Syringe) 0.25 mg IVPUSH BID PRN; Protocol PRN Reason: Pain, Severe (Pain Scale 7-10) Lidocaine (Lidocaine 4 % Patch Adh..Patch) 1 patch TRANSDERMA DAILY [facility] Last Admin: 08/25/24 09:25 Dose: 1 patch Documented By: KESHA Loperamide HCl (Loperamide Hcl 2 Mg Capsule) 2 mg PO Q6H PRN PRN Reason: Diarrhea Last Admin: 08/20/24 16:59 Dose: 2 mg Documented By: CANDICE Meclizine HCl (Meclizine Hcl 12.5 Mg Tablet) 12.5 mg PO BIDWM PRN PRN Reason: vertigo Last Admin: 08/06/24 16:48 Dose: 12.5 mg Documented By: KESHA Melatonin (Melatonin 3 Mg Tablet) 6 mg PO BEDTIME PRN PRN Reason: Insomnia Last Admin: 08/13/24 22:30 Dose: 6 mg Documented By: RANDY Methocarbamol (Methocarbamol 750 Mg Tablet) 750 mg PO TID [facility] Last Admin: 08/25/24 21:16 Dose: 750 mg Documented By: SHERMAN Mirtazapine (Mirtazapine 7.5 Mg Tablet) 7.5 mg PO BEDTIME [facility] Last Admin: 08/25/24 21:16 Dose: 7.5 mg Documented By: SHERMAN Nicotine (Nicotine 14 Mg Patch.Td24) 14 mg TRANSDERMA DAILY [facility] Last Admin: 08/25/24 09:25 Dose: 14 mg Documented By: KESHA Omeprazole (Omeprazole 20 Mg Capsule.Dr) 20 mg PO BID@0630,1630 [facility] Last Admin: 08/26/24 06:18 Dose: 20 mg Documented By: SHERMAN Ondansetron HCl (Ondansetron Hcl 4 Mg/2 Ml Vial) 4 mg IVPUSH Q8H PRN PRN Reason: Nausea and Vomiting Last Admin: 08/03/24 23:08 Dose: 4 mg Documented By: ELINA Polyethylene Glycol (Polyethylene Glycol 3350 17 Gm Powd.Pack) 17 gm PO DAILY [facility] Last Admin: 08/20/24 18:48 Dose: Not Given Documented By: RAÚL Non-Admin Reason: med not given Quetiapine Fumarate (Quetiapine Fumarate 25 Mg Tablet) 25 mg PO BEDTIME [facility] Last Admin: 08/25/24 21:16 Dose: 25 mg Documented By: SHERMAN Sodium Chloride (0.9 % Sodium Chloride Flush 3 Ml Syringe) 3 ml IVFLUSH QSHIFT [facility] Last Admin: 08/25/24 21:17 Dose: 3 ml Documented By: SHERMAN Sucralfate (Sucralfate 1 Gm Tablet) 1 gm PO QID [facility] Last Admin: 08/25/24 21:15 Dose: 1 gm Documented By: SHERMAN Tamsulosin HCl (Tamsulosin Hcl 0.4 Mg Capsule) 0.4 mg PO DAILY [facility] Last Admin: 08/25/24 09:24 Dose: 0.4 mg Documented By: KESHA Trazodone HCl (Trazodone Hcl 100 Mg Tablet) 200 mg PO BEDTIME PRN PRN Reason: Sleep Last Admin: 08/24/24 20:00 Dose: 200 mg Documented By: FRACISCO Trolamine Salicylate (Trolamine Salicylate 10 % Cream 85 Gm Tube) 1 appl TOPICAL BID [facility]; Protocol Last Admin: 08/25/24 21:17 Dose: 1 appl Documented By: SHERMAN Vitamin D (Cholecalciferol (Vitamin D3) 10 Mcg Tablet) 10 mcg PO DAILY [facility] Last Admin: 08/25/24 09:24 Dose: 10 mcg Documented By: KESHA Labs 08/23/24 12:04 08/25/24 05:29 Labs: Laboratory Results - last 24 hr 08/25/24 08/25/24 08/25/24 07:47 11:02 16:22 POC Glucose 219 H 188 H 158 H 08/25/24 08/26/24 20:25 07:19 POC Glucose 185 H 139 H Assessment and Plan (1) ANNALISE (acute kidney injury): Status: Acute (2) Bladder outlet obstruction: Status: Acute (3) Hematuria: Status: Acute Plan 79-year-old male significant for HTN, HLD, irp-gapfzos-smledqndk type 2 diabetes, BPH, and GERD who had a prolonged stay in overflow and was therefore admitted to the hospital. Given prolonged stay in overflow under physician observation, as well as complicated insurance issues and difficulty with STR/LTR placement, pt admitted to the hospital as a social admission for pain control and physical therapy while awaiting placement. Bladder outlet obstruction causing significant bladder distention, severe b/l hydro and ANNALISE place escalante catheter SCr improved with escalante placement and resolution of bladder outlet obstruction follow BMP continue flomax urology consult > Keep f/c in, add proscar 5 mg daily, f/u o/p for cysto Hematuria. resolved likely traumatic from escalante H/H stable hold lovenox Acute closed right hip fracture Secondary to mechanical fall on 07/21/2024 Seen and evaluated by ortho who has deemed fracture stable with no acute surgical intervention necessary participating in PT and staff with increased tolerance to activity, wbat wean narcotics encourage oob daily and with meals bowel regimen weekly labs FLU A. Resolved pos 07/27/24-off precautions Vertigo. Resolved chronic meclizine as needed Diarrhea. Resolved stool studies negative Nfr-opqdkrs-ytgldhfnl type 2 diabetes Blood glucose levels well-controlled, no need for sliding-scale insulin Continue Jardiance follow POCs. HLD Continue statin GERD PPI/carafate BPH Tamsulosin Mood disorder Continue Seroquel, mirtazapine, prozac Tobacco dependence has not smoked since admission DNR DVT pptx - hold lovenox for hematuria dispo: TBD Quality Stroke Does the patient have a stroke diagnosis?: No VTE Prior VTE?: No VTE Risk Level:: Medical - moderate - high VTE Device Contraindication: Treatment Not Indicated VTE Drug Contraindication: N/A - Med Ordered
[2024-08-26] MEDS: HYDROmorphone HCl 0.5 MG/0.5 ML SYRINGE 0.25 MG IVPUSH (09:20)
[2024-08-26] MEDS: Sucralfate 1 GM TABLET PO ×4 (09:22→21:35)
[2024-08-26] MEDS: Docusate Sodium 100 MG CAPSULE PO ×2 (09:22→21:35)
[2024-08-26] MEDS: methocarbamoL 750 MG TABLET PO ×3 (09:22→21:35)
[2024-08-26] MEDS: Empagliflozin 25 MG TABLET PO (09:22)
[2024-08-26] MEDS: Calcium + Vitamin D 250 MG TABLET 500 MG PO (09:22)
[2024-08-26] MEDS: Tamsulosin HCL 0.4 MG CAPSULE PO (09:22)
[2024-08-26] MEDS: Aspirin 81 MG TAB.CHEW 162 MG PO (09:22)
[2024-08-26] MEDS: Atorvastatin Calcium 80 MG TABLET PO (09:22)
[2024-08-26] MEDS: Finasteride 5 MG TABLET PO (09:22)
[2024-08-26] MEDS: Cholecalciferol (Vitamin D3) 10 MCG TABLET PO (09:22)
[2024-08-26] MEDS: Nicotine 14 MG PATCH.TD24 TRANSDERMA (09:23)
[2024-08-26] MEDS: Lidocaine 4 % Patch ADH..PATCH 1 PATCH TRANSDERMA (09:23)
[2024-08-26] MEDS: FLUoxetine HCl Oral Solution 20 MG/5 ML SOLUTION 10 MG PO (09:24)
[2024-08-26] MEDS: 0.9 % Sodium Chloride Flush 3 ML SYRINGE IVFLUSH ×3 (09:25→21:35)
[2024-08-26 11:16] VITALS: O2SAT 93
[2024-08-26 11:50] LABS: Glucose, Whole Blood 172 mg/dL (60-115)
--- NOTE | 2024-08-26 14:57 | PC.NURSE ---
Patient alert and oriented. He is calm and cooperative with activity and nursing care. Venancio was able to ambulated to the bathroom and in the hallway with a walker with stand by assist, tolerating it well. C/o pain medicated with Tylenol with good effect. He takes his pills whole and is tolerating a regular diet.
[2024-08-26 15:40] VITALS: BMI 28.7
--- NOTE | 2024-08-26 15:49 | MHC.CLN ---
NUTRITION PATIENT WITH PROLONGED STAY IN ED OVERFLOW THEN WITH ADM FOR PAIN CONTROL AND PLACEMENT 07/30. NEW PI TO COCCYX IDENTIFIED BY NURSING TODAY. PATIENT WITH USUALLY VERY GOOD PO INTAKE. DIET=REGULAR. HAS DX DM WITH ELEVATED POC. REC CONTINUE REGULAR DIET TO PROMOTE PO INTAKE. NO SUPPLEMENT AT THIS TIME DUE TO HX VERY GOOD INTAKE. FOLLOW FOR SKIN INTEGRITY. SEE CLINICAL NUTRITION ASSESSMENT 08/26/24.
[2024-08-26 15:50] VITALS: BP 108/58; PULSE 109; RESP 18; TEMP 37.3; O2SAT 93
[2024-08-26 16:17] LABS: Glucose, Whole Blood 144 mg/dL (60-115)
--- NOTE | 2024-08-26 17:34 | HO.WOUND ---
Wound Consult: Follow up 79yr old?male admitted to [facility] on 07/30/24 13:29 - See progress notes and H&P for detailed history.? Wound consult follow up for buttock and bilateral heels.? Patient agreeable to assessment and photo documentation.? RUBI pump in use at this time. 07/28/24 08/26/24 Overall improving - continue to be MASD not Pressure Coccyx Etiology: ??MASD - IAD (Moisture Associated Skin Damage - Incontinence Associated Dermatitis) Present on Admission Wound Bed: moist macerated tissue with pink blanchable tissue Drainage / Odor: none noted Edges: ? mirrored Flor wound: Hyperpigmentation noted - ? No Induration, Fluctuance or Warmth noted Pain: tenderness reported Goals of Treatment: ? Off load pressure and triad to protect from friction and moisture Bilateral heels noted for intact blanchable redness - recommend foam dressing and off loaded with pillows. No new topical recommendations needed at this time. Recommendations: 1. Turn and Reposition every 2 hours and as needed for patient comfort.? Use pillows or wedges to support off loading positions. 2. Off Load all bony prominences with use of pillows and heel boots if needed.? Apply Preventative foams where needed. ? 3. Monitor for incontinence and moisture control, use barrier creams when needed for prevention and treatment. 4. Provide adequate and supplemental nutrition.? 5. Order low air loss mattress. 6. When applicable maintain blood glucose levels per Providers order. 7. Coccyx - Off Load Pressure with Q2 hr turns and use of pillows - Cleanse with PH balance spray or wipes, pat dry. ?Apply thin layer of Triad to wound bed - only pat and dab no scrub and rub when soiling occurs. Reapply thin layer PRN after each episode of incontinence. 8. Bilateral Heels - Apply skin prep to heels allow to dry. Apply foam dressings to heels to air in pressure redistribution. Off load heels from surface of bed with use of pillows. Re-consult wound care Nurse for wound deterioration or wound changes.
[2024-08-26 19:51] VITALS: BP 130/69; PULSE 102; RESP 20; TEMP 37.1; O2SAT 92
[2024-08-26 19:59] LABS: Glucose, Whole Blood 213 mg/dL (60-115)
[2024-08-26] MEDS: QUEtiapine Fumarate 25 MG TABLET PO (21:35)
[2024-08-26] MEDS: Mirtazapine 7.5 MG TABLET PO (21:35)
[2024-08-26] MEDS: Trolamine Salicylate 10 % Cream 85 GM TUBE 1 APPL TOPICAL (21:36)
[2024-08-26] MEDS: Melatonin 3 MG TABLET 6 MG PO (21:46)
[2024-08-27 03:17] VITALS: BP 131/68; PULSE 95; RESP 16; TEMP 36.4; O2SAT 95
[2024-08-27] MEDS: Omeprazole 20 MG CAPSULE.DR PO (05:30)
[2024-08-27 07:20] VITALS: BP 144/91; PULSE 80; RESP 14; TEMP 36.8; O2SAT 93
[2024-08-27 07:31] LABS: Glucose, Whole Blood 151 mg/dL (60-115)
[2024-08-27] MEDS: methocarbamoL 750 MG TABLET PO (08:50)
[2024-08-27] MEDS: Finasteride 5 MG TABLET PO (08:50)
[2024-08-27] MEDS: Acetaminophen 325 MG TABLET 975 MG PO (08:50)
[2024-08-27] MEDS: Cholecalciferol (Vitamin D3) 10 MCG TABLET PO (08:51)
[2024-08-27] MEDS: Sucralfate 1 GM TABLET PO (08:51)
[2024-08-27] MEDS: Calcium + Vitamin D 250 MG TABLET 500 MG PO (08:51)
[2024-08-27] MEDS: Tamsulosin HCL 0.4 MG CAPSULE PO (08:51)
[2024-08-27] MEDS: Aspirin 81 MG TAB.CHEW 162 MG PO (08:51)
[2024-08-27] MEDS: Docusate Sodium 100 MG CAPSULE PO (08:51)
[2024-08-27] MEDS: Nicotine 14 MG PATCH.TD24 TRANSDERMA (08:51)
[2024-08-27] MEDS: Empagliflozin 25 MG TABLET PO (08:51)
[2024-08-27] MEDS: FLUoxetine HCl Oral Solution 20 MG/5 ML SOLUTION 10 MG PO (08:51)
[2024-08-27] MEDS: Atorvastatin Calcium 80 MG TABLET PO (08:51)
[2024-08-27] MEDS: Lidocaine 4 % Patch ADH..PATCH 1 PATCH TRANSDERMA (08:52)
[2024-08-27] MEDS: 0.9 % Sodium Chloride Flush 3 ML SYRINGE IVFLUSH (08:52)
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
--- NOTE | 2024-08-27 10:35 | MHC.CM.PN ---
Patient medically cleared for dc to [facility]. Accepted bed at [facility] today. BLS transport scheduled for 2pm. Patient, RN, PA aware. IMM delivered. Patient also completed HCP naming is sister, Adina, as HCA.
[2024-08-27 11:13] LABS: Glucose, Whole Blood 182 mg/dL (60-115)
[2024-08-27 11:22] VITALS: BP 125/84; PULSE 109; RESP 14; TEMP 37; O2SAT 93
--- NOTE | 2024-08-27 11:49 | PC.NURSE ---
Patient discharged to [facility], alert and oriented, RA, VSS, no pain reported, called facility unable to give report
== END 2024-08-27 11:52 | disposition skilled nursing facility (03) | DRG 725 ==
LOC: HO.ED 07-22 16:22 → HO.EDOVER 07-30 14:47 → HO.S3 07-31 12:09 → HO.EDOVER 08-22 12:16
PROVIDERS: Family Medicine; Internal Medicine; Nurse Practitioner Acute Care; Physician Assistant; Physician Assistant Medical; Registered Nurse Emergency; Admitting Provider Student in an Organized Health Care Education/Training Program; Emergency Provider Emergency Medicine; Referring Provider Internal Medicine; Visit Provider Physician Assistant Medical
DX: N40.1 Benign prostatic hyperplasia with lower urinary tract symptoms (principal); S72.141A Displaced intertrochanteric fracture of right femur, initial encounter for closed fracture; N13.8 Other obstructive and reflux uropathy; N17.9 Acute kidney failure, unspecified; N13.30 Unspecified hydronephrosis; R33.8 Other retention of urine; E11.9 Type 2 diabetes mellitus without complications; E78.5 Hyperlipidemia, unspecified; K21.9 Gastro-esophageal reflux disease without esophagitis; W19.XXXA Unspecified fall, initial encounter; F32.9 Major depressive disorder, single episode, unspecified; K59.00 Constipation, unspecified; J10.1 Influenza due to other identified influenza virus with other respiratory manifestations; F17.210 Nicotine dependence, cigarettes, uncomplicated; R19.7 Diarrhea, unspecified; Z71.6 Tobacco abuse counseling; R29.6 Repeated falls; Z91.81 History of falling; Z20.822 Contact with and (suspected) exposure to COVID-19; Z75.1 Person awaiting admission to adequate facility elsewhere; Z79.82 Long term (current) use of aspirin; Z79.84 Long term (current) use of oral hypoglycemic drugs; Z79.899 Other long term (current) drug therapy
CPT/HCPCS: 36415; 70450; 71045; 72125; 73502; 74018; 74176; 80048; 80053; 82565; 82947; 83036; 85007; 85014; 85018; 85025; 85027; 85610; 85730; 87493; 87502; 87507; 87635; 97110; 97116; 97162; 97530; 99285; J0131; J1171; J1650; J2405

== ENCOUNTER → 2024-07-21 11:06 | Outpatient (BNV) | payer OTHER, SELFPAY | PROVIDERS: Emergency Provider Emergency Medicine; Visit Provider Radiology Diagnostic Radiology | DX: M25.551 Pain in right hip (principal); R05.9 Cough, unspecified; M79.661 Pain in right lower leg; W19.XXXA Unspecified fall, initial encounter | CPT/HCPCS: 70450; 71045; 72125; 73502 ==

== ENCOUNTER → 2024-07-21 11:54 | Outpatient (BNV) | payer OTHER, SELFPAY | PROVIDERS: Emergency Provider Emergency Medicine; Visit Provider Physician Assistant | DX: S72.141A Displaced intertrochanteric fracture of right femur, initial encounter for closed fracture (principal); S72.001A Fracture of unspecified part of neck of right femur, initial encounter for closed fracture | CPT/HCPCS: 99231 ==

== ENCOUNTER 2024-07-30 13:29 | Outpatient (BNV) | payer OTHER, SELFPAY | END 2024-08-22 09:08 | PROVIDERS: Admitting Provider Student in an Organized Health Care Education/Training Program; Emergency Provider Emergency Medicine; Visit Provider Radiology Vascular & Interventional Radiology | DX: R10.9 Unspecified abdominal pain (principal) | CPT/HCPCS: 74018; 74176 ==

== ENCOUNTER 2024-07-30 13:29 | Outpatient (BNV) | payer OTHER, SELFPAY | END 2024-08-04 09:20 | PROVIDERS: Admitting Provider Student in an Organized Health Care Education/Training Program; Emergency Provider Emergency Medicine; Visit Provider Radiology Diagnostic Radiology | DX: S72.001A Fracture of unspecified part of neck of right femur, initial encounter for closed fracture (principal) | CPT/HCPCS: 73502 ==

== ENCOUNTER → 2024-07-30 13:29 | Outpatient (BNV) | payer MEDICARE, SELFPAY | PROVIDERS: Admitting Provider Student in an Organized Health Care Education/Training Program; Emergency Provider Emergency Medicine; Referring Provider Internal Medicine; Visit Provider Urology | DX: N17.9 Acute kidney failure, unspecified (principal); N32.0 Bladder-neck obstruction; R33.9 Retention of urine, unspecified; K59.00 Constipation, unspecified | CPT/HCPCS: 99222 ==

== ENCOUNTER → 2024-07-30 13:29 | Outpatient (BNV) | payer OTHER, SELFPAY | PROVIDERS: Admitting Provider Student in an Organized Health Care Education/Training Program; Emergency Provider Emergency Medicine; Visit Provider Student in an Organized Health Care Education/Training Program | DX: S72.001A Fracture of unspecified part of neck of right femur, initial encounter for closed fracture (principal) | CPT/HCPCS: 99222; 99232 ==

== ENCOUNTER → 2024-07-30 13:29 | Outpatient (BNV) | payer OTHER, SELFPAY | PROVIDERS: Admitting Provider Student in an Organized Health Care Education/Training Program; Emergency Provider Emergency Medicine; Visit Provider Psychiatry & Neurology Psychiatry | DX: F32.1 Major depressive disorder, single episode, moderate (principal) | CPT/HCPCS: 99232 ==

== ENCOUNTER 2024-08-20 10:44 | Outpatient (REF) | payer MEDICARE, OTHER, SELFPAY | END 2024-08-20 10:45 | disposition home or self-care (01) | LOC: HO.HOSX 10:44 | PROVIDERS: Visit Provider Physician Assistant | DX: Z13.89 Encounter for screening for other disorder (principal) ==

== ENCOUNTER 2024-09-14 08:06 | Outpatient (AMB) | payer OTHER, SELFPAY ==
--- NOTE | 2024-09-14 08:09 | MHC.OFFVIS ---
Intake Visit Reasons: cysto/ VT Intake Note: Patient presents today for initial visit for a cysto/VT Urology Medication:Finasteride, Tamsulosin Blood Thinner:Aspirin Antibiotic Allergies:None Allergies morphine Allergy (Verified 09/14/24 08:11) Unknown HPI Comments Details: 09/14/24--Venancio was initially evaluated as an inpatient he required a Mo catheter due to urinary retention CT imaging at that time noted bilateral hydronephrosis hydroureter with distended bladder and question of soft tissue within the bladder he is here for office cystoscopy. Cystoscopy findings: prostatic urethra trilobar enlargement, obstructive, bulbous urethra WNL, no suspicious bladder lesions visualized History of Present Illness The patient is an 79-year-old male presenting with evaluation of urinary symptoms and bladder function. The patient initially presented with an indwelling catheter due to previous instances of urinary retention. During the current visit, a cystoscopic examination was performed, revealing significant thickening of the bladder wall as a result of increased efforts required for urination, a consequence of an enlarged prostate. The patient reported experiencing discomfort and pain during the scope maneuver, particularly when the bladder was filled. Previously multiple catheterization attempts were noted due to urinary retention issues. The presentation and symptoms indicate a significant obstruction caused by the enlarged prostate, leading to challenges in urination and bladder emptying. Results - Cystoscopic examination: Enlarged prostate with bladder outlet obstruction, bladder wall thickening 08/24/24--Urology Consult: Called to evaluated due to urinary retention and abn CT scan findings: Patient complains of constipation. CTAP-08/22/24--Severe bilateral hydroureteronephrosis related to extremely distended bladder as detailed suspect bladder outlet obstruction. Questioned debris versus soft tissue within the bladder [facility] Medical History GERD (gastroesophageal reflux disease) BPH (benign prostatic hyperplasia) Non-insulin dependent type 2 diabetes mellitus HLD (hyperlipidemia) HTN (hypertension) Social History Patient Tobacco Use Status: Current everyday Tobacco user Tobacco use type: Cigarette Cigarette Packs Per Day: 3 Cigarettes Per Day: 60.0 service: Yes Office Procedures Bladder/Catheter Procedure Details: Patient failed voiding trial. 16Fr coude tip Mo catheter inserted with 10ml and bag attached per Dr. Coughlin. Patient tolerated insertion well. [id number] Temporary Bladder Catheter Procedure code (CPT) selection complete Cystoscopy Consent Discussed risk and benefit or proposed procedure with the patient. Information consent for procedure given to the patient. Discussed technical aspects, risks, benefits and alternatives in full. Addressed all of the patient's questions and concerns regarding the procedure. The patient demonstrated knowledge and understanding. They wish to proceed with this procedure. Preparation The patient was prepped in the usual manner. A panel raiser operator was present and in the room. Genitalia was prepped with betadine solution in a sterile manner. Lidocaine Jelly 2% was placed into the urethra and 16Fr flexible Olympus cystoscope was inserted into the meatus after adequate lubrication. Procedure Time out per protocol performed. The flexible cystoscope is passed transurethrally: The bladder was inspected in its entirety with utilization retroflexion displaying: Tumor(s): no suspicious bladder lesions visualized Trabeculation: Moderate with cellule changes, and diverticuli Mucosal Erthema: mild to moderate c/w use of catheter Orifices: normal shape and position Urethra: normal Cystoscopy findings: prostatic urethra trilobar enlargement, obstructive, bulbous urethra WNL, no suspicious bladder lesions visualized 18Fr with 30ml Mo catheter in place. Catheter removed prior to cysto prep. [id number] DISPOSABLE SCOPE URO-G FLEXIBLE SCOPE Procedure code (CPT) selection complete Office Meds lidocaine HCl 2 % mucosal jelly in applicator Performing Provider: Chery Lazar MD [facility] Administered by: Millicent Lira RN on 09/14/24 08:44 Dose Route Admin Location Dispensed Lot Number Expiration Date NDC Concrete Pointer 20 mL intra-urethral 20 mL ciprofloxacin HCl 500 mg tablet Performing Provider: Chery Lazar MD [place] [facility] Administered by: Millicent Lira RN on 09/14/24 08:44 Dose Route Admin Location Dispensed Lot Number Expiration Date NDC Concrete Pointer 500 mg PO 1 tab phenazopyridine 200 mg tablet Performing Provider: Chery Lazar MD Performing [facility] Administered by: Millicent Lira RN on 09/14/24 08:44 Dose Route Admin Location Dispensed Lot Number Expiration Date NDC Concrete Pointer 200 mg PO 1 tab Results AMB Urinalysis, Automated UA Leukoctes 15 Pepito/uL Last Edit by Paulina Melgoza on 09/14/24 14:04 UA Nitrite Negative Last Edit by Crystal Melgoza on 09/14/24 14:04 UA Urobilinogen 3.5 mg/dL Last Edit by Crystal Melgoza on 09/14/24 14:04 UA Protein 1.0 mg/dL Last Edit by Crystal Melgoza on 09/14/24 14:04 UA pH 6.0 Last Edit by Crystal Melgoza on 09/14/24 14:04 UA Blood 25 Joshua/uL Last Edit by Crystal Melgoza on 09/14/24 14:04 UA Specific [place] 1.010 Last Edit by Paulina Melgoza on 09/14/24 14:04 UA Ketone Negative Last Edit by Paulina Melgoza on 09/14/24 14:04 UA Bilirubin 0 mg/dL Last Edit by Paulina Melgoza on 09/14/24 14:04 UA Glucose 60 mg/dL Last Edit by Paulina Melgoza on 09/14/24 14:04 Results Reviewed Results Reviewed: Laboratory Last Values Urine pH (Auto) 6.0 09/14/24 13:45 Specific [place] (Auto) 1.010 09/14/24 13:45 Urine Protein (Auto) 1.0 mg/dL 09/14/24 13:45 Glucose (UA)(Auto) 60 mg/dL 09/14/24 13:45 Urine Ketones (Auto) Negative 09/14/24 13:45 Urine Blood (Auto) 25 Joshua/uL 09/14/24 13:45 Urine Nitrite (Auto) Negative 09/14/24 13:45 Urine Bilirubin (Auto) 0 mg/dL 09/14/24 13:45 Urine Urobilinogen (Auto) 3.5 mg/dL 09/14/24 13:45 Leukocyte Esterase (Auto) 15 Pepito/uL 09/14/24 13:45 Assessment & Plan Assessment & Plan (1) Urinary retention: Code(s): R33.9 - Retention of urine, unspecified Category: Medical (2) Bladder outlet obstruction: Code(s): N32.0 - Bladder-neck obstruction Category: Medical (3) Bladder wall thickening: Code(s): N32.89 - Other specified disorders of bladder Category: Medical Plan Repeat upper tract imaging with renal ultrasound continue Mo 16 Surinamese coude continue Proscar 5 mg daily tamsulosin 0.4 mg daily Discussed treatment options to include TURP, he will need medical clearance, discussed however that there are times due to bladder muscle every mottling from significant bladder wall thickening that bladder function decreases causing neurogenic bladder and even after prostate resection urinary retention not resolve. Orders: Orders AMB Bladder/Catheter Procedure 09/14/24 R33.9 - Retention of urine, unspecified, N17.9 - Acute kidney failure, unspecified, N32.0 - Bladder-neck obstruction AMB Cystoscopy 09/14/24 N32.0 - Bladder-neck obstruction, N17.9 - Acute kidney failure, unspecified, R33.9 - Retention of urine, unspecified AMB Urinalysis Automated 09/14/24 Z13.9 - Encounter for screening, unspecified Patient Instructions: The patient had an opportunity to ask questions regarding treatment plan. The patient expressed understanding and agreement with the above treatment plan. The patient is aware they should contact our office by phone for worsening of their current condition or the appearance of new symptoms. Compliance is encouraged with any medications and followup testing that is ordered. It is a privilege to be allowed the opportunity to participate in the urologic care of your patient. If you have any questions or concerns regarding treatment for the above conditions please do not hesitate to contact me. The office telephone contact is [phone]. This note is constructed in part using voice recognition software. While every effort has been made to ensure accuracy land clearer errors may have been included. Yours sincerely, Chery Lazar MD Scribe Plan - Not visible on output: Patient was informed and verbally consented to the use of an ambient scribe for clinic note documentation during this visit. Coding Level of Care Code Est Pt Level 3 (64921) Diagnoses Urinary retention R33.9 Bladder outlet obstruction N32.0 Bladder wall thickening N32.89 CPT Codes Bladder/Catheter Procedure - CPT: 36086-Wjieda Temporary Bladder Catheter ([id number]) Cystoscopy - CPT: 88750-Zmeqaebutl ([id number])
== END 2024-09-14 09:55 | disposition home or self-care (01) ==
LOC: HO.HUSH 08:06
PROVIDERS: Visit Provider Urology
DX: R33.9 Retention of urine, unspecified (principal); N32.0 Bladder-neck obstruction; N32.89 Other specified disorders of bladder
CPT/HCPCS: 52000; 99213

== ENCOUNTER → 2024-09-14 08:06 | Outpatient (BNVA) | payer OTHER, SELFPAY | PROVIDERS: Visit Provider Urology | DX: R33.9 Retention of urine, unspecified (principal); N32.0 Bladder-neck obstruction; N32.89 Other specified disorders of bladder | CPT/HCPCS: 52000; 81003; 99212 ==

== ENCOUNTER → 2024-10-15 12:10 | Outpatient (BNVA) | payer OTHER, SELFPAY | PROVIDERS: Visit Provider Urology | DX: R33.9 Retention of urine, unspecified (principal) | CPT/HCPCS: 51702 ==

== ENCOUNTER → 2024-11-12 13:07 | Outpatient (BNVA) | payer OTHER, SELFPAY | PROVIDERS: Visit Provider Urology | DX: R33.9 Retention of urine, unspecified (principal) | CPT/HCPCS: 51705 ==

== ENCOUNTER 2024-12-03 14:11 | Outpatient (AMB) | payer OTHER, SELFPAY ==
--- NOTE | 2024-12-03 14:27 | A.OFFVIS_ITS ---
Intake Visit Reasons: US follow up Intake Note: Pt presents to the office today for an US follow up. Allergies morphine Allergy (Verified 12/03/24 14:34) Unknown HPI Comments Details: 12/03/24-- History of Present Illness - The patient is an 79-year-old male presenting with urinary retention. - The patient has a history of urinary retention, initially identified in August, with a CT scan showing lateral hydronephrosis and a distended bladder. - A Mo catheter was placed to manage the bladder outlet obstruction, and the patient has failed voiding trials since then. - Recent ultrasound on 09/21/24 confirmed the catheter was in the correct position, with the bladder decompressed and resolution of hydronephrosis. - The patient is currently on finasteride 5 mg daily and tamsulosin 0.4 mg daily for prostate management. Urinary Symptoms Review - Urinary retention requiring Mo catheter placement - Failed voiding trials Results - Ultrasound (09/21/24): Catheter in correct position, bladder decompressed, resolution of hydronephrosis 09/14/24--Venancio was initially evaluated as an inpatient he required a Mo catheter due to urinary retention CT imaging at that time noted bilateral hydronephrosis hydroureter with distended bladder and question of soft tissue within the bladder he is here for office cystoscopy. Cystoscopy findings: prostatic urethra trilobar enlargement, obstructive, bulbous urethra WNL, no suspicious bladder lesions visualized History of Present Illness The patient is an 79-year-old male presenting with evaluation of urinary symptoms and bladder function. The patient initially presented with an indwelling catheter due to previous instances of urinary retention. During the current visit, a cystoscopic examination was performed, revealing significant thickening of the bladder wall as a result of increased efforts required for urination, a consequence of an enlarged prostate. The patient reported experiencing discomfort and pain during the scope maneuver, particularly when the bladder was filled. Previously multiple catheterization attempts were noted due to urinary retention issues. The presentation and symptoms indicate a significant obstruction caused by the enlarged prostate, leading to challenges in urination and bladder emptying. Results - Cystoscopic examination: Enlarged prostate with bladder outlet obstruction, bladder wall thickening 08/24/24--Urology Consult: Called to evaluated due to urinary retention and abn CT scan findings: Patient complains of constipation. CTAP-08/22/24--Severe bilateral hydroureteronephrosis related to extremely di stended bladder as detailed suspect bladder outlet obstruction. Questioned debris versus soft tissue within the bladder [facility] Medical History GERD (gastroesophageal reflux disease) BPH (benign prostatic hyperplasia) Non-insulin dependent type 2 diabetes mellitus HLD (hyperlipidemia) HTN (hypertension) Social History Patient Tobacco Use Status: Current everyday Tobacco user Tobacco use type: Cigarette Cigarette Packs Per Day: 3 Cigarettes Per Day: 60.0 service: Yes Review of Systems Const All systems reviewed & are unremarkable except as noted in HPI and below Reports no additional complaints Eyes Reports no additional complaints ENT Reports no additional complaints Card Reports no additional complaints Resp Reports no additional complaints GI Reports no additional complaints Reports as per HPI Musc Reports no additional complaints Skin/Breast Reports system reviewed and no additional complaints, except as documented Neuro Reports no additional complaints Psych Reports no additional complaints Endo Reports no additional complaints Bo/Lymph Reports no additional complaints Aller/Immun Reports no additional complaints Office Procedures Bladder/Catheter Procedure Details: Instilled 120ml sterile water into patients bladder via 16 Fr coude catheter and then catheter removed. Patient tolerated removal. Patient attempted to void, but unable and reports no urge to void. Dr. Coughlin notified and ordered to re-insert 16 Fr coude catheter. New 16 Fr coude catheter with 10 ml and night bag inserted. Plan for patient to return in 4 weeks for cath change. 36283-Bcxpbkfhrf of Bladder 38730-Omcevv Temporary Bladder Catheter Procedure code (CPT) selection complete Assessment & Plan Assessment & Plan (1) Urinary retention: Code(s): R33.9 - Retention of urine, unspecified Category: Medical (2) Bladder outlet obstruction: Code(s): N32.0 - Bladder-neck obstruction Category: Medical (3) Bladder wall thickening: Code(s): N32.89 - Other specified disorders of bladder Category: Medical Plan Plan - Continue current medications: finasteride 5 mg daily and tamsulosin 0.4 mg daily. - Failed voiding trial - Sched urod Orders: Orders AMB Bladder/Catheter Procedure 12/03/24 N32.0 - Bladder-neck obstruction, R33.9 - Retention of urine, unspecified Patient Instructions: The patient had an opportunity to ask questions regarding treatment plan. The patient expressed understanding and agreement with the above treatment plan. The patient is aware they should contact our office by phone for worsening of their current condition or the appearance of new symptoms. Compliance is enco uraged with any medications and followup testing that is ordered. It is a privilege to be allowed the opportunity to participate in the urologic care of your patient. If you have any questions or concerns regarding treatment for the above conditions please do not hesitate to contact me. The office telephone contact is [phone]. This note is constructed in part using voice recognition software. While every effort has been made to ensure accuracy pitting machine operator errors may have been included. Yours sincerely, Chery Lazar MD Scribe Plan - Not visible on output: Patient was informed and verbally consented to the use of an ambient scribe for clinic note documentation during this visit. Coding Level of Care Code Est Pt Level 4 (89241) Diagnoses Urinary retention R33.9 Bladder outlet obstruction N32.0 Bladder wall thickening N32.89 CPT Codes Bladder/Catheter Procedure - CPT: 90350-Xucljhhpig of Bladder ([id number]) Bladder/Catheter Procedure - CPT: 73851-Bgjekt Temporary Bladder Catheter ([id number])
== END 2024-12-03 15:39 | disposition home or self-care (01) ==
LOC: HO.HUSH 14:11
PROVIDERS: Visit Provider Urology
DX: R33.9 Retention of urine, unspecified (principal); N32.0 Bladder-neck obstruction; N32.89 Other specified disorders of bladder
CPT/HCPCS: 51700; 99214

== ENCOUNTER → 2024-12-03 14:11 | Outpatient (BNVA) | payer OTHER, SELFPAY | PROVIDERS: Visit Provider Urology | DX: R33.9 Retention of urine, unspecified (principal); N32.0 Bladder-neck obstruction; N32.89 Other specified disorders of bladder | CPT/HCPCS: 51700; 99212 ==

== ENCOUNTER 2025-03-26 10:20 | Outpatient (AMB) | payer MEDICARE, MEDICAID, SELFPAY ==
--- NOTE | 2025-03-26 11:20 | AM.OFFVISNUR ---
Intake Visit Reasons: UroD Allergies morphine Allergy (Verified 12/03/24 14:34) Unknown Assessment & Plan Assessment & Plan Orders: Orders AMB Urodynamics Studies Today R33.9 - Retention of urine, unspecified Medications: New nitrofurantoin monohyd/m-cryst 100 mg 100 mg PO ONCE 1 cap 0RF R33.9 - Retention of urine, unspecified Coding
--- NOTE | 2025-03-26 11:21 | MHC.OFFVIS ---
Intake Visit Reasons: UroD Allergies morphine Allergy (Verified 12/03/24 14:34) Unknown Medication List - Last Reconciled 03/26/25 by Chery Lazar MD acetaminophen 1,000 mg PO TID PRN aspirin 162 mg PO DAILY atorvastatin 80 mg PO DAILY bisacodyl 10 mg OK DAILY PRN calcium carbonate-vitamin D3 600 mg-10 mcg (400 unit) (Calcium 600 + D(3)) 1 tab PO DAILY cholecalciferol (vitamin D3) (Vitamin D3) 10 mcg PO DAILY empagliflozin (Jardiance) 25 mg PO DAILY finasteride 5 mg PO DAILY fluoxetine (Prozac) 10 mg PO DAILY glipizide 2.5 mg PO DAILY lidocaine 5% 1 patch topical DAILY magnesium aspart,citrate,oxide mg PO meclizine 12.5 mg PO BID-QID PRN methocarbamol 750 mg PO TID midodrine 5 mg PO TID mirtazapine 7.5 mg PO BEDTIME nicotine 14 mg transdermal DAILY omeprazole 20 mg PO BID@0630,1630 potassium chloride 20 mEq PO DAILY quetiapine (Seroquel) 25 mg PO BEDTIME sodium phosphates 19-7 gram/118 mL (Fleet Enema) 118 mL OK DAILY PRN sucralfate (Carafate) 1 g PO QID tamsulosin 0.4 mg PO DAILY trazodone 100 mg PO BEDTIME PRN HPI Comments Details: 03/26/2025--Venancio is an 79-year-old patient who I am following for urinary retention he has failed several voiding trials. He is currently on finasteride and tamsulosin. Urodynamics today does notes some detrusor contractions during the filling phase. 120 mL of fluids was filled before there was leakage around the catheter. The urinary retention has been persistent, with the patient failing several voiding trials despite being on finasteride and tamsulosin. Discussed plan including SP tube and green light laser to facilitate urination. The patient was advised that after green light laser he still may have symptoms of voiding dysfunction requiring persistence of the SP tube catheter. 30 minutes spent in review of records pertaining to this visit and including [id number] discussion with the patient and documentation of this visit. Results - Urodynamic study: Detrusor contractions during filling phase, leakage around catheter after 120 mL fluid filled - Cystoscopic examination 09/14/24--- Cystoscopic examination: Enlarged prostate with bladder outlet obstruction, bladder wall thickening Plan 1. Urinary Retention 2. Benign Prostatic Hyperplasia - Green light laser and SP tube - Obtain medical clearance for procedure under anesthesia. 12/03/24-- - The patient is an 79-year-old male presenting with urinary retention. - The patient has a history of urinary retention, initially identified in August, with a CT scan showing lateral hydronephrosis and a distended bladder. - A Escalante catheter was placed to manage the bladder outlet obstruction, and the patient has failed voiding trials since then. - Recent ultrasound on 09/21/24 confirmed the catheter was in the correct position, with the bladder decompressed and resolution of hydronephrosis. - The patient is currently on finasteride 5 mg daily and tamsulosin 0.4 mg daily for prostate management. Urinary Symptoms Review - Urinary retention requiring Escalante catheter placement - Failed voiding trials Results - Ultrasound (09/21/24): Catheter in correct position, bladder decompressed, resolution of hydronephrosis 09/14/24--Venancio was initially evaluated as an inpatient he required a Escalante catheter due to urinary retention CT imaging at that time noted bilateral hydronephrosis hydroureter with distended bladder and question of soft tissue within the bladder he is here for office cystoscopy. Cystoscopy findings: prostatic urethra trilobar enlargement, obstructive, bulbous urethra WNL, no suspicious bladder lesions visualized History of Present Illness The patient is an 79-year-old male presenting with evaluation of urinary symptoms and bladder function. The patient initially presented with an indwelling catheter due to previous instances of urinary retention. During the current visit, a cystoscopic examination was performed, revealing significant thickening of the bladder wall as a result of increased efforts required for urination, a consequence of an enlarged prostate. The patient reported experiencing discomfort and pain during the scope maneuver, particularly when the bladder was filled. Previously multiple catheterization attempts were noted due to urinary retention issues. The presentation and symptoms indicate a significant obstruction caused by the enlarged prostate, leading to challenges in urination and bladder emptying. Results - Cystoscopic examination: Enlarged prostate with bladder outlet obstruction, bladder wall thickening 08/24/24--Urology Consult: Called to evaluated due to urinary retention and abn CT scan findings: Patient complains of constipation. CTAP-08/22/24--Severe bilateral hydroureteronephrosis related to extremely distended bladder as detailed suspect bladder outlet obstruction. Questioned debris versus soft tissue within the bladder [facility] Medical History GERD (gastroesophageal reflux disease) BPH (benign prostatic hyperplasia) Non-insulin dependent type 2 diabetes mellitus HLD (hyperlipidemia) HTN (hypertension) Social History Patient Tobacco Use Status: Current everyday Tobacco user Tobacco use type: Cigarette Cigarette Packs Per Day: 3 Cigarettes Per Day: 60.0 service: Yes Office Procedures Urodynamic Studies Consent Discussed risk and benefit or proposed procedure with the patient. Information consent for procedure given to the patient. Discussed technical aspects, risks, benefits and alternatives in full. Addressed all of the patient's questions and concerns regarding the procedure. The patient demonstrated knowledge and understanding. They wish to proceed with this procedure. Preparation The patient was prepped in the usual manner. A strategic planning director was present and in the room. Genitalia was prepped with betadine solution in a sterile manner. Procedure 16 Fr escalante catheter removed prior to start of the test. Complex Uroflow Unable to perform due to patient having chronic escalante catheter Cystometrogram ? Vaginal/rectal catheter type: Rectal First sensation at (mL): 10 mL Patient could feel the infusion, but did not have any desires to urinate. There was a constant drip of water from the Urethra throughout the test that patient could not control. Maximum Capacity (mL): 129 mL Voiding Summary Patient attempted, but unable to void. Voided volume (mL): ? 0 Calculated PVR: 129 mL New 16Fr escalante catheter inserted with 10mls and leg bag. Patient tolerated insertion. approx 100ml removed from the bladder once catheter inserted. Prep: The patient was prepped in the usual manner. A strategic planning director was present and in the room. Genitalia was prepped with betadine solution in a sterile manner. 35098-Jujqzmaahnfoyx w/ STERILE PROCESSING MANAGER 91075-Ylhj/Urinary Muscle Study 67034-Enxog-Fiiojklzu Pressure Test Procedure code (CPT) selection complete Office Meds nitrofurantoin monohydrate/macrocrystals 100 mg capsule Performing Provider: Chery Lazar MD [facility] Administered by: Millicent Lira RN on 03/26/25 11:21 Dose Route Admin Location Dispensed Lot Number Expiration Date [employer] 100 mg PO 1 cap Assessment & Plan Assessment & Plan (1) Urinary retention: Code(s): R33.9 - Retention of urine, unspecified Category: Medical (2) Bladder outlet obstruction: Code(s): N32.0 - Bladder-neck obstruction Category: Medical (3) Bladder wall thickening: Code(s): N32.89 - Other specified disorders of bladder Category: Medical Plan Schedule green light laser and SP tube Medical clearance Orders: Orders AMB Urodynamics Studies 03/26/25 R33.9 - Retention of urine, unspecified Patient Instructions: The patient had an opportunity to ask questions regarding treatment plan. The patient expressed understanding and agreement with the above treatment plan. The patient is aware they should contact our office by phone for worsening of their current condition or the appearance of new symptoms. Compliance is encouraged with any medications and followup testing that is ordered. It is a privilege to be allowed the opportunity to participate in the urologic care of your patient. If you have any questions or concerns regarding treatment for the above conditions please do not hesitate to contact me. The office telephone contact is [phone]. This note is constructed in part using voice recognition software. While every effort has been made to ensure accuracy breast puller errors may have been included. Yours sincerely, Chery Lazar MD Scribe Plan - Not visible on output: Patient was informed and verbally consented to the use of an ambient scribe for clinic note documentation during this visit. Coding Level of Care Code Est Pt Level 4 (36864) Diagnoses Urinary retention R33.9 Bladder outlet obstruction N32.0 Bladder wall thickening N32.89 CPT Codes Urodynamic Studies - CPT: 43564-Bypnclltfccecl w/ STERILE PROCESSING MANAGER ([id number]) Urodynamic Studies - CPT: 93720-Iecc/Urinary Muscle Study ([id number]) Urodynamic Studies - CPT: 65392-Fftad-Ehcapmfrl Pressure Test ([id number])
== END 2025-03-26 11:47 | disposition home or self-care (01) ==
LOC: HO.HUSH 10:21
PROVIDERS: Visit Provider Urology
DX: R33.9 Retention of urine, unspecified (principal)
CPT/HCPCS: 51728; 51784; 51797; 99214

== ENCOUNTER → 2025-03-26 10:20 | Outpatient (BNVA) | payer OTHER, SELFPAY | PROVIDERS: Visit Provider Urology | DX: R33.9 Retention of urine, unspecified (principal); N32.0 Bladder-neck obstruction; N32.89 Other specified disorders of bladder | CPT/HCPCS: 51728; 51784; 51797; 99212 ==